=== PATIENT | male | born 1945 | race Caucasian/White ===

== ENCOUNTER → 2016-03-11 | Outpatient (CLI) | payer BC ==
[~2016-03-11] MED LIST: ALBUAER2 INH; ALFU10TA30 PO; AMIO200T4 PO; AMOX875T PO; ASPI81CH2 PO; ATRINS NEB; BENZ100C18 PO; BENZ100C84 PO; BUSP-8 PO; BUSP15TA70 PO; CIPR-255 PO; DOCU-94 PO; DXM/4 PO; DXY100 PO; FLUT0.0529 NAE; FLUT0.15 NAE; LEVA1.258 INH; LEVO-366 PO; LINA1CAP PO; LORA-741 PO; METR-163 PO; NTRGSL/4 UT; ONDA-63 PO; ONDA8TAB7 PO; OXYC-57 PO; OXYC-609 PO; OXYC80TA16 PO; PRD/25 PO; PRD20 PO; PRED-301 PO; PRED10TA PO; PRLSR20 PO; PROM25SU28 PR; SENN1TAB77 PO; SPRIN/30 INH; SULF-183 PO; SYMIN160 INH; VNTHFA/IN INH; ZOLP10TA PO
--- NOTE | 2016-03-17 13:25 | CODING QUERY MEDICAL NECESSITY ---
SUPPORTING DIAGNOSIS NEEDED Dr. Mc, A supporting diagnosis is required for the test/procedure performed on this patient in order for us to be reimbursed by the patient's insurance. Please provide a supporting diagnosis for the following test/procedure listed below next to the test name along with your signature. *If there is no additional diagnosis for this patient that would support the following test/procedure please document that below next to the test/procedure. Test(s)/Procedure(s) that require a supporting diagnosis: * [id number] PSA DIAGNOSIS: DATE OF SERVICE: 03/11/16 Provider Signature: Date: Thank you Eric Gil [facility] Information Management Once completed, please kindly fax back to [phone] For questions please call [phone]
== END | disposition home or self-care (01) ==
LOC: C.LABMFLN 08:43
PROVIDERS: ATTEND Urology
DX: R39.9 Unspecified symptoms and signs involving the genitourinary system (principal); N40.0 Benign prostatic hyperplasia without lower urinary tract symptoms

== ENCOUNTER 2016-04-11 11:47 | Emergency (ER) | payer BC ==
[~2016-04-11] VITALS: Ht 175.3 cm; Wt 66.8 kg
[~2016-04-11 11:47] MED LIST changes: -AMOX875T PO; -ATRINS NEB; -BENZ100C18 PO; -BENZ100C84 PO; -BUSP15TA70 PO; -CIPR-255 PO; -DOCU-94 PO; -DXM/4 PO; -DXY100 PO; -FLUT0.15 NAE; -LEVO-366 PO; -LORA-741 PO; -METR-163 PO; -ONDA-63 PO; -OXYC-57 PO; -OXYC-609 PO; -OXYC80TA16 PO; -PRD/25 PO; -PRD20 PO; -PRED10TA PO; -PROM25SU28 PR; -SENN1TAB77 PO; -SULF-183 PO; -VNTHFA/IN INH; -ZOLP10TA PO
[2016-04-11 11:49] VITALS: TEMP 37.8; Ht 175.3 cm; Wt 66.8 kg
[2016-04-11] MEDS ORDERED: ONDA-63 PO (12:11)
[2016-04-11] MEDS ORDERED: VNTHFA/IN INH (12:11)
[2016-04-11] MEDS ORDERED: FLUT0.15 NAE (12:11)
[2016-04-11 12:32] LABS: URINE APPEARANCE CLEAR (CLEAR); URINE BILIRUBIN NEG (NEG); URINE COLOR YELLOW; URINE NITRITE NEG (NEG); URINE SPECIFIC GRAVITY 1.011 (1.000-1.030); UROBILINOGEN NEG (NEG); ZZUR CULT IF INDIC CLEAN CATCH NO
[2016-04-11 12:37] LABS: BASO % 0.2 %; BASO ABS # 0.02 K/uL (0-0.2); COMPLETE YES; EOS % 1.1 %; HEMATOCRIT 34.1 % (42-52); IG% 0.2 %; LYMPH % 12.6 %; LYMPH ABS # 1.05 K/uL (1.2-3.4); MEAN CELL VOLUME 92.9 fL (80-100); MEAN CORPUSCULAR HEMOGLOBIN 28.9 pg (25-34); MEAN CORPUSCULAR HGB CONC 31.1 g/dl (32-36); MEAN PLATELET VOLUME 9.3 fL (7.4-10.4); MONO % 11.6 %; NEUT % 74.3 %; PLATELET COUNT 176 K/uL (130-400); RED BLOOD COUNT 3.67 M/uL (4.7-6.1); WHITE BLOOD COUNT 8.36 K/uL (4.8-10.8)
[2016-04-11 12:45] LABS: MANUAL MICROSCOPIC REQUIRED? NO; REVIEW REQ? NO
[2016-04-11 12:54] LABS: BUN/CREATININE RATIO 17.3 (10-20); CALCIUM 8.3 mg/dl (8.5-10.1); CREATININE 1.1 mg/dl (0.60-1.40); POTASSIUM 3.9 mmol/L (3.5-5.1)
[2016-04-11 12:57] LABS: ALB/GLOB RATIO 0.8 (0.9-2)
[2016-04-11] MEDS ORDERED: ONDANSETRON INJ 2 MG/ML 2 ML VIAL IV PRN (13:00)
[2016-04-11] MEDS ORDERED: SODIUM CHLORIDE 0.9% 1000ML 1,000 ML IV ONE (13:00)
--- NOTE | 2016-04-11 13:09 | EMERGENCY ROOM VISIT NOTE ---
History Report prepared by Iraida: Corky Molina Under the Supervision of: Dr. Bernardo Almonte M.D. First contact with patient: 12:49 Chief Complaint: ABDOMINAL PAIN Stated Complaint: SEVERE ABD. PAIN GOING INTO CHEST Nursing Triage Summary: pt has had left lower abd pain for greater than month, seen pcp, referred to Gastro to have colonoscopy. Recently pain goes across into right side and epigastric pt dx with fungal gastritis and started on an antifungal rinse yesterday pt has neptali cancer, and next month to start a new tx for spotts present in liver pt is nauseated told by pcp full of stool, causing pain, pt had large bm with no relief of pain History of Present Illness The patient is a 70 year old male with COPD who presents to the Emergency Room with complaints of constant left sided abdominal pain beginning one month prior to arrival. He currently rates his discomfort as a 9/10 in severity. The patient associates left sided abdominal pain that radiates to the right side of his abdomen and epigastrium, nausea, chills, and abdominal pain that radiates into his chest, which makes it difficult to swallow. He notes he has a history of lung cancer, in which, he had his upper left lung removed. The patient states he has spots to his liver and lymph nodes in his chest. He notes he is scheduled to receive a new treatment in nine days. The patient states he was recently at [facility], and a PET scan showed esophagitis and a spot on the left side of his liver. He notes his oncologist told him not to worry about the esophagitis at this time. The patient states he has had difficulty moving his bowel recently, and he is scheduled for a colonoscopy in four days. He notes he took a laxative two days ago, which helped relieve his constipation. The patient denies a fever. 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 Review of Systems All systems have been listed, reviewed, and are negative other than those previously mentioned. Please see Additional Medical History Sheet. Past Medical & Surgical Medical Problems: (1) Atrial fibrillation with RVR (2) Basal cell carcinoma of skin (3) COPD (chronic obstructive pulmonary disease) (4) Heart disease (5) Hyperlipidemia (6) Hypertension (7) Kidney stones (8) Lung cancer (9) Myocardial infarction (10) Primary cancer of left upper lobe of lung (11) Pulmonary embolism Surgical Problems: (1) H/O hernia repair (2) History of angioplasty (3) Hx of appendectomy (4) S/P lobectomy of lung Family History FH: CAD (coronary artery disease) FATHER (passed at age 59 from [place]) MOTHER Social History Smoking Status: Former Smoker Alcohol Use: other Drug Use: none Marital Status: Housing Status: lives with family Occupation Status: retired Current/Historical Medications Scheduled Alfuzosin Hcl (Uroxatral), 10 MG PO QPM Amiodarone Hcl (Cordarone), 200 MG PO QAM Amoxicillin & Pot Clavulanate (Augmentin 875-125 mg), 1 TAB PO BID Aspirin (Aspirin), 81 MG PO QAM Budesonide/Formoterol Fumarate (Symbicort 160/4.5 Inhaler), 2 PUFFS INH BID Buspirone Hcl (Buspirone Hcl), 10 MG PO QAM Docusate Sodium (Colace), 1 CAP PO BID Levalbuterol Hcl (Levalbuterol Hcl), 1 DOSE INH TID Nitroglycerin (Nitrostat), 0.4 MG UT PRN Omeprazole (Prilosec), 20 MG PO QAM Prednisone (Prednisone), 10 MG PO QAM Sennosides (Senokot), 8.6 MG PO HS Tiotropium [place] (Spiriva Handihaler), 1 PUFF INH QPM Scheduled PRN Albuterol Hfa (Ventolin Hfa), 2 PUFFS INH QID PRN for SOB/Wheezing Fluticasone Propionate (Nasal) (Flonase Allergy Relief), 2 SPRAYS ANGELA DAILY PRN for ALLERGIC REACTION Linaclotide (Linzess), 1 TAB PO Q2D PRN for ABDOMINAL PAIN Ondansetron (Ondansetron HCl), 8 MG PO Q8 PRN for Nausea or Vomiting Oxycodone/Acetaminophen 5MG/325MG (Percocet 5MG/325MG), 1-2 TAB PO Q4H PRN for Pain Allergies Coded Allergies: No Known Allergies (Unverified , 04/11/16) Physical Exam Vital Signs Date Time Temp Pulse Resp B/P Pulse Ox O2 Delivery O2 Flow Rate FiO2 04/11/16 17:59 74 18 165/86 95 04/11/16 15:47 70 20 141/85 100 Room Air 04/11/16 13:49 81 20 144/87 97 04/11/16 11:49 37.8 90 20 119/79 98 Room Air Physical Exam GENERAL: Patient awake, alert, oriented x 3. Patient follows commands. Patient does not appear toxic. Patient is adequately hydrated and well- nourished. SKIN: No erythema, pallor, cyanosis or rash HEENT: Normal head, pupils equal, reactive to light and accommodation. Oral cavity and posterior pharynx appear normal. Neck: Without adenopathy, no neck vein distention. LUNGS: Wheezes in all blount, left greater than right. HEART: No murmurs. No gallops. No rubs ABDOMEN: Patient has a right lower quadrant scar that is well healed. Tenderness along the entire left side of abdomen. No masses are palpated. EXTREMITIES: No signs of trauma. No pedal or pretibial edema. No calf or thigh tenderness. NEUROLOGIC: Cranial nerves II-XII within normal limits. No gross motor sensory function deficits. Medical Decision & Procedures Laboratory Results 04/11/16 12:30 Red Blood Count 3.67, Mean Corpuscular Volume 92.9, Mean Corpuscular Hemoglobin 28.9, Mean Corpuscular Hemoglobin Concent 31.1, Mean Platelet Volume 9.3, Neutrophils (%) (Auto) 74.3, Lymphocytes (%) (Auto) 12.6, Monocytes (%) (Auto) 11.6, Eosinophils (%) (Auto) 1.1, Basophils (%) (Auto) 0.2, Neutrophils # (Auto ) 6.21, Lymphocytes # (Auto) 1.05, Monocytes # (Auto) 0.97, Eosinophils # (Auto ) 0.09, Basophils # (Auto) 0.02 04/11/16 12:30 Test 04/11/16 12:10 04/11/16 12:30 Urine Color YELLOW Urine Appearance CLEAR (CLEAR) Urine pH 6.0 (4.5-7.5) Urine Specific [place] 1.011 (1.000-1.030) Urine Protein 1+ (NEG) Urine Glucose (UA) NEG (NEG) Urine Ketones 1+ (NEG) Urine Occult Blood NEG (NEG) Urine Nitrite NEG (NEG) Urine Bilirubin NEG (NEG) Urine Urobilinogen NEG (NEG) Urine Leukocyte Esterase NEG (NEG) Urine WBC (Auto) 1-5 /hpf (0-5) Urine RBC (Auto) 0-4 /hpf (0-4) Urine Hyaline Casts (Auto) 1-5 /lpf (0-5) Urine Epithelial Cells (Auto) 5-10 /lpf (0-5) Urine Bacteria (Auto) NEG (NEG) White Blood Count 8.36 K/uL (4.8-10.8) Red Blood Count 3.67 M/uL (4.7-6.1) Hemoglobin 10.6 g/dL (14.0-18.0) Hematocrit 34.1 % (42-52) Mean Corpuscular Volume 92.9 fL (80-100) Mean Corpuscular Hemoglobin 28.9 pg (25-34) Mean Corpuscular Hemoglobin Concent 31.1 g/dl (32-36) Platelet Count 176 K/uL (130-400) Mean Platelet Volume 9.3 fL (7.4-10.4) Neutrophils (%) (Auto) 74.3 % Lymphocytes (%) (Auto) 12.6 % Monocytes (%) (Auto) 11.6 % Eosinophils (%) (Auto) 1.1 % Basophils (%) (Auto) 0.2 % Neutrophils # (Auto) 6.21 K/uL (1.4-6.5) Lymphocytes # (Auto) 1.05 K/uL (1.2-3.4) Monocytes # (Auto) 0.97 K/uL (0.11-0.59) Eosinophils # (Auto) 0.09 K/uL (0-0.5) Basophils # (Auto) 0.02 K/uL (0-0.2) RDW Standard Deviation 62.4 fL (36.4-46.3) RDW Coefficient of Variation 18.3 % (11.5-14.5) Immature Granulocyte % (Auto) 0.2 % Immature Granulocyte # (Auto) 0.02 K/uL (0.00-0.02) Anion Gap 15.0 mmol/L (3-11) Est Creatinine Clear Calc Drug Dose 60.7 ml/min Estimated GFR () 79.5 Estimated GFR (Non- 68.6 BUN/Creatinine Ratio 17.3 (10-20) Calcium Level 8.3 mg/dl (8.5-10.1) Total Bilirubin 0.6 mg/dl (0.2-1) Aspartate Amino Transf (AST/SGOT) 22 U/L (15-37) Alanine Aminotransferase (ALT/SGPT) 37 U/L (12-78) Alkaline Phosphatase 211 U/L (45-117) Total Protein 6.2 gm/dl (6.4-8.2) Albumin 2.8 gm/dl (3.4-5.0) Globulin 3.4 gm/dl (2.5-4.0) Albumin/Globulin Ratio 0.8 (0.9-2) Lipase 215 U/L (73-393) Laboratory results as stated above per my review. Medications Administered Medications (Trade) Dose Ordered Sig/Isai Route Start Time Stop Time Status Last Admin Dose Admin Morphine Sulfate (MoRPHine SULFATE INJ) 6 mg Q1H PRN IV 04/11/16 13:00 04/11/16 18:26 DC 04/11/16 17:29 6 MG Ondansetron HCl 4 mg 4 mg PRN PRN IV 04/11/16 13:00 04/11/16 18:26 DC 04/11/16 13:48 4 MG Sodium Chloride (Nss 1000ml) 1,000 ml @ 1,000 mls/hr Q1H ONCE IV 04/11/16 13:00 04/11/16 13:59 DC 04/11/16 13:47 1,000 MLS/HR Ondansetron HCl (Zofran Inj) 4 mg NOW STAT IV 04/11/16 16:48 04/11/16 16:49 DC 04/11/16 17:07 4 MG Amoxicillin/ Clavulanate Potassium (Augmentin Tab) 875 mg ONE ONCE PO 04/11/16 17:15 04/11/16 17:16 DC 04/11/16 17:28 875 MG ECG Indication: abdominal pain Rate (beats per minute): 83 Rhythm: normal sinus Findings: no acute ischemic change, no ectopy ED Course 1247: Past medical records reviewed. The patient was evaluated in room C5. A complete history and physical examination was performed. It is noted the patient was allowed to use his own albuterol inhaler. 1300: Ordered Sodium Chloride 1,000 ml @ 1,000 mls/hr IV, Zofran Inj 4 mg IV, Morphine Sulfate 6 mg IV. 1615: The patient will be signed out to ANNAMARIA Mason (Emergency Medicine). Medical Decision Nurses notes reviewed. Medical history sheet reviewed. Differential diagnosis includes but is not limited to: metastatic lung cancer, colitis, bowel obstruction, diverticulitis. Multiple labs and imaging were obtained. Please see above. The patient was signed off to Dr. Joiner at change of shift awaiting results of the CT scan. Please see his note. Impression Primary Impression: Abdominal pain, periumbilic Scribe Attestation The scribe's documentation has been prepared under my direction and personally reviewed by me in its entirety. I confirm that the note above accurately reflects all work, treatment, procedures, and medical decision making performed by me. Departure Information Dispostion Still a Patient (ANNAMARIA Mason (Emergency Medicine)) Prescriptions Docusate Sodium (COLACE) 100 Mg Cap 1 CAP PO BID for 10 Days, #20 CAP Prov: Rufus Joiner MD 04/11/16 Sennosides (SENOKOT) 8.6 Mg Tab 8.6 MG PO HS, #10 TAB Prov: Rufus Joiner MD 04/11/16 Oxycodone/Acetaminophen 5MG/325MG (PERCOCET 5MG/325MG) Tab 1-2 TAB PO Q4H Y for Pain, #14 TAB Prov: Rufus Joiner MD 04/11/16 Amoxicillin & Pot Clavulanate (Augmentin 875-125 mg) 1 Tab Tab 1 TAB PO BID for 10 Days, #20 TAB Prov: Rufus Joiner MD 04/11/16 Referrals Violetta Kimbrough M.D. (PCP)
[2016-04-11] MEDS ORDERED: OPTIRAY 320 IV PRN (13:15)
[2016-04-11] MEDS: MoRPHine SULFATE 10 MG/ML CARP/VIAL IV PRN ×2 (13:48→17:29)
[2016-04-11] MEDS ORDERED: ONDANSETRON INJ 2 MG/ML 2 ML VIAL IV STA (16:48)
--- NOTE | 2016-04-11 16:55 | DIAGNOSTIC IMAGING REPORT ---
ABDOMEN AND PELVIS CT WITH IV AND ORAL CONTRAST CT DOSE: 301.69 mGy.cm HISTORY: Pain left sided abd pain lung CA TECHNIQUE: Multiaxial CT images of the abdomen and pelvis were performed following the use of intravenous and oral contrast. COMPARISON STUDY: 09/05/2014 FINDINGS: lung bases are clear. Interval development of acute sigmoid diverticulitis. Moderate wall thickening as well as pericolonic infiltrative change. No evidence for abscess or collection at the current time Fluid pocket left inguinal region is unchanged. No significant pelvic adenopathy. Mild wall thickening of the descending colon. A sending and transverse colonic regions are unremarkable. Left and to lesser extent right renal cystic changes stable. No evidence for hydronephrosis. Interval development of distention of the extra hepatic common bile duct to 8 mm. Progressive distention of the intrahepatic ducts in the left hepatic lobe/components of the medial right hepatic lobe possibly secondary to developing hepatic metastatic change. There appears to be a peripheral hypodensity left hepatic lobe measuring 1.8 cm. A developing periportal hypodensity measuring 1.7 cm is also possible. Pancreatic duct does not appear to be distended. There is atelectatic change and ectasia of the abdominal aorta as well as iliac vasculature. Survey evaluation of the osseous structures shows no well-defined lytic or blastic process. IMPRESSION: 1. Acute sigmoid diverticulitis with less prominent findings involving the descending colon. 2. Pericolonic infiltrative change, although there is no evidence for abscess or collection. 3. Interval dilatation of the extra hepatic common bile duct 8 mm with progressive distention of the left and to lesser extent medial right hepatic lobe ductal system. 4. This appears to be secondary to probable developing hepatic metastatic change . Primary biliary neoplastic change on a multifocal bases is less likely Electronically signed by: Nicolas Mora M.D. 04/11/2016 4:54 PM Dictated Date/Time: 04/11/2016 4:43 PM
[2016-04-11] MEDS ORDERED: AMOXICILLIN/CLAVULANATE TAB 875 MG TAB PO ONE (17:15)
[2016-04-11] MEDS ORDERED: MoRPHine SULFATE 10 MG/ML CARP/VIAL IV STA (17:17)
[2016-04-11] MEDS ORDERED: SENN1TAB77 PO (17:22)
[2016-04-11] MEDS ORDERED: AMOX875T PO (17:22)
[2016-04-11] MEDS ORDERED: DOCU-94 PO (17:22)
[2016-04-11] MEDS ORDERED: OXYC-57 PO (17:22)
--- NOTE | 2016-04-11 17:26 | EMERGENCY ROOM VISIT NOTE ---
ED Visit Note First contact with patient: 16:26 Received patient in signout from Dr. Moreno. History and physical verified by me. Patient is awaiting CAT scan results. He did request nausea medication while waiting. He was given nausea medication as well as morphine in the emergency department. Serial abdominal examinations were performed on the patient while the patient was under my care. His abdomen is soft and nondistended. There is no guarding. There is mild tenderness to the left lower quadrant. His CAT scan is concerning for diverticulitis. Based on the patient's past medical history as well as his chemotherapy regimen I recommended to the patient that he be admitted to the hospital however he is refusing and wishes to go home. I believe this is reasonable. The patient was given Augmentin in the emergency department as well as pain medication for home. I recommended that he follow-up with Dr. Proctor's office. The patient or he has a colonoscopy scheduled for . He was told to return if he does any fevers or severe abdominal pain. Patient was also written for stool softeners. Patient was in agreement with the treatment plan. Problem List Medical Problems: (1) Basal cell carcinoma of skin Status: Resolved (2) COPD (chronic obstructive pulmonary disease) Status: Chronic (3) Heart disease Status: Chronic (4) Hyperlipidemia Status: Chronic (5) Hypertension Status: Chronic (6) Kidney stones Permanent Comment: s/p lithotripsy Status: Resolved (7) Lung cancer Permanent Comment: Abnormal CT PET scan revealing left upper lobe lesion 06/01/2013 fine-needle aspiration showing squamous cell carcinoma 06/29/2013 status post left upper lobectomy [id number] Systemic chemotherapy with cisplatin and gemzar for 4 cycles 04/08/2004 abnormal PET/CT with new FDG avid lesion Combined radiation and chemotherapy recommended Status: Chronic (8) Myocardial infarction Permanent Comment: inferior wall Status: Resolved (9) Primary cancer of left upper lobe of lung Status: Chronic (10) Pulmonary embolism Status: Resolved Surgical Problems: (1) H/O hernia repair Status: Resolved (2) History of angioplasty Permanent Comment: with stenting in 2005 and 2006 Status: Resolved (3) Hx of appendectomy Status: Resolved (4) S/P lobectomy of lung Permanent Comment: 06/2013 Status: Resolved Current/Historical Medications Scheduled Alfuzosin Hcl (Uroxatral), 10 MG PO QPM Amiodarone Hcl (Cordarone), 200 MG PO QAM Amoxicillin & Pot Clavulanate (Augmentin 875-125 mg), 1 TAB PO BID Aspirin (Aspirin), 81 MG PO QAM Budesonide/Formoterol Fumarate (Symbicort 160/4.5 Inhaler), 2 PUFFS INH BID Buspirone Hcl (Buspirone Hcl), 10 MG PO QAM Docusate Sodium (Colace), 1 CAP PO BID Levalbuterol Hcl (Levalbuterol Hcl), 1 DOSE INH TID Nitroglycerin (Nitrostat), 0.4 MG UT PRN Omeprazole (Prilosec), 20 MG PO QAM Prednisone (Prednisone), 10 MG PO QAM Sennosides (Senokot), 8.6 MG PO HS Tiotropium [place] (Spiriva Handihaler), 1 PUFF INH QPM Scheduled PRN Albuterol Hfa (Ventolin Hfa), 2 PUFFS INH QID PRN for SOB/Wheezing Fluticasone Propionate (Nasal) (Flonase Allergy Relief), 2 SPRAYS ANGELA DAILY PRN for ALLERGIC REACTION Linaclotide (Linzess), 1 TAB PO Q2D PRN for ABDOMINAL PAIN Ondansetron (Ondansetron HCl), 8 MG PO Q8 PRN for Nausea or Vomiting Oxycodone/Acetaminophen 5MG/325MG (Percocet 5MG/325MG), 1-2 TAB PO Q4H PRN for Pain Allergies Coded Allergies: No Known Allergies (Unverified , 04/11/16) Vital Signs Date Time Temp Pulse Resp B/P Pulse Ox O2 Delivery O2 Flow Rate FiO2 04/11/16 15:47 70 20 141/85 100 Room Air 04/11/16 13:49 81 20 144/87 97 04/11/16 11:49 37.8 90 20 119/79 98 Room Air Laboratory Results 04/11/16 12:30 Red Blood Count 3.67, Mean Corpuscular Volume 92.9, Mean Corpuscular Hemoglobin 28.9, Mean Corpuscular Hemoglobin Concent 31.1, Mean Platelet Volume 9.3, Neutrophils (%) (Auto) 74.3, Lymphocytes (%) (Auto) 12.6, Monocytes (%) (Auto) 11.6, Eosinophils (%) (Auto) 1.1, Basophils (%) (Auto) 0.2, Neutrophils # (Auto ) 6.21, Lymphocytes # (Auto) 1.05, Monocytes # (Auto) 0.97, Eosinophils # (Auto ) 0.09, Basophils # (Auto) 0.02 04/11/16 12:30 Test 04/11/16 12:10 04/11/16 12:30 Urine Color YELLOW Urine Appearance CLEAR (CLEAR) Urine pH 6.0 (4.5-7.5) Urine Specific [place] 1.011 (1.000-1.030) Urine Protein 1+ (NEG) Urine Glucose (UA) NEG (NEG) Urine Ketones 1+ (NEG) Urine Occult Blood NEG (NEG) Urine Nitrite NEG (NEG) Urine Bilirubin NEG (NEG) Urine Urobilinogen NEG (NEG) Urine Leukocyte Esterase NEG (NEG) Urine WBC (Auto) 1-5 /hpf (0-5) Urine RBC (Auto) 0-4 /hpf (0-4) Urine Hyaline Casts (Auto) 1-5 /lpf (0-5) Urine Epithelial Cells (Auto) 5-10 /lpf (0-5) Urine Bacteria (Auto) NEG (NEG) White Blood Count 8.36 K/uL (4.8-10.8) Red Blood Count 3.67 M/uL (4.7-6.1) Hemoglobin 10.6 g/dL (14.0-18.0) Hematocrit 34.1 % (42-52) Mean Corpuscular Volume 92.9 fL (80-100) Mean Corpuscular Hemoglobin 28.9 pg (25-34) Mean Corpuscular Hemoglobin Concent 31.1 g/dl (32-36) Platelet Count 176 K/uL (130-400) Mean Platelet Volume 9.3 fL (7.4-10.4) Neutrophils (%) (Auto) 74.3 % Lymphocytes (%) (Auto) 12.6 % Monocytes (%) (Auto) 11.6 % Eosinophils (%) (Auto) 1.1 % Basophils (%) (Auto) 0.2 % Neutrophils # (Auto) 6.21 K/uL (1.4-6.5) Lymphocytes # (Auto) 1.05 K/uL (1.2-3.4) Monocytes # (Auto) 0.97 K/uL (0.11-0.59) Eosinophils # (Auto) 0.09 K/uL (0-0.5) Basophils # (Auto) 0.02 K/uL (0-0.2) RDW Standard Deviation 62.4 fL (36.4-46.3) RDW Coefficient of Variation 18.3 % (11.5-14.5) Immature Granulocyte % (Auto) 0.2 % Immature Granulocyte # (Auto) 0.02 K/uL (0.00-0.02) Anion Gap 15.0 mmol/L (3-11) Est Creatinine Clear Calc Drug Dose 60.7 ml/min Estimated GFR () 79.5 Estimated GFR (Non- 68.6 BUN/Creatinine Ratio 17.3 (10-20) Calcium Level 8.3 mg/dl (8.5-10.1) Total Bilirubin 0.6 mg/dl (0.2-1) Aspartate Amino Transf (AST/SGOT) 22 U/L (15-37) Alanine Aminotransferase (ALT/SGPT) 37 U/L (12-78) Alkaline Phosphatase 211 U/L (45-117) Total Protein 6.2 gm/dl (6.4-8.2) Albumin 2.8 gm/dl (3.4-5.0) Globulin 3.4 gm/dl (2.5-4.0) Albumin/Globulin Ratio 0.8 (0.9-2) Lipase 215 U/L (73-393) Medications Administered Medications (Trade) Dose Ordered Sig/Isai Route Start Time Stop Time Status Last Admin Dose Admin Morphine Sulfate (MoRPHine SULFATE INJ) 6 mg Q1H PRN IV 04/11/16 13:00 04/25/16 12:59 04/11/16 13:48 6 MG Ondansetron HCl 4 mg 4 mg PRN PRN IV 04/11/16 13:00 05/11/16 12:59 04/11/16 13:48 4 MG Sodium Chloride (Nss 1000ml) 1,000 ml @ 1,000 mls/hr Q1H ONCE IV 04/11/16 13:00 04/11/16 13:59 DC 04/11/16 13:47 1,000 MLS/HR Ondansetron HCl (Zofran Inj) 4 mg NOW STAT IV 04/11/16 16:48 04/11/16 16:49 DC 04/11/16 17:07 4 MG Departure Information Impression Primary Impression: Left lower quadrant pain Additional Impression: Diverticulitis Dispostion Home / Self-Care Condition GOOD Prescriptions Docusate Sodium (COLACE) 100 Mg Cap 1 CAP PO BID for 10 Days, #20 CAP Prov: Rufus Joiner MD 04/11/16 Sennosides (SENOKOT) 8.6 Mg Tab 8.6 MG PO HS, #10 TAB Prov: Rufus Joiner MD 04/11/16 Oxycodone/Acetaminophen 5MG/325MG (PERCOCET 5MG/325MG) Tab 1-2 TAB PO Q4H Y for Pain, #14 TAB Prov: Rufus Joiner MD 04/11/16 Amoxicillin & Pot Clavulanate (Augmentin 875-125 mg) 1 Tab Tab 1 TAB PO BID for 10 Days, #20 TAB Prov: Rufus Joiner MD 04/11/16 Referrals Violetta Kimbrough M.D. (PCP) Kaylee Proctor M.D. Forms HOME CARE DOCUMENTATION FORM, School Instructions, Work Instructions, IMPORTANT VISIT INFORMATION Patient Instructions Diverticulosis Diverticulitis, My [facility] Additional Instructions Follow up with Dr Proctor's office Return if severe abd pain or fevers are out of control Clear liquid diet next 48 hours; Take probiotics or probiotic yogurt while on augmentin You have been examined and treated today on an emergency basis only. This is not a substitute for, or an effort to provide, complete comprehensive medical care. It is impossible to recognize and treat all injuries or illnesses in a single emergency department visit. It is therefore important that you follow up closely with Dr Kimbrough. Call as soon as possible for an appointment. Thank you for your time and consideration. I look forward to speaking with you again soon. Please don't hesitate to call us if you have any questions. Problem Qualifiers
[2016-04-11] MEDS ORDERED: ONDANSETRON HOME PACK 4MG OD TAB PO ONE (17:30)
[2016-04-11] MEDS ORDERED: AMOXICIL/CLAVU 875MG HOME PACK PO ONE (17:30)
[2016-04-11] MEDS ORDERED: PERCOCET HOME PACK PO ONE (17:30)
[2016-04-11 17:59] VITALS: BP 165/86; PULSE 74; O2SAT 95
[2016-05-21] MEDS ORDERED: LORA-741 PO (10:40)
[2016-05-21] MEDS ORDERED: PROM25SU28 PR (10:40)
[2016-05-21] MEDS ORDERED: DXM/4 PO (10:40)
[2016-06-23] MEDS ORDERED: BUSP15TA70 PO (11:12)
[2016-06-23] MEDS ORDERED: LEVO-366 PO (14:39)
[2016-07-15] MEDS ORDERED: PRED10TA PO (21:36)
[2016-07-18] MEDS ORDERED: PRD20 PO ×2 (08:57→12:30)
[2016-10-13] MEDS ORDERED: OXYC80TA16 PO (13:39)
[2016-10-13] MEDS ORDERED: SULF-183 PO (13:39)
[2016-10-13] MEDS ORDERED: PRD/25 PO (13:39)
[2016-10-27] MEDS ORDERED: PRED10TA PO (15:59)
[2016-10-27] MEDS ORDERED: DXY100 PO (15:59)
== END 2016-04-11 18:01 | disposition home or self-care (01) ==
LOC: C.EDB 11:49 → C.EDC 18:01
DX: R10.33 Periumbilical pain (principal); I48.91 Unspecified atrial fibrillation; I10 Essential (primary) hypertension; E78.5 Hyperlipidemia, unspecified; J44.9 Chronic obstructive pulmonary disease, unspecified; I51.9 Heart disease, unspecified; I25.2 Old myocardial infarction; Z87.2 Personal history of diseases of the skin and subcutaneous tissue; Z85.118 Personal history of other malignant neoplasm of bronchus and lung; Z86.711 Personal history of pulmonary embolism; Z87.442 Personal history of urinary calculi; Z98.61 Coronary angioplasty status; Z90.2 Acquired absence of lung [part of]; Z79.82 Long term (current) use of aspirin; Z79.899 Other long term (current) drug therapy; Z87.891 Personal history of nicotine dependence; Z82.49 Family history of ischemic heart disease and other diseases of the circulatory system

== ENCOUNTER 2016-05-19 12:10 | Emergency (ER) | payer BC ==
[~2016-05-19] VITALS: Ht 175.3 cm; Wt 61.6 kg
[~2016-05-19 12:10] MED LIST changes: -ALBUAER2 INH; -FLUT0.0529 NAE; +FLUT0.15 NAE; +ONDA-63 PO; -ONDA8TAB7 PO; +OXYC-57 PO; +VNTHFA/IN INH
[2016-05-19 12:14] VITALS: TEMP 37; Ht 175.3 cm; Wt 61.6 kg
[2016-05-19] MEDS ORDERED: OXYC-609 PO (12:49)
[2016-05-19 13:14] LABS: COMPLETE YES; HEMATOCRIT 35.3 % (42-52); IG% 0.1 %; LYMPH % 5.7 %; MEAN CELL VOLUME 86.7 fL (80-100); MEAN CORPUSCULAR HGB CONC 31.2 g/dl (32-36); MEAN PLATELET VOLUME 9.4 fL (7.4-10.4); MONO % 10.3 %; NEUT % 83.9 %; PLATELET COUNT 175 K/uL (130-400); RED BLOOD COUNT 4.07 M/uL (4.7-6.1); WHITE BLOOD COUNT 7.06 K/uL (4.8-10.8)
[2016-05-19 13:23] LABS: ALT/SGPT 24 U/L (12-78); AST/SGOT 15 U/L (15-37); BLOOD UREA NITROGEN 22 mg/dl (7-18); BUN/CREATININE RATIO 18.4 (10-20); CALCIUM 8.8 mg/dl (8.5-10.1); CARBON DIOXIDE 24 mmol/L (21-32); CHLORIDE 108 mmol/L (98-107); GLUCOSE 122 mg/dl (70-99); POTASSIUM 3.2 mmol/L (3.5-5.1); SODIUM 142 mmol/L (136-145)
[2016-05-19 13:25] LABS: ALB/GLOB RATIO 1.1 (0.9-2); ALKALINE PHOSPHATASE 176 U/L (45-117)
[2016-05-19] MEDS ORDERED: SODIUM CHLORIDE 0.9% 1000ML 1,000 ML IV STA (13:28)
[2016-05-19] MEDS ORDERED: PROMETHAZINE HCL INJ 25 MG in SODIUM CHLORIDE 0.9% 50ML 50 ML IV STA (13:28)
[2016-05-19 14:12] LABS: MANUAL MICROSCOPIC REQUIRED? NO; REVIEW REQ? YES; URINE APPEARANCE CLEAR (CLEAR); URINE BILIRUBIN NEG (NEG); URINE COLOR YELLOW; URINE EPITHELIAL CELL AUTO >30 /lpf (0-5); URINE NITRITE NEG (NEG); URINE SPECIFIC GRAVITY 1.016 (1.000-1.030); UROBILINOGEN NEG (NEG); ZZUR CULT IF INDIC CLEAN CATCH NO
[2016-05-19] MEDS ORDERED: POTASSIUM CHLORIDE 10 MEQ TABCR PO STA (14:33)
--- NOTE | 2016-05-19 14:59 | DIAGNOSTIC IMAGING REPORT ---
ULTRASOUND RIGHT UPPER QUADRANT ABDOMEN CLINICAL HISTORY: Nausea and vomiting. COMPARISON STUDY: Abdominal CT dated 04/11/2016. TECHNIQUE: Real-time, grayscale, and color flow sonography of the right upper quadrant of the abdomen was performed. Images are reviewed in the transverse and longitudinal planes. FINDINGS: Liver: The liver is normal in size and heterogeneous and echotexture. Intrahepatic biliary ductal dilatation is again seen in the left lobe of the liver. The left lobe appears diminutive, and a central mass lesion is identified. This was better characterized on the 04/11/2016 CT scan. The main portal vein is patent. Gallbladder: There is minimal biliary sludge. No shadowing gallstones are identified. There is no gallbladder wall thickening or pericholecystic fluid. A sonographic Choudhary's sign is reportedly absent. The common bile duct measures up to 1.0 cm in diameter. Pancreas: Visualized portions of the pancreatic head and body are normal in appearance. The splenic vein is patent. Right kidney: Survey images of the right kidney demonstrate cortical atrophy. There is no hydronephrosis. Scattered subcentimeter cysts are noted. Ascites: None. IMPRESSION: 1. No acute sonographic abnormality is identified in the right upper quadrant. Minimal biliary sludge is noted. No shadowing gallstones are seen. 2. Heterogeneity/mass lesions are again noted in the left lobe of the liver with dilatation of the intrahepatic ducts of the left lobe. This is likely related to metastatic disease and was better characterized on the 04/11/2016 CT scan. Electronically signed by: Gonzalez Cooney M.D. 05/19/2016 2:58 PM Dictated Date/Time: 05/19/2016 2:55 PM
[2016-05-19] MEDS ORDERED: GADAVIST IV PRN (17:30)
--- NOTE | 2016-05-19 17:45 | DIAGNOSTIC IMAGING REPORT ---
MRI OF THE BRAIN WITHOUT AND WITH IV CONTRAST CLINICAL HISTORY: nausea/ vomiting in patient with lung CA with mets mental status change COMPARISON STUDY: 04/19/2014 TECHNIQUE: Utilizing a 1.5 Margarette magnet and dedicated coil, multiplanar, multiecho imaging of the brain was performed pre and postcontrast administration. IV administration of 8.5 mL of Gadavist contrast was uneventful. FINDINGS: Interval development of peripherally enhancing lesions of the right temporal parietal lobe region. This primarily are in the inferior right temporal lobe region with peripheral postcontrast enhancement. This measures approximate 18 x 16 mm. Mild localized vasogenic edema. A second 12 x 9 mm peripherally enhancing lesion is identified in the posterior right temporal lobe region. There is mild localized vasogenic edema. Findings of mild age-related atrophy and chronic small vessel change are stable compared to the prior study. IMPRESSION: Developing intracranial metastatic disease primarily within the right temporal lobe. No midline shift or significant mass effect at the current time. Electronically signed by: Nicolas Mora M.D. 05/19/2016 5:44 PM Dictated Date/Time: 05/19/2016 5:37 PM
[2016-05-19] MEDS ORDERED: DEXAMETHASONE SOD INJ 10 MG/ML VIAL IV ONE (18:30)
[2016-05-19] MEDS ORDERED: PHENERGAN 25MG HOMEPACK PO ONE (19:00)
--- NOTE | 2016-05-19 19:08 | EMERGENCY ROOM VISIT NOTE ---
History First contact with patient: 13:01 Chief Complaint: NAUSEA Stated Complaint: NAUSEA/VOMITING Nursing Triage Summary: HX LUNG CANCER. STARTED ON NEW CHEMO MEDICATION A MONTH AGO, RECEIVES INFUSIONS THROUGH LEFT SUBCLAVIAN A-PORT. APPROXIMATELY 3 WEEKS AGO PT DEVELOPED INTRACTABLE NAUSEA, WAS SEEN HERE, DIAGNOSED WITH DIVERTICULITIS, FINISHED COURSE OF ABX. WAS SEEN AT [facility] [place] AFTER THAT FOR PERSISTENT NAUSEA, WAS GIVEN REGLAN AND ZOFRAN WITHOUT RELIEF AND DC'D FROM THE ED. TODAY PT PRESENTS FOR CONCERNS OF DEHYDRATION DUE TO NAUSEA/VOMITING, AND HAS HAD WEIGHTLOSS A RESULT. PT VERBALIZES HE DID SPEAK TO ONCOLOGIST ABOUT THE POSSIBILITY OF THE NEW CHEMO MEDICATION CAUSING SYMPTOMS, BUT ONCOLOGIST VERBALIZED HE THOUGHT THE PERSISTENT NAUSEA WAS DUE TO RECENT DIAGNOSIS OF DIVERTICULITIS. PT DENIES ANY ABDOMINAL PAIN OR DIARRHEA. History of Present Illness The patient is a 70 year old male who presents to the Emergency Room with complaints of persistent nausea and vomiting for several weeks. The patient states that he started on Opdivo for his lung cancer approximately 5 weeks ago. He has had 2 rounds of treatment. He is due for his next treatment on Tuesday. The patient states that his nausea and vomiting started shortly after he started with this medication. Also in the interim the patient had been seen here at the emergency room and was diagnosed with diverticulitis. He was on antibiotics for the diverticulitis but he completed those a few weeks ago. He also states that he went to the emergency room at [place] on Tuesday for his current symptoms and was given Reglan and Zofran. The patient states that he cannot keep his medications down. He also had endoscopy performed in February which revealed esophagitis but no evidence of cancer within the upper GI tract. His Prilosec was increased to 40 mg a day. He also takes Zantac. The patient states that he discuss with his oncologist about the nausea and vomiting and they did not feel that it was due to the Opdivo. The patient currently is complaining of nausea and vomiting but denies any abdominal pain or diarrhea. The patient denies any urinary symptoms of frequency, urgency or dysuria. The patient denies any fever. The patient denies any chest pain. Patient denies any headache, dizziness or visual changes. The patient also admitted that he had a PET scan done at [facility] earlier this year where he went for a second opinion and was told that he now has 2 metastatic spot on his liver. The patient also states that he is status post left upper lung lobectomy 3 years ago. Review of Systems 10 system review was performed and was negative unless stated otherwise history of present illness. Past Medical/Surgical History Medical Problems: (1) Atrial fibrillation with RVR (2) Basal cell carcinoma of skin (3) COPD (chronic obstructive pulmonary disease) (4) Heart disease (5) Hyperlipidemia (6) Hypertension (7) Kidney stones (8) Lung cancer (9) Myocardial infarction (10) Primary cancer of left upper lobe of lung (11) Pulmonary embolism Surgical Problems: (1) H/O hernia repair (2) History of angioplasty (3) Hx of appendectomy (4) S/P lobectomy of lung Family History FH: CAD (coronary artery disease) FATHER (passed at age 59 from [place]) MOTHER Social History Smoking Status: Former Smoker Alcohol Use: other Drug Use: none Marital Status: Housing Status: lives with family Occupation Status: retired Current/Historical Medications Scheduled Alfuzosin Hcl (Uroxatral), 10 MG PO QPM Amiodarone Hcl (Cordarone), 200 MG PO QAM Aspirin (Aspirin), 81 MG PO QAM Budesonide/Formoterol Fumarate (Symbicort 160/4.5 Inhaler), 2 PUFFS INH BID Buspirone Hcl (Buspirone Hcl), 10 MG PO QAM Levalbuterol Hcl (Levalbuterol Hcl), 1 DOSE INH TID Nitroglycerin (Nitrostat), 0.4 MG UT PRN Omeprazole (Prilosec), 20 MG PO BID Oxycodone HCl (Oxycodone HCl), 5 MG PO UD Prednisone (Prednisone), 10 MG PO QAM Tiotropium [place] (Spiriva Handihaler), 1 PUFF INH QPM Scheduled PRN Albuterol Hfa (Ventolin Hfa), 2 PUFFS INH QID PRN for SOB/Wheezing Fluticasone Propionate (Nasal) (Flonase Allergy Relief), 2 SPRAYS ANGELA DAILY PRN for ALLERGIC REACTION Ondansetron (Ondansetron HCl), 8 MG PO Q8 PRN for Nausea or Vomiting Allergies Coded Allergies: No Known Allergies (Unverified , 05/19/16) Physical Exam Vital Signs Date Time Temp Pulse Resp B/P Pulse Ox O2 Delivery O2 Flow Rate FiO2 05/19/16 18:43 65 18 191/92 100 Room Air 05/19/16 16:43 63 18 138/80 96 Room Air 05/19/16 16:02 62 18 174/88 100 Room Air 05/19/16 14:00 95 17 153/88 97 Room Air 05/19/16 12:29 104 05/19/16 12:14 37.0 79 20 144/78 98 Room Air Physical Exam GENERAL: 70-year-old white male appears in no acute distress. MENTAL Status: Alert and oriented 3. EYES: No icterus noted MOUTH: Mucosa is slightly dry. NECK: Supple, no lymphadenopathy noted. No carotid bruits noted. LUNGS: Left upper breath sounds absent. Remainder of lung blount with diffuse rhonchi. No wheezing noted. CARDIAC: Regular rate and rhythm without murmur. Pulses is full and equal throughout. BACK: No CVA tenderness noted. ABDOMEN: Positive bowel sounds all 4 quadrants. Soft, mild tenderness to palpation in the left upper quadrant otherwise nontender to palpation without organomegaly or masses. EXTREMITIES: No cyanosis or edema noted. Medical Decision & Procedures ER Provider Diagnostic Interpretation: ULTRASOUND RIGHT UPPER QUADRANT ABDOMEN CLINICAL HISTORY: Nausea and vomiting. COMPARISON STUDY: Abdominal CT dated 04/11/2016. TECHNIQUE: Real-time, grayscale, and color flow sonography of the right upper quadrant of the abdomen was performed. Images are reviewed in the transverse and longitudinal planes. FINDINGS: Liver: The liver is normal in size and heterogeneous and echotexture. Intrahepatic biliary ductal dilatation is again seen in the left lobe of the liver. The left lobe appears diminutive, and a central mass lesion is identified. This was better characterized on the 04/11/2016 CT scan. The main portal vein is patent. Gallbladder: There is minimal biliary sludge. No shadowing gallstones are identified. There is no gallbladder wall thickening or pericholecystic fluid. A sonographic Choudhary's sign is reportedly absent. The common bile duct measures up to 1.0 cm in diameter. Pancreas: Visualized portions of the pancreatic head and body are normal in appearance. The splenic vein is patent. Right kidney: Survey images of the right kidney demonstrate cortical atrophy. There is no hydronephrosis. Scattered subcentimeter cysts are noted. Ascites: None. IMPRESSION: 1. No acute sonographic abnormality is identified in the right upper quadrant. Minimal biliary sludge is noted. No shadowing gallstones are seen. 2. Heterogeneity/mass lesions are again noted in the left lobe of the liver with dilatation of the intrahepatic ducts of the left lobe. This is likely related to metastatic disease and was better characterized on the 04/11/2016 CT scan. Electronically signed by: Gonzalez Cooney M.D. 05/19/2016 2:58 PM Dictated Date/Time: 05/19/2016 2:55 PM MRI OF THE BRAIN WITHOUT AND WITH IV CONTRAST CLINICAL HISTORY: nausea/ vomiting in patient with lung CA with mets mental status change COMPARISON STUDY: 04/19/2014 TECHNIQUE: Utilizing a 1.5 Margarette magnet and dedicated coil, multiplanar, multiecho imaging of the brain was performed pre and postcontrast administration. IV administration of 8.5 mL of Gadavist contrast was uneventful. FINDINGS: Interval development of peripherally enhancing lesions of the right temporal parietal lobe region. This primarily are in the inferior right temporal lobe region with peripheral postcontrast enhancement. This measures approximate 18 x 16 mm. Mild localized vasogenic edema. A second 12 x 9 mm peripherally enhancing lesion is identified in the posterior right temporal lobe region. There is mild localized vasogenic edema. Findings of mild age-related atrophy and chronic small vessel change are stable compared to the prior study. IMPRESSION: Developing intracranial metastatic disease primarily within the right temporal lobe. No midline shift or significant mass effect at the current time. Electronically signed by: Nicolas Mora M.D. 05/19/2016 5:44 PM Laboratory Results 05/19/16 12:40 Red Blood Count 4.07, Mean Corpuscular Volume 86.7, Mean Corpuscular Hemoglobin 27.0, Mean Corpuscular Hemoglobin Concent 31.2, Mean Platelet Volume 9.4, Neutrophils (%) (Auto) 83.9, Lymphocytes (%) (Auto) 5.7, Monocytes (%) (Auto) 10.3, Eosinophils (%) (Auto) 0.0, Basophils (%) (Auto) 0.0, Neutrophils # (Auto ) 5.92, Lymphocytes # (Auto) 0.40, Monocytes # (Auto) 0.73, Eosinophils # (Auto ) 0.00, Basophils # (Auto) 0.00 05/19/16 12:40 Test 05/19/16 12:40 05/19/16 14:00 White Blood Count 7.06 K/uL (4.8-10.8) Red Blood Count 4.07 M/uL (4.7-6.1) Hemoglobin 11.0 g/dL (14.0-18.0) Hematocrit 35.3 % (42-52) Mean Corpuscular Volume 86.7 fL (80-100) Mean Corpuscular Hemoglobin 27.0 pg (25-34) Mean Corpuscular Hemoglobin Concent 31.2 g/dl (32-36) Platelet Count 175 K/uL (130-400) Mean Platelet Volume 9.4 fL (7.4-10.4) Neutrophils (%) (Auto) 83.9 % Lymphocytes (%) (Auto) 5.7 % Monocytes (%) (Auto) 10.3 % Eosinophils (%) (Auto) 0.0 % Basophils (%) (Auto) 0.0 % Neutrophils # (Auto) 5.92 K/uL (1.4-6.5) Lymphocytes # (Auto) 0.40 K/uL (1.2-3.4) Monocytes # (Auto) 0.73 K/uL (0.11-0.59) Eosinophils # (Auto) 0.00 K/uL (0-0.5) Basophils # (Auto) 0.00 K/uL (0-0.2) RDW Standard Deviation 53.0 fL (36.4-46.3) RDW Coefficient of Variation 16.6 % (11.5-14.5) Immature Granulocyte % (Auto) 0.1 % Immature Granulocyte # (Auto) 0.01 K/uL (0.00-0.02) Anion Gap 10.0 mmol/L (3-11) Est Creatinine Clear Calc Drug Dose 51.3 ml/min Estimated GFR () 71.6 Estimated GFR (Non- 61.8 BUN/Creatinine Ratio 18.4 (10-20) Calcium Level 8.8 mg/dl (8.5-10.1) Total Bilirubin 0.4 mg/dl (0.2-1) Direct Bilirubin < 0.1 mg/dl (0-0.2) Aspartate Amino Transf (AST/SGOT) 15 U/L (15-37) Alanine Aminotransferase (ALT/SGPT) 24 U/L (12-78) Alkaline Phosphatase 176 U/L (45-117) Total Protein 6.6 gm/dl (6.4-8.2) Albumin 3.5 gm/dl (3.4-5.0) Globulin 3.1 gm/dl (2.5-4.0) Albumin/Globulin Ratio 1.1 (0.9-2) Lipase 164 U/L (73-393) Urine Color YELLOW Urine Appearance CLEAR (CLEAR) Urine pH 7.0 (4.5-7.5) Urine Specific [place] 1.016 (1.000-1.030) Urine Protein 2+ (NEG) Urine Glucose (UA) NEG (NEG) Urine Ketones NEG (NEG) Urine Occult Blood NEG (NEG) Urine Nitrite NEG (NEG) Urine Bilirubin NEG (NEG) Urine Urobilinogen NEG (NEG) Urine Leukocyte Esterase NEG (NEG) Urine WBC (Auto) 1-5 /hpf (0-5) Urine RBC (Auto) 0-4 /hpf (0-4) Urine Hyaline Casts (Auto) 1-5 /lpf (0-5) Urine Epithelial Cells (Auto) >30 /lpf (0-5) Urine Bacteria (Auto) NEG (NEG) Urine Renal Epithelial Cells /lpf (0-5) Medications Administered Medications (Trade) Dose Ordered Sig/Isai Route Start Time Stop Time Status Last Admin Dose Admin Sodium Chloride 1,000 ml @ 999 mls/hr Q1H1M STAT IV 05/19/16 13:28 05/19/16 14:28 DC 05/19/16 14:00 999 MLS/HR Promethazine HCl/ Sodium Chloride (Phenergan Inj/ Nss 50ml) 51 ml @ 204 mls/hr NOW STAT IV 05/19/16 13:28 05/19/16 13:42 DC 05/19/16 14:00 204 MLS/HR Potassium Chloride (Klor-Con M10) 10 meq NOW STAT PO 05/19/16 14:33 05/19/16 14:34 DC 05/19/16 15:04 10 MEQ Heparin Sodium (Porcine) (Heparin 100 Unit/ml 5ml Flush) 5 ml STK-MED ONCE .ROUTE 05/19/16 16:02 05/19/16 16:03 DC 05/19/16 15:58 5 ML Dexamethasone Sodium Phosphate (Decadron Inj) 10 mg NOW ONCE IV 05/19/16 18:30 05/19/16 18:31 DC 05/19/16 18:41 10 MG Heparin Sodium (Porcine) (Heparin 100 Unit/ml 5ml Flush) 5 ml STK-MED ONCE .ROUTE 05/19/16 18:46 05/19/16 18:47 DC 05/19/16 18:43 5 ML ED Course The patient was evaluated. The patient was given 1 L normal saline wide-open. The patient was given Phenergan 25 mg IV. CBC and differential, renal profile, LFTs and lipase levels were ordered. Urinalysis was ordered. Labs are reviewed. The patient's potassium was slightly low at 3.2 therefore he was givenK-Dur 10 mEq by mouth. Urinalysis revealed no evidence of infection. The patient was reevaluated was feeling better. I reviewed the patient's EMR. The patient had a CT of the abdomen and pelvis performed on April 11 which revealed his diverticulitis but it also revealed distended common bile duct at 8 mm, left hepatic lobe lesion 1.8 cm and a 1.7 cm peripheral ductal lesion. An ultrasound of the right upper quadrant was ordered and interpreted by the radiologist as above with the hepatic lesions once again visualized and also some minimal sludge within the bladder. There was no thickening of the gallbladder wall or evidence of acute cholecystitis. The patient was informed of the findings. I consulted Sumi Randall, oncology about the patient. She can stated she did not feel that the nausea and vomiting was coming from the Opdivo. She recommended obtaining an MRI of the brain to evaluate for a metastatic lesion which could be causing the nausea and vomiting. MRI of the brain with IV contrast was ordered. MRI was interpreted by the radiologist as above with 2 metastatic lesions in the right parietal lobe. The patient's case was discussed with Dr. Nieves who agrees with treatment plan. The patient was informed of the findings. I spoke with oncology who stated to give the patient Decadron 20 mg IV. They also stated that the patient could be discharged since he did not have any neurologic symptoms and his nausea was under control with the Phenergan. They also requested that I give the patient Decadron 4 mg tablets to take every 8 hours until evaluated by oncology. He is to call the office tomorrow to set up an appointment. The patient was informed of treatment plan and was in agreement. The patient stated that he is currently on prednisone. I told him to hold the prednisone and take the Decadron. He was reevaluated on several occasions while in the emergency room. He was also independently evaluated by Dr. Nieves who was in agreement with treatment plan. He was able to keep down a drink as well as crackers and a sandwich without any nausea or vomiting. The patient was discharged home in stable condition. Medical Decision Differential diagnosis include acute gastritis, side effect of Opdivo, metastatic lesion to the brain, acute cholecystitis Impression Primary Impression: Nausea and vomiting Additional Impression: Metastatic cancer to brain Departure Information Dispostion Home / Self-Care Condition GOOD Referrals Violetta Kimbrough M.D. (PCP) Forms HOME CARE DOCUMENTATION FORM, IMPORTANT VISIT INFORMATION Patient Instructions My [facility] Additional Instructions Discontinue your prednisone. Start taking the Decadron 4 mg tablets one tablet every 8 hours until further instructed by oncology. Take the Phenergan tablets as needed for nausea and vomiting. Call oncology first thing tomorrow morning for further instructions and appointment. If symptoms should worsen in the interim, return to ER. Problem Qualifiers
[2016-05-19] MEDS ORDERED: ZOLP10TA PO (19:13)
[2016-05-19] MEDS ORDERED: ZOLPIDEM TARTRATE 5 MG TAB PO PRN (19:15)
[2016-05-19] MEDS ORDERED: DEXAMETHASONE 4 MG TAB ONE (19:57)
[2016-05-19] MEDS ORDERED: EMPTY 8 DRAM VIAL ONE (19:57)
[2016-05-19 20:07] VITALS: BP 151/72; PULSE 60; O2SAT 98
[2016-05-19] MEDS ORDERED: DEXAMETHASONE 4 MG TAB PO SCH ×4 (22:00)
[2016-05-21] MEDS ORDERED: PROM25SU28 PR (10:40)
[2016-05-21] MEDS ORDERED: DXM/4 PO (10:40)
[2016-05-21] MEDS ORDERED: LORA-741 PO (10:40)
[2016-06-23] MEDS ORDERED: BUSP15TA70 PO (11:12)
[2016-06-23] MEDS ORDERED: LEVO-366 PO (14:39)
[2016-07-15] MEDS ORDERED: PRED10TA PO (21:36)
[2016-07-18] MEDS ORDERED: PRD20 PO ×2 (08:57→12:30)
[2016-10-13] MEDS ORDERED: PRD/25 PO (13:39)
[2016-10-13] MEDS ORDERED: OXYC80TA16 PO (13:39)
[2016-10-13] MEDS ORDERED: SULF-183 PO (13:39)
[2016-10-27] MEDS ORDERED: DXY100 PO (15:59)
[2016-10-27] MEDS ORDERED: PRED10TA PO (15:59)
== END 2016-05-19 20:10 | disposition home or self-care (01) ==
LOC: C.EDB 12:12 → C.EDA 20:10
DX: R11.2 Nausea with vomiting, unspecified (principal); C79.31 Secondary malignant neoplasm of brain; I48.91 Unspecified atrial fibrillation; I10 Essential (primary) hypertension; E78.5 Hyperlipidemia, unspecified; I25.2 Old myocardial infarction; J44.9 Chronic obstructive pulmonary disease, unspecified; I51.9 Heart disease, unspecified; Z85.118 Personal history of other malignant neoplasm of bronchus and lung; Z87.442 Personal history of urinary calculi; Z86.711 Personal history of pulmonary embolism; Z98.61 Coronary angioplasty status; Z98.890 Other specified postprocedural states; Z87.891 Personal history of nicotine dependence; Z79.82 Long term (current) use of aspirin; Z79.899 Other long term (current) drug therapy; Z82.49 Family history of ischemic heart disease and other diseases of the circulatory system

== ENCOUNTER → 2016-07-08 | Outpatient (CLI) | payer BC ==
[~2016-07-08] MED LIST changes: +ALFU10TA2 PO; -ALFU10TA30 PO; +ATRINS NEB; +BENZ100C84 PO; -BUSP-8 PO; +BUSP15TA70 PO; +CIPR-255 PO; +DXY100 PO; -LINA1CAP PO; +METR-163 PO; -OXYC-57 PO; +OXYC-609 PO; +OXYC80TA16 PO; +PRD/25 PO; +PRD20 PO; -PRED-301 PO; +PRED10TA PO; +PROM25SU28 PR; +SULF-183 PO
[2016-07-08 13:36] VITALS: BP 128/52; PULSE 88; TEMP 37; O2SAT 96
--- NOTE | 2016-07-08 14:21 | Radiation Oncology Follow-Up ---
Radiation Oncology Follow-Up Date of Visit July 08, 2016. Radiation Completion Date 06/07/16 SBRT for brain mets. Diagnosis (1) Lung cancer Status: Chronic Onset Date: 06/01/2013 Permanent Comment: Abnormal CT PET scan revealing left upper lobe lesion 06/01/2013 fine-needle aspiration showing squamous cell carcinoma 06/29/2013 status post left upper lobectomy [id number] Systemic chemotherapy with cisplatin and gemzar for 4 cycles 04/08/2014 abnormal PET/CT with new FDG avid lesion Combined radiation and chemotherapy recommended. Status post completion of radiation therapy 07/01/2014 received 7000 cGy Finding of progression of disease with liver metastasis 11/17/2015 Status post systemic chemotherapy with gemcitabine 11/28/2015 to 03/05/2016 Second opinion at [facility] Initiation of systemic immunotherapy with Opdivo 04/27/2016 Nausea, vomiting finding of brain metastasis 05/19/2016 Status post SBRT to the brain completed 06/07/2016 received 3000 cGy in 5 fractions Last Edited By: Milady Jackman on Jun 18, 2016 08:12 Interim History Mr. Hess is a 70-year-old gentleman with a history of metastatic lung cancer. The patient most recently presented with metastatic disease to the brain was treated with a course of SBRT which completed in May 2016. The patient has been receiving Opdivo underneath the supervision of Dr. Rik Ritter and Dr. Granger. The patient now presents for 1 month follow-up evaluation. Overall, the patient is doing relatively well. He denies any focal neurologic deficits or headaches. He does have some imbalance when standing open his eyes are closed. Otherwise he has no significant complaints. He did mention that he was recently seen in the emergency Department and they did perform a CT angiogram of the thorax to rule out pulmonary embolus (06/23/2016) and the study revealed "IMPRESSION: 1. No evidence of acute pulmonary embolism 2. Interval development of a left pleural effusion 3. Increasing bilateral lower lobe tree- in-bud opacities, likely inflammatory 4. Stable irregular masslike consolidation left hilum. The stability favors post treatment change." Allergies Coded Allergies: No Known Allergies (Unverified , 06/23/16) Home Medications Scheduled Alfuzosin Hcl (Uroxatral), 10 MG PO QPM Amiodarone Hcl (Cordarone), 200 MG PO QAM Aspirin (Aspirin), 81 MG PO QAM Budesonide/Formoterol Fumarate (Symbicort 160/4.5 Inhaler), 2 PUFFS INH BID Buspirone Hcl (Buspar), 15 MG PO BID Levalbuterol Hcl (Levalbuterol Hcl), 1 DOSE INH TID Nitroglycerin (Nitrostat), 0.4 MG UT PRN Omeprazole (Prilosec), 20 MG PO BID Tiotropium [place] (Spiriva Handihaler), 1 PUFF INH QPM Scheduled PRN Albuterol Hfa (Ventolin Hfa), 2 PUFFS INH QID PRN for SOB/Wheezing Fluticasone Propionate (Nasal) (Flonase Allergy Relief), 2 SPRAYS ANGELA DAILY PRN for ALLERGIC REACTION Ondansetron (Ondansetron HCl), 8 MG PO Q8 PRN for Nausea or Vomiting Oxycodone HCl (Oxycodone HCl), 5 MG PO Q6H PRN for Pain Promethazine Hcl (Phenergan Suppository), [address] Q4H PRN for Nausea Review of Systems Gastrointestinal: Symptoms: Constipation GI Comments: Constipation manageable at home; Oral: Symptoms: No Problems Respiratory: Symptoms: Dry Cough, Moist Cough, SOB With Exertion, Productive Cough Respiratory Comments: Recent regimine of antibiotics for "touch of pneumonia " Sputum Character: Yellowish brown sputum; Urinary: Symptoms: WNL Skin: Other Skin Symptoms: Skin thin/fragile and w/tears on arms;brownish discoloration of arms. Physical Exam Vital Signs Date Time Temp Pulse Resp B/P Pulse Ox O2 Delivery O2 Flow Rate FiO2 07/08/16 13:36 37.0 88 16 128/52 96 General Appearance: WD/WN, no apparent distress Eyes: normal inspection, PERRL, EOMI ENT: normal ENT inspection, hearing grossly normal Neck: supple, no adenopathy Respiratory/Chest: chest non-tender, lungs clear Cardiovascular: regular rate, rhythm, no edema, no gallop, no JVD Neurologic/Psychiatric: alert, oriented x 3, + pertinent finding (Positive romberg) Laboratory Studies Test 04/11/16 12:10 04/11/16 12:30 04/26/16 09:49 05/19/16 12:40 Urine Color YELLOW Urine Appearance CLEAR (CLEAR) Urine pH 6.0 (4.5-7.5) Urine Specific [place] 1.011 (1.000-1.030) Urine Protein 1+ (NEG) Urine Glucose (UA) NEG (NEG) Urine Ketones 1+ (NEG) Urine Occult Blood NEG (NEG) Urine Nitrite NEG (NEG) Urine Bilirubin NEG (NEG) Urine Urobilinogen NEG (NEG) Urine Leukocyte Esterase NEG (NEG) Urine WBC (Auto) 1-5 /hpf (0-5) Urine RBC (Auto) 0-4 /hpf (0-4) Urine Hyaline Casts (Auto) 1-5 /lpf (0-5) Urine Epithelial Cells (Auto) 5-10 /lpf (0-5) Urine Bacteria (Auto) NEG (NEG) Lipase 215 U/L (73-393) 164 U/L (73-393) Thyroid Stimulating Hormone (TSH) 1.450 uIu/ml (0.300-4.500) Direct Bilirubin < 0.1 mg/dl (0-0.2) Test 05/19/16 14:00 05/25/16 14:21 06/09/16 12:55 06/14/16 12:07 Urine Color YELLOW Urine Appearance CLEAR (CLEAR) Urine pH 7.0 (4.5-7.5) Urine Specific [place] 1.016 (1.000-1.030) Urine Protein 2+ (NEG) Urine Glucose (UA) NEG (NEG) Urine Ketones NEG (NEG) Urine Occult Blood NEG (NEG) Urine Nitrite NEG (NEG) Urine Bilirubin NEG (NEG) Urine Urobilinogen NEG (NEG) Urine Leukocyte Esterase NEG (NEG) Urine WBC (Auto) 1-5 /hpf (0-5) Urine RBC (Auto) 0-4 /hpf (0-4) Urine Hyaline Casts (Auto) 1-5 /lpf (0-5) Urine Epithelial Cells (Auto) >30 /lpf (0-5) Urine Bacteria (Auto) NEG (NEG) Urine Renal Epithelial Cells /lpf (0-5) Magnesium Level 2.2 mg/dl (1.8-2.4) 1.8 mg/dl (1.8-2.4) Platelet Estimate DECREASED Ovalocytes 1+ 1+ Test 06/22/16 11:00 06/29/16 11:39 White Blood Count 7.25 K/uL (4.8-10.8) 9.23 K/uL (4.8-10.8) Red Blood Count 3.29 M/uL (4.7-6.1) 3.35 M/uL (4.7-6.1) Hemoglobin 8.9 g/dL (14.0-18.0) 9.2 g/dL (14.0-18.0) Hematocrit 29.2 % (42-52) 29.6 % (42-52) Mean Corpuscular Volume 88.8 fL (80-100) 88.4 fL (80-100) Mean Corpuscular Hemoglobin 27.1 pg (25-34) 27.5 pg (25-34) Mean Corpuscular Hemoglobin Concent 30.5 g/dl (32-36) 31.1 g/dl (32-36) Platelet Count 88 K/uL (130-400) 155 K/uL (130-400) Mean Platelet Volume 9.7 fL (7.4-10.4) 8.9 fL (7.4-10.4) Neutrophils (%) (Auto) 82.1 % 81.1 % Lymphocytes (%) (Auto) 5.2 % 4.7 % Monocytes (%) (Auto) 11.7 % 12.7 % Eosinophils (%) (Auto) 0.3 % 0.0 % Basophils (%) (Auto) 0.0 % 0.1 % Neutrophils # (Auto) 5.95 K/uL (1.4-6.5) 7.49 K/uL (1.4-6.5) Lymphocytes # (Auto) 0.38 K/uL (1.2-3.4) 0.43 K/uL (1.2-3.4) Monocytes # (Auto) 0.85 K/uL (0.11-0.59) 1.17 K/uL (0.11-0.59) Eosinophils # (Auto) 0.02 K/uL (0-0.5) 0.00 K/uL (0-0.5) Basophils # (Auto) 0.00 K/uL (0-0.2) 0.01 K/uL (0-0.2) RDW Standard Deviation 63.6 fL (36.4-46.3) 65.1 fL (36.4-46.3) RDW Coefficient of Variation 19.8 % (11.5-14.5) 20.1 % (11.5-14.5) Immature Granulocyte % (Auto) 0.7 % 1.4 % Immature Granulocyte # (Auto) 0.05 K/uL (0.00-0.02) 0.13 K/uL (0.00-0.02) Poikilocytosis PRESENT PRESENT Sodium Level 144 mmol/L (136-145) 145 mmol/L (136-145) Potassium Level 3.8 mmol/L (3.5-5.1) 3.7 mmol/L (3.5-5.1) Chloride Level 111 mmol/L (98-107) 111 mmol/L (98-107) Carbon Dioxide Level 27 mmol/L (21-32) 25 mmol/L (21-32) Anion Gap 6.0 mmol/L (3-11) 9.0 mmol/L (3-11) Blood Urea Nitrogen 21 mg/dl (7-18) 20 mg/dl (7-18) Creatinine 1.00 mg/dl (0.60-1.40) 1.40 mg/dl (0.60-1.40) Est Creatinine Clear Calc Drug Dose 69.0 ml/min 49.3 ml/min Estimated GFR () 89.2 59.4 Estimated GFR (Non- 77.0 51.3 BUN/Creatinine Ratio 20.7 (10-20) 14.2 (10-20) Random Glucose 127 mg/dl (70-99) 88 mg/dl (70-99) Calcium Level 8.1 mg/dl (8.5-10.1) 8.0 mg/dl (8.5-10.1) Total Bilirubin 0.5 mg/dl (0.2-1) 0.3 mg/dl (0.2-1) Aspartate Amino Transferase (AST) 14 U/L (15-37) 18 U/L (15-37) Alanine Aminotransferase (ALT) 29 U/L (12-78) 25 U/L (12-78) Alkaline Phosphatase 106 U/L (45-117) 100 U/L (45-117) Lactate Dehydrogenase 248 U/L (87-241) 225 U/L (87-241) Total Protein 5.7 gm/dl (6.4-8.2) 5.8 gm/dl (6.4-8.2) Albumin 2.4 gm/dl (3.4-5.0) 2.6 gm/dl (3.4-5.0) Globulin 3.3 gm/dl (2.5-4.0) 3.2 gm/dl (2.5-4.0) Albumin/Globulin Ratio 0.7 (0.9-2) 0.8 (0.9-2) Anisocytosis PRESENT Spherocytes 1+ Assessment & Plan Mr. Hess is a 70-year-old gentleman with a history of metastatic lung cancer who is currently on Opdivo underneath the supervision of Dr. Rik Ritter/Dr. Granger. The patient previously presented with metastatic disease to the brain and was treated with SBRT which completed in May 2016. The patient now presents for 1 month follow-up evaluation. We are happy with the patient's progress overall. We will order an MRI of the brain to be completed in 3 months for a follow-up study. The patient was encouraged call sooner if he has any new neurologic complaints are deficits. The patient will continue to closely follow with Dr. Rik Ritter. The patient was encouraged call us with any further questions or concerns. Total Time In Follow-Up I spent 20 minutes examining and counseling the patient. I spent 15 minutes completing this note. Copy To Violetta Kimbrough M.D.; Justin Granger D.O.; Rik Ritter MD
== END | disposition home or self-care (01) ==
LOC: C.ONC 13:30
PROVIDERS: ATTEND Physician Assistant Medical
DX: Z08 Encounter for follow-up examination after completed treatment for malignant neoplasm (principal); Z92.3 Personal history of irradiation; Z85.118 Personal history of other malignant neoplasm of bronchus and lung

== ENCOUNTER → 2016-07-14 | Outpatient (CLI) | payer BC ==
--- NOTE | 2016-07-14 12:36 | DIAGNOSTIC IMAGING REPORT ---
CHEST 2 VIEWS ROUTINE CLINICAL HISTORY: SQUAMOUS CELL LUNG CA COMPARISON STUDY: 02/03/2016 FINDINGS: Unchanged exam. Stable left suprahilar density with postoperative findings of left hemithorax. No new or interval finding. Lungs otherwise appear clear. Chronic scarring left lung base. Central catheter remains in superior vena cava. IMPRESSION: Chronic and postoperative change. No acute or interval finding. Electronically signed by: Nicolas Mora M.D. 07/14/2016 12:34 PM Dictated Date/Time: 07/14/2016 12:33 PM
== END | disposition home or self-care (01) ==
LOC: C.RAD 11:41
PROVIDERS: ATTEND Internal Medicine Hematology & Oncology
DX: C34.12 Malignant neoplasm of upper lobe, left bronchus or lung (principal)

== ENCOUNTER 2016-07-15 19:59 | Inpatient (IN) | payer BC, OTHER ==
[~2016-07-15] VITALS: Ht 177.8 cm; Wt 63.0 kg
[~2016-07-15 19:59] MED LIST changes: -ATRINS NEB; -BENZ100C84 PO; -CIPR-255 PO; -DXY100 PO; -METR-163 PO; -OPTIRAY 320 IV PRN; -OXYC80TA16 PO; -PRD/25 PO; -PRD20 PO; -PRED10TA PO; -SULF-183 PO
[2016-07-15] MEDS ORDERED: LEVALBUTEROL 1.25MG/0.5ML NEB INH STA (20:20)
[2016-07-15] MEDS ORDERED: PIPERACILLIN/TAZOBACTAM 4.5 GM/100ML D5W IV STA (20:20)
[2016-07-15] MEDS ORDERED: SODIUM CHLORIDE 0.9% 1000ML 1,000 ML IV ONE (20:20)
[2016-07-15] MEDS ORDERED: IBUPROFEN 600 MG TAB PO STA (20:20)
[2016-07-15] MEDS ORDERED: IPRATROPIUM BROMIDE NEB SOLN 0.02% 2.5 ML VIAL INH STA (20:20)
[2016-07-15] MEDS ORDERED: VANCOMYCIN 1GM/270ML NSS IV STA (20:20)
--- NOTE | 2016-07-15 20:44 | DIAGNOSTIC IMAGING REPORT ---
CHEST ONE VIEW PORTABLE CLINICAL HISTORY: Sepsis dyspnea COMPARISON STUDY: 07/14/2016 FINDINGS: Stable emphysematous change. Postoperative changes to the left hilum are similar. Central catheter ends. Cava. Apical fibrotic changes stable. IMPRESSION: Chronic and postoperative change considered stable. No new interval or acute process. Electronically signed by: Nicolas Mora M.D. 07/15/2016 8:43 PM Dictated Date/Time: 07/15/2016 8:42 PM
[2016-07-15 21:02] LABS: BASO % 0.1 %; BASO ABS # 0.01 K/uL (0-0.2); EOS % 0.1 %; HEMATOCRIT 28.4 % (42-52); IG% 0.3 %; LYMPH % 3.7 %; LYMPH ABS # 0.49 K/uL (1.2-3.4); MEAN CELL VOLUME 86.6 fL (80-100); MEAN CORPUSCULAR HEMOGLOBIN 25.9 pg (25-34); MEAN CORPUSCULAR HGB CONC 29.9 g/dl (32-36); MONO % 5.3 %; NEUT % 90.5 %; PLATELET COUNT 206 K/uL (130-400); RED BLOOD COUNT 3.28 M/uL (4.7-6.1); WHITE BLOOD COUNT 13.14 K/uL (4.8-10.8)
[2016-07-15 21:15] LABS: URINE APPEARANCE CLEAR (CLEAR); URINE BILIRUBIN NEG (NEG); URINE COLOR YELLOW; URINE EPITHELIAL CELL AUTO 0-5 /lpf (0-5); URINE NITRITE NEG (NEG); URINE SPECIFIC GRAVITY 1.019 (1.000-1.030); UROBILINOGEN NEG (NEG); ZZUR CULT IF INDIC CLEAN CATCH NO
[2016-07-15 21:16] LABS: PARTIAL THROMBOPLASTIN RATIO 0.9; PROTHROMBIN TIME (PATIENT) 10.9 SECONDS (9.0-12.0)
[2016-07-15 21:17] LABS: CREATININE 1.1 mg/dl (0.60-1.40); MAGNESIUM 1.5 mg/dl (1.8-2.4); POTASSIUM 3.8 mmol/L (3.5-5.1)
[2016-07-15 21:20] LABS: ALB/GLOB RATIO 0.7 (0.9-2)
[2016-07-15 21:22] LABS: MANUAL MICROSCOPIC REQUIRED? NO; REVIEW REQ? NO
[2016-07-15 21:24] LABS: ANISOCYTOSIS PRESENT; COMPLETE YES; POIKILOCYTOSIS PRESENT
[2016-07-15] MEDS ORDERED: PRED10TA PO ×2 (21:36)
[2016-07-15] MEDS ORDERED: MAGNESIUM SULFATE 1GM / D5W 1 GM BAG IV STA (21:38)
[2016-07-15 21:55] LABS: CALCIUM 8.2 mg/dl (8.5-10.1)
[2016-07-15] MEDS ORDERED: ACETAMINOPHEN 325 MG TAB PO PRN (22:30)
[2016-07-15] MEDS ORDERED: ALUMINUM/MAGNESIUM/SIMETH (MAALOX MAX) 30 ML UDC PO PRN (22:30)
[2016-07-15] MEDS ORDERED: FLUTICASONE PROPIONATE NA SPR 16 GM BTL NAE PRN (22:30)
[2016-07-15] MEDS ORDERED: OXYCODONE/ACETAMINOPHEN 7.5-325 TAB PO PRN (22:30)
[2016-07-15] MEDS ORDERED: LEVALBUTEROL 1.25MG/3ML NEB INH PRN (22:30)
[2016-07-15] MEDS ORDERED: ONDANSETRON INJ 2 MG/ML 2 ML VIAL IV PRN (22:30)
[2016-07-15] MEDS ORDERED: POLYETHYLENE (MIRALAX) 17 GM PACK PO PRN (22:30)
[2016-07-15] MEDS ORDERED: ZOLPIDEM TARTRATE 5 MG TAB PO PRN (22:30)
[2016-07-15] MEDS ORDERED: NITROGLYCERIN 0.4 MG SL PER TAB CHARGE UT SCH (22:30)
[2016-07-15] MEDS ORDERED: ONDANSETRON 8 MG TAB PO PRN (22:30)
[2016-07-15] MEDS ORDERED: MAGNESIUM HYDROXIDE SUSP 30 ML UDC PO PRN (22:30)
--- NOTE | 2016-07-15 22:34 | EMERGENCY ROOM VISIT NOTE ---
History Report prepared by Iraida: Gianluca Dickey Under the Supervision of: Dr. Gonzalez Pena M.D. First contact with patient: 20:16 Chief Complaint: FEVER Stated Complaint: FEVER CANCER PT History of Present Illness The patient is a 70 year old male who presents to the Emergency Room with complaints of a persistent fever beginning a week ago. He has a history of lung cancer. His most recent chemotherapy treatment was two weeks and a day ago. He was supposed to receive chemotherapy yesterday, but had it canceled due to his fever. The patient notes that he has had a partial left lung resection. He notes that he had a chest x-ray yesterday which was unremarkable. He also had a chest CT done today which showed a right upper lobe pneumonia. The patient states that he has had episodes of rigors, and episodes of feeling hot or cold. He also complains of a headache. He denies any urinary symptoms. The patient took Tylenol for his fever today, but has seen minimal relief. He has a nebulizer at home, which he used today. He is not on any supplemental oxygen at home. Source of History: patient Onset: A week ago Quality: other (fever) Timing: other (persistent) Associated Symptoms: + cough, No urinary symptoms Note: The patient also complains of rigors and episodes of feeling hot or cold. Review of Systems See HPI for pertinent positives & negatives. A total of 10 systems reviewed and were otherwise negative. Past Medical & Surgical Medical Problems: (1) Atrial fibrillation with RVR (2) Basal cell carcinoma of skin (3) COPD (chronic obstructive pulmonary disease) (4) Heart disease (5) Hyperlipidemia (6) Hypertension (7) Kidney stones (8) Lung cancer (9) Myocardial infarction (10) Pneumonia (11) Primary cancer of left upper lobe of lung (12) Pulmonary embolism (13) Sepsis Surgical Problems: (1) H/O hernia repair (2) History of angioplasty (3) Hx of appendectomy (4) S/P lobectomy of lung Family History FH: CAD (coronary artery disease) FATHER (passed at age 59 from [place]) MOTHER Social History Smoking Status: Never Smoker Alcohol Use: other Drug Use: none Marital Status: Housing Status: lives with family Occupation Status: retired Current/Historical Medications Scheduled Alfuzosin Hcl (Uroxatral), 10 MG PO QPM Amiodarone Hcl (Cordarone), 200 MG PO QAM Aspirin (Aspirin), 81 MG PO QAM Budesonide/Formoterol Fumarate (Symbicort 160/4.5 Inhaler), 2 PUFFS INH HS Buspirone Hcl (Buspar), 15 MG PO BID Levalbuterol Hcl (Levalbuterol Hcl), 1 DOSE INH TID Nitroglycerin (Nitrostat), 0.4 MG UT PRN Omeprazole (Prilosec), 20 MG PO DAILY Prednisone (Prednisone), 10 MG PO DAILY Tiotropium [place] (Spiriva Handihaler), 1 PUFF INH QPM Scheduled PRN Albuterol Hfa (Ventolin Hfa), 2 PUFFS INH QID PRN for SOB/Wheezing Fluticasone Propionate (Nasal) (Flonase Allergy Relief), 2 SPRAYS [place] DAILY PRN for ALLERGIC REACTION Ondansetron (Ondansetron HCl), 8 MG PO Q8 PRN for Nausea or Vomiting Oxycodone HCl (Oxycodone HCl), 5 MG PO Q6H PRN for Pain Allergies Coded Allergies: No Known Allergies (Unverified , 07/15/16) Physical Exam Vital Signs Date Time Temp Pulse Resp B/P Pulse Ox O2 Delivery O2 Flow Rate FiO2 07/15/16 22:00 37.6 78 119/76 95 Room Air 07/15/16 20:37 Room Air 07/15/16 20:01 37.7 109 28 156/77 94 Room Air Physical Exam GENERAL: Patient is in no acute distress. HEENT: No acute trauma, normocephalic atraumatic, mucous membranes moist, no nasal congestion, no scleral icterus. NECK: No stridor, no adenopathy, no meningismus, trachea is midline. LUNGS: Scattered wheezing and rhonchi bilaterally. Breath sounds equal. Increased respiratory rate. No respiratory distress. HEART: Tachycardic with a regular rhythm. No murmurs. ABDOMEN: Soft, nontender, bowel sounds positive, no hernias, no peritonitis. EXTREMITIES: No cyanosis or edema, full range of motion of all the joints without pain or difficulty, no signs for acute trauma. NEUROLOGIC: Oriented x 3, no acute motor or sensory deficits, no focal weakness. SKIN: No rash, no jaundice, no diaphoresis. Medical Decision & Procedures ER Provider Diagnostic Interpretation: X-ray results as stated below per interpretation by me and the radiologist: CHEST ONE VIEW PORTABLE FINDINGS: Stable emphysematous change. Postoperative changes to the left hilum are similar. Central catheter ends. Cava. Apical fibrotic changes stable. IMPRESSION: Chronic and postoperative change considered stable. No new interval or acute process. Electronically signed by: Nicolas Mora M.D. Laboratory Results 07/15/16 20:40 Red Blood Count 3.28, Mean Corpuscular Volume 86.6, Mean Corpuscular Hemoglobin 25.9, Mean Corpuscular Hemoglobin Concent 29.9, Mean Platelet Volume 9.0, Neutrophils (%) (Auto) 90.5, Lymphocytes (%) (Auto) 3.7, Monocytes (%) (Auto) 5.3, Eosinophils (%) (Auto) 0.1, Basophils (%) (Auto) 0.1, Neutrophils # (Auto) 11.89, Lymphocytes # (Auto) 0.49, Monocytes # (Auto) 0.70, Eosinophils # (Auto) 0.01, Basophils # (Auto) 0.01 07/15/16 20:40 Test 07/15/16 20:40 07/15/16 20:58 07/15/16 21:00 White Blood Count 13.14 K/uL (4.8-10.8) Red Blood Count 3.28 M/uL (4.7-6.1) Hemoglobin 8.5 g/dL (14.0-18.0) Hematocrit 28.4 % (42-52) Mean Corpuscular Volume 86.6 fL (80-100) Mean Corpuscular Hemoglobin 25.9 pg (25-34) Mean Corpuscular Hemoglobin Concent 29.9 g/dl (32-36) Platelet Count 206 K/uL (130-400) Mean Platelet Volume 9.0 fL (7.4-10.4) Neutrophils (%) (Auto) 90.5 % Lymphocytes (%) (Auto) 3.7 % Monocytes (%) (Auto) 5.3 % Eosinophils (%) (Auto) 0.1 % Basophils (%) (Auto) 0.1 % Neutrophils # (Auto) 11.89 K/uL (1.4-6.5) Lymphocytes # (Auto) 0.49 K/uL (1.2-3.4) Monocytes # (Auto) 0.70 K/uL (0.11-0.59) Eosinophils # (Auto) 0.01 K/uL (0-0.5) Basophils # (Auto) 0.01 K/uL (0-0.2) RDW Standard Deviation 64.3 fL (36.4-46.3) RDW Coefficient of Variation 20.0 % (11.5-14.5) Immature Granulocyte % (Auto) 0.3 % Immature Granulocyte # (Auto) 0.04 K/uL (0.00-0.02) Poikilocytosis PRESENT Anisocytosis PRESENT Prothrombin Time 10.9 SECONDS (9.0-12.0) Prothromb Time International Ratio 1.0 (0.9-1.1) Activated Partial Thromboplast Time 24.0 SECONDS (21.0-31.0) Partial Thromboplastin Ratio 0.9 Anion Gap 10.0 mmol/L (3-11) Est Creatinine Clear Calc Drug Dose 57.6 ml/min Estimated GFR () 79.5 Estimated GFR (Non- 68.6 BUN/Creatinine Ratio 19.0 (10-20) Calcium Level 8.2 mg/dl (8.5-10.1) Magnesium Level 1.5 mg/dl (1.8-2.4) Total Bilirubin 0.3 mg/dl (0.2-1) Aspartate Amino Transf (AST/SGOT) 13 U/L (15-37) Alanine Aminotransferase (ALT/SGPT) 20 U/L (12-78) Alkaline Phosphatase 96 U/L (45-117) Total Protein 6.2 gm/dl (6.4-8.2) Albumin 2.5 gm/dl (3.4-5.0) Globulin 3.7 gm/dl (2.5-4.0) Albumin/Globulin Ratio 0.7 (0.9-2) Bedside Lactic Acid Venous 2.16 mmol/L (0.90-1.70) Urine Color YELLOW Urine Appearance CLEAR (CLEAR) Urine pH 7.0 (4.5-7.5) Urine Specific [place] 1.019 (1.000-1.030) Urine Protein 1+ (NEG) Urine Glucose (UA) NEG (NEG) Urine Ketones NEG (NEG) Urine Occult Blood NEG (NEG) Urine Nitrite NEG (NEG) Urine Bilirubin NEG (NEG) Urine Urobilinogen NEG (NEG) Urine Leukocyte Esterase NEG (NEG) Urine WBC (Auto) 0 /hpf (0-5) Urine RBC (Auto) 0-4 /hpf (0-4) Urine Hyaline Casts (Auto) 0 /lpf (0-5) Urine Epithelial Cells (Auto) 0-5 /lpf (0-5) Urine Bacteria (Auto) NEG (NEG) Laboratory results reviewed by me. Medications Administered Medications (Trade) Dose Ordered Sig/Isai Route Start Time Stop Time Status Last Admin Dose Admin Sodium Chloride (Nss 1000ml) 1,000 ml @ 999 mls/hr Q1H1M ONCE IV 07/15/16 20:20 07/15/16 21:20 DC 07/15/16 20:42 999 MLS/HR Piperacillin Sod/ Tazobactam Sod (Zosyn Iv) 4.5 gm ONE STAT IV 07/15/16 20:20 07/15/16 20:24 DC 07/15/16 20:42 4.5 GM Vancomycin HCl (Vancomycin 1gm/ 270ml Nss) 1 gm ONE STAT IV 07/15/16 20:20 07/15/16 20:24 DC 07/15/16 20:42 1 GM Ibuprofen (Motrin Tab) 600 mg NOW STAT PO 07/15/16 20:20 07/15/16 20:24 DC 07/15/16 20:43 600 MG Levalbuterol (Xopenex 1.25MG/ 0.5ML Neb) 1.25 mg NOW STAT INH 07/15/16 20:20 07/15/16 20:24 DC 07/15/16 20:42 1.25 MG Ipratropium [place] (Atrovent 0.02% 0.5MG/2.5ML Neb) 0.5 mg NOW STAT INH 07/15/16 20:20 07/15/16 20:24 DC 07/15/16 20:42 0.5 MG Magnesium Sulfate (Magnesium Sulfate) 2 gm NOW STAT IV 07/15/16 21:38 07/15/16 21:39 DC 07/15/16 21:56 2 GM ECG Indication: other (fever) Rate (beats per minute): 96 Rhythm: normal sinus Findings: no acute ischemic change, no ectopy, other (Old septal infarct) ED Course 2018: The patient was evaluated in room A12B. A complete history and physical exam was performed. 2019: Ordered Atrovent 0.02% 0.5 mg/2.5 mL Neb 0.5 mg INH, Xoponex 1.25 mg/0.5 mL Neb 1.25 mg IM, Motrin Tab 600 mg PO, Vancomycin HCl 1 gm IV, Zosyn 4.5 gm IV , Sodium Chloride 1000 ml @ 999 mls/hr IV. 2137: Ordered Magnesium Sulfate 2 gm IV. 2153: Upon reexamination the patient is resting comfortably. I discussed results and treatment plan with the patient. He verbalizes agreement and understanding. The patient will be evaluated for further management. Medical Decision The patient is a 70 year old male who presents to the ED with complaints of fevers. Differential diagnoses considered include sepsis, pneumonia, dehydration, exacerbation of COPD, electrolyte imbalance, bacteremia, UTI, and cellulitis. There is a mild leukocytosis, this is consistent with infection. The patient is anemic but this is baseline for him as of late. Magnesium level was low 1.5 , no kidney failure. There was no coagulopathy. Urinalysis does not show infection. Blood cultures are pending. Chest film shows no obvious pneumonia, chronic findings were seen. A chest CT from earlier today was reviewed and there is a right upper lung pneumonia present. Lactic acid level was slightly elevated, consistent with infection/dehydration. The patient was given a Xopenex Atrovent neb, oral Motrin, IV saline. He received IV Zosyn and IV vancomycin as antibiotic coverage. He was ordered for IV magnesium. The patient is septic from pneumonia, he is on chemotherapy. He has lung cancer. Admission/observation is warranted. I spoke to the patient and to case management. The on-call hospitalist was consulted. Medication Reconciliation: I attest that I have personally reviewed the patient' s current medication list. Blood Pressure Screening: Patient was found to have normal blood pressure on screening and does not require follow-up. Consults Time Called: 2139 Consulting Physician: Dr. Lisandra COTO Returned Call: [phone] Discussed the patient's case. The patient will be evaluated for further management. Impression Primary Impression: Sepsis Additional Impressions: Pneumonia Lung cancer Hypomagnesemia Scribe Attestation The scribe's documentation has been prepared under my direction and personally reviewed by me in its entirety. I confirm that the note above accurately reflects all work, treatment, procedures, and medical decision making performed by me. Departure Information Dispostion Being Evaluated By Hospitalist Referrals Violetta Kimbrough M.D. (PCP) Patient Instructions My [facility] Problem Qualifiers
--- NOTE | 2016-07-15 22:53 | History and Physical ---
History & Physical Date & Time of Service: July 15, 2016 at 22:33 Chief Complaint: Fever Cancer Pt Primary Care Physician: Violetta Kimbrough M.D. History of Present Illness Source: patient 70 y/o M Hx CAD, PAF, chronic anemia, lung adeno CA, partial L lung resection 2014 - currently being treated with Nivolumab. The pt has had a chronic cough and SOB which he associates with his ongoing treatment. He developed fevers, chills and sweats 2 days prior. He was due for his chemo today however his oncologist decided to delay treatment due to his fevers and instead sent him for a CT chest. Results are consistent with a RUL pneumonia. He was sent to the hospital as a result. He has a mild lactic acidosis and a fever was confirmed and therefore meets sepsis criteria. He denies CP, N/V/D or dysuria. He was treated one month prior for PNM in the outpt setting. It appears that this was a RLL pneumonia which is resolving on his recent CT. Past Medical/Surgical History Medical Problems: (1) Basal cell carcinoma of skin Status: Resolved (2) COPD (chronic obstructive pulmonary disease) Status: Chronic (3) Heart disease Status: Chronic (4) Hyperlipidemia Status: Chronic (5) Hypertension Status: Chronic (6) Kidney stones Permanent Comment: s/p lithotripsy Status: Resolved (7) Lung cancer Permanent Comment: Abnormal CT PET scan revealing left upper lobe lesion 06/01/2013 fine-needle aspiration showing squamous cell carcinoma 06/29/2013 status post left upper lobectomy [id number] Systemic chemotherapy with cisplatin and gemzar for 4 cycles 04/08/2014 abnormal PET/CT with new FDG avid lesion Combined radiation and chemotherapy recommended. Status post completion of radiation therapy 07/01/2014 received 7000 cGy Finding of progression of disease with liver metastasis 11/17/2015 Status post systemic chemotherapy with gemcitabine 11/28/2015 to 03/05/2016 [facility] Initiation of systemic immunotherapy with Opdivo 04/27/2016 Nausea, vomiting finding of brain metastasis 05/19/2016 Status post SBRT to the brain completed 06/07/2016 received 3000 cGy in 5 fractions Status: Chronic (8) Myocardial infarction Permanent Comment: inferior wall Status: Resolved (9) Primary cancer of left upper lobe of lung Status: Chronic (10) Pulmonary embolism Status: Resolved Surgical Problems: (1) H/O hernia repair Status: Resolved (2) History of angioplasty Permanent Comment: with stenting in 2005 and 2006 Status: Resolved (3) Hx of appendectomy Status: Resolved (4) S/P lobectomy of lung Permanent Comment: 06/2013 Status: Resolved Family History FH: CAD (coronary artery disease) FATHER (passed at age 59 from [place]) MOTHER Mother due to CHF Social History Quit smoking 10 years prior Smoking Status: Former Smoker Alcohol Use: socially Drug Use: none Marital Status: Housing status: lives with family Occupational Status: retired Immunizations History of Influenza Vaccine: No History of Tetanus Vaccine?: UTD History of Pneumococcal: No History of Hepatitis B Vaccine: No Allergies Coded Allergies: No Known Allergies (Unverified , 07/15/16) Home Medications Scheduled Alfuzosin Hcl (Uroxatral), 10 MG PO QPM Amiodarone Hcl (Cordarone), 200 MG PO QAM Aspirin (Aspirin), 81 MG PO QAM Budesonide/Formoterol Fumarate (Symbicort 160/4.5 Inhaler), 2 PUFFS INH HS Buspirone Hcl (Buspar), 15 MG PO BID Levalbuterol Hcl (Levalbuterol Hcl), 1 DOSE INH TID Nitroglycerin (Nitrostat), 0.4 MG UT PRN Omeprazole (Prilosec), 20 MG PO DAILY Prednisone (Prednisone), 10 MG PO DAILY Tiotropium [place] (Spiriva Handihaler), 1 PUFF INH QPM Scheduled PRN Albuterol Hfa (Ventolin Hfa), 2 PUFFS INH QID PRN for SOB/Wheezing Fluticasone Propionate (Nasal) (Flonase Allergy Relief), 2 SPRAYS ANGELA DAILY PRN for ALLERGIC REACTION Ondansetron (Ondansetron HCl), 8 MG PO Q8 PRN for Nausea or Vomiting Oxycodone HCl (Oxycodone HCl), 5 MG PO Q6H PRN for Pain Review of Systems Constitutional: + chills, + fatigue, + fever, + sweats, + weakness Eyes: No eye pain, No worsening of vision ENT: No hearing loss, No nasal symptoms, No unusual epistaxis Respiratory: + cough, + dyspnea at rest, + dyspnea on exertion, + shortness of breath, + sputum, No wheezing Cardiovascular: No PND, No chest pain, No orthopnea Abdomen: No nausea, No pain, No vomiting Musculoskeletal: No joint pain, No muscle pain Genitourinary - Male: No dysuria, No hematuria, No urinary frequency Neurologic: + weakness, No memory loss, No paralysis Psychiatric: No depression symptoms Endocrine: + fatigue Hematologic / Lymphatic: + abnormal bleeding/bruising Integumentary: No rash Physical Exam Vital Signs Date Time Temp Pulse Resp B/P Pulse Ox O2 Delivery O2 Flow Rate FiO2 07/15/16 22:00 37.6 78 119/76 95 Room Air 07/15/16 20:37 Room Air 07/15/16 20:01 37.7 109 28 156/77 94 Room Air General Appearance: WD/WN, no apparent distress Head: normocephalic, atraumatic Eyes: normal inspection, EOMI ENT: normal ENT inspection, pharynx normal Neck: supple, no JVD Respiratory/Chest: chest non-tender, no respiratory distress, + decreased breath sounds, + crackles Cardiovascular: regular rate, rhythm, no edema, no gallop, + systolic murmur Abdomen/GI: normal bowel sounds, non tender, soft Back: normal inspection, no CVA tenderness, normal range of motion Extremities/Musculoskelatal: normal inspection, no calf tenderness, normal capillary refill Neurologic/Psych: range aid II-XII nml as tested, no motor/sensory deficits, alert, normal mood/affect, normal reflexes, oriented x 3 Skin: normal color, + pertinent finding (Bruising/discoloration of upper extremities) Diagnostics Laboratory Results Results Past 24 Hours Test 07/15/16 20:40 07/15/16 20:58 07/15/16 21:00 Range/Units White Blood Count 13.14 4.8-10.8 K/uL Red Blood Count 3.28 4.7-6.1 M/uL Hemoglobin 8.5 14.0-18.0 g/dL Hematocrit 28.4 42-52 % Mean Corpuscular Volume 86.6 80-100 fL Mean Corpuscular Hemoglobin 25.9 25-34 pg Mean Corpuscular Hemoglobin Concent 29.9 32-36 g/dl Platelet Count 206 130-400 K/uL Mean Platelet Volume 9.0 7.4-10.4 fL Neutrophils (%) (Auto) 90.5 % Lymphocytes (%) (Auto) 3.7 % Monocytes (%) (Auto) 5.3 % Eosinophils (%) (Auto) 0.1 % Basophils (%) (Auto) 0.1 % Neutrophils # (Auto) 11.89 1.4-6.5 K/uL Lymphocytes # (Auto) 0.49 1.2-3.4 K/uL Monocytes # (Auto) 0.70 0.11-0.59 K/uL Eosinophils # (Auto) 0.01 0-0.5 K/uL Basophils # (Auto) 0.01 0-0.2 K/uL RDW Standard Deviation 64.3 36.4-46.3 fL RDW Coefficient of Variation 20.0 11.5-14.5 % Immature Granulocyte % (Auto) 0.3 % Immature Granulocyte # (Auto) 0.04 0.00-0.02 K/uL Poikilocytosis PRESENT Anisocytosis PRESENT Prothrombin Time 10.9 9.0-12.0 SECONDS Prothromb Time International Ratio 1.0 0.9-1.1 Activated Partial Thromboplast Time 24.0 21.0-31.0 SECONDS Partial Thromboplastin Ratio 0.9 Sodium Level 142 136-145 mmol/L Potassium Level 3.8 3.5-5.1 mmol/L Chloride Level 108 98-107 mmol/L Carbon Dioxide Level 24 21-32 mmol/L Anion Gap 10.0 3-11 mmol/L Blood Urea Nitrogen 21 7-18 mg/dl Creatinine 1.10 0.60-1.40 mg/dl Est Creatinine Clear Calc Drug Dose 57.6 ml/min Estimated GFR () 79.5 Estimated GFR (Non- 68.6 BUN/Creatinine Ratio 19.0 10-20 Random Glucose 101 70-99 mg/dl Calcium Level 8.2 8.5-10.1 mg/dl Magnesium Level 1.5 1.8-2.4 mg/dl Total Bilirubin 0.3 0.2-1 mg/dl Aspartate Amino Transf (AST/SGOT) 13 15-37 U/L Alanine Aminotransferase (ALT/SGPT) 20 12-78 U/L Alkaline Phosphatase 96 45-117 U/L Total Protein 6.2 6.4-8.2 gm/dl Albumin 2.5 3.4-5.0 gm/dl Globulin 3.7 2.5-4.0 gm/dl Albumin/Globulin Ratio 0.7 0.9-2 Bedside Lactic Acid Venous 2.16 0.90-1.70 mmol/L Urine Color YELLOW Urine Appearance CLEAR CLEAR Urine pH 7.0 4.5-7.5 Urine Specific [place] 1.019 1.000-1.030 Urine Protein 1+ NEG Urine Glucose (UA) NEG NEG Urine Ketones NEG NEG Urine Occult Blood NEG NEG Urine Nitrite NEG NEG Urine Bilirubin NEG NEG Urine Urobilinogen NEG NEG Urine Leukocyte Esterase NEG NEG Urine WBC (Auto) 0 0-5 /hpf Urine RBC (Auto) 0-4 0-4 /hpf Urine Hyaline Casts (Auto) 0 0-5 /lpf Urine Epithelial Cells (Auto) 0-5 0-5 /lpf Urine Bacteria (Auto) NEG NEG Microbiology Results 07/15/16 Blood Culture, Received Pending 07/15/16 Blood Culture, Received Pending Diagnostic Radiology CT chest 1. Cardiomegaly and emphysema with evidence of pulmonary artery hypertension. 2. Postoperative changes from left-sided pulmonary resection with leftward shift of the mediastinum are again seen. 3. There are foci of tree-in-bud nodularity in the right upper lobe with mild associated ground glass change. This is new from 06/23/2016 and likely represents an infectious/inflammatory pneumonitis. 4. Similar-appearing tree-in-bud changes in the lower lobes seen on 06/23/2016 have almost completely resolved. 5. There has been no significant change in the irregular masslike consolidation in the left perihilar region as compared to several prior examinations. This likely represents posttreatment change. Recurrent/residual tumor would be impossible to exclude. 6. Presumed metastatic change in the left lobe of liver is again noted. 7. No new pulmonary lesions are identified. Pleural-based nodules in the right lung are similar in appearance to prior studies. 8. Small left pleural effusion. 9. Left sided nephrolithiasis. 10. Additional findings as above. EKG Sinus - evidence of previous anterior AK - no acute ischemic changes Impression Assessment and Plan 70 y/o M Hx CAD, PAF, lung adeno CA, partial L lung resection 2014 - currently being treated with Nivolumab. The pt has had a chronic cough and SOB which he associates with his ongoing treatment. He developed fevers, chills and sweats 2 days prior. He was due for his chemo today however his oncologist decided to delay treatment due to his fevers and instead sent him for a CT chest. Results are consistent with a RUL pneumonia. He was sent to the hospital as a result. He has a mild lactic acidosis and a fever was confirmed and therefore meets sepsis criteria. He denies CP, N/V/D or dysuria. He was treated one month prior for PNM in the outpt setting. It appears that this was a RLL pneumonia which is resolving on his recent CT. 1) Acute PNM - sepsis - pt will be placed on Cefepime and Zithro pending culture results. He received a dose of Vancomycin in the ER prior to admission. We will provide Duonebs, PRN Xopenex and an 02 protocol. IVF will be provided overnight and a repeat lactic is pending. 2) COPD - no current wheezing - he does take daily prednisone however and we will increase his dose in the setting of an acute illness. 3) AF - currently sinus - not on chronic anticoagulation - cont Amiodarone, ASA 4) CAD - no evidence of ACS - monitor on telemetry - cont ASA - presumably he is Statin intolerant as this does not figure into his med list 5) CA - receiving Opdivo treatment - interrupted due to PNM - f/u with onc in outpt setting 6) Anemia - Hb is slightly below baseline and it seems is trending down - will trend and can transfuse PRN - no evidence of active bleeding Full code - Heparin prophylaxis Total time for this admit including review of labs, meds, EKG - discussion with pt and ER attending - 39 min Level of Care Telemetry Resuscitation Status FULL RESUSCITATION VTE Prophylaxis VTE Risk Assessment Done? Y/N: Yes Risk Level: High Given or contraindicated: Unfractionated heparin SQ
[2016-07-15 23:50] VITALS: BP 122/74; PULSE 83; TEMP 37; O2SAT 96; Ht 177.8 cm; Wt 63.0 kg
[2016-07-16] VITALS (17 sets, daily range): BP systolic 155–182; BP diastolic 76–85; PULSE 62–84; TEMP 36.9–39.1; O2SAT 95–99
[2016-07-16] MEDS: AZITHROMYCIN IV 500 MG in DEXTROSE 5% 250ML 250 ML IV SCH (01:23)
[2016-07-16] MEDS: NSS + 20MEQ KCL 1000ML 1,000 ML IV SCH ×2 (01:23→07:34)
[2016-07-16] MEDS: ALBUT/IPRATROP 3MG/0.5MG NEB 3 ML VIAL INH SCH ×4 (02:18→19:38)
[2016-07-16] MEDS: CEFEPIME IV 1,000 MG in DEXTROSE 5% 100ML 100 ML IV SCH ×3 (03:30→18:12)
[2016-07-16] MEDS: HEPARIN SOD 5000 UNIT/0.5 ML CARP SQ SCH ×3 (05:47→21:25)
[2016-07-16 06:30] LABS: BASO % 0.2 %; BASO ABS # 0.02 K/uL (0-0.2); EOS % 1.2 %; HEMATOCRIT 27.5 % (42-52); IG% 0.5 %; LYMPH % 5.9 %; LYMPH ABS # 0.59 K/uL (1.2-3.4); MEAN CELL VOLUME 84.9 fL (80-100); MEAN CORPUSCULAR HEMOGLOBIN 25.6 pg (25-34); MEAN CORPUSCULAR HGB CONC 30.2 g/dl (32-36); MONO % 5.9 %; NEUT % 86.3 %; PLATELET COUNT 166 K/uL (130-400); RED BLOOD COUNT 3.24 M/uL (4.7-6.1); WHITE BLOOD COUNT 9.99 K/uL (4.8-10.8)
[2016-07-16 06:56] LABS: ANISOCYTOSIS PRESENT; COMPLETE YES; POIKILOCYTOSIS PRESENT
[2016-07-16 07:14] LABS: BUN/CREATININE RATIO 18.4 (10-20); CALCIUM 7.5 mg/dl (8.5-10.1); MAGNESIUM 2.3 mg/dl (1.8-2.4); POTASSIUM 3.9 mmol/L (3.5-5.1)
[2016-07-16] MEDS: PANTOprazole SOD 40 MG TAB PO SCH (07:36)
[2016-07-16] MEDS: ASPIRIN 81 MG ECTAB PO SCH (07:36)
[2016-07-16] MEDS: AMIODARONE 200 MG TAB PO SCH (07:36)
[2016-07-16] MEDS: BusPIRone 15 MG TAB PO SCH ×2 (07:36→21:26)
[2016-07-16] MEDS: SODIUM CHLOR 0.45% + 20MEQ KCL 1,000 ML IV SCH ×2 (09:23→19:19)
--- NOTE | 2016-07-16 13:51 | Oncology Consultation ---
Oncology/Heme Consultation Date of Consultation: July 16, 2016. Attending Physician: Ashwin Arteaga MD, PhD Reason for Consultation: History of lung carcinoma Shortness of breath History of Present Illness Mr. Hess is a 70-year-old gentleman with a history of non-small cell lung carcinoma. He was initially diagnosed in April 2013. In June 2013 he had a left upper lobectomy and lymph node sampling done at [facility]. The final stage then was T3 N1 and he received 4 cycles of adjuvant cis-[place]/ gemcitabine. By March 2014 and enlarging soft tissue mass was noted in the right hilum and he received concurrent chemoradiation with weekly carboplatinum/ Taxol that was completed May 2014 followed by 2 more cycles of carboplatinum/ Taxol. By October 2014 a slowly enlarging soft tissue mass in the left hilar area was seen. He was started on Tarceva. Scans remain stable until October 2015. He received single agent gemcitabine with little response with now hepatic metastatic disease. In April 2016 and MRI of his brain revealed 2 enhancing lesions in the right parietal lobe consistent with metastasis. He received radiation therapy. He has been receiving now more recently Opdivo with his last treatment being approximately 2 weeks ago. He presents with shortness of breath and fever. CT scan of the chest reflects changes particularly in the right lung consistent with an underlying pneumonitis. He really has had very little cough and certainly if any cough it is nonproductive. He is markedly short of breath. He has fairly severe underlying chronic obstructive lung disease. This is been ongoing for about a week. Past Medical/Surgical History Medical Problems: (1) Anemia Status: Acute (2) Bronchitis Status: Acute (3) Cough Status: Acute (4) Fever Status: Acute (5) Hypomagnesemia Status: Acute (6) Hypotension Status: Acute (7) Leg edema, right Status: Acute (8) Lung cancer Permanent Comment: Abnormal CT PET scan revealing left upper lobe lesion 06/01/2013 fine-needle aspiration showing squamous cell carcinoma 06/29/2013 status post left upper lobectomy [id number] Systemic chemotherapy with cisplatin and gemzar for 4 cycles 04/08/2014 abnormal PET/CT with new FDG avid lesion Combined radiation and chemotherapy recommended. Status post completion of radiation therapy 07/01/2014 received 7000 cGy Finding of progression of disease with liver metastasis 11/17/2015 Status post systemic chemotherapy with gemcitabine 11/28/2015 to 03/05/2016 Second opinion at [facility] Initiation of systemic immunotherapy with Opdivo 04/27/2016 Nausea, vomiting finding of brain metastasis 05/19/2016 Status post SBRT to the brain completed 06/07/2016 received 3000 cGy in 5 fractions Status: Chronic (9) Metastatic cancer to brain Status: Acute (10) Nausea and vomiting Status: Acute (11) Near syncope Status: Acute (12) Pneumonitis Status: Acute Family History FH: CAD (coronary artery disease) FATHER (passed at age 59 from [place]) MOTHER Social History Smoking Status: Unknown if Ever Smoked Alcohol Use: socially Drug Use: none Marital Status: Housing Status: lives with family Occupation Status: retired Allergies Coded Allergies: No Known Allergies (Unverified , 07/15/16) Home Medications Scheduled Alfuzosin Hcl (Uroxatral), 10 MG PO QPM Amiodarone Hcl (Cordarone), 200 MG PO QAM Aspirin (Aspirin), 81 MG PO QAM Budesonide/Formoterol Fumarate (Symbicort 160/4.5 Inhaler), 2 PUFFS INH HS Buspirone Hcl (Buspar), 15 MG PO BID Levalbuterol Hcl (Levalbuterol Hcl), 1 DOSE INH TID Nitroglycerin (Nitrostat), 0.4 MG UT PRN Omeprazole (Prilosec), 20 MG PO DAILY Prednisone (Prednisone), 10 MG PO DAILY Tiotropium [place] (Spiriva Handihaler), 1 PUFF INH QPM Scheduled PRN Albuterol Hfa (Ventolin Hfa), 2 PUFFS INH QID PRN for SOB/Wheezing Fluticasone Propionate (Nasal) (Flonase Allergy Relief), 2 SPRAYS ANGELA DAILY PRN for ALLERGIC REACTION Ondansetron (Ondansetron HCl), 8 MG PO Q8 PRN for Nausea or Vomiting Oxycodone HCl (Oxycodone HCl), 5 MG PO Q6H PRN for Pain Current Inpatient Medications Current Inpatient Medications Medications (Trade) Dose Ordered Sig/Isai Route Start Time Stop Time Status Last Admin Dose Admin Alfuzosin HCl (Uroxatral Tab) 10 mg QPM PO 07/16/16 21:00 08/15/16 20:59 Amiodarone HCl (Cordarone Tab) 200 mg QAM PO 07/16/16 09:00 08/15/16 08:59 07/16/16 07:36 200 MG Aspirin (Ecotrin Tab) 81 mg QAM PO 07/16/16 09:00 08/15/16 08:59 07/16/16 07:36 81 MG Budesonide/ Formoterol Fumarate (Symbicort 160/ 4.5 Inh) 2 puffs HS INH 07/16/16 21:00 08/15/16 20:59 Buspirone HCl (BusPAR TAB) 15 mg BID PO 07/16/16 09:00 08/15/16 08:59 07/16/16 07:36 15 MG Fluticasone Propionate (Flonase Nasal [place]) 2 sprays DAILY PRN ANGELA 07/15/16 22:30 08/14/16 22:29 Nitroglycerin (Nitrostat Tab) 0.4 mg PRN UT 07/15/16 22:30 08/14/16 22:29 Ondansetron HCl (Zofran Tab) 8 mg Q8 PRN PO 07/15/16 22:30 08/14/16 22:29 Pantoprazole Sodium (Protonix Tab) 40 mg DAILY PO 07/16/16 09:00 08/15/16 08:59 07/16/16 07:36 40 MG Oxycodone/ Acetaminophen (Percocet 7.5-325MG Tab) 1 tab Q4H PRN PO 07/15/16 22:30 07/29/16 22:29 07/16/16 13:23 1 TAB Albuterol/ Ipratropium (Duoneb) 3 ml Q6R INH 07/16/16 03:00 08/15/16 02:59 07/16/16 10:51 3 ML Levalbuterol 1.25 mg 1.25 mg Q4H PRN INH 07/15/16 22:30 08/14/16 22:29 07/16/16 05:38 1.25 MG Cefepime HCl 1000 mg/Dextrose 111.3 ml @ 200 mls/hr Q8H IV 07/16/16 02:00 07/23/16 01:59 07/16/16 09:23 200 MLS/HR Azithromycin/ Dextrose (Zithromax IV/D5 250ml) 255 ml @ 125 mls/hr Q24H IV 07/16/16 02:00 07/23/16 01:59 07/16/16 01:23 125 MLS/HR Heparin Sodium (Porcine) (Heparin Sq 5000 Unit/0.5ml) 5,000 unit Q8H SQ 07/16/16 06:00 08/15/16 05:59 07/16/16 13:24 5,000 UNIT Acetaminophen (Tylenol Tab) 650 mg Q4H PRN PO 07/15/16 22:30 08/14/16 22:29 Al Hydrox/Mg Hydrox/Simethicone (Maalox Max Susp) 15 ml Q4H PRN PO 07/15/16 22:30 08/14/16 22:29 Magnesium Hydroxide (Milk Of Magnesia Susp) 30 ml Q12H PRN PO 07/15/16 22:30 08/14/16 22:29 Zolpidem Tartrate (Ambien Tab) 5 mg HSZ PRN PO 07/15/16 22:30 08/14/16 22:29 Ondansetron HCl (Zofran Inj) 4 mg Q6H PRN IV 07/15/16 22:30 08/14/16 22:29 Polyethylene 17 gm 17 gm DAILY PRN PO 07/15/16 22:30 08/14/16 22:29 Potassium Chloride/Sodium Chloride 1,000 ml @ 100 mls/hr Q10H IV 07/16/16 09:00 08/15/16 08:59 07/16/16 09:23 100 MLS/HR Methylprednisolone Sodium Succinate/ Syringe (Solu-Medrol IV/ Syringe) 0.32 ml @ 1.5 mls/min Q6@0200,0800,1400,2000 IV 07/16/16 14:00 08/15/16 13:59 Review of Systems Constitutional: Negative for weight loss, he has again been short of breath and with a fever - he denies shaking chills. Eyes: Negative for event change of vision ENT: Negative for epistaxis, nasal discharge, sore throat, or deafness Cardiovascular: Negative for chest pain, palpitations, dizziness, diaphoresis Respiratory: Positive for worsening shortness of breath Gastrointestinal: Negative for diarrhea, hematemesis, melena, nausea, vomiting , or dyspepsia Integumentary (skin): Negative for rash or jaundice discoloration Genitourinary: Negative for urinary frequency, hematuria, or dysuria Neurological: Negative for weakness, seizure activity, headache, or dizziness Lymphatic/Hematologic: Negative for petechiae, bleeding or new adenopathy Musculoskeletal: Negative for new joint or back pain Allergic/Immunologic: Negative for unusual rash or pruritis. Physical Exam Date Time Temp Pulse Resp B/P Pulse Ox O2 Delivery O2 Flow Rate FiO2 07/16/16 12:00 Room Air 07/16/16 11:53 156/85 07/16/16 11:18 37.5 82 18 182/79 97 Room Air 07/16/16 10:51 82 20 99 Room Air 07/16/16 08:00 Room Air 07/16/16 07:32 76 20 98 Room Air 07/16/16 07:28 37.1 65 18 156/80 95 Room Air 07/16/16 05:38 76 20 98 Room Air 07/16/16 04:48 36.9 65 18 155/76 97 Room Air 07/16/16 04:00 96 Room Air 07/16/16 02:18 84 16 96 Room Air 07/16/16 00:00 130/70 97 07/15/16 23:50 37.0 83 22 122/74 96 Room Air 07/15/16 22:00 37.6 78 119/76 95 Room Air 07/15/16 20:37 Room Air 07/15/16 20:01 37.7 109 28 156/77 94 Room Air Constitutional: vitals are stable. He is tachypneic Eyes: Eyes are SHADE EOMI without conjuctival erythema or icterus. ENT: External examination was negative for masses. Neck: Negative for masses or palpable thyromegaly Respiratory: Lung sounds were generally clear but with decreased sounds bilaterally Cardiovascular: Heart was RRR without significant murmur, gallops aoe rubs Gastrointestinal: No palpable hepatic or splenomegaly. The abdomen was soft with normal bowel sounds. Lymphatic system: there was no palpable peripheral lymphadenopathy Musculoskeletal System: The musculoskeletal system seemed concordant with age. Skin: The skin was negative for jaundice. Neurologic exam: The exam was negative for any focal findings. Deep tendon reflexes were equal and symmetrical. Psychiatric exam: Was essentially negative with normal mood and effect. Extremities: Negative for edema or erythema Laboratory Results Last 24 Hours Test 07/15/16 20:40 07/15/16 20:58 07/15/16 21:00 07/16/16 06:18 White Blood Count 13.14 K/uL 9.99 K/uL Red Blood Count 3.28 M/uL 3.24 M/uL Hemoglobin 8.5 g/dL 8.3 g/dL Hematocrit 28.4 % 27.5 % Mean Corpuscular Volume 86.6 fL 84.9 fL Mean Corpuscular Hemoglobin 25.9 pg 25.6 pg Mean Corpuscular Hemoglobin Concent 29.9 g/dl 30.2 g/dl Platelet Count 206 K/uL 166 K/uL Mean Platelet Volume 9.0 fL 8.0 fL Neutrophils (%) (Auto) 90.5 % 86.3 % Lymphocytes (%) (Auto) 3.7 % 5.9 % Monocytes (%) (Auto) 5.3 % 5.9 % Eosinophils (%) (Auto) 0.1 % 1.2 % Basophils (%) (Auto) 0.1 % 0.2 % Neutrophils # (Auto) 11.89 K/uL 8.62 K/uL Lymphocytes # (Auto) 0.49 K/uL 0.59 K/uL Monocytes # (Auto) 0.70 K/uL 0.59 K/uL Eosinophils # (Auto) 0.01 K/uL 0.12 K/uL Basophils # (Auto) 0.01 K/uL 0.02 K/uL RDW Standard Deviation 64.3 fL 62.6 fL RDW Coefficient of Variation 20.0 % 20.0 % Immature Granulocyte % (Auto) 0.3 % 0.5 % Immature Granulocyte # (Auto) 0.04 K/uL 0.05 K/uL Poikilocytosis PRESENT PRESENT Anisocytosis PRESENT PRESENT Prothrombin Time 10.9 SECONDS Prothromb Time International Ratio 1.0 Activated Partial Thromboplast Time 24.0 SECONDS Partial Thromboplastin Ratio 0.9 Sodium Level 142 mmol/L 146 mmol/L Potassium Level 3.8 mmol/L 3.9 mmol/L Chloride Level 108 mmol/L 115 mmol/L Carbon Dioxide Level 24 mmol/L 23 mmol/L Anion Gap 10.0 mmol/L 8.0 mmol/L Blood Urea Nitrogen 21 mg/dl 18 mg/dl Creatinine 1.10 mg/dl 1.00 mg/dl Est Creatinine Clear Calc Drug Dose 57.6 ml/min 64.6 ml/min Estimated GFR () 79.5 89.2 Estimated GFR (Non- 68.6 77.0 BUN/Creatinine Ratio 19.0 18.4 Random Glucose 101 mg/dl 91 mg/dl Calcium Level 8.2 mg/dl 7.5 mg/dl Magnesium Level 1.5 mg/dl 2.3 mg/dl Total Bilirubin 0.3 mg/dl Aspartate Amino Transf (AST/SGOT) 13 U/L Alanine Aminotransferase (ALT/SGPT) 20 U/L Alkaline Phosphatase 96 U/L Total Protein 6.2 gm/dl Albumin 2.5 gm/dl Globulin 3.7 gm/dl Albumin/Globulin Ratio 0.7 Bedside Lactic Acid Venous 2.16 mmol/L Urine Color YELLOW Urine Appearance CLEAR Urine pH 7.0 Urine Specific Campus 1.019 Urine Protein 1+ Urine Glucose (UA) NEG Urine Ketones NEG Urine Occult Blood NEG Urine Nitrite NEG Urine Bilirubin NEG Urine Urobilinogen NEG Urine Leukocyte Esterase NEG Urine WBC (Auto) 0 /hpf Urine RBC (Auto) 0-4 /hpf Urine Hyaline Casts (Auto) 0 /lpf Urine Epithelial Cells (Auto) 0-5 /lpf Urine Bacteria (Auto) NEG Lactic Acid Level 0.9 mmol/L Assessment & Plan Mr. Hess is a 70-year-old gentleman with a history of progressive non-small cell lung carcinoma. He is now admitted with fever and shortness of breath. CT scan of the chest done on July 15 yesterday reflects changes in the right lung that would be more consistent with a pneumonitis. This could be infectious but on the outside chance that the PD1 inhibitor is playing a role in his shortness of breath I would ask that steroids be started at 1-2 mg/kg. I would ask that they be given parenterally for now. He is on an antibiotic. We will follow along with you.
[2016-07-16] MEDS: METHYLPREDNISOLONE IV 20 MG in SYRINGE 0 ML IV SCH ×2 (14:03→20:47)
[2016-07-16] MEDS: BUDESONIDE/FORMOTEROL FUMARATE 160/4.5 60 PUFFS/INHALER INH SCH (21:23)
[2016-07-16] MEDS: ALFUZosin TAB 10 MG TAB PO SCH (21:26)
[2016-07-17] VITALS (16 sets, daily range): BP systolic 140–177; BP diastolic 70–84; PULSE 62–78; TEMP 36.7–37; O2SAT 94–99
[2016-07-17] MEDS: ALBUT/IPRATROP 3MG/0.5MG NEB 3 ML VIAL INH SCH ×4 (01:39→18:58)
[2016-07-17] MEDS: METHYLPREDNISOLONE IV 20 MG in SYRINGE 0 ML IV SCH ×2 (01:47→08:14)
[2016-07-17] MEDS: AZITHROMYCIN IV 500 MG in DEXTROSE 5% 250ML 250 ML IV SCH (01:48)
[2016-07-17] MEDS: CEFEPIME IV 1,000 MG in DEXTROSE 5% 100ML 100 ML IV SCH ×3 (01:48→17:36)
[2016-07-17] MEDS: SODIUM CHLOR 0.45% + 20MEQ KCL 1,000 ML IV SCH (05:23)
[2016-07-17] MEDS: HEPARIN SOD 5000 UNIT/0.5 ML CARP SQ SCH ×3 (05:25→21:10)
[2016-07-17] MEDS: PANTOprazole SOD 40 MG TAB PO SCH (08:14)
[2016-07-17] MEDS: ASPIRIN 81 MG ECTAB PO SCH (08:14)
[2016-07-17] MEDS: AMIODARONE 200 MG TAB PO SCH (08:14)
[2016-07-17] MEDS: BusPIRone 15 MG TAB PO SCH ×2 (08:14→21:08)
--- NOTE | 2016-07-17 11:10 | Hematology/Oncology Prog Note ---
Hematology/Onc Progress Note Date of Service July 17, 2016. Diagnoses History of non-small cell lung carcinoma Probable pneumonitis Medications Medications Administered Medications (Trade) Dose Ordered Sig/Isai Route Start Time Stop Time Status Last Admin Dose Admin Sodium Chloride (Nss 1000ml) 1,000 ml @ 999 mls/hr Q1H1M ONCE IV 07/15/16 20:20 07/15/16 21:20 DC 07/15/16 20:42 999 MLS/HR Piperacillin Sod/ Tazobactam Sod (Zosyn Iv) 4.5 gm ONE STAT IV 07/15/16 20:20 07/15/16 20:24 DC 07/15/16 20:42 4.5 GM Vancomycin HCl (Vancomycin 1gm/ 270ml Nss) 1 gm ONE STAT IV 07/15/16 20:20 07/15/16 20:24 DC 07/15/16 20:42 1 GM Ibuprofen (Motrin Tab) 600 mg NOW STAT PO 07/15/16 20:20 07/15/16 20:24 DC 07/15/16 20:43 600 MG Levalbuterol (Xopenex 1.25MG/ 0.5ML Neb) 1.25 mg NOW STAT INH 07/15/16 20:20 07/15/16 20:24 DC 07/15/16 20:42 1.25 MG Ipratropium [place] (Atrovent 0.02% 0.5MG/2.5ML Neb) 0.5 mg NOW STAT INH 07/15/16 20:20 07/15/16 20:24 DC 07/15/16 20:42 0.5 MG Magnesium Sulfate (Magnesium Sulfate) 2 gm NOW STAT IV 07/15/16 21:38 07/15/16 21:39 DC 07/15/16 21:56 2 GM Alfuzosin HCl (Uroxatral Tab) 10 mg QPM PO 07/16/16 21:00 08/15/16 20:59 07/16/16 21:26 10 MG Amiodarone HCl (Cordarone Tab) 200 mg QAM PO 07/16/16 09:00 08/15/16 08:59 07/17/16 08:14 200 MG Aspirin (Ecotrin Tab) 81 mg QAM PO 07/16/16 09:00 08/15/16 08:59 07/17/16 08:14 81 MG Budesonide/ Formoterol Fumarate (Symbicort 160/ 4.5 Inh) 2 puffs HS INH 07/16/16 21:00 08/15/16 20:59 07/16/16 21:23 2 PUFFS Buspirone HCl (BusPAR TAB) 15 mg BID PO 07/16/16 09:00 08/15/16 08:59 07/17/16 08:14 15 MG Pantoprazole Sodium (Protonix Tab) 40 mg DAILY PO 07/16/16 09:00 08/15/16 08:59 07/17/16 08:14 40 MG Oxycodone/ Acetaminophen (Percocet 7.5-325MG Tab) 1 tab Q4H PRN PO 07/15/16 22:30 07/29/16 22:29 07/16/16 13:23 1 TAB Albuterol/ Ipratropium (Duoneb) 3 ml Q6R INH 07/16/16 03:00 08/15/16 02:59 07/17/16 07:14 3 ML Levalbuterol 1.25 mg 1.25 mg Q4H PRN INH 07/15/16 22:30 08/14/16 22:29 07/16/16 05:38 1.25 MG Cefepime HCl 1000 mg/Dextrose 111.3 ml @ 200 mls/hr Q8H IV 07/16/16 02:00 07/23/16 01:59 07/17/16 11:04 200 MLS/HR Azithromycin/ Dextrose (Zithromax IV/D5 250ml) 255 ml @ 125 mls/hr Q24H IV 07/16/16 02:00 07/23/16 01:59 07/17/16 01:48 125 MLS/HR Heparin Sodium (Porcine) 5000 unit 5,000 unit Q8H SQ 07/16/16 06:00 08/15/16 05:59 07/17/16 05:25 5,000 UNIT Potassium Chloride/Sodium Chloride 1,000 ml @ 150 mls/hr Q6H40M IV 07/16/16 01:00 07/16/16 08:19 DC 07/16/16 07:34 150 MLS/HR Potassium Chloride/Sodium Chloride (1/2 Nss + 20meq KCl 1000ml) 1,000 ml @ 100 mls/hr Q10H IV 07/16/16 09:00 08/15/16 08:59 07/17/16 05:23 100 MLS/HR Prednisone 60 mg 60 mg TODAY@1130 PO 07/16/16 11:30 07/16/16 11:32 DC 07/16/16 11:52 60 MG Methylprednisolone Sodium Succinate/ Syringe (Solu-Medrol IV/ Syringe) 0.32 ml @ 1.5 mls/min Q6@0200,0800,1400,2000 IV 07/16/16 14:00 08/15/16 13:59 07/17/16 08:14 1.5 MLS/MIN Subjective He feels generally well today. His breathing is a lot more comfortable. Review of Systems: Constitutional: Negative for night sweats, or fever Eyes: Negative for event change of vision ENT: Negative for epistaxis, nasal discharge, sore throat, or deafness Cardiovascular: Negative for chest pain, palpitations, dizziness, diaphoresis Respiratory: Negative for new shortness of breath,hemoptysis, or purulent cough Gastrointestinal: Negative for diarrhea, hematemesis, melena, nausea, vomiting , or dyspepsia Integumentary (skin): Negative for rash or jaundice discoloration Genitourinary: Negative for urinary frequency, hematuria, or dysuria Neurological: Negative for weakness, seizure activity, headache, or dizziness Lymphatic/Hematologic: Negative for petechiae, bleeding or new adenopathy Musculoskeletal: Negative for new joint or back pain Allergic/Immunologic: Negative for unusual rash or pruritis. Vital Signs Vital Signs Past 12 Hours Date Time Temp Pulse Resp B/P Pulse Ox O2 Delivery O2 Flow Rate FiO2 07/17/16 08:00 95 Room Air 07/17/16 07:23 37.0 63 18 167/78 95 Room Air 07/17/16 07:14 78 16 98 Room Air 07/17/16 05:02 36.7 66 16 158/80 98 Room Air 07/17/16 04:00 95 Room Air 07/17/16 01:40 62 16 96 Room Air 07/17/16 00:33 36.8 65 18 177/84 95 Room Air 165/70 07/17/16 00:00 95 Room Air Physical Exam Constitutional: vitals are stable. Eyes: Eyes are SHADE EOMI without conjuctival erythema or icterus. ENT: External examination was negative for masses. Neck: Negative for masses or palpable thyromegaly Respiratory: Lung sounds were generally clear bilaterally Cardiovascular: Heart was RRR without significant murmur, gallops aoe rubs Gastrointestinal: No palpable hepatic or splenomegaly. The abdomen was soft with normal bowel sounds. Lymphatic system: there was no palpable peripheral lymphadenopathy Musculoskeletal System: The musculoskeletal system seemed concordant with age. Skin: The skin was negative for jaundice. Neurologic exam: The exam was negative for any focal findings. Deep tendon reflexes were equal and symmetrical. Psychiatric exam: Was essentially negative with normal mood and effect. Extremities: Negative for edema or erythema Assessment & Plan His looks more comfortable today. 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 Could convert the IV steroids now to prednisone 60-80 mg a day in divided doses. I will arrange for a follow-up in our clinic to taper off the prednisone over the next several weeks. He understands that there will need to be a delay in further nivolumab until we can wean down the prednisone to a more acceptable level (less than 20 mg a day).
--- NOTE | 2016-07-17 14:38 | Progress Note ---
Subjective Date of Service: July 16, 2016. Subjective Pt evaluation today including: conversation w/ patient, physical exam, chart review, lab review, review of studies, conversation w/ road consultant, review of inpatient medication list MAXIMUM TEMPERATURE was 39.1 this afternoon Generally feeling good Has some sputum Was having frequent urination and has dyspnea on exertion going up to the restroom, Kwan catheter placed Problem List Medical Problems: (1) Anemia Status: Acute (2) Bronchitis Status: Acute (3) Cough Status: Acute (4) Fever Status: Acute (5) Hypomagnesemia Status: Acute (6) Hypotension Status: Acute (7) Leg edema, right Status: Acute (8) Lung cancer Permanent Comment: Abnormal CT PET scan revealing left upper lobe lesion 06/01/2013 fine-needle aspiration showing squamous cell carcinoma 06/29/2013 status post left upper lobectomy [id number] Systemic chemotherapy with cisplatin and gemzar for 4 cycles 04/08/2014 abnormal PET/CT with new FDG avid lesion Combined radiation and chemotherapy recommended. Status post completion of radiation therapy 07/01/2014 received 7000 cGy Finding of progression of disease with liver metastasis 11/17/2015 Status post systemic chemotherapy with gemcitabine 11/28/2015 to 03/05/2016 Second opinion at [facility] Initiation of systemic immunotherapy with Opdivo 04/27/2016 Nausea, vomiting finding of brain metastasis 05/19/2016 Status post SBRT to the brain completed 06/07/2016 received 3000 cGy in 5 fractions Status: Chronic (9) Metastatic cancer to brain Status: Acute (10) Nausea and vomiting Status: Acute (11) Near syncope Status: Acute (12) Pneumonitis Status: Acute Review of Systems Constitutional: No chills, No fatigue, No fever, No problem reported, No sweats , No weakness, No weight loss Eyes: No diplopia, No discharge, No eye pain, No redness, No worsening of vision ENT: No dental problems, No hearing loss, No nasal symptoms, No sore throat, No tinnitus, No trouble swallowing, No unusual epistaxis Respiratory: No cough, No dyspnea at rest, No dyspnea on exertion, No hemoptysis, No shortness of breath, No sputum, No wheezing Cardiac: No PND, No chest pain, No claudication, No edema, No orthopnea, No palpitations Abdomen: No constipation, No diarrhea, No nausea, No pain, No vomiting Musculoskeletal: No calf pain, No joint pain, No muscle pain, No swelling Male : No dysuria, No hematuria, No incontinence, No nocturia more than once/ night, No slowing stream, No urinary frequency Neurologic: No balance problems, No memory loss, No numbness/tingling, No paralysis, No vertigo, No weakness Psychiatric: No anhedonism, No anxiety, No depression symptoms, No insomnia, No substance abuse Heme: No abnormal bleeding/bruising, No clotting problems, No night sweats, No swollen lymph nodes Endo: No excessive thirst, No excessive urination, No fatigue Skin: No bleeding, No color change, No itch, No new/changing skin lesions, No rash Objective Vital Signs Date Time Temp Pulse Resp B/P Pulse Ox O2 Delivery O2 Flow Rate FiO2 07/17/16 14:10 64 16 97 Room Air 07/17/16 12:00 97 Room Air 07/17/16 11:30 37.0 68 20 151/79 97 Room Air 07/17/16 08:00 95 Room Air 07/17/16 07:23 37.0 63 18 167/78 95 Room Air 07/17/16 07:14 78 16 98 Room Air 07/17/16 05:02 36.7 66 16 158/80 98 Room Air 07/17/16 04:00 95 Room Air 07/17/16 01:40 62 16 96 Room Air 07/17/16 00:33 36.8 65 18 177/84 95 Room Air 165/70 07/17/16 00:00 95 Room Air 07/16/16 20:00 96 Room Air 07/16/16 19:38 65 16 96 Room Air 07/16/16 19:15 37.2 62 18 157/83 96 Room Air 07/16/16 18:17 37.1 07/16/16 16:00 99 Room Air 07/16/16 15:50 37.8 07/16/16 15:10 39.1 82 20 165/81 99 Room Air 07/16/16 14:42 82 20 99 Room Air Physical Exam General Appearance: WD/WN, no apparent distress Eyes: normal inspection, PERRL, EOMI, sclerae normal ENT: normal ENT inspection, hearing grossly normal, pharynx normal Neck: supple, no adenopathy, thyroid normal, no JVD, no carotid bruits, trachea midline Respiratory/Chest: chest non-tender, normal breath sounds, no respiratory distress, no accessory muscle use, + decreased breath sounds Cardiovascular: regular rate, rhythm, no edema, no gallop, no JVD, no murmur Abdomen: normal bowel sounds, non tender, soft, no organomegaly, no pulsatile mass Extremities: normal range of motion, non-tender, normal inspection, no pedal edema, no calf tenderness, normal capillary refill, pelvis stable 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 admitted because of fever developed fevers, chills and sweats 2 days prior. On the day of admission, he was due for chemotherapy s, however his oncologist decided to delay treatment due to his fevers and instead sent him for a CT chest. Results are consistent with a RUL pneumonia. He was sent to the hospital as a result. 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 con Duonebs, PRN Xopenex and an 02 protocol. Senna sputum culture COPD stable History of proximal A. fib, stable CAD Lung cancer CA; cardiology follow-up Anemia continue follow-up GI and DVT prophylaxis is covered Continued [facility] stay due to: multiple IV medications needed Discharge planning: home
--- NOTE | 2016-07-17 14:42 | Progress Note ---
Subjective Date of Service: July 17, 2016. Subjective Pt evaluation today including: conversation w/ patient, physical exam, chart review, lab review, review of studies, conversation w/ gift consultant, review of inpatient medication list Feeling good, no more fever, still on Kwan catheter, eating drinking., No complaining Problem List Medical Problems: (1) Anemia Status: Acute (2) Bronchitis Status: Acute (3) Cough Status: Acute (4) Fever Status: Acute (5) Hypomagnesemia Status: Acute (6) Hypotension Status: Acute (7) Leg edema, right Status: Acute (8) Lung cancer Permanent Comment: Abnormal CT PET scan revealing left upper lobe lesion 06/01/2013 fine-needle aspiration showing squamous cell carcinoma 06/29/2013 status post left upper lobectomy [id number] Systemic chemotherapy with cisplatin and gemzar for 4 cycles 04/08/2014 abnormal PET/CT with new FDG avid lesion Combined radiation and chemotherapy recommended. Status post completion of radiation therapy 07/01/2014 received 7000 cGy Finding of progression of disease with liver metastasis 11/17/2015 Status post systemic chemotherapy with gemcitabine 11/28/2015 to 03/05/2016 Second opinion at [facility] Initiation of systemic immunotherapy with Opdivo 04/27/2016 Nausea, vomiting finding of brain metastasis 05/19/2016 Status post SBRT to the brain completed 06/07/2016 received 3000 cGy in 5 fractions Status: Chronic (9) Metastatic cancer to brain Status: Acute (10) Nausea and vomiting Status: Acute (11) Near syncope Status: Acute (12) Pneumonitis Status: Acute Review of Systems Constitutional: No chills, No fatigue, No fever, No problem reported, No sweats , No weakness, No weight loss Eyes: No diplopia, No discharge, No eye pain, No redness, No worsening of vision ENT: No dental problems, No hearing loss, No nasal symptoms, No sore throat, No tinnitus, No trouble swallowing, No unusual epistaxis Respiratory: + cough, + sputum, No dyspnea at rest, No dyspnea on exertion, No hemoptysis, No shortness of breath, No wheezing Cardiac: No PND, No chest pain, No claudication, No edema, No orthopnea, No palpitations Abdomen: No constipation, No diarrhea, No nausea, No pain, No vomiting Musculoskeletal: No calf pain, No joint pain, No muscle pain, No swelling Male : No dysuria, No hematuria, No incontinence, No nocturia more than once/ night, No slowing stream, No urinary frequency Neurologic: No balance problems, No memory loss, No numbness/tingling, No paralysis, No vertigo, No weakness Psychiatric: No anhedonism, No anxiety, No depression symptoms, No insomnia, No substance abuse Heme: No abnormal bleeding/bruising, No clotting problems, No night sweats, No swollen lymph nodes Endo: No excessive thirst, No excessive urination, No fatigue Skin: No bleeding, No color change, No itch, No new/changing skin lesions, No rash Objective Vital Signs Date Time Temp Pulse Resp B/P Pulse Ox O2 Delivery O2 Flow Rate FiO2 07/17/16 14:10 64 16 97 Room Air 07/17/16 12:00 97 Room Air 07/17/16 11:30 37.0 68 20 151/79 97 Room Air 07/17/16 08:00 95 Room Air 07/17/16 07:23 37.0 63 18 167/78 95 Room Air 07/17/16 07:14 78 16 98 Room Air 07/17/16 05:02 36.7 66 16 158/80 98 Room Air 07/17/16 04:00 95 Room Air 07/17/16 01:40 62 16 96 Room Air 07/17/16 00:33 36.8 65 18 177/84 95 Room Air 165/70 07/17/16 00:00 95 Room Air 07/16/16 20:00 96 Room Air 07/16/16 19:38 65 16 96 Room Air 07/16/16 19:15 37.2 62 18 157/83 96 Room Air 07/16/16 18:17 37.1 07/16/16 16:00 99 Room Air 07/16/16 15:50 37.8 07/16/16 15:10 39.1 82 20 165/81 99 Room Air 07/16/16 14:42 82 20 99 Room Air Physical Exam General Appearance: WD/WN, no apparent distress Eyes: normal inspection, PERRL, EOMI, sclerae normal ENT: normal ENT inspection, hearing grossly normal, pharynx normal Neck: supple, no adenopathy, thyroid normal, no JVD, no carotid bruits, trachea midline Respiratory/Chest: chest non-tender, normal breath sounds, no respiratory distress, no accessory muscle use, + decreased breath sounds, + rales, + wheezing Cardiovascular: regular rate, rhythm, no edema, no gallop, no JVD, no murmur Abdomen: normal bowel sounds, non tender, soft, no organomegaly, no pulsatile mass, + pertinent finding (Kwan in place) Extremities: normal range of motion, non-tender, normal inspection, no pedal edema, no calf tenderness, normal capillary refill, pelvis stable Neurologic/Psychiatric: 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 admitted on Jul 15 2016 because of fever developed fevers, chills and sweats 2 days prior. On the day of admission, he was due for chemotherapy s, however his oncologist decided to delay treatment due to his fevers and instead sent him for a CT chest. Results are consistent with a RUL pneumonia. He was sent to the hospital as a result. 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 Senna sputum culture COPD stable History of proximal A. fib, stable CAD Lung cancer CA; cardiology follow-up Anemia continue follow-up GI and DVT prophylaxis is covered Possible discharge tomorrow if 24-hour no spiking fever, or if blood culture and sputum culture negative Continued [facility] stay due to: multiple IV medications needed Discharge planning: home
[2016-07-17] MEDS: BUDESONIDE/FORMOTEROL FUMARATE 160/4.5 60 PUFFS/INHALER INH SCH (21:08)
[2016-07-17] MEDS: ALFUZosin TAB 10 MG TAB PO SCH (21:08)
[2016-07-18] VITALS (9 sets, daily range): BP systolic 140–156; BP diastolic 72–84; PULSE 60–73; TEMP 36.4–37.1; O2SAT 96–98
[2016-07-18] MEDS: ALBUT/IPRATROP 3MG/0.5MG NEB 3 ML VIAL INH SCH ×2 (01:34→07:26)
[2016-07-18] MEDS: CEFEPIME IV 1,000 MG in DEXTROSE 5% 100ML 100 ML IV SCH ×2 (02:26→10:00)
[2016-07-18] MEDS: AZITHROMYCIN IV 500 MG in DEXTROSE 5% 250ML 250 ML IV SCH (03:57)
[2016-07-18] MEDS: HEPARIN SOD 5000 UNIT/0.5 ML CARP SQ SCH (06:36)
[2016-07-18] MEDS: BusPIRone 15 MG TAB PO SCH (08:30)
[2016-07-18] MEDS: ASPIRIN 81 MG ECTAB PO SCH (08:30)
[2016-07-18] MEDS: PANTOprazole SOD 40 MG TAB PO SCH (08:30)
[2016-07-18] MEDS: AMIODARONE 200 MG TAB PO SCH (08:31)
[2016-07-18 08:39] LABS: EOS % 0.1 %; HEMATOCRIT 27.8 % (42-52); IG% 0.3 %; LYMPH ABS # 0.54 K/uL (1.2-3.4); MEAN CELL VOLUME 85.3 fL (80-100); MEAN CORPUSCULAR HEMOGLOBIN 26.7 pg (25-34); MEAN CORPUSCULAR HGB CONC 31.3 g/dl (32-36); MEAN PLATELET VOLUME 8.6 fL (7.4-10.4); MONO % 2.3 %; NEUT % 91.3 %; PLATELET COUNT 196 K/uL (130-400); RED BLOOD COUNT 3.26 M/uL (4.7-6.1); WHITE BLOOD COUNT 9.05 K/uL (4.8-10.8)
[2016-07-18 08:57] LABS: BUN/CREATININE RATIO 28.4 (10-20); CALCIUM 8.1 mg/dl (8.5-10.1); MAGNESIUM 1.9 mg/dl (1.8-2.4); POTASSIUM 3.7 mmol/L (3.5-5.1)
[2016-07-18] MEDS ORDERED: PRD20 PO ×4 (08:57→12:30)
--- NOTE | 2016-07-18 08:57 | Discharge Instructions ---
Discharge Instructions Date of Service July 18, 2016. 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 - call your primary care physician OR go to local emergency room if has any fever/chill, chest pain, shortness of breathing, nausea/vomiting/abdominal pain , facial droop/slurry speech/local weakness, or if has any questions. - fall precaution - diet as instructed - you need to follow up with your subspecialist - you should understand that it is important to follow up the above instruction , and "not following the above instruction" may cause delayed or missed care of your medical conditions which may cause permanent organ damage and even . Current Hospital Diet Patient's current hospital diet: AHA Diet (Heart Healthy) Discharge Diet Recommended Diet: AHA Diet (Heart Healthy) Procedures Procedures Performed: no Pending Studies Studies pending at discharge: no Medical Emergencies . Who to Call and When: Medical Emergencies: If at any time you feel your situation is an emergency, please call 911 immediately. . Non-Emergent Contact Non-Emergency issues call your: Primary Care Provider, Specialist (oncologist) Call Non-Emergent contact if: you have a fever . . "Provider Documentation" section prepared by Ashwin Arteaga. . VTE Core Measure Inpt VTE Proph given/why not?: Unfractionated heparin SQ
[2016-07-18 09:14] LABS: ANISOCYTOSIS PRESENT; COMPLETE YES; OVALOCYTES 1+
[2016-07-18] MEDS ORDERED: NURSING VERBAL MED ORDER ONE (10:00)
--- NOTE | 2016-07-18 10:26 | Hematology/Oncology Prog Note ---
Hematology/Onc Progress Note Date of Service July 18, 2016. Diagnoses History of non-small cell lung carcinoma Probable pneumonitis Medications Medications Administered Medications (Trade) Dose Ordered Sig/Isai Route Start Time Stop Time Status Last Admin Dose Admin Sodium Chloride (Nss 1000ml) 1,000 ml @ 999 mls/hr Q1H1M ONCE IV 07/15/16 20:20 07/15/16 21:20 DC 07/15/16 20:42 999 MLS/HR Piperacillin Sod/ Tazobactam Sod (Zosyn Iv) 4.5 gm ONE STAT IV 07/15/16 20:20 07/15/16 20:24 DC 07/15/16 20:42 4.5 GM Vancomycin HCl (Vancomycin 1gm/ 270ml Nss) 1 gm ONE STAT IV 07/15/16 20:20 07/15/16 20:24 DC 07/15/16 20:42 1 GM Ibuprofen (Motrin Tab) 600 mg NOW STAT PO 07/15/16 20:20 07/15/16 20:24 DC 07/15/16 20:43 600 MG Levalbuterol (Xopenex 1.25MG/ 0.5ML Neb) 1.25 mg NOW STAT INH 07/15/16 20:20 07/15/16 20:24 DC 07/15/16 20:42 1.25 MG Ipratropium [place] (Atrovent 0.02% 0.5MG/2.5ML Neb) 0.5 mg NOW STAT INH 07/15/16 20:20 07/15/16 20:24 DC 07/15/16 20:42 0.5 MG Magnesium Sulfate (Magnesium Sulfate) 2 gm NOW STAT IV 07/15/16 21:38 07/15/16 21:39 DC 07/15/16 21:56 2 GM Alfuzosin HCl (Uroxatral Tab) 10 mg QPM PO 07/16/16 21:00 08/15/16 20:59 07/17/16 21:08 10 MG Amiodarone HCl (Cordarone Tab) 200 mg QAM PO 07/16/16 09:00 08/15/16 08:59 07/18/16 08:31 200 MG Aspirin (Ecotrin Tab) 81 mg QAM PO 07/16/16 09:00 08/15/16 08:59 07/18/16 08:30 81 MG Budesonide/ Formoterol Fumarate (Symbicort 160/ 4.5 Inh) 2 puffs HS INH 07/16/16 21:00 08/15/16 20:59 07/17/16 21:08 2 PUFFS Buspirone HCl (BusPAR TAB) 15 mg BID PO 07/16/16 09:00 08/15/16 08:59 07/18/16 08:30 15 MG Pantoprazole Sodium (Protonix Tab) 40 mg DAILY PO 07/16/16 09:00 08/15/16 08:59 07/18/16 08:30 40 MG Oxycodone/ Acetaminophen (Percocet 7.5-325MG Tab) 1 tab Q4H PRN PO 07/15/16 22:30 07/29/16 22:29 07/16/16 13:23 1 TAB Albuterol/ Ipratropium (Duoneb) 3 ml Q6R INH 07/16/16 03:00 08/15/16 02:59 07/18/16 07:26 3 ML Levalbuterol 1.25 mg 1.25 mg Q4H PRN INH 07/15/16 22:30 08/14/16 22:29 07/16/16 05:38 1.25 MG Cefepime HCl 1000 mg/Dextrose 111.3 ml @ 200 mls/hr Q8H IV 07/16/16 02:00 07/23/16 01:59 07/18/16 02:26 200 MLS/HR Azithromycin/ Dextrose (Zithromax IV/D5 250ml) 255 ml @ 125 mls/hr Q24H IV 07/16/16 02:00 07/23/16 01:59 07/18/16 03:57 125 MLS/HR Heparin Sodium (Porcine) 5000 unit 5,000 unit Q8H SQ 07/16/16 06:00 08/15/16 05:59 07/18/16 06:36 5,000 UNIT Potassium Chloride/Sodium Chloride 1,000 ml @ 150 mls/hr Q6H40M IV 07/16/16 01:00 07/16/16 08:19 DC 07/16/16 07:34 150 MLS/HR Potassium Chloride/Sodium Chloride (1/2 Nss + 20meq KCl 1000ml) 1,000 ml @ 100 mls/hr Q10H IV 07/16/16 09:00 07/17/16 11:37 DC 07/17/16 05:23 100 MLS/HR Prednisone 60 mg 60 mg TODAY@1130 PO 07/16/16 11:30 07/16/16 11:32 DC 07/16/16 11:52 60 MG Methylprednisolone Sodium Succinate/ Syringe (Solu-Medrol IV/ Syringe) 0.32 ml @ 1.5 mls/min Q6@0200,0800,1400,2000 IV 07/16/16 14:00 07/17/16 11:37 DC 07/17/16 08:14 1.5 MLS/MIN Prednisone (PredniSONE TAB) 60 mg DAILY PO 07/18/16 09:00 08/17/16 08:59 07/18/16 08:31 60 MG Subjective Feels really comfortable. His respirations are much more relaxed. He is anxious for discharge. Review of Systems: Constitutional: Negative for night sweats, or fever Eyes: Negative for event change of vision ENT: Negative for epistaxis, nasal discharge, sore throat, or deafness Cardiovascular: Negative for chest pain, palpitations, dizziness, diaphoresis Respiratory: Negative for new shortness of breath,hemoptysis, or purulent cough Gastrointestinal: Negative for diarrhea, hematemesis, melena, nausea, vomiting , or dyspepsia Integumentary (skin): Negative for rash or jaundice discoloration Genitourinary: Negative for urinary frequency, hematuria, or dysuria Neurological: Negative for weakness, seizure activity, headache, or dizziness Lymphatic/Hematologic: Negative for petechiae, bleeding or new adenopathy Musculoskeletal: Negative for new joint or back pain Allergic/Immunologic: Negative for unusual rash or pruritis. Vital Signs Vital Signs Past 12 Hours Date Time Temp Pulse Resp B/P Pulse Ox O2 Delivery O2 Flow Rate FiO2 07/18/16 07:26 60 16 98 Room Air 07/18/16 07:08 37.0 62 20 156/84 98 Room Air 07/18/16 04:46 36.4 73 20 155/72 96 Room Air 07/18/16 04:00 Room Air 07/18/16 01:35 70 16 96 Room Air 07/18/16 00:14 37.1 61 18 140/80 96 Room Air 07/18/16 00:00 Room Air Physical Exam Constitutional: vitals are stable. Eyes: Eyes are SHADE EOMI without conjuctival erythema or icterus. ENT: External examination was negative for masses. Neck: Negative for masses or palpable thyromegaly Respiratory: Lung sounds were generally clear bilaterally Cardiovascular: Heart was RRR without significant murmur, gallops aoe rubs Gastrointestinal: No palpable hepatic or splenomegaly. The abdomen was soft with normal bowel sounds. Lymphatic system: there was no palpable peripheral lymphadenopathy Musculoskeletal System: The musculoskeletal system seemed concordant with age. Skin: The skin was negative for jaundice. Skin however has multiple ecchymotic areas over the arms for chronic steroid use. Neurologic exam: The exam was negative for any focal findings. Deep tendon reflexes were equal and symmetrical. Psychiatric exam: Was essentially negative with normal mood and effect. Extremities: Negative for edema erythema Laboratory Last 24 Hours Test 07/18/16 08:27 White Blood Count 9.05 K/uL Red Blood Count 3.26 M/uL Hemoglobin 8.7 g/dL Hematocrit 27.8 % Mean Corpuscular Volume 85.3 fL Mean Corpuscular Hemoglobin 26.7 pg Mean Corpuscular Hemoglobin Concent 31.3 g/dl Platelet Count 196 K/uL Mean Platelet Volume 8.6 fL Neutrophils (%) (Auto) 91.3 % Lymphocytes (%) (Auto) 6.0 % Monocytes (%) (Auto) 2.3 % Eosinophils (%) (Auto) 0.1 % Basophils (%) (Auto) 0.0 % Neutrophils # (Auto) 8.26 K/uL Lymphocytes # (Auto) 0.54 K/uL Monocytes # (Auto) 0.21 K/uL Eosinophils # (Auto) 0.01 K/uL Basophils # (Auto) 0.00 K/uL RDW Standard Deviation 62.1 fL RDW Coefficient of Variation 19.8 % Immature Granulocyte % (Auto) 0.3 % Immature Granulocyte # (Auto) 0.03 K/uL Nucleated RBC Absolute Count (auto) 0.02 K/uL Nucleated Red Blood Cells % 0.2 % Anisocytosis PRESENT Ovalocytes 1+ Sodium Level 147 mmol/L Potassium Level 3.7 mmol/L Chloride Level 114 mmol/L Carbon Dioxide Level 22 mmol/L Anion Gap 11.0 mmol/L Blood Urea Nitrogen 28 mg/dl Creatinine 1.00 mg/dl Est Creatinine Clear Calc Drug Dose 63.0 ml/min Estimated GFR () 89.2 Estimated GFR (Non- 77.0 BUN/Creatinine Ratio 28.4 Random Glucose 142 mg/dl Calcium Level 8.1 mg/dl Magnesium Level 1.9 mg/dl Assessment & Plan Continues to look quite stable. With discharge with prednisone 80 mg a day ( divided doses). We will arrange for follow-up in our clinic. For now we will sign off I suspect discharge is rather imminent. Blood cultures are negative.
--- NOTE | 2016-07-18 12:31 | Discharge Summary ---
Discharge Summary Date of Service July 18, 2016. Discharge Summary Admission Date: July 15, 2016 at 22:27 Discharge Date: July 18, 2016 Principal Diagnosis: immunotherapy related pneumonitis, Problems/Secondary Diagnoses: (1) Lung cancer Status: Chronic Immunizations: Have You Had Influenza Vaccine: No History of Tetanus Vaccine?: UTD History of Pneumococcal: No History of Hepatitis B Vaccine: No Procedures: no Consultations: onco Medication Reconciliation New Medications: Prednisone (Prednisone) 20 Mg Tab 40 MG PO BID for 14 Days, #56 TAB Continued Medications: Albuterol Hfa (Ventolin Hfa) 200 Puffs/55954 Mcg Aers 2 PUFFS INH QID PRN for SOB/Wheezing, #1 INHALER Alfuzosin Hcl (Uroxatral) 10 Mg Tab 10 MG PO QPM Amiodarone Hcl (Cordarone) 200 Mg Tab 200 MG PO QAM Aspirin (Aspirin) 81 Mg Chw 81 MG PO QAM Budesonide/Formoterol Fumarate (Symbicort 160/4.5 Inhaler) 120 Puffs/ Aero 2 PUFFS INH HS, INHALER Buspirone Hcl (Buspar) 15 Mg Tab 15 MG PO BID, TAB Fluticasone Propionate (Nasal) (Flonase Allergy Relief) 50 Mcg/Act Spr 2 SPRAYS ANGELA DAILY PRN for ALLERGIC REACTION Levalbuterol Hcl (Levalbuterol Hcl) 1.25 Mg/3 Ml Neb 1 DOSE INH TID Nitroglycerin (Nitrostat) 0.4 Mg Tab 0.4 MG UT PRN, BTL Omeprazole (Prilosec) 20 Mg Capcr 20 MG PO DAILY Ondansetron (Ondansetron HCl) 8 Mg Tab 8 MG PO Q8 PRN for Nausea or Vomiting Oxycodone HCl (Oxycodone HCl) 5 Mg Tab 5 MG PO Q6H PRN for Pain, #90 Tiotropium [place] (Spiriva Handihaler) 30 Puff/540 Mcg Aerp 1 PUFF INH QPM Discontinued Medications: Prednisone (Prednisone) 10 Mg Tab 10 MG PO DAILY, TAB Discharge Exam doing ok, no f/c Review of Systems: Constitutional: No chills, No fatigue, No fever, No problem reported, No sweats, No weakness, No weight loss Eyes: No diplopia, No discharge, No eye pain, No problem reported, No redness, No worsening of vision ENT: No dental problems, No hearing loss, No nasal symptoms, No problem reported, No sore throat, No tinnitus, No trouble swallowing, No unusual epistaxis Respiratory: No cough, No dyspnea at rest, No dyspnea on exertion, No hemoptysis, No problem reported, No shortness of breath, No sputum, No wheezing Cardiovascular: No PND, No chest pain, No claudication, No edema, No orthopnea, No palpitations, No problem reported Abdomen: No GI bleeding, No constipation, No diarrhea, No nausea, No pain, No problem reported, No vomiting Musculoskeletal: No calf pain, No joint pain, No muscle pain, No problem reported, No swelling Genitourinary - Male: No dysuria, No hematuria, No impotence, No lesions, No penile discharge, No problem reported, No urinary frequency, No urinary hesitancy, No urinary incontinence, No urinary retention, No urinary urgency Neurologic: No balance problems, No memory loss, No numbness/tingling, No paralysis, No problem reported, No vertigo, No weakness Psychiatric: No anhedonism, No anxiety, No depression symptoms, No insomnia , No problem reported, No substance abuse Endocrine: No excessive thirst, No excessive urination, No fatigue, No problem reported Hematologic / Lymphatic: No abnormal bleeding/bruising, No clotting problems , No night sweats, No problem reported, No swollen lymph nodes Integumentary: No bleeding, No color change, No itch, No new/changing skin lesions, No problem reported, No rash Physical Exam: General Appearance: WD/WN, no apparent distress Eyes: normal inspection, PERRL, EOMI ENT: normal ENT inspection, hearing grossly normal, TMs normal Neck: supple, no adenopathy, thyroid normal Respiratory/Chest: chest non-tender, normal breath sounds, no respiratory distress, + decreased breath sounds, + rales Cardiovascular: regular rate, rhythm, no edema, no gallop, no JVD Abdomen / GI: normal bowel sounds, non tender, soft, no organomegaly Extremities: normal inspection, no calf tenderness, normal capillary refill , no pedal edema, normal range of motion Neurologic/Psychiatric: 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 admitted on Jul 15 2016 because of fever developed fevers, chills and sweats 2 days prior. On the day of admission, he was due for chemotherapy s, however his oncologist decided to delay treatment due to his fevers and instead sent him for a CT chest. Results are consistent with a RUL pneumonia. He was sent to the hospital as a result. 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, started oral prednisone, then on-call oncologist recommend to change to Solu- Medrol IV, Was change to oral prednisone per recommendation yesterday And planning to discharge home with 40 mg by mouth twice a day, I ordered a 14 days dose, oncology will continue to decide how to adjust the dose Because tomorrow is the holiday, I gave patient two dose of 40 mg of prednisone to home because of pharmacy is closed Possible sepsis and infection such as pneumonia upon admission, has been on Cefepime and Zithro So far blood culture -48 hours Sputum culture negative Discussed with oncologist, okay for patient to go home con Danny, PRN Xopenex and an 02 protocol. Has instructed patient to call to oncology or PCP if has fever and chill, or if have any questions COPD stable History of proximal A. 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 - call your primary care physician OR go to local emergency room if has any fever/chill, chest pain, shortness of breathing, nausea/vomiting/abdominal pain , facial droop/slurry speech/local weakness, or if has any questions. - fall precaution - diet as instructed - you need to follow up with your subspecialist - you should understand that it is important to follow up the above instruction , and "not following the above instruction" may cause delayed or missed care of your medical conditions which may cause permanent organ damage and even . Total Time Spent: Greater than 30 minutes This includes examination of the patient, discharge planning, medication reconciliation, and communication with other providers. Discharge Instructions Please refer to the electronic Patient Visit Report (Discharge Instructions) for additional information. Additional Copies To Michele Paulino D.O.; Violetta Kimbrough M.D.
[2016-10-13] MEDS ORDERED: SULF-183 PO (13:39)
[2016-10-13] MEDS ORDERED: PRD/25 PO (13:39)
[2016-10-13] MEDS ORDERED: OXYC80TA16 PO (13:39)
[2016-10-27] MEDS ORDERED: PRED10TA PO (15:59)
[2016-10-27] MEDS ORDERED: DXY100 PO (15:59)
== END 2016-07-18 14:34 | disposition home or self-care (01) | DRG 871 ==
LOC: ENRESERVTM → ENRESERVDT → C.EDB 20:00 → C.MED 22:27
PROVIDERS: ADMIT Internal Medicine; ATTEND Hospitalist
DX: A41.9 Sepsis, unspecified organism (principal); J18.9 Pneumonia, unspecified organism; J44.0 Chronic obstructive pulmonary disease with (acute) lower respiratory infection; C34.12 Malignant neoplasm of upper lobe, left bronchus or lung; C34.02 Malignant neoplasm of left main bronchus; C34.01 Malignant neoplasm of right main bronchus; C78.7 Secondary malignant neoplasm of liver and intrahepatic bile duct; C79.31 Secondary malignant neoplasm of brain; T45.1X5A Adverse effect of antineoplastic and immunosuppressive drugs, initial encounter; I25.10 Atherosclerotic heart disease of native coronary artery without angina pectoris; I48.0 Paroxysmal atrial fibrillation; D64.9 Anemia, unspecified; I25.2 Old myocardial infarction; Z86.711 Personal history of pulmonary embolism; Z87.891 Personal history of nicotine dependence; Z95.5 Presence of coronary angioplasty implant and graft; Z90.2 Acquired absence of lung [part of]; Z79.82 Long term (current) use of aspirin; Z79.51 Long term (current) use of inhaled steroids; Z79.52 Long term (current) use of systemic steroids; Z79.891 Long term (current) use of opiate analgesic; Z79.899 Other long term (current) drug therapy; I51.7 Cardiomegaly; J43.9 Emphysema, unspecified; I27.2 Other secondary pulmonary hypertension; R91.8 Other nonspecific abnormal finding of lung field; N20.0 Calculus of kidney

== ENCOUNTER → 2016-07-15 | Outpatient (CLI) | payer BC ==
[~2016-07-15] MED LIST changes: +OPTIRAY 320 IV PRN
--- NOTE | 2016-07-15 13:11 | DIAGNOSTIC IMAGING REPORT ---
CT SCAN OF THE CHEST WITH IV CONTRAST CLINICAL HISTORY: Lung cancer. Fever and dyspnea. COMPARISON STUDY: Chest CT dated 06/23/2016, 03/04/2015, and 09/05/2014. Abdominal CT dated 04/11/2016. TECHNIQUE: Following the IV administration of 91 cc of Optiray 320, CT scan of the thorax was performed from the thoracic inlet to the upper abdomen. Images are reviewed in the axial, sagittal, and coronal planes. IV contrast was administered without complication. CT DOSE: 238.13 mGy.cm FINDINGS: Thyroid: Imaged portions of the thyroid gland are normal in size and attenuation. Low-attenuation thyroid nodules are again noted. The largest is seen in the right lobe and measures up to 1.6 cm Thoracic aorta: There is atherosclerotic plaque seen involving the thoracic aorta, which is normal in caliber and demonstrates standard 3-vessel arch anatomy. No dissection is seen. Pulmonary vasculature: The pulmonary trunk and right main pulmonary artery are markedly dilated suggesting pulmonary artery hypertension. There are no central filling defects identified to suggest pulmonary embolus. Note that this examination was not protocoled to assess the pulmonary arteries. Heart: The heart is enlarged and there is trace pericardial effusion. The coronary arteries are densely calcified. A left subclavian central venous infusion port is in place. Lungs and pleural spaces: There are advanced emphysematous changes. There is volume loss in the left lung consistent with previous lobar resection. There has been no significant change in irregular masslike left perihilar consolidation. This measures approximately 4 x 4.5 x 3 cm as seen on axial image #115. A 6 mm pleural-based nodule in the right upper lobe seen on image #99 is similar to previous. A calcification containing nodule in the right upper lobe adjacent to the minor fissure on image #170 is also unchanged. No new pulmonary lesions are identified. Fibrotic changes are again seen in the paramediastinal right upper lobe. Pleural fluid is again noted the left lung base. There are small foci of tree-in-bud nodularity with groundglass changes seen in the anterior/inferior aspect of the right upper lobe best seen on axial images #154 and #161. This is new from 06/23/2016. Bilateral lower lobe tree-in-bud opacities have almost completely resolved from 06/23/2016. Fluid/secretions are present within the left lower lobe airways. The trachea is clear. Mediastinum: There is mild leftward shift of the mediastinum. No mediastinal lymphadenopathy is seen. Ill-defined soft tissue in the left periaortic/AP window region is similar to previous and likely represents treatment related change. Monae: There are calcified right hilar lymph nodes. Postoperative changes are seen in the left hilum. Axillae: There is no axillary lymphadenopathy. Upper abdomen: Nonobstructing left renal calculi are identified. A 1.7 cm cyst is identified in the upper pole the left kidney. Additional subcentimeter cortical hypodensities in both kidneys may also reflect cysts but are too small for definitive characterization. A calcified granuloma is noted in the spleen. Low-attenuation lesions are again suggested in the left hepatic lobe. Bile duct dilatation the left hepatic lobe is unchanged to modestly improved from the 04/11/[address] The main portal vein is patent. Skeletal structures: The skeletal structures are osteopenic. No lytic or blastic bony lesions are seen. There are healed left-sided rib fractures. Mild degenerative changes are present throughout the thoracic spine. IMPRESSION: 1. Cardiomegaly and emphysema with evidence of pulmonary artery hypertension. 2. Postoperative changes from left-sided pulmonary resection with leftward shift of the mediastinum are again seen. 3. There are foci of tree-in-bud nodularity in the right upper lobe with mild associated groundglass change. This is new from 06/23/2016 and likely represents an infectious/inflammatory pneumonitis. 4. Similar-appearing tree-in-bud changes in the lower lobes seen on 06/23/2016 have almost completely resolved. 5. There has been no significant change in the irregular masslike consolidation in the left perihilar region as compared to several prior examinations. This likely represents posttreatment change. Recurrent/residual tumor would be impossible to exclude. 6. Presumed metastatic change in the left lobe of liver is again noted. 7. No new pulmonary lesions are identified. Pleural-based nodules in the right lung are similar in appearance to prior studies. 8. Small left pleural effusion. 9. Left sided nephrolithiasis. 10. Additional findings as above. Electronically signed by: Gonzalez Cooney M.D. 07/15/2016 1:09 PM Dictated Date/Time: 07/15/2016 12:50 PM
== END | disposition home or self-care (01) ==
LOC: C.CTS 12:14
PROVIDERS: ATTEND Internal Medicine Hematology & Oncology
DX: C34.12 Malignant neoplasm of upper lobe, left bronchus or lung (principal); I51.7 Cardiomegaly; J43.9 Emphysema, unspecified; I27.2 Other secondary pulmonary hypertension; R91.8 Other nonspecific abnormal finding of lung field; J90 Pleural effusion, not elsewhere classified; N20.0 Calculus of kidney

== ENCOUNTER → 2016-08-26 | Outpatient (CLI) | payer BC, OTHER ==
[~2016-08-26] MED LIST changes: -ALFU10TA2 PO; +ALFU10TA30 PO; +ATRINS NEB; +BENZ100C84 PO; +CIPR-255 PO; +DXY100 PO; +METR-163 PO; +OXYC80TA16 PO; +PRD/25 PO; +PRD20 PO; +PRED10TA PO; -PROM25SU28 PR; +SULF-183 PO
[2016-08-26 14:22] LABS: THYROID STIMULATING HORMONE 1.18 uIu/ml (0.300-4.500)
== END | disposition home or self-care (01) ==
LOC: C.LABSPEC 17:02
PROVIDERS: ATTEND Internal Medicine Cardiovascular Disease
DX: I25.10 Atherosclerotic heart disease of native coronary artery without angina pectoris (principal); I48.0 Paroxysmal atrial fibrillation; J44.1 Chronic obstructive pulmonary disease with (acute) exacerbation; C34.12 Malignant neoplasm of upper lobe, left bronchus or lung

== ENCOUNTER → 2016-08-26 | Outpatient (CLI) | payer BC ==
--- NOTE | 2016-08-26 14:00 | DIAGNOSTIC IMAGING REPORT ---
CHEST 2 VIEWS ROUTINE CLINICAL HISTORY: J44.9 Chronic obstructive pulmonary [id number] COPD exacerbating COMPARISON STUDY: 07/15/2016 FINDINGS: Unchanging left hilar postoperative change and associated scarring.. Central catheter in superior vena cava. Lungs otherwise are considered clear. Chronic left hemidiaphragmatic diaphragmatic scarring. No acute infiltrate. IMPRESSION: Chronic and postoperative change. No acute process. Electronically signed by: Nicolas Mora M.D. 08/26/2016 1:59 PM Dictated Date/Time: 08/26/2016 1:58 PM
== END | disposition home or self-care (01) ==
LOC: C.RAD 13:36
PROVIDERS: ATTEND Physician Assistant
DX: J44.1 Chronic obstructive pulmonary disease with (acute) exacerbation (principal)

== ENCOUNTER → 2016-09-21 | Outpatient (CLI) | payer BC ==
[~2016-09-21] MED LIST changes: +OPTIRAY 320 IV PRN
--- NOTE | 2016-09-21 12:37 | DIAGNOSTIC IMAGING REPORT ---
ADDENDUM Trace right hip effusion which has developed in the interval. There is also slight increased sclerosis and minimal collapse of the superior right femoral head. This is concerning for avascular necrosis. Electronically signed by: Eduardo Pardo M.D. 09/22/2016 10:16 AM Dictated Date/Time: 09/22/2016 10:15 AM ORIGINAL REPORT ABDOMEN AND PELVIS CT WITH IV AND ORAL CONTRAST CT DOSE: 846.55 mGycm HISTORY: RESTAGING FOR METASTATIC NSCLC TECHNIQUE: Multiaxial CT images of the abdomen and pelvis were performed following the use of intravenous and oral contrast. A dose lowering technique was utilized adhering to the principles of ALARA. COMPARISON STUDY: Abdomen and pelvis CT 04/11/2016. FINDINGS: Trace left pleural effusion, unchanged. There are few punctate calcified granulomas within the spleen. The gallbladder, pancreas, and a general glands are unremarkable. Bilateral nephrolithiasis. No hydronephrosis. Multiple bilateral renal hypodense lesions are not significantly changed. The bladder remains mildly distended. Large amount well-formed stool seen within the colon. No bowel wall thickening or obstruction. Multiple colonic diverticula. 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 No pneumoperitoneum. No pneumatosis. The main portal vein is patent. Left intrahepatic bile duct dilatation has slightly improved. The 2 hypodense lesions within the left hepatic lobe have decreased in size. The dominant lesion measures 1.5 cm. This previous measured approximately 2 cm. The peripheral lesion within the left hepatic lobe measures 1.2 cm, previous measuring 1.8 cm. There are 2 adjacent small soft tissue nodules anterior to the spleen best seen on images 32 and 38. The largest nodule measures 8 mm. This is also decreased in size in the interval. No suspicious lytic or blastic osseous lesions. Small hypodense focus adjacent to the left inguinal canal remains unchanged. This may related to prior postoperative change. IMPRESSION: 1. Decrease in size in the left hepatic lobe hypodense lesions. This likely represents improvement in the metastatic disease. There is also slight improvement in the left intrahepatic bile duct dilatation. 2. Decrease in size in the small soft tissue nodules anterior to the spleen. This could represent resolving postoperative change or additional metastatic disease. This bears watching on future examinations. 3. Bilateral nephrolithiasis. 4. Colonic diverticulosis. The diverticulitis has essentially resolved. 5. A small colocolonic fistula at the distal sigmoid colon. Electronically signed by: Eduardo Pardo M.D. 09/21/2016 12:35 PM Dictated Date/Time: 09/21/2016 12:22 PM
== END | disposition home or self-care (01) ==
LOC: C.CTS 11:41
PROVIDERS: ATTEND Internal Medicine Hematology & Oncology
DX: C34.12 Malignant neoplasm of upper lobe, left bronchus or lung (principal)

== ENCOUNTER → 2016-09-29 | Outpatient (CLI) | payer BC ==
[~2016-09-29] MED LIST changes: -OPTIRAY 320 IV PRN
--- NOTE | 2016-09-29 15:19 | DIAGNOSTIC IMAGING REPORT ---
RIGHT FEMUR 2 VIEWS CLINICAL HISTORY: RIGHT FEMUR PAIN Right pain COMPARISON: None. DISCUSSION: Considerable degenerative change right hip joint. Flattening of the superior aspect of the femoral head articulating surface. Degenerative change of the acetabulum. No evidence for acetabular protrusion. Moderate degenerative change all major joint compartments of the right knee. No specific abnormality of the femur. There is no evidence for soft tissue swelling. IMPRESSION: Considerable degenerative change of the right hip as well as knee. No acute process of the femur. The above report was generated using voice recognition software. It may contain grammatical, syntax or spelling errors. Electronically signed by: Nicolas Mora M.D. 09/29/2016 3:18 PM Dictated Date/Time: 09/29/2016 3:17 PM
--- NOTE | 2016-09-29 15:26 | DIAGNOSTIC IMAGING REPORT ---
RIGHT PELVIS 1 OR 2 VIEWS CLINICAL HISTORY: RIGHT FEMUR PAIN Right pain COMPARISON: None. DISCUSSION: Considerable degenerative change right hip joint. Irregularity on a degenerative basis appear margin right femoral head. Deterioration of the acetabular margin. No evidence for acetabular protrusion. Left hip shows mild degenerative narrowing. Mild degenerative change sacroiliac joints. Sacral foramina are symmetric. There is no evidence for soft tissue swelling. IMPRESSION: Moderate to rather significant degenerative change right hip. Mild/moderate degenerative change left hip. The above report was generated using voice recognition software. It may contain grammatical, syntax or spelling errors. Electronically signed by: Nicolas Mora M.D. 09/29/2016 3:25 PM Dictated Date/Time: 09/29/2016 3:24 PM
== END | disposition home or self-care (01) ==
LOC: C.RDSM 14:50
PROVIDERS: ATTEND Physician Assistant
DX: M25.551 Pain in right hip (principal); M79.604 Pain in right leg

== ENCOUNTER → 2016-10-06 | Outpatient (CLI) | payer BC ==
[~2016-10-06] MED LIST changes: +GADAVIST IV PRN
--- NOTE | 2016-10-06 12:54 | DIAGNOSTIC IMAGING REPORT ---
MRI OF THE BRAIN COMBO CLINICAL HISTORY: Lung cancer with intracranial metastatic disease. Status post radiation treatment. COMPARISON STUDY: MRI of the brain dated 05/19/2016. TECHNIQUE: MRI of the brain was performed utilizing various T1 and T2-weighted sequences in the axial, sagittal, and coronal planes. Contrast-enhanced sequences were acquired following the administration of 6 cc of Gadavist. FINDINGS: Brain parenchyma: There are age-related involutional changes noting mild to moderate patchy subcortical and periventricular microangiopathic disease. There is no hemorrhage or mass effect. There is no restricted diffusion typical for acute ischemia. Ortiz-white matter differentiation is preserved. No extra-axial fluid collection is seen. The cerebellar tonsils are normal in configuration. A peripherally enhancing lesion in the right temporal lobe seen on axial image #8 has decreased in size from 05/19/2016, measuring 2.0 x 1.1 cm (previously measuring 3.0 x 2.0 cm). A more posteriorly located right temporal lobe lesion seen on image #10 has also decreased in size measuring 0.7 cm (previously measuring 1.5 cm). Edema surrounding these lesions has significantly improved. A lesion in the right posterior cerebellum seen on image #5 has mildly increased in size and conspicuity, measuring up to 1.1 cm (previously measuring up to 0.8 cm). Ventricles, sulci, and cisterns: Prominent secondary to involutional change. Pituitary and sella: Unremarkable. Intracranial vasculature: Normal flow voids are maintained at the skull base. Orbits: The bony orbits are grossly intact. Orbital contents are normal in appearance. Sinuses and mastoids: There is trace mucosal thickening within the left maxillary antrum and the ethmoid sinuses. The remaining paranasal sinuses are clear. There are trace mastoid effusions. Calvarium: Fatty marrow changes noted throughout the visualized bony structures. No clear destructive bony lesion is seen. Cervical cord: Partially visualized cervical spinal cord is normal in morphology and signal intensity. IMPRESSION: 1. There has been a significant decrease in size of the 2 right temporal lobe lesions when compared to the 05/19/2016 examination. The surrounding edema has almost completely resolved. 2. There has been a modest increase in size and conspicuity of a right posterior cerebellar lesion from previous. 3. No additional lesions are clearly identified. 4. There is no hemorrhage, mass effect, or evidence of acute ischemia. Electronically signed by: Gonzalez Cooney M.D. 10/06/2016 12:53 PM Dictated Date/Time: 10/06/2016 12:41 PM
== END | disposition home or self-care (01) ==
LOC: C.MRI 11:26
PROVIDERS: ATTEND Radiology Radiation Oncology
DX: C79.31 Secondary malignant neoplasm of brain (principal)

== ENCOUNTER 2016-10-18 22:13 | Inpatient (IN) | payer BC, OTHER ==
[~2016-10-18] VITALS: Ht 177.8 cm; Wt 61.1 kg
[~2016-10-18 22:13] MED LIST changes: -ATRINS NEB; -BENZ100C84 PO; -CIPR-255 PO; -DXY100 PO; -GADAVIST IV PRN; -METR-163 PO; -PRD20 PO; -PRED10TA PO
[2016-10-18] MEDS ORDERED: SODIUM CHLORIDE 0.9% 1000ML 1,000 ML IV STA (23:07)
[2016-10-18] MEDS ORDERED: SODIUM CHLORIDE 0.9% 500ML 500 ML IV STA (23:07)
[2016-10-18] MEDS ORDERED: ACETAMINOPHEN 325 MG TAB PO STA (23:07)
[2016-10-18] MEDS ORDERED: PIPERACILLIN/TAZOBACTAM 4.5 GM/100ML D5W IV STA (23:14)
[2016-10-18 23:28] LABS: BASO % 0.1 %; BASO ABS # 0.01 K/uL (0-0.2); COMPLETE YES; EOS % 0.1 %; HEMATOCRIT 30.2 % (42-52); IG% 0.3 %; LYMPH % 2.5 %; LYMPH ABS # 0.18 K/uL (1.2-3.4); MEAN CELL VOLUME 86.3 fL (80-100); MEAN CORPUSCULAR HEMOGLOBIN 26.6 pg (25-34); MEAN CORPUSCULAR HGB CONC 30.8 g/dl (32-36); MEAN PLATELET VOLUME 9.7 fL (7.4-10.4); MONO % 0.3 %; NEUT % 96.7 %; PLATELET COUNT 148 K/uL (130-400)
[2016-10-18 23:47] LABS: URINE APPEARANCE CLEAR (CLEAR); URINE BILIRUBIN NEG (NEG); URINE COLOR DK YELLOW; URINE EPITHELIAL CELL AUTO 0-5 /lpf (0-5); URINE NITRITE NEG (NEG); URINE PH 5.5 (4.5-7.5); URINE SPECIFIC GRAVITY 1.018 (1.000-1.030); UROBILINOGEN NEG (NEG); ZZUR CULT IF INDIC CLEAN CATCH NO
[2016-10-18 23:50] LABS: MANUAL MICROSCOPIC REQUIRED? NO; REVIEW REQ? NO
[2016-10-18 23:53] LABS: BUN/CREATININE RATIO 23.2 (10-20); CALCIUM 7.7 mg/dl (8.5-10.1); CREATININE 1.1 mg/dl (0.60-1.40); MAGNESIUM 1.8 mg/dl (1.8-2.4); POTASSIUM 4.3 mmol/L (3.5-5.1)
[2016-10-19] VITALS (11 sets, daily range): BP systolic 114–153; BP diastolic 56–79; PULSE 66–82; TEMP 36.4–37.2; O2SAT 95–98; Ht 177.8 cm; Wt 61.1 kg
[2016-10-19] MEDS ORDERED: OPTIRAY 320 IV PRN (00:45)
[2016-10-19] MEDS ORDERED: FENTANYL CITRATE INJ 50 MCG/1 ML 2 ML VIAL IV STA (01:18)
[2016-10-19] MEDS ORDERED: ATRINS NEB (02:06)
[2016-10-19] MEDS ORDERED: METRONIDAZOLE 250 MG TAB PO STA (02:31)
[2016-10-19] MEDS ORDERED: METR-163 PO (02:31)
[2016-10-19] MEDS ORDERED: CIPR-255 PO (02:31)
[2016-10-19] MEDS ORDERED: CIPROFLOXACIN 500MG HOME PACK PO ONE (02:45)
[2016-10-19] MEDS ORDERED: METRONIDAZOLE 500MG / 100ML NSS IV STA (02:46)
--- NOTE | 2016-10-19 03:04 | EMERGENCY ROOM VISIT NOTE ---
History Report prepared by Iraida: Gianluca Dickey Under the Supervision of: Dr. aMgi Munoz M.D. First contact with patient: 23:03 Chief Complaint: FEVER Stated Complaint: SOB/DIARRHEA History of Present Illness The patient is a 71 year old male who presents to the Emergency Room with complaints of a persistent generalized illness beginning today. The patient's symptoms include fatigue, chills, abdominal pain, vomiting, and mild disorientation. He was found to have a fever of 103 degrees upon arrival to the ED, but states that he did not feel feverish previously. He denies any bloody stools, or cough. The patient is currently receiving treatment for lung cancer with metastases to the liver. He has a history of MS, COPD and a-fib. His most recent chemotherapy treatment was three days ago. Source of History: patient Onset: Today Position: other (generalized) Quality: other (illness) Timing: other (persistent) Associated Symptoms: + fevers (103 degrees upon arrival), + chills, + vomiting, + abdominal pain, + fatigue, No cough, No hematochezia Note: Additional symptoms: mild disorientation. Review of Systems See HPI for pertinent positives & negatives. A total of 10 systems reviewed and were otherwise negative. Past Medical & Surgical Medical Problems: (1) Atrial fibrillation with RVR (2) Basal cell carcinoma of skin (3) COPD (chronic obstructive pulmonary disease) (4) Heart disease (5) Hyperlipidemia (6) Hypertension (7) Kidney stones (8) Lung cancer (9) Myocardial infarction (10) Pneumonia (11) Primary cancer of left upper lobe of lung (12) Pulmonary embolism (13) Sepsis Surgical Problems: (1) H/O hernia repair (2) History of angioplasty (3) Hx of appendectomy (4) S/P lobectomy of lung Family History FH: CAD (coronary artery disease) FATHER (passed at age 59 from MS) MOTHER Social History Smoking Status: Former Smoker Alcohol Use: other Drug Use: none Marital Status: Housing Status: lives with family Occupation Status: retired Current/Historical Medications Scheduled Alfuzosin Hcl (Uroxatral), 10 MG PO QPM Amiodarone Hcl (Cordarone), 200 MG PO QAM Aspirin (Aspirin), 81 MG PO QAM Budesonide/Formoterol Fumarate (Symbicort 160/4.5 Inhaler), 2 PUFFS INH HS Buspirone Hcl (Buspar), 15 MG PO BID Ciprofloxacin Hcl (Cipro), 500 MG PO BID Ipratropium Jupiter (Ipratropium Jupiter), 1 VIAL NEB TID Levalbuterol Hcl (Levalbuterol Hcl), 1 DOSE INH TID Metronidazole (Flagyl), 500 MG PO TID Omeprazole (Prilosec), 20 MG PO DAILY Oxycodone Hcl (Oxycontin (Ext Rel)), 10 MG PO Q12 Prednisone (Prednisone), 2.5 MG PO DAILY Sulfamethoxazole-Trimethoprim (Smz-Tmp Ds), 1 TAB PO 3XWK Tiotropium Jupiter (Spiriva Handihaler), 1 PUFF INH QPM Scheduled PRN Albuterol Hfa (Ventolin Hfa), 2 PUFFS INH QID PRN for SOB/Wheezing Fluticasone Propionate (Nasal) (Flonase Allergy Relief), 2 SPRAYS ANGELA DAILY PRN for ALLERGIC REACTION Nitroglycerin (Nitrostat), 0.4 MG UT UD PRN for Chest Pain Ondansetron (Ondansetron HCl), 8 MG PO Q8 PRN for Nausea or Vomiting Oxycodone HCl (Oxycodone HCl), 10 MG PO Q6H PRN for Pain Allergies Coded Allergies: No Known Allergies (Unverified , 10/19/16) Physical Exam Vital Signs Date Time Temp Pulse Resp B/P (MAP) Pulse Ox O2 Delivery O2 Flow Rate FiO2 10/19/16 02:47 37.2 77 18 92/44 96 Room Air 10/19/16 01:26 85 16 101/53 96 Room Air 10/19/16 00:37 37.1 89 16 109/71 94 Room Air 10/19/16 00:08 89 16 100/58 94 Room Air 10/18/16 22:46 105 10/18/16 22:30 39.5 103 20 123/69 95 Room Air Physical Exam Vital signs reviewed. General: Chronically ill-appearing male, in no significant distress. HEENT: No scleral icterus, PERRLA, neck supple. Dry mucous membranes. Atraumatic. Cardiovascular: Regular rate and rhythm, no extra sounds. Pulmonary: Clear to auscultation bilaterally, normal work of breathing. Abdomen: Soft, mild tenderness to palpation of the LLQ, nondistended, positive bowel sounds. Musculoskeletal: Atraumatic, no peripheral edema. Neurologic: Patient awake alert and oriented x 3, full strength in all 4 extremities. Cranial nerves 2 through 12 grossly intact. Skin: Dry, no rash. Warm to touch. Wounds at various stages of healing to the lower shins. Medical Decision & Procedures ER Provider Diagnostic Interpretation: CT results per statrad and my review. CT ABDOMEN & PELVIS: Comparison with 09/21/16 CT New colitis suspected involving the distal transverse colon, splenic flexure, and descending colon. No abscess or bowel obstruction. No free air or free fluid. No appendicitis. No obstructive uropathy, although there are multiple small and punctate renal calyceal calculi bilaterally as well as bilateral renal cysts. Biliary dilatation, similar to before. No obvious obstructing lesion distally but would correlate with LFTs. Distended gallbladder with no gallstones or wall thickening or surrounding inflammation. No other acute or inflammatory disease. Thickening of the anterior bladder wall without surrounding inflammation. Two View Chest X-ray interpreted by me: emphysematous changes. Focal consolidation of the left upper lobe which appears to be chronic. No failure. No new infiltrate. Laboratory Results Test 10/18/16 22:30 10/18/16 22:38 10/18/16 22:47 Urine Color DK YELLOW Urine Appearance CLEAR (CLEAR) Urine pH 5.5 (4.5-7.5) Urine Specific Pierce 1.018 (1.000-1.030) Urine Protein 1+ (NEG) Urine Glucose (UA) NEG (NEG) Urine Ketones TRACE (NEG) Urine Occult Blood TRACE (NEG) Urine Nitrite NEG (NEG) Urine Bilirubin NEG (NEG) Urine Urobilinogen NEG (NEG) Urine Leukocyte Esterase TRACE (NEG) Urine WBC (Auto) 1-5 /hpf (0-5) Urine RBC (Auto) 10-30 /hpf (0-4) Urine Hyaline Casts (Auto) 1-5 /lpf (0-5) Urine Epithelial Cells (Auto) 0-5 /lpf (0-5) Urine Bacteria (Auto) NEG (NEG) Immature Granulocyte % (Auto) 0.3 % White Blood Count 7.20 K/uL (4.8-10.8) Red Blood Count 3.50 M/uL (4.7-6.1) Hemoglobin 9.3 g/dL (14.0-18.0) Hematocrit 30.2 % (42-52) Mean Corpuscular Volume 86.3 fL (80-100) Mean Corpuscular Hemoglobin 26.6 pg (25-34) Mean Corpuscular Hemoglobin Concent 30.8 g/dl (32-36) Platelet Count 148 K/uL (130-400) Mean Platelet Volume 9.7 fL (7.4-10.4) Neutrophils (%) (Auto) 96.7 % Lymphocytes (%) (Auto) 2.5 % Monocytes (%) (Auto) 0.3 % Eosinophils (%) (Auto) 0.1 % Basophils (%) (Auto) 0.1 % Neutrophils # (Auto) 6.96 K/uL (1.4-6.5) Lymphocytes # (Auto) 0.18 K/uL (1.2-3.4) Monocytes # (Auto) 0.02 K/uL (0.11-0.59) Eosinophils # (Auto) 0.01 K/uL (0-0.5) Basophils # (Auto) 0.01 K/uL (0-0.2) Immature Granulocyte # (Auto) 0.02 K/uL (0.00-0.02) Magnesium Level 1.8 mg/dl (1.8-2.4) Total Bilirubin 0.6 mg/dl (0.2-1) Direct Bilirubin 0.1 mg/dl (0-0.2) Aspartate Amino Transf (AST/SGOT) 13 U/L (15-37) Alanine Aminotransferase (ALT/SGPT) 17 U/L (12-78) Alkaline Phosphatase 119 U/L (45-117) Total Protein 5.1 gm/dl (6.4-8.2) Albumin 2.6 gm/dl (3.4-5.0) Bedside Lactic Acid Venous 0.96 mmol/L (0.90-1.70) Laboratory results per my review. Medications Administered Medications (Trade) Dose Ordered Sig/Isai Route Start Time Stop Time Status Last Admin Dose Admin Sodium Chloride 500 ml @ 999 mls/hr Q31M STAT IV 10/18/16 23:07 10/18/16 23:37 DC 10/18/16 23:21 999 MLS/HR Sodium Chloride 1,000 ml @ 150 mls/hr Q6H40M STAT IV 10/18/16 23:07 8/29/17 05:32 DC 10/19/16 00:05 150 MLS/HR Acetaminophen (Tylenol Tab) 650 mg NOW STAT PO 10/18/16 23:07 10/18/16 23:11 DC 10/18/16 23:21 650 MG Piperacillin Sod/ Tazobactam Sod (Zosyn Iv) 4.5 gm NOW STAT IV 10/18/16 23:14 10/18/16 23:15 DC 10/18/16 23:21 4.5 GM Fentanyl Citrate (Fentanyl Inj) 50 mcg NOW STAT IV 10/19/16 01:18 10/19/16 01:20 DC 10/19/16 01:27 50 MCG Metronidazole (Flagyl / Nss) 500 mg NOW STAT IV 10/19/16 02:46 10/19/16 02:48 DC 10/19/16 02:46 500 MG ECG Indication: abdominal pain Rate (beats per minute): 90 Rhythm: normal sinus Findings: no acute ischemic change, no ectopy, other (Previous septal infarct. ) ED Course 2312: Past medical records reviewed. The patient was evaluated in room C4. A complete history and physical examination was performed. 2307: Ordered Tylenol Tab 650 mg PO, Sodium Chloride 1000 ml @ 150 mls/hr IV, Sodium Chloride 500 ml @ 999 mls/hr IV. 2314: Ordered Zosyn 4.5 gm IV. 0118: Ordered Fentanyl Inj 50 mcg IV. 0231: Ordered Flagyl Tab 500 mg PO. 0240: I reassessed the patient. He would not like to stay in the hospital. 0245: Ordered Flagyl / NSS 500 mg IV, Cipro 500 mg home pack PO. 0300: Upon reevaluation, the patient is resting comfortably. I discussed laboratory and radiographic results with him. He verbalized agreement of the treatment plan, and agreed to stay in the hospital. I spoke with Dr. Fry of the [facility] Hospitalist Service. The patient will be evaluated for further management and care. Medical Decision Differential diagnosis: Otitis media, pneumonia, urinary tract infection, meningitis, bronchitis, sinusitis, influenza, other viral illness This patient was evaluated and appeared to be in no significant distress. IV access was obtained and laboratory work was drawn. The patient is chronically ill with metastatic lung cancer. CT scan abdomen and pelvis was performed and reveals colitis. He was not able to provide a stool specimen in the emergency department. Laboratory work reveals a normal white blood cell count and lactate however he is hypotensive and was febrile to 39.5 on arrival. He is receiving IV hydration and was given IV Zosyn. With the above findings IV Flagyl was added for the possibility of C. difficile. The case was discussed with the patient who initially wanted to be discharged. I advised against this due to his hypertension, fever, multiple medical issues and now colitis. After discussion with his family, patient is willing to stay. Dr. Lisandra mars of the hospitalist service will evaluate the patient for further management. Medication Reconcilliation Current Medication List: was personally reviewed by me Blood Pressure Screening Patient's blood pressure: Normal blood pressure Blood pressure disposition: Did not require urgent referral Consults Time Called: [phone] Consulting Physician: Dr. Fry -[facility] Returned Call: [phone] I reviewed the patient's case with Dr. Fry. [facility] will evaluate the patient for further management. Impression Primary Impression: Colitis Additional Impressions: Fever Metastatic lung cancer (metastasis from lung to other site) Immunocompromised Scribe Attestation The scribe's documentation has been prepared under my direction and personally reviewed by me in its entirety. I confirm that the note above accurately reflects all work, treatment, procedures, and medical decision making performed by me. Departure Information Dispostion Being Evaluated By Hospitalist Prescriptions Metronidazole (Flagyl) 500 Mg Tab 500 MG PO TID for 7 Days, #21 TAB Prov: Magi Munoz M.D. 10/19/16 Ciprofloxacin Hcl (CIPRO) 500 Mg Tab 500 MG PO BID, #14 TAB Prov: Magi Munoz M.D. 10/19/16 Referrals Violetta Kimbrough M.D. (PCP) Patient Instructions My [facility] Problem Qualifiers Additional Impressions: Fever Fever type: unspecified Qualified Codes: R50.9 - Fever, unspecified Metastatic lung cancer (metastasis from lung to other site) Laterality: unspecified laterality Qualified Codes: C34.90 - Malignant neoplasm of unspecified part of unspecified bronchus or lung
--- NOTE | 2016-10-19 03:55 | History and Physical ---
History & Physical Date & Time of Service: Oct 19, 2016 at 03:51 Chief Complaint: Sob/Diarrhea Primary Care Physician: Violetta Kimbrough M.D. History of Present Illness Source: patient 71-year-old male with a past medical history of lung cancer with liver metastases, atrial fibrillation, COPD, hypertension, hyperlipidemia, [place], pulmonary embolism present ER with complaints of watery diarrhea that started this morning. The patient complained of fatigue, fevers and chills and mid abdominal pain. He had about 2 episodes of vomiting and 5 to 6 episodes of watery diarrhea. Denied any blood in his stools. Denies any sick contacts, any recent traveling or exposure to any animals. Denies any recent antibiotic use and his last chemotherapy session was about 3 days ago. Denies any chest pain, shortness of breath, coughing, urinary complaints. Past Medical/Surgical History Medical Problems: (1) Basal cell carcinoma of skin Status: Resolved (2) COPD (chronic obstructive pulmonary disease) Status: Chronic (3) Heart disease Status: Chronic (4) Hyperlipidemia Status: Chronic (5) Hypertension Status: Chronic (6) Kidney stones Permanent Comment: s/p lithotripsy Status: Resolved (7) Lung cancer Permanent Comment: Abnormal CT PET scan revealing left upper lobe lesion 06/01/2013 fine-needle aspiration showing squamous cell carcinoma 06/29/2013 status post left upper lobectomy [id number] Systemic chemotherapy with cisplatin and gemzar for 4 cycles 04/08/2014 abnormal PET/CT with new FDG avid lesion Combined radiation and chemotherapy recommended. Status post completion of radiation therapy 07/01/2014 received 7000 cGy Finding of progression of disease with liver metastasis 11/17/2015 Status post systemic chemotherapy with gemcitabine 11/28/2015 to 03/05/2016 Second opinion at [facility] Initiation of systemic immunotherapy with Opdivo 04/27/2016 Nausea, vomiting finding of brain metastasis 05/19/2016 Status post SBRT to the brain completed 06/07/2016 received 3000 cGy in 5 fractions Opdivo discontinued due to pulmonary side effect Initiation chemotherapy with docetaxel 09/03/2016 Enlarging right posterior cerebellar lesion 10/06/2016 Status: Chronic (8) Myocardial infarction Permanent Comment: inferior wall Status: Resolved (9) Primary cancer of left upper lobe of lung Status: Chronic (10) Pulmonary embolism Status: Resolved Surgical Problems: (1) H/O hernia repair Status: Resolved (2) History of angioplasty Permanent Comment: with stenting in 2005 and 2006 Status: Resolved (3) Hx of appendectomy Status: Resolved (4) S/P lobectomy of lung Permanent Comment: 06/2013 Status: Resolved Family History FH: CAD (coronary artery disease) FATHER (passed at age 59 from [place]) MOTHER Social History Smoking Status: Former Smoker Drug Use: none Marital Status: Housing status: lives with family Occupational Status: retired Immunizations History of Influenza Vaccine: No History of Tetanus Vaccine?: UTD History of Pneumococcal: No History of Hepatitis B Vaccine: No Allergies Coded Allergies: No Known Allergies (Unverified , 10/19/16) Home Medications Scheduled Alfuzosin Hcl (Uroxatral), 10 MG PO QPM Amiodarone Hcl (Cordarone), 200 MG PO QAM Aspirin (Aspirin), 81 MG PO QAM Budesonide/Formoterol Fumarate (Symbicort 160/4.5 Inhaler), 2 PUFFS INH HS Buspirone Hcl (Buspar), 15 MG PO BID Ciprofloxacin Hcl (Cipro), 500 MG PO BID Ipratropium [place] (Ipratropium [place]), 1 VIAL NEB TID Levalbuterol Hcl (Levalbuterol Hcl), 1 DOSE INH TID Metronidazole (Flagyl), 500 MG PO TID Omeprazole (Prilosec), 20 MG PO DAILY Oxycodone Hcl (Oxycontin (Ext Rel)), 10 MG PO Q12 Prednisone (Prednisone), 2.5 MG PO DAILY Sulfamethoxazole-Trimethoprim (Smz-Tmp Ds), 1 TAB PO 3XWK Tiotropium [place] (Spiriva [place]er), 1 PUFF INH QPM Scheduled PRN Albuterol Hfa (Ventolin Hfa), 2 PUFFS INH QID PRN for SOB/Wheezing Fluticasone Propionate (Nasal) (Flonase Allergy Relief), 2 SPRAYS ANGELA DAILY PRN for ALLERGIC REACTION Nitroglycerin (Nitrostat), 0.4 MG UT UD PRN for Chest Pain Ondansetron (Ondansetron HCl), 8 MG PO Q8 PRN for Nausea or Vomiting Oxycodone HCl (Oxycodone HCl), 10 MG PO Q6H PRN for Pain Review of Systems Constitutional: + fever, + chills, + sweats Eyes: No worsening of vision ENT: No hearing loss Respiratory: No cough, No sputum, No wheezing, No shortness of breath Cardiovascular: No chest pain Abdomen: + pain, + nausea, + vomiting, + diarrhea Musculoskeletal: No joint pain Genitourinary - Male: No hematuria, No dysuria, No urinary frequency Neurologic: No memory loss Psychiatric: No depression symptoms Endocrine: No fatigue Hematologic / Lymphatic: No abnormal bleeding/bruising Integumentary: No rash Physical Exam Vital Signs Date Time Temp Pulse Resp B/P (MAP) Pulse Ox O2 Delivery O2 Flow Rate FiO2 10/19/16 02:47 37.2 77 18 92/44 96 Room Air 10/19/16 01:26 85 16 101/53 96 Room Air 10/19/16 00:37 37.1 89 16 109/71 94 Room Air 10/19/16 00:08 89 16 100/58 94 Room Air 10/18/16 22:46 105 10/18/16 22:30 39.5 103 20 123/69 95 Room Air General Appearance: WD/WN, no apparent distress Head: normocephalic Eyes: normal inspection ENT: hearing grossly normal Neck: supple Respiratory/Chest: chest non-tender, lungs clear, normal breath sounds, + wheezing (scattered) Cardiovascular: + irregularly irregular Abdomen/GI: soft, + tenderness (mid abdominal area) Extremities/Musculoskelatal: + pertinent finding (healed scabs on right leg) Neurologic/Psych: alert, normal mood/affect, oriented x 3 Skin: normal color Diagnostics Laboratory Results Results Past 24 Hours Test 10/18/16 22:30 10/18/16 22:38 10/18/16 22:47 Range/Units Urine Color DK YELLOW Urine Appearance CLEAR CLEAR Urine pH 5.5 4.5-7.5 Urine Specific [place] 1.018 1.000-1.030 Urine Protein 1+ NEG Urine Glucose (UA) NEG NEG Urine Ketones TRACE NEG Urine Occult Blood TRACE NEG Urine Nitrite NEG NEG Urine Bilirubin NEG NEG Urine Urobilinogen NEG NEG Urine Leukocyte Esterase TRACE NEG Urine WBC (Auto) 1-5 0-5 /hpf Urine RBC (Auto) 10-30 0-4 /hpf Urine Hyaline Casts (Auto) 1-5 0-5 /lpf Urine Epithelial Cells (Auto) 0-5 0-5 /lpf Urine Bacteria (Auto) NEG NEG White Blood Count 7.20 4.8-10.8 K/uL Red Blood Count 3.50 4.7-6.1 M/uL Hemoglobin 9.3 14.0-18.0 g/dL Hematocrit 30.2 42-52 % Mean Corpuscular Volume 86.3 80-100 fL Mean Corpuscular Hemoglobin 26.6 25-34 pg Mean Corpuscular Hemoglobin Concent 30.8 32-36 g/dl Platelet Count 148 130-400 K/uL Mean Platelet Volume 9.7 7.4-10.4 fL Neutrophils (%) (Auto) 96.7 % Lymphocytes (%) (Auto) 2.5 % Monocytes (%) (Auto) 0.3 % Eosinophils (%) (Auto) 0.1 % Basophils (%) (Auto) 0.1 % Neutrophils # (Auto) 6.96 1.4-6.5 K/uL Lymphocytes # (Auto) 0.18 1.2-3.4 K/uL Monocytes # (Auto) 0.02 0.11-0.59 K/uL Eosinophils # (Auto) 0.01 0-0.5 K/uL Basophils # (Auto) 0.01 0-0.2 K/uL RDW Standard Deviation 59.6 36.4-46.3 fL RDW Coefficient of Variation 18.7 11.5-14.5 % Immature Granulocyte % (Auto) 0.3 % Immature Granulocyte # (Auto) 0.02 0.00-0.02 K/uL Sodium Level 140 136-145 mmol/L Potassium Level 4.3 3.5-5.1 mmol/L Chloride Level 108 98-107 mmol/L Carbon Dioxide Level 22 21-32 mmol/L Anion Gap 10.0 3-11 mmol/L Blood Urea Nitrogen 26 7-18 mg/dl Creatinine 1.10 0.60-1.40 mg/dl Est Creatinine Clear Calc Drug Dose 58.1 ml/min Estimated GFR () 79.0 Estimated GFR (Non- 68.1 BUN/Creatinine Ratio 23.2 10-20 Random Glucose 80 70-99 mg/dl Calcium Level 7.7 8.5-10.1 mg/dl Magnesium Level 1.8 1.8-2.4 mg/dl Total Bilirubin 0.6 0.2-1 mg/dl Direct Bilirubin 0.1 0-0.2 mg/dl Aspartate Amino Transf (AST/SGOT) 13 15-37 U/L Alanine Aminotransferase (ALT/SGPT) 17 12-78 U/L Alkaline Phosphatase 119 45-117 U/L Total Protein 5.1 6.4-8.2 gm/dl Albumin 2.6 3.4-5.0 gm/dl Bedside Lactic Acid Venous 0.96 0.90-1.70 mmol/L Microbiology Results 10/18/16 Blood Culture, Received Pending 10/18/16 Blood Culture, Received Pending Diagnostic Radiology CT ABDOMEN & PELVIS: Comparison with 09/21/16 CT New colitis suspected involving the distal transverse colon, splenic flexure, and descending colon. No abscess or bowel obstruction. No free air or free fluid. No appendicitis. No obstructive uropathy, although there are multiple small and punctate renal calyceal calculi bilaterally as well as bilateral renal cysts. Biliary dilatation, similar to before. No obvious obstructing lesion distally but would correlate with LFTs. Distended gallbladder with no gallstones or wall thickening or surrounding inflammation. No other acute or inflammatory disease. Thickening of the anterior bladder wall without surrounding inflammation. Impression Assessment and Plan 71-year-old male with a past medical history of lung cancer with liver metastases, atrial fibrillation, COPD, hypertension, hyperlipidemia, [place], pulmonary embolism present ER with complaints of watery diarrhea that started this morning. Vomiting and diarrhea with abdominal pain: - Likely secondary to colitis - Abdominal CT suggestive of colitis in the transverse colon, splenic flexure and descending colon - Check stool for C. difficile, stool culture and WBC - Continue IV fluids - Continue ciprofloxacin and Flagyl Lung cancer with liver metastases: - Stable Atrial fibrillation: - Continue amiodarone COPD: - Continue ipratropium, prednisone, Spiriva with albuterol as needed Chronic hip pain secondary to osteoarthritis - Continue home dose of OxyContin IR 10 mg twice a day DVT prophylaxis: SCDs Full code Disposition: admitted to telemetry Resident Physician Supervision Note: I was present with Dr. Arriaga during the history and exam. I discussed the case with the resident and agree with the findings and plan as documented in the note. Any exceptions or clarifications are listed here: 71 y/o M with AF, COPD, met colon CA presenting with abd pain, diarrhea and fever OE Cachectic elderly male AAO x 3 S1,2 R CTAB + mild diffuse tenderness and distention No focal deficits P: Placed on Cipro Flagyl initially and then provided with a dose of Zosyn by ER as he was intending to return home Pt then changed his mind - we are pending results of a C diff test to determine appropriate antibiotic Documented By: Maurilio Fry - Level of Care Telemetry Resuscitation Status FULL RESUSCITATION VTE Prophylaxis Given or contraindicated: SCD's Resident Tracking Resident Involvement: Resident Care Provided Care Provided: Adult Hospital Medicine
[2016-10-19] MEDS ORDERED: NITROGLYCERIN 0.4 MG SL PER TAB CHARGE UT PRN (04:00)
[2016-10-19] MEDS ORDERED: FLUTICASONE PROPIONATE NA SPR 16 GM BTL NAE PRN (04:00)
[2016-10-19] MEDS ORDERED: ALBUTEROL HFA 8 GM INHALER INH PRN (04:00)
[2016-10-19] MEDS ORDERED: ACETAMINOPHEN 325 MG TAB PO PRN (04:00)
[2016-10-19] MEDS ORDERED: NURSING VERBAL MED ORDER ONE (05:45)
[2016-10-19] MEDS: MoRPHine SULFATE 2 MG/ML CARP IV PRN ×3 (05:52→19:42)
[2016-10-19] MEDS: SODIUM CHLORIDE 0.9% 1000ML 1,000 ML IV SCH ×2 (05:54→15:30)
[2016-10-19] MEDS: CIPROFLOXACIN / D5W 400 MG in PREMIXED IN D5W 200 ML IV SCH ×2 (06:03→18:35)
--- NOTE | 2016-10-19 06:58 | DIAGNOSTIC IMAGING REPORT ---
CHEST 2 VIEWS ROUTINE CLINICAL HISTORY: 71 years-old Male presenting with fever, lung CA. TECHNIQUE: Portable upright AP view of the chest was obtained. COMPARISON: 08/26/2016. FINDINGS: Left subclavian Mediport terminates in the superior cavoatrial junction. Unchanged distortion of the left hilum with postsurgical scarring and cicatrizing atelectasis status post left upper lobe resection. Previously noted masslike consolidation in the left perihilar region persists. No large effusion or pneumothorax.. No new focal infiltrate. Osseous structures normal. Upper abdomen normal. IMPRESSION: 1. Stable postoperative changes of the left hemithorax with persistent left perihilar mass. No new focal infiltrate. No convincing evidence of acute cardiopulmonary disease. Electronically signed by: Yony Garcia M.D. 10/19/2016 6:57 AM Dictated Date/Time: 10/19/2016 6:53 AM
[2016-10-19 07:06] LABS: HEMATOCRIT 26.5 % (42-52); MEAN CORPUSCULAR HEMOGLOBIN 27.3 pg (25-34); MEAN CORPUSCULAR HGB CONC 31.7 g/dl (32-36); MEAN PLATELET VOLUME 9.5 fL (7.4-10.4); PLATELET COUNT 127 K/uL (130-400); RED BLOOD COUNT 3.08 M/uL (4.7-6.1); WHITE BLOOD COUNT 11.87 K/uL (4.8-10.8)
[2016-10-19] MEDS: IPRATROPIUM BROMIDE NEB SOLN 0.02% 2.5 ML VIAL INH SCH ×3 (07:10→19:56)
[2016-10-19] MEDS: LEVALBUTEROL 1.25MG/3ML NEB INH SCH ×3 (07:11→19:56)
--- NOTE | 2016-10-19 07:32 | DIAGNOSTIC IMAGING REPORT ---
ABD/PELVIS IV CONTRAST ONLY HISTORY: 71 years-old Male acute left lower quadrant abd pain, chemo for mets lung CA, fever COMPARISON: CT abdomen and pelvis 09/21/2016 TECHNIQUE: Multiple axial CT images of the abdomen and pelvis were obtained following the intravenous administration of 93 mL Optiray 320. No oral contrast was administered. A dose lowering technique was used consistent with the principals of CATHY. FINDINGS: Lung bases are generally clear. No pneumoperitoneum identified. Coronary arterial calcifications noted. There is a focal calcification of the left pericardium which is nonspecific. There is a trace pericardial effusion. Low attenuating lesions in the left hepatic lobe are again seen, largest of which measures 1.6 cm, unchanged from comparison. There is persistent left greater than right intrahepatic biliary ductal dilation which appears unchanged. Gallbladder and spleen are unremarkable. Small nodular densities anterior to the spleen again seen, none x 5 mm, unchanged from comparison. Adrenal glands are unremarkable. There is moderate pancreatic atrophy. There is stable dilation of the common bile duct, 1.0 cm. Multiple bilateral renal cysts and nonobstructing renal calculi are again seen. No ureteral calculi or hydronephrosis identified. Prostatomegaly is seen. There is wall thickening with adjacent inflammatory stranding involving the anterior bladder. There is moderate mixed plaquing of the abdominal aorta with mild fusiform infrarenal abdominal aortic aneurysm seen, 3.0 x 2.6 cm. There is no bowel obstruction. A single colocolonic fistula is seen within the mid sigmoid colon on image 322. This is unchanged. There is circumferential wall thickening with mucosal hyperemia surrounding inflammatory stranding involving the distal transverse colon, splenic flexure and descending colon suggesting acute colitis. There is unchanged low attenuating 2.9 x 1.6 cm collection near the superior left inguinal region which may be postsurgical and appears chronic. Colonic diverticulosis is noted. The soft tissues are unremarkable. No suspicious lytic or blastic bony lesions are identified. The bones are severely demineralized. A moderate right-sided joint effusion is again noted with partial collapse of the right femoral head. IMPRESSION: 1. Circumferential wall thickening with mucosal hyperemia and surrounding inflammatory stranding involves the transverse and descending colon suggesting acute colitis. No pneumatosis or pneumoperitoneum. No bowel obstruction. 2. Unchanged appearance of left hepatic lobe low attenuating lesions with intrahepatic biliary ductal dilation suggesting metastatic disease. 3. Stable appearance of the small soft tissue nodules anterior to the spleen. 4. Colonic diverticulosis. 5. Bilateral nephrolithiasis. The above report was generated using voice recognition software. It may contain grammatical, syntax or spelling errors. Electronically signed by: Malick Elizabeth M.D. 10/19/2016 7:31 AM Dictated Date/Time: 10/19/2016 7:19 AM
[2016-10-19 07:43] LABS: BUN/CREATININE RATIO 20.8 (10-20); CALCIUM 7.6 mg/dl (8.5-10.1); CREATININE 1.2 mg/dl (0.60-1.40); POTASSIUM 3.9 mmol/L (3.5-5.1)
[2016-10-19] MEDS: BusPIRone 15 MG TAB PO SCH ×2 (08:50→21:32)
[2016-10-19] MEDS: ASPIRIN 81 MG ECTAB PO SCH (08:50)
[2016-10-19] MEDS: AMIODARONE 200 MG TAB PO SCH (08:51)
[2016-10-19] MEDS: PANTOprazole SOD 40 MG TAB PO SCH (08:51)
[2016-10-19] MEDS: OXYCODONE HCL 10 MG TABCR (OXYCONTIN) PO SCH ×2 (08:55→21:31)
[2016-10-19] MEDS: METRONIDAZOLE / NSS 500 MG in PREMIXED NSS 100 ML IV SCH ×2 (08:56→18:35)
--- NOTE | 2016-10-19 18:31 | Progress Note ---
Subjective Date of Service: Oct 19, 2016. Subjective Patient states he feels tired from being up in the ER night. He feels that his abdomen is improved diarrhea has lessened overall just feels weak Problem List Medical Problems: (1) Anemia Status: Acute (2) Bronchitis Status: Acute (3) Colitis Status: Acute (4) Cough Status: Acute (5) Fever Status: Acute (6) Fever Status: Acute (7) Hypomagnesemia Status: Acute (8) Hypotension Status: Acute (9) Immunocompromised Status: Acute (10) Leg edema, right Status: Acute (11) Metastatic cancer to brain Status: Acute (12) Metastatic lung cancer (metastasis from lung to other site) Status: Acute (13) Nausea and vomiting Status: Acute (14) Near syncope Status: Acute (15) Pneumonitis Status: Acute Review of Systems Constitutional: No fever, No chills Respiratory: No cough, No shortness of breath, No dyspnea on exertion Cardiac: No chest pain, No orthopnea, No PND, No edema Abdomen: + pain, + diarrhea, No nausea, No vomiting, No constipation Musculoskeletal: No joint pain, No muscle pain Male : No dysuria, No urinary frequency Objective Vital Signs Date Time Temp Pulse Resp B/P (MAP) Pulse Ox O2 Delivery O2 Flow Rate FiO2 10/19/16 07:31 36.8 71 20 121/63 (82) 97 Room Air 10/19/16 07:14 68 16 98 Room Air 10/19/16 05:22 36.4 77 131/66 Room Air 10/19/16 04:46 74 16 126/68 97 10/19/16 04:00 72 18 115/65 96 Room Air 10/19/16 02:47 37.2 77 18 92/44 96 Room Air 10/19/16 01:26 85 16 101/53 96 Room Air 10/19/16 00:37 37.1 89 16 109/71 94 Room Air 10/19/16 00:08 89 16 100/58 94 Room Air 10/18/16 22:46 105 10/18/16 22:30 39.5 103 20 123/69 95 Room Air Physical Exam General Appearance: WD/WN, + mild distress Eyes: PERRL, EOMI Neck: supple, no JVD Respiratory/Chest: chest non-tender, lungs clear, normal breath sounds Cardiovascular: regular rate, rhythm, no murmur Abdomen: normal bowel sounds, soft, + tenderness Extremities: no pedal edema, no calf tenderness Laboratory Results Last 24 Hours Test 10/18/16 22:30 10/18/16 22:38 10/18/16 22:47 10/19/16 06:25 Urine Color DK YELLOW Urine Appearance CLEAR Urine pH 5.5 Urine Specific [place] 1.018 Urine Protein 1+ Urine Glucose (UA) NEG Urine Ketones TRACE Urine Occult Blood TRACE Urine Nitrite NEG Urine Bilirubin NEG Urine Urobilinogen NEG Urine Leukocyte Esterase TRACE Urine WBC (Auto) 1-5 /hpf Urine RBC (Auto) 10-30 /hpf Urine Hyaline Casts (Auto) 1-5 /lpf Urine Epithelial Cells (Auto) 0-5 /lpf Urine Bacteria (Auto) NEG White Blood Count 7.20 K/uL 11.87 K/uL Red Blood Count 3.50 M/uL 3.08 M/uL Hemoglobin 9.3 g/dL 8.4 g/dL Hematocrit 30.2 % 26.5 % Mean Corpuscular Volume 86.3 fL 86.0 fL Mean Corpuscular Hemoglobin 26.6 pg 27.3 pg Mean Corpuscular Hemoglobin Concent 30.8 g/dl 31.7 g/dl Platelet Count 148 K/uL 127 K/uL Mean Platelet Volume 9.7 fL 9.5 fL Neutrophils (%) (Auto) 96.7 % Lymphocytes (%) (Auto) 2.5 % Monocytes (%) (Auto) 0.3 % Eosinophils (%) (Auto) 0.1 % Basophils (%) (Auto) 0.1 % Neutrophils # (Auto) 6.96 K/uL Lymphocytes # (Auto) 0.18 K/uL Monocytes # (Auto) 0.02 K/uL Eosinophils # (Auto) 0.01 K/uL Basophils # (Auto) 0.01 K/uL RDW Standard Deviation 59.6 fL 59.6 fL RDW Coefficient of Variation 18.7 % 18.7 % Immature Granulocyte % (Auto) 0.3 % Immature Granulocyte # (Auto) 0.02 K/uL Sodium Level 140 mmol/L 139 mmol/L Potassium Level 4.3 mmol/L 3.9 mmol/L Chloride Level 108 mmol/L 108 mmol/L Carbon Dioxide Level 22 mmol/L 21 mmol/L Anion Gap 10.0 mmol/L 10.0 mmol/L Blood Urea Nitrogen 26 mg/dl 25 mg/dl Creatinine 1.10 mg/dl 1.20 mg/dl Est Creatinine Clear Calc Drug Dose 58.1 ml/min 53.3 ml/min Estimated GFR () 79.0 71.1 Estimated GFR (Non- 68.1 61.3 BUN/Creatinine Ratio 23.2 20.8 Random Glucose 80 mg/dl 88 mg/dl Calcium Level 7.7 mg/dl 7.6 mg/dl Magnesium Level 1.8 mg/dl Total Bilirubin 0.6 mg/dl Direct Bilirubin 0.1 mg/dl Aspartate Amino Transf (AST/SGOT) 13 U/L Alanine Aminotransferase (ALT/SGPT) 17 U/L Alkaline Phosphatase 119 U/L Total Protein 5.1 gm/dl Albumin 2.6 gm/dl Bedside Lactic Acid Venous 0.96 mmol/L Assessment and Plan 71-year-old male presents with abdominal pain and diarrhea 1 day, with a past medical history of lung cancer with liver metastases, atrial fibrillation, COPD , hypertension, hyperlipidemia, [place], pulmonary embolism Vomiting and diarrhea with abdominal pain: - Abdominal CT suggestive of colitis in the transverse colon, splenic flexure and descending colon We'll rule out infectious causes (C. difficile preliminarily negative) continue IV fluids Plus ciprofloxacin and Flagyl Given chronic adrenal suppression with steroids will use stress hydrocortisone for 24 hours Lung cancer with liver metastases: Patient is comfortable with no significant respiratory distress Atrial fibrillation: Rate controlled with amiodarone COPD: Not in Exacerbation- Continue ipratropium, prednisone, Spiriva with albuterol as needed Chronic hip pain secondary to osteoarthritis OxyContin IR 10 mg twice a day DVT prophylaxis Lovenox Full code
[2016-10-19] MEDS: ONDANSETRON INJ 2 MG/ML 2 ML VIAL IV PRN (20:18)
[2016-10-19] MEDS: ENOXAPARIN 40 MG/0.4 ML SYR SQ SCH (20:19)
[2016-10-19] MEDS: BUDESONIDE/FORMOTEROL FUMARATE 160/4.5 60 PUFFS/INHALER INH SCH (21:29)
[2016-10-19] MEDS: TIOTROPIUM BROMIDE 5 PUFF/90 MCG INH INH SCH (21:30)
[2016-10-19] MEDS: HYDROCORTISONE IV 50 MG in SYRINGE 0 ML IV SCH (21:32)
[2016-10-19] MEDS: ALFUZosin TAB 10 MG TAB PO SCH (21:32)
[2016-10-20] VITALS (16 sets, daily range): BP systolic 102–190; BP diastolic 72–92; PULSE 58–79; TEMP 36.5–36.9; O2SAT 95–100
[2016-10-20] MEDS: MoRPHine SULFATE 2 MG/ML CARP IV PRN ×2 (00:52→05:19)
[2016-10-20] MEDS: METRONIDAZOLE / NSS 500 MG in PREMIXED NSS 100 ML IV SCH ×3 (02:22→17:56)
[2016-10-20] MEDS: SODIUM CHLORIDE 0.9% 1000ML 1,000 ML IV SCH ×3 (02:23→17:05)
[2016-10-20] MEDS: CIPROFLOXACIN / D5W 400 MG in PREMIXED IN D5W 200 ML IV SCH ×2 (05:23→17:56)
[2016-10-20] MEDS: HYDROCORTISONE IV 50 MG in SYRINGE 0 ML IV SCH ×2 (05:25→17:04)
[2016-10-20 06:34] LABS: HEMATOCRIT 22.6 % (42-52); MEAN CELL VOLUME 86.6 fL (80-100); MEAN CORPUSCULAR HGB CONC 32.3 g/dl (32-36); MEAN PLATELET VOLUME 9.1 fL (7.4-10.4); PLATELET COUNT 106 K/uL (130-400); RED BLOOD COUNT 2.61 M/uL (4.7-6.1); WHITE BLOOD COUNT 3.13 K/uL (4.8-10.8)
[2016-10-20 07:03] LABS: BUN/CREATININE RATIO 21.1 (10-20); CALCIUM 7.5 mg/dl (8.5-10.1); CREATININE 0.79 mg/dl (0.60-1.40)
[2016-10-20] MEDS: IPRATROPIUM BROMIDE NEB SOLN 0.02% 2.5 ML VIAL INH SCH ×3 (07:11→19:58)
[2016-10-20] MEDS: LEVALBUTEROL 1.25MG/3ML NEB INH SCH ×3 (07:12→19:58)
[2016-10-20] MEDS: PANTOprazole SOD 40 MG TAB PO SCH (08:06)
[2016-10-20] MEDS: ASPIRIN 81 MG ECTAB PO SCH (08:06)
[2016-10-20] MEDS: AMIODARONE 200 MG TAB PO SCH (08:06)
[2016-10-20] MEDS: BusPIRone 15 MG TAB PO SCH ×2 (08:06→21:07)
[2016-10-20] MEDS: OXYCODONE HCL 10 MG TABCR (OXYCONTIN) PO SCH ×2 (08:07→21:05)
[2016-10-20] MEDS: ENOXAPARIN 40 MG/0.4 ML SYR SQ SCH (10:13)
[2016-10-20 11:16] LABS: BASO ABS # 0.03 K/uL (0-0.2); HEMATOCRIT 23.9 % (42-52); IG% 2.2 %; LYMPH % 3.2 %; MEAN CELL VOLUME 87.2 fL (80-100); MEAN CORPUSCULAR HEMOGLOBIN 28.1 pg (25-34); MEAN CORPUSCULAR HGB CONC 32.2 g/dl (32-36); MONO % 1.6 %; PLATELET COUNT 107 K/uL (130-400); RED BLOOD COUNT 2.74 M/uL (4.7-6.1); WHITE BLOOD COUNT 3.15 K/uL (4.8-10.8)
[2016-10-20 11:46] LABS: COMPLETE YES; ECHINOCYTES 1+; OVALOCYTES 1+
--- NOTE | 2016-10-20 12:39 | Clinical Documentation Query ---
CLINICAL DOCUMENTATION QUERY 71 year old male who is currently undergoing systemic chemotherapy 2/2 to metastatic lung cancer who presents with colitis. In your clinical opinion is this patient being managed for: ( ) "Chemotherapy related toxic colitis" treated with IVF's and IV antibiotics. ( ) Not Agree ( ) Other explanation of clinical findings (Please Explain) ( ) Unable to determine (Please Define) ( ) Need to Discuss The medical record reflects the following clinical findings, treatment, and risk factors. Clinical Indicators: Colitis Treatment: IVF's, IV Flagyl, Risk Factors: Chemotherapy Please clarify and document your clinical opinion in the progress notes and discharge summary. Terms such as "probable", "suspected", "likely", "questionable", "possible", or "still to be ruled out" are acceptable. IF IN AGREEMENT, YOU MUST DOCUMENT ABOVE DIAGNOSTIC STATEMENT IN DAILY PROGRESS NOTES AND DISCHARGE SUMMARY. This document is not part of the patient's record. Thank You, Oren Gill, MARVIN [phone]
--- NOTE | 2016-10-20 15:59 | Discharge Instructions ---
Discharge Instructions Date of Service Oct 20, 2016. Admission Reason for Admission: Colitis Discharge Discharge Diagnosis / Problem: colitis Discharge Goals Goal(s): Diagnostic testing, Therapeutic intervention Activity Recommendations Activity Limitations: resume your previous activity . Current Hospital Diet Patient's current hospital diet: Regular Diet Discharge Diet Recommended Diet: Regular Diet Pending Studies Studies pending at discharge: no Medical Emergencies . Who to Call and When: Medical Emergencies: If at any time you feel your situation is an emergency, please call 911 immediately. . Non-Emergent Contact Non-Emergency issues call your: Oncologist Call Non-Emergent contact if: temperature is above 101, your pain is unusual for you . . "Provider Documentation" section prepared by Tom Locke. . VTE Core Measure Inpt VTE Proph given/why not?: SCD's
--- NOTE | 2016-10-20 18:03 | Discharge Summary ---
Discharge Summary Date of Service Oct 20, 2016. Discharge Summary Admission Date: Oct 19, 2016 at 03:59 Discharge Date: Oct 20, 2016 Discharge Disposition: Home Principal Diagnosis: colitis, symptomatic anemia Immunizations: Have You Had Influenza Vaccine: No History of Tetanus Vaccine?: UTD History of Pneumococcal: No History of Hepatitis B Vaccine: No Medication Reconciliation Continued Medications: Albuterol Hfa (Ventolin Hfa) 200 Puffs/90306 Mcg Aers 2 PUFFS INH QID PRN for SOB/Wheezing Alfuzosin Hcl (Uroxatral) 10 Mg Tab 10 MG PO QPM Amiodarone Hcl (Cordarone) 200 Mg Tab 200 MG PO QAM Aspirin (Aspirin) 81 Mg Chw 81 MG PO QAM Budesonide/Formoterol Fumarate (Symbicort 160/4.5 Inhaler) 120 Puffs/ Aero 2 PUFFS INH HS, INHALER Buspirone Hcl (Buspar) 15 Mg Tab 15 MG PO BID, TAB Ciprofloxacin Hcl (Cipro) 500 Mg Tab 500 MG PO BID, #14 TAB Fluticasone Propionate (Nasal) (Flonase Allergy Relief) 50 Mcg/Act Spr 2 SPRAYS ANGELA DAILY PRN for ALLERGIC REACTION Ipratropium [place] (Ipratropium [place]) 0.5 Mg/2.5 Ml Nebu 1 VIAL NEB TID, 3 Refills Levalbuterol Hcl (Levalbuterol Hcl) 1.25 Mg/3 Ml Neb 1 DOSE INH TID Metronidazole (Flagyl) 500 Mg Tab 500 MG PO TID for 7 Days, #21 TAB Nitroglycerin (Nitrostat) 0.4 Mg Tab 0.4 MG UT UD PRN for Chest Pain Omeprazole (Prilosec) 20 Mg Capcr 20 MG PO DAILY Ondansetron (Ondansetron HCl) 8 Mg Tab 8 MG PO Q8 PRN for Nausea or Vomiting Oxycodone HCl (Oxycodone HCl) 5 Mg Tab 10 MG PO Q6H PRN for Pain Oxycodone Hcl (Oxycontin (Ext Rel)) 80 Mg Tabcr 10 MG PO Q12, TAB Prednisone (Prednisone) 2.5 Mg Tab 2.5 MG PO DAILY, 3 Refills Sulfamethoxazole-Trimethoprim (Smz-Tmp Ds) 1 Tab Tab 1 TAB PO 3XWK TAKE 1 TABLET DAILY ON MON/TUE/FRI WHILE ON CHEMO Tiotropium [place] (Spiriva Hand[place]haler) 30 Puff/540 Mcg Aerp 1 PUFF INH QPM Discharge Exam Review of Systems: Constitutional: No fever, No chills, No sweats Respiratory: No cough, No sputum, No wheezing, No shortness of breath Cardiovascular: No chest pain, No orthopnea, No edema Abdomen: No pain, No nausea, No vomiting Physical Exam: General Appearance: WD/WN, no apparent distress Eyes: PERRL, EOMI Neck: supple, no JVD Respiratory/Chest: chest non-tender, lungs clear, normal breath sounds Cardiovascular: regular rate, rhythm, no murmur Hospital Course 71-year-old male presents with abdominal pain and diarrhea 1 day, with a past medical history of lung cancer with liver metastases, atrial fibrillation, COPD , hypertension, hyperlipidemia, AR, pulmonary embolism Vomiting and diarrhea with abdominal pain: - Abdominal CT suggestive of colitis in the transverse colon, splenic flexure and descending colon No infectious causes seen with negative C. difficile some Shigella and Shiga toxin Has improved on ciprofloxacin and Flagyl and will continue these Acute on chronic anemia, anemia of chronic disease, will be transfused 1 unit of packed red blood cells after speaking with Dr. Ritter Given chronic adrenal suppression with steroids did use stress hydrocortisone for 24 hours Lung cancer with liver metastases: Remains comfortable with no significant respiratory distress Atrial fibrillation: Continues to be Rate controlled with amiodarone COPD: Not in Exacerbation- Continue ipratropium, low-dose prednisone, Spiriva with albuterol as needed Chronic hip pain secondary to osteoarthritis OxyContin IR 10 mg twice a day next We'll have follow-up with Dr. Ritter Total Time Spent: Greater than 30 minutes This includes examination of the patient, discharge planning, medication reconciliation, and communication with other providers. Discharge Instructions Please refer to the electronic Patient Visit Report (Discharge Instructions) for additional information.
[2016-10-20] MEDS: TIOTROPIUM BROMIDE 5 PUFF/90 MCG INH INH SCH (21:06)
[2016-10-20] MEDS: BUDESONIDE/FORMOTEROL FUMARATE 160/4.5 60 PUFFS/INHALER INH SCH (21:06)
[2016-10-20] MEDS: ALFUZosin TAB 10 MG TAB PO SCH (21:07)
[2016-10-20] MEDS: ONDANSETRON INJ 2 MG/ML 2 ML VIAL IV PRN (21:20)
[2016-10-27] MEDS ORDERED: PRED10TA PO (15:59)
[2016-10-27] MEDS ORDERED: DXY100 PO (15:59)
== END 2016-10-20 23:47 | disposition home or self-care (01) | DRG 392 ==
LOC: EDBD 22:13 → C.EDC 22:14 → C.2E 10-19 03:59 → ENRESERV 10-19 04:17 → C.MED 10-19 17:39 → C.4E 10-20 22:24
PROVIDERS: ADMIT Family Medicine; ATTEND Internal Medicine
DX: K52.9 Noninfective gastroenteritis and colitis, unspecified (principal); C79.31 Secondary malignant neoplasm of brain; C78.7 Secondary malignant neoplasm of liver and intrahepatic bile duct; C34.90 Malignant neoplasm of unspecified part of unspecified bronchus or lung; D62 Acute posthemorrhagic anemia; E27.40 Unspecified adrenocortical insufficiency; I48.91 Unspecified atrial fibrillation; J44.9 Chronic obstructive pulmonary disease, unspecified; I11.0 Hypertensive heart disease with heart failure; E78.5 Hyperlipidemia, unspecified; G89.29 Other chronic pain; I25.10 Atherosclerotic heart disease of native coronary artery without angina pectoris; M25.559 Pain in unspecified hip; T45.1X5A Adverse effect of antineoplastic and immunosuppressive drugs, initial encounter; Z92.3 Personal history of irradiation; Z92.21 Personal history of antineoplastic chemotherapy; Z95.5 Presence of coronary angioplasty implant and graft; Z87.891 Personal history of nicotine dependence; Z86.711 Personal history of pulmonary embolism; I25.2 Old myocardial infarction; Z82.49 Family history of ischemic heart disease and other diseases of the circulatory system; Z79.82 Long term (current) use of aspirin; Z79.52 Long term (current) use of systemic steroids; Z79.2 Long term (current) use of antibiotics; Z79.891 Long term (current) use of opiate analgesic

== ENCOUNTER 2016-10-26 07:07 | Inpatient (IN) | payer BC, OTHER ==
[2016-10-26] VITALS (7 sets, daily range): BP systolic 140–155; BP diastolic 77–83; PULSE 71–79; TEMP 36.7–37; O2SAT 94–97; Ht 177.8 cm; Wt 63.7 kg
[~2016-10-26] VITALS: Ht 177.8 cm; Wt 63.7 kg
[~2016-10-26 07:07] MED LIST changes: +ATRINS NEB; +CIPR-255 PO; +METR-163 PO
[2016-10-26] MEDS ORDERED: SODIUM CHLORIDE 0.9% 1000ML 1,000 ML IV STA (07:21)
[2016-10-26] MEDS ORDERED: ONDANSETRON INJ 2 MG/ML 2 ML VIAL ONE (07:24)
--- NOTE | 2016-10-26 07:30 | EMERGENCY ROOM VISIT NOTE ---
History Report prepared by Iraida: Nica Hernandez Under the Supervision of: Dr. Rufus Restrepo D.O. First contact with patient: 07:15 Chief Complaint: FEVER Stated Complaint: FEVER/CHILLS History of Present Illness The patient is a 71 year old male who presents to the Emergency Room with complaints of persistent vomiting that began today prior to arrival. He currently rates his discomfort as a 5/10 in severity. The patient reports that he is currently on chemotherapy. He states that he was recently evaluated in the hospital for similar symptoms, noting that he was diagnosed with colitis. The patient states that he is currently on Cipro and Flagyl. He states that he vomited four times prior to arrival. The patient additionally notes nausea. He denies any fever. The patient states that he developed a cough from being in the hospital. Source of History: patient Onset: prior to arrival Position: other (global) Symptom Intensity: 5/10 Quality: other (vomiting) Timing: other (persistent) Associated Symptoms: + cough, + nausea, No fevers Review of Systems See HPI for pertinent positives & negatives. A total of 10 systems reviewed and were otherwise negative. Past Medical & Surgical Medical Problems: (1) Atrial fibrillation with RVR (2) Basal cell carcinoma of skin (3) COPD (chronic obstructive pulmonary disease) (4) Heart disease (5) Hyperlipidemia (6) Hypertension (7) Kidney stones (8) Lung cancer (9) Myocardial infarction (10) Pneumonia (11) Primary cancer of left upper lobe of lung (12) Pulmonary embolism (13) Sepsis Surgical Problems: (1) H/O hernia repair (2) History of angioplasty (3) Hx of appendectomy (4) S/P lobectomy of lung Family History FH: CAD (coronary artery disease) FATHER (passed at age 59 from [place]) MOTHER Social History Smoking Status: Former Smoker Alcohol Use: other Drug Use: none Marital Status: Housing Status: lives with family Occupation Status: retired Current/Historical Medications Scheduled Alfuzosin Hcl (Uroxatral), 10 MG PO QPM Amiodarone Hcl (Cordarone), 200 MG PO QAM Aspirin (Aspirin), 81 MG PO QAM Budesonide/Formoterol Fumarate (Symbicort 160/4.5 Inhaler), 2 PUFFS INH HS Buspirone Hcl (Buspar), 15 MG PO BID Ciprofloxacin Hcl (Cipro), 500 MG PO BID Ipratropium [place] (Ipratropium [place]), 1 VIAL NEB TID Levalbuterol Hcl (Levalbuterol Hcl), 1 DOSE INH TID Metronidazole (Flagyl), 500 MG PO TID Omeprazole (Prilosec), 20 MG PO BID Oxycodone Hcl (Oxycontin (Ext Rel)), 10 MG PO Q12 Prednisone (Prednisone), 2.5 MG PO DAILY Sulfamethoxazole-Trimethoprim (Smz-Tmp Ds), 1 TAB PO 3XWK Tiotropium [place] (Spiriva Handihaler), 1 PUFF INH QPM Scheduled PRN Albuterol Hfa (Ventolin Hfa), 2 PUFFS INH QID PRN for SOB/Wheezing Benzonatate (Tessalon Perles), 100 MG PO Q8 PRN for Cough Fluticasone Propionate (Nasal) (Flonase Allergy Relief), 2 SPRAYS ANGELA DAILY PRN for ALLERGIC REACTION Nitroglycerin (Nitrostat), 0.4 MG UT UD PRN for Chest Pain Ondansetron (Ondansetron HCl), 8 MG PO Q6H PRN for Nausea or Vomiting Oxycodone HCl (Oxycodone HCl), 10 MG PO Q4H PRN for Pain Allergies Coded Allergies: No Known Allergies (Unverified , 10/19/16) Physical Exam Vital Signs Date Time Temp Pulse Resp B/P (MAP) Pulse Ox O2 Delivery O2 Flow Rate FiO2 10/26/16 08:50 38.4 10/26/16 08:09 78 19 139/84 94 Room Air 10/26/16 07:47 83 20 154/98 94 Room Air 10/26/16 07:26 95 Room Air 10/26/16 07:14 37.5 88 18 149/82 94 Room Air 10/26/16 07:14 91 Physical Exam CONSTITUTIONAL/VITAL SIGNS: Reviewed / noted above. GENERAL: Non-toxic in appearance. INTEGUMENTARY: Warm, dry, and [place]. HEAD: Normocephalic. EYES: without scleral icterus or trauma. ENT/OROPHARYNX: clear and moist. LYMPHADENOPATHY/NECK: Is supple without lymphadenopathy or meningismus. RESPIRATORY: Rhonchi in left lung compared to right CARDIOVASCULAR: Regular rate and rhythm. GI/ABDOMEN: Soft and nontender. No organomegaly or pulsatile mass. No rebound or guarding. Normal bowel sounds. EXTREMITIES: Warm and well perfused. BACK: No CVA tenderness. NEUROLOGICAL: Intact without focal deficits. PSYCHIATRIC: normal affect. MUSCULOSKELETAL: Normally developed with good muscle tone. Medical Decision & Procedures ER Provider Diagnostic Interpretation: X ray results and stated below per my interpretation and radiology interpretation. CHEST ONE VIEW PORTABLE HISTORY: EVALUATE ALTERED MENTAL STATUS/WEAKNESS COMPARISON: Chest 10/18/2016. FINDINGS: Left subclavian Port-A-Cath terminates in the SVC. Persistent left mediastinal shift with volume loss in the left hemithorax. Left apical densities and blunting of the left lateral costophrenic sulcus remain unchanged. No new focal lung consolidations. No evidence for pulmonary edema. The heart is stable in size. IMPRESSION: No significant change compared to the prior study. No acute process. Stable postoperative changes within the left hemithorax. Electronically signed by: Eduardo Pardo M.D. 10/26/2016 8:23 AM Dictated Date/Time: 10/26/2016 8:21 AM Laboratory Results 10/26/16 07:30 Red Blood Count 3.68, Mean Corpuscular Volume 85.9, Mean Corpuscular Hemoglobin 27.2, Mean Corpuscular Hemoglobin Concent 31.6, Mean Platelet Volume 9.8 10/26/16 07:30 Test 10/26/16 07:30 White Blood Count 1.99 K/uL (4.8-10.8) Red Blood Count 3.68 M/uL (4.7-6.1) Hemoglobin 10.0 g/dL (14.0-18.0) Hematocrit 31.6 % (42-52) Mean Corpuscular Volume 85.9 fL (80-100) Mean Corpuscular Hemoglobin 27.2 pg (25-34) Mean Corpuscular Hemoglobin Concent 31.6 g/dl (32-36) Platelet Count 123 K/uL (130-400) Mean Platelet Volume 9.8 fL (7.4-10.4) RDW Standard Deviation 56.9 fL (36.4-46.3) RDW Coefficient of Variation 17.9 % (11.5-14.5) Nucleated RBC Absolute Count (auto) 0.03 K/uL (0-0) Neutrophils % (Manual) 43.8 % Lymphocytes % (Manual) 28.1 % Monocytes % (Manual) 21.1 % Eosinophils % (Manual) 3.5 % Basophils % (Manual) 2.6 % (0-2) Myelocytes % 0.9 % Nucleated Red Blood Cells % 1.3 % Neutrophils # (Manual) 0.87 K/uL (1.4-6.5) Total Absolute Neutrophils 0.87 K/uL (1.4-6.5) Lymphocytes # (Manual) 0.56 K/uL (1.2-3.4) Total Absolute Lymphocytes 0.56 K/uL (1.2-3.4) Monocytes # (Manual) 0.42 K/uL (0.11-0.59) Eosinophils # (Manual) 0.07 K/uL (0-0.5) Basophils # (Manual) 0.05 K/uL (0-0.2) Myelocytes # 0.02 K/uL (0-0) Prothrombin Time 13.2 SECONDS (9.0-12.0) Prothromb Time International Ratio 1.2 (0.9-1.1) Activated Partial Thromboplast Time 28.3 SECONDS (21.0-31.0) Partial Thromboplastin Ratio 1.1 Anion Gap 9.0 mmol/L (3-11) Est Creatinine Clear Calc Drug Dose 68.8 ml/min Estimated GFR () 93.1 Estimated GFR (Non- 80.3 BUN/Creatinine Ratio 6.7 (10-20) Calcium Level 7.5 mg/dl (8.5-10.1) Magnesium Level 1.3 mg/dl (1.8-2.4) Total Bilirubin 0.4 mg/dl (0.2-1) Direct Bilirubin 0.1 mg/dl (0-0.2) Aspartate Amino Transf (AST/SGOT) 23 U/L (15-37) Alanine Aminotransferase (ALT/SGPT) 19 U/L (12-78) Alkaline Phosphatase 95 U/L (45-117) Total Creatine Kinase 36 U/L (39-308) Creatine Kinase MB 0.6 ng/ml (0.5-3.6) Creatine Kinase MB Ratio 1.7 (0-3.0) Troponin I 0.021 ng/ml (0-0.045) Total Protein 4.9 gm/dl (6.4-8.2) Albumin 2.4 gm/dl (3.4-5.0) Lipase 92 U/L (73-393) Thyroid Stimulating Hormone (TSH) 1.900 uIu/ml (0.300-4.500) Laboratory results as stated above per my review. Medications Administered Medications (Trade) Dose Ordered Sig/Isai Route Start Time Stop Time Status Last Admin Dose Admin Ondansetron HCl (Zofran Inj) 4 mg STK-MED ONCE .ROUTE 10/26/16 07:24 10/26/16 07:25 DC 10/26/16 07:26 4 MG Sodium Chloride 1,000 ml @ 999 mls/hr Q1H1M STAT IV 10/26/16 07:21 10/26/16 08:21 DC 10/26/16 07:33 999 MLS/HR Morphine Sulfate (MoRPHine SULFATE INJ) 4 mg Q1H PRN IV 10/26/16 07:30 11/09/16 07:29 10/26/16 08:48 4 MG Acetaminophen (Tylenol Tab) 1,000 mg NOW STAT PO 10/26/16 08:51 10/26/16 08:52 DC 10/26/16 08:55 1,000 MG ECG Indication: vomiting Rate (beats per minute): 83 Rhythm: sinus rhythm Findings: PVC, no acute ischemic change, no ectopy ED Course 0719: Previous medical records were reviewed. The patient was evaluated in room B10. A complete history and physical examination was performed. 0721: Ordered Sodium Chloride 1000 ml @ 999 mls/hr IV. 0724: Ordered Zofran Inj 4 mg .route. 0730: Ordered Morphine Sulfate 4 mg IV. 0851: Ordered Tylenol Tab 1000 mg PO. 0922: Ordered Cefepime HCl 2000 mg/Dextrose 122.6 ml @ 200 mls/hr IV. 0925: I discussed the patients case with ANNAMARIA Fontenot. He is going to evaluate the patient for further treatment. Medical Decision Differentials considered include acute myocardial infarction, acute coronary syndrome, myocarditis, pericarditis, pericardial effusions /tamponade, esophageal perforation, pulmonary embolism, pneumonia, pneumothorax, cardiomyopathy, congestive heart, anemia, and COPD/asthma exacerbation. This is a 71-year-old male who presents to the ED with a chief complaint of nausea and vomiting. The patient also has a new cough. The patient has had the symptoms essentially this morning. He reports similar symptoms in the past. The patient has taken some Zofran and was given IV Zofran by EMS. The patient has no other specific complaints. Denies any particular fevers and does not feel he had a fever. He is undergoing chemotherapy for lung cancer. The patient is currently on Cipro and Flagyl for a colitis. During the exam, the patient had a cough in which he coughed up some sputum. It was whitish in color. The patient also had some retching after the coughing and brought up a small amount of mucus. When I asked him if he feels that he has to cough up something or vomit up something, he could not tell me which he feels he needs to do. The patient's exam reveals a male in no acute distress. He does have the occasional cough and mild retching associated with a cough. His lungs reveal rhonchi on the left compared to the right. Abdomen soft and nontender. The initial temperature did not reveal a fever but the second one did. He was 38.4. The patient's white blood cell count today is 1.99. Absolute neutrophil count was low at 0.87. Hemoglobin is 10. Potassium is 3, calcium is 7.5. Metabolic panel was otherwise unremarkable. Chest x-ray did not show acute disease. EKG shows a sinus rhythm. The patient was started on cefepime 2 g IV. Because of his vomiting, fever and low ANC, the patient will be seen by the hospitalist for further inpatient evaluation and care. He was also treated with IV fluids, IV Zofran and IV morphine. Medication Reconcilliation Current Medication List: was personally reviewed by me Blood Pressure Screening Patient's blood pressure: Elevated blood pressure Blood pressure disposition: Elevated BP felt to be situational, Did not require urgent referral Consults Time Called: [phone] Consulting Physician: ANNAMARIA Fontenot Returned Call: [phone] I discussed the patients case with ANNAMARIA Fontenot. He is going to evaluate the patient for further treatment. Impression Primary Impression: Fever Additional Impressions: Neutropenia Vomiting Colitis Scribe Attestation The scribe's documentation has been prepared under my direction and personally reviewed by me in its entirety. I confirm that the note above accurately reflects all work, treatment, procedures, and medical decision making performed by me. Departure Information Dispostion Being Evaluated By Hospitalist Referrals Violetta Kimbrough M.D. (PCP) Problem Qualifiers
[2016-10-26] MEDS: MoRPHine SULFATE 4 MG/ML 1 ML CARP\\VIAL IV PRN ×2 (07:31→08:48)
[2016-10-26] MEDS ORDERED: CIPR-255 PO (07:35)
[2016-10-26] MEDS ORDERED: BENZ100C84 PO (07:35)
[2016-10-26] MEDS ORDERED: METR-163 PO (07:35)
[2016-10-26 08:02] LABS: INR 1.2 (0.9-1.1); PARTIAL THROMBOPLASTIN RATIO 1.1; PROTHROMBIN TIME (PATIENT) 13.2 SECONDS (9.0-12.0)
[2016-10-26 08:12] LABS: BUN/CREATININE RATIO 6.7 (10-20); CALCIUM 7.5 mg/dl (8.5-10.1); CREATININE 0.96 mg/dl (0.60-1.40); MAGNESIUM 1.3 mg/dl (1.8-2.4)
[2016-10-26 08:21] LABS: CKMB/CK RATIO 1.7 (0-3.0); THYROID STIMULATING HORMONE 1.9 uIu/ml (0.300-4.500)
--- NOTE | 2016-10-26 08:25 | DIAGNOSTIC IMAGING REPORT ---
CHEST ONE VIEW PORTABLE HISTORY: EVALUATE ALTERED MENTAL STATUS/WEAKNESS COMPARISON: Chest 10/18/2016. FINDINGS: Left subclavian Port-A-Cath terminates in the SVC. Persistent left mediastinal shift with volume loss in the left hemithorax. Left apical densities and blunting of the left lateral costophrenic sulcus remain unchanged. No new focal lung consolidations. No evidence for pulmonary edema. The heart is stable in size. IMPRESSION: No significant change compared to the prior study. No acute process. Stable postoperative changes within the left hemithorax. Electronically signed by: Eduardo Pardo M.D. 10/26/2016 8:23 AM Dictated Date/Time: 10/26/2016 8:21 AM
[2016-10-26 08:45] LABS: HEMATOCRIT 31.6 % (42-52); MEAN CELL VOLUME 85.9 fL (80-100); MEAN CORPUSCULAR HEMOGLOBIN 27.2 pg (25-34); MEAN CORPUSCULAR HGB CONC 31.6 g/dl (32-36); MEAN PLATELET VOLUME 9.8 fL (7.4-10.4); PLATELET COUNT 123 K/uL (130-400); RED BLOOD COUNT 3.68 M/uL (4.7-6.1); WHITE BLOOD COUNT 1.99 K/uL (4.8-10.8)
[2016-10-26 08:48] LABS: BASO ABS # 0.05 K/uL (0-0.2); BASOPHIL % 2.6 % (0-2); COMPLETE YES; EOSINOPHIL % 3.5 %; LYMPH ABS # 0.56 K/uL (1.2-3.4); LYMPHOCYTE % 28.1 %; MYELOCYTE % 0.9 %; NEUTROPHILS % 43.8 %
[2016-10-26] MEDS ORDERED: ACETAMINOPHEN 500 MG TAB PO STA (08:51)
[2016-10-26] MEDS ORDERED: CEFEPIME IV 2,000 MG in DEXTROSE 5% 100ML 100 ML IV STA (09:22)
[2016-10-26] MEDS ORDERED: MAGNESIUM SULFATE 1GM / D5W 1 GM BAG IV STA (09:50)
[2016-10-26] MEDS ORDERED: MAGNESIUM SULFATE 1GM / D5W 1 GM BAG ONE (10:13)
--- NOTE | 2016-10-26 11:01 | History and Physical ---
History & Physical Date & Time of Service: Oct 26, 2016 at 10:50 Chief Complaint: Fever/Chills Primary Care Physician: Violetta Kimbrough M.D. History of Present Illness Source: patient 71yo male with h/o stage 4 lung cancer who presents with fever starting overnight with maximum temp of 101. He also had chills. He was recently admitted to [facility] for colitis - treated with cipro/flagyl. He has had intermittent loose stools since that time - about 1x/day but overall doing much better. No blood per rectum. He has had associated nausea, dyspepsia, and mild stomach pain. There was some vomiting. In the ER while awaiting admission he had left arm pain. The pain in the arm was worse with movement. He also reports dysphagia but this is chronic. He is s/p radiation for lung cancer. In addition to the above he feels that he "caught a cold" while hospitalized for his colitis. He has been coughing, wheezing, and also has had some hoarse voice. He feels more short of breath than his baseline; walking 10 feet gets him out of breath. Past Medical/Surgical History PMH: 1. COPD 2. HTN 3. Hyperlipidemia 4. CAD s/p MA 5. h/o kidney stones 6. h/o PE 7. rheumatoid arthritis 8. stage 4 lung cancer - PET scan revealing left upper lobe lesion 06/01/2013 fine-needle aspiration showing squamous cell carcinoma 06/29/2013 status post left upper lobectomy [id number] Systemic chemotherapy with cisplatin and gemzar for 4 cycles 04/08/2014 abnormal PET/CT with new FDG avid lesion Combined radiation and chemotherapy recommended. Status post completion of radiation therapy 07/01/2014 received 7000 cGy Finding of progression of disease with liver metastasis 11/17/2015 Status post systemic chemotherapy with gemcitabine 11/28/2015 to 03/05/2016 Second opinion at [facility] Initiation of systemic immunotherapy with Opdivo 04/27/2016 Nausea, vomiting finding of brain metastasis 05/19/2016 Status post SBRT to the brain completed 06/07/2016 received 3000 cGy in 5 fractions Opdivo discontinued due to pulmonary side effect Initiation chemotherapy with docetaxel 09/03/2016 Enlarging right posterior cerebellar lesion 10/06/2016 PSH: 1. h/o hernia repair 2. cardiac cath with stent placement - 2005 and 2006 3. left-sided lung lobectomy - 06/2013 4. lithotripsy 5. port placement 6. s/p appendectomy Family History FH: CAD (coronary artery disease) FATHER (passed at age 59 from [place]) MOTHER Social History Smoking Status: Former Smoker (smoked 1ppd for nearly 40 years; quit 10 years ago ) Alcohol Use: none Drug Use: none Marital Status: Housing status: lives with family (, daughter, and 3 grandchildren) Occupational Status: retired Immunizations History of Influenza Vaccine: No History of Tetanus Vaccine?: UTD History of Pneumococcal: No History of Hepatitis B Vaccine: No Allergies Coded Allergies: No Known Allergies (Unverified , 10/19/16) Home Medications Scheduled Alfuzosin Hcl (Uroxatral), 10 MG PO QPM Amiodarone Hcl (Cordarone), 200 MG PO QAM Aspirin (Aspirin), 81 MG PO QAM Budesonide/Formoterol Fumarate (Symbicort 160/4.5 Inhaler), 2 PUFFS INH HS Buspirone Hcl (Buspar), 15 MG PO BID Ciprofloxacin Hcl (Cipro), 500 MG PO BID Ipratropium Adams (Ipratropium Adams), 1 VIAL NEB TID Levalbuterol Hcl (Levalbuterol Hcl), 1 DOSE INH TID Metronidazole (Flagyl), 500 MG PO TID Omeprazole (Prilosec), 20 MG PO BID Oxycodone Hcl (Oxycontin (Ext Rel)), 10 MG PO Q12 Prednisone (Prednisone), 2.5 MG PO DAILY Sulfamethoxazole-Trimethoprim (Smz-Tmp Ds), 1 TAB PO 3XWK Tiotropium Adams (Spiriva Handihaler), 1 PUFF INH QPM Scheduled PRN Albuterol Hfa (Ventolin Hfa), 2 PUFFS INH QID PRN for SOB/Wheezing Benzonatate (Tessalon Perles), 100 MG PO Q8 PRN for Cough Fluticasone Propionate (Nasal) (Flonase Allergy Relief), 2 SPRAYS ANGELA DAILY PRN for ALLERGIC REACTION Nitroglycerin (Nitrostat), 0.4 MG UT UD PRN for Chest Pain Ondansetron (Ondansetron HCl), 8 MG PO Q6H PRN for Nausea or Vomiting Oxycodone HCl (Oxycodone HCl), 10 MG PO Q4H PRN for Pain Review of Systems Constitutional: + fever, + chills, + fatigue Eyes: No worsening of vision ENT: + hearing loss Respiratory: + cough, + shortness of breath, + dyspnea on exertion Cardiovascular: No chest pain Abdomen: + pain, + nausea, + vomiting, + diarrhea, No GI bleeding Musculoskeletal: + problem reported (left arm pain) Genitourinary - Male: No dysuria Neurologic: + weakness, + problem reported (no headache) Psychiatric: + depression symptoms, + insomnia Endocrine: + fatigue Hematologic / Lymphatic: No abnormal bleeding/bruising Integumentary: + new/changing skin lesions (right leg - skin lesions/ulcers ), No rash Physical Exam Vital Signs Date Time Temp Pulse Resp B/P (MAP) Pulse Ox O2 Delivery O2 Flow Rate FiO2 10/26/16 10:33 76 10/26/16 10:01 Room Air 10/26/16 09:53 37.4 78 18 131/74 94 Room Air 10/26/16 08:50 38.4 10/26/16 08:09 78 19 139/84 94 Room Air 10/26/16 07:47 83 20 154/98 94 Room Air 10/26/16 07:26 95 Room Air 10/26/16 07:14 37.5 88 18 149/82 94 Room Air 10/26/16 07:14 91 General Appearance: no apparent distress Head: normocephalic, atraumatic Eyes: PERRL, sclerae normal ENT: TMs normal, pharynx normal Neck: supple, no adenopathy, thyroid normal, no JVD, no carotid bruits, trachea midline Respiratory/Chest: no respiratory distress, no accessory muscle use, + wheezing (extensive b/l ), + pertinent finding (port, upper chest - clean, nontender) Cardiovascular: regular rate, rhythm, no gallop, no murmur, normal peripheral pulses Abdomen/GI: normal bowel sounds, non tender, soft, no organomegaly Back: normal inspection Extremities/Musculoskelatal: no pedal edema Neurologic/Psych: no motor/sensory deficits, alert, normal reflexes, oriented x 3 Skin: + pertinent finding (multiple abrasions/ulcers on right leg (guillory); largest ulcer is about 3cm vertically; there is black eschar at the periphery of this ulcer) Lymphatic: no adenopathy (cervical ) Diagnostics Laboratory Results Results Past 24 Hours Test 10/26/16 07:30 Range/Units White Blood Count 1.99 4.8-10.8 K/uL Red Blood Count 3.68 4.7-6.1 M/uL Hemoglobin 10.0 14.0-18.0 g/dL Hematocrit 31.6 42-52 % Mean Corpuscular Volume 85.9 80-100 fL Mean Corpuscular Hemoglobin 27.2 25-34 pg Mean Corpuscular Hemoglobin Concent 31.6 32-36 g/dl Platelet Count 123 130-400 K/uL Mean Platelet Volume 9.8 7.4-10.4 fL RDW Standard Deviation 56.9 36.4-46.3 fL RDW Coefficient of Variation 17.9 11.5-14.5 % Nucleated RBC Absolute Count (auto) 0.03 0-0 K/uL Neutrophils % (Manual) 43.8 % Lymphocytes % (Manual) 28.1 % Monocytes % (Manual) 21.1 % Eosinophils % (Manual) 3.5 % Basophils % (Manual) 2.6 0-2 % Myelocytes % 0.9 % Nucleated Red Blood Cells % 1.3 % Neutrophils # (Manual) 0.87 1.4-6.5 K/uL Total Absolute Neutrophils 0.87 1.4-6.5 K/uL Lymphocytes # (Manual) 0.56 1.2-3.4 K/uL Total Absolute Lymphocytes 0.56 1.2-3.4 K/uL Monocytes # (Manual) 0.42 0.11-0.59 K/uL Eosinophils # (Manual) 0.07 0-0.5 K/uL Basophils # (Manual) 0.05 0-0.2 K/uL Myelocytes # 0.02 0-0 K/uL Prothrombin Time 13.2 9.0-12.0 SECONDS Prothromb Time International Ratio 1.2 0.9-1.1 Activated Partial Thromboplast Time 28.3 21.0-31.0 SECONDS Partial Thromboplastin Ratio 1.1 Sodium Level 138 136-145 mmol/L Potassium Level 3.0 3.5-5.1 mmol/L Chloride Level 105 98-107 mmol/L Carbon Dioxide Level 24 21-32 mmol/L Anion Gap 9.0 3-11 mmol/L Blood Urea Nitrogen 6 7-18 mg/dl Creatinine 0.96 0.60-1.40 mg/dl Est Creatinine Clear Calc Drug Dose 68.8 ml/min Estimated GFR () 93.1 Estimated GFR (Non- 80.3 BUN/Creatinine Ratio 6.7 10-20 Random Glucose 82 70-99 mg/dl Calcium Level 7.5 8.5-10.1 mg/dl Magnesium Level 1.3 1.8-2.4 mg/dl Total Bilirubin 0.4 0.2-1 mg/dl Direct Bilirubin 0.1 0-0.2 mg/dl Aspartate Amino Transf (AST/SGOT) 23 15-37 U/L Alanine Aminotransferase (ALT/SGPT) 19 12-78 U/L Alkaline Phosphatase 95 45-117 U/L Total Creatine Kinase 36 39-308 U/L Creatine Kinase MB 0.6 0.5-3.6 ng/ml Creatine Kinase MB Ratio 1.7 0-3.0 Troponin I 0.021 0-0.045 ng/ml Total Protein 4.9 6.4-8.2 gm/dl Albumin 2.4 3.4-5.0 gm/dl Lipase 92 73-393 U/L Thyroid Stimulating Hormone (TSH) 1.900 0.300-4.500 uIu/ml Microbiology Results 10/26/16 Blood Culture, Received Pending 10/26/16 Blood Culture, Received Pending Diagnostic Radiology cxr - IMPRESSION: No significant change compared to the prior study. No acute process. Stable postoperative changes within the left hemithorax. EKG EKG - my reading - NSR left atrial enlargement PVC q waves anteroseptal leads slight ST depression V5/V6 and and inferior leads Impression Assessment and Plan 71yo male with stage 4 lung cancer currently undergoing chemotherapy, COPD, CAD , HTN, and recent hospitalization for colitis presenting with neutropenic fever and a respiratory illness. 1. neutropenic fever - suspect that the source is pulmonary in origin given his cough, worsening dyspnea, wheezing, etc. CXR, however, does not show discrete pneumonia. Will check rapid flu test. Send sputum culture. Place on cefepime and vanco. Flagyl orally will also be used due to recent colitis although the colitis appears nearly resolved clinically. Follow blood cx's. Send u/a and urine cx to be complete. Spoke with hematology/oncology - in light of fever and neutropenia will give neupogen x 1 today. 2. COPD with exacerbation - spoke with the patient's primary oncology, Dr. Ariadne Chicas. Although he is neutropenic ok to use systemic steroids in light of his severe wheezing. Cont nebs, mucinex, abx, incentive spirometry; NC O2, if needed. Repeat cxr in the future if fevers persist, etc. Cont home inhalers. 3. recent colitis - records reviewed - stool cx and c. diff were both negative. The colitis was a portion of the colon only (not pancolitis). Etiology ? Ischemic ? Either way clinically he is doing well. Flagyl by mouth; cefepime will cover gram negatives. 4. hypomagnesemia - due to poor oral intake & diarrhea. Replace with 3 grams of mag sulfate; repeat mag level AM. 5. hypokalemia - replace, repeat K in am. 6. stage 4 lung cancer - followed by Dr. Ritter & Dr. Salvador (rad onc). He expressed today during the encounter that he had been contemplating stopping future chemotherapy and other treatments. Last chemotherapy was about 10 days ago. 7. RLE wounds - add vit C & zinc. Wound care consultation requested. 8. pancytopenia - 2nd to chemotherapy - repeat CBC in am. 9. DVT proph - lovenox once daily. 10. CAD - no ischemic symptoms. Left arm pain was positional suggesting musculoskeletal etiology. 11. h/o a. fib - on amiodarone and is in normal sinus rhythm at this time. 12. depression - in light of insomnia, weight loss, etc - start remeron 15mg once daily at HS. 13. HTN - modestly uncontrolled. Follow for now. 14. chronic pain syndrome - continue home pain medication regimen. 15. protein calorie malnutrition, moderate-severe - MVI, boost BID w/ meals. code status - full, but he would NOT want prolonged mech ventilation, etc Advanced Directives Existing Living Will: Yes Existing Power of Alarm Investigator: No Resuscitation Status FULL RESUSCITATION VTE Prophylaxis VTE Risk Assessment Done? Y/N: Yes Risk Level: High Given or contraindicated: Enoxaparin (Lovenox)SQ Social Service Consult Cancer Patient Under [place] Note total time about 70 minutes Additional Copies To Violetta Kimbrough M.D.; Rik Ritter MD; Veeral. Salvador MD
[2016-10-26] MEDS ORDERED: VANCOMYCIN INJ 1,000 MG in SODIUM CHLORIDE 0.9% 250ML 250 ML IV SCH ×2 (11:45→14:00)
[2016-10-26] MEDS ORDERED: NITROGLYCERIN 0.4 MG SL PER TAB CHARGE UT PRN (11:45)
[2016-10-26] MEDS ORDERED: ACETAMINOPHEN 325 MG TAB PO PRN (11:45)
[2016-10-26] MEDS ORDERED: BENZONATATE 100MG CAP PO PRN (11:45)
[2016-10-26] MEDS ORDERED: LEVALBUTEROL/IPRATROPIUM NEB INH SCH (11:45)
[2016-10-26] MEDS ORDERED: ONDANSETRON INJ 2 MG/ML 2 ML VIAL IV PRN (11:45)
[2016-10-26] MEDS ORDERED: ALUMINUM/MAGNESIUM/SIMETH (MAALOX MAX) 30 ML UDC PO PRN (11:45)
[2016-10-26] MEDS ORDERED: OXYCODONE HCL IR 5 MG TAB (IMMEDIATE RELEASE) PO PRN (11:45)
[2016-10-26] MEDS ORDERED: MAGNESIUM HYDROXIDE SUSP 30 ML UDC PO PRN (11:45)
[2016-10-26] MEDS ORDERED: VANCOMYCIN CONSULT ACTIVE PRN (13:30)
--- NOTE | 2016-10-26 13:41 | Pharmacy Progress Note ---
Pharmacy Antibiotic Consult Date of Service: Oct 26, 2016. Pharmacy Dosing Scope Pharmacy is consulted to initiate vancomycin IV dosing therapy, order appropriate labs and adjust drug dose/frequency. Subjective The patient is a 71 year old male admitted on Oct 26, 2016 at 10:50. Objective Height (Feet): 5 Height (Inches): 10.00 Weight (Kilograms): 67.000 Lab Results (24hrs): Test 10/26/16 07:30 White Blood Count 1.99 K/uL (4.8-10.8) Red Blood Count 3.68 M/uL (4.7-6.1) Hemoglobin 10.0 g/dL (14.0-18.0) Hematocrit 31.6 % (42-52) Mean Corpuscular Volume 85.9 fL (80-100) Mean Corpuscular Hemoglobin 27.2 pg (25-34) Mean Corpuscular Hemoglobin Concent 31.6 g/dl (32-36) Platelet Count 123 K/uL (130-400) Mean Platelet Volume 9.8 fL (7.4-10.4) RDW Standard Deviation 56.9 fL (36.4-46.3) RDW Coefficient of Variation 17.9 % (11.5-14.5) Nucleated RBC Absolute Count (auto) 0.03 K/uL (0-0) Neutrophils % (Manual) 43.8 % Lymphocytes % (Manual) 28.1 % Monocytes % (Manual) 21.1 % Eosinophils % (Manual) 3.5 % Basophils % (Manual) 2.6 % (0-2) Myelocytes % 0.9 % Nucleated Red Blood Cells % 1.3 % Neutrophils # (Manual) 0.87 K/uL (1.4-6.5) Total Absolute Neutrophils 0.87 K/uL (1.4-6.5) Lymphocytes # (Manual) 0.56 K/uL (1.2-3.4) Total Absolute Lymphocytes 0.56 K/uL (1.2-3.4) Monocytes # (Manual) 0.42 K/uL (0.11-0.59) Eosinophils # (Manual) 0.07 K/uL (0-0.5) Basophils # (Manual) 0.05 K/uL (0-0.2) Myelocytes # 0.02 K/uL (0-0) Prothrombin Time 13.2 SECONDS (9.0-12.0) Prothromb Time International Ratio 1.2 (0.9-1.1) Activated Partial Thromboplast Time 28.3 SECONDS (21.0-31.0) Partial Thromboplastin Ratio 1.1 Sodium Level 138 mmol/L (136-145) Potassium Level 3.0 mmol/L (3.5-5.1) Chloride Level 105 mmol/L (98-107) Carbon Dioxide Level 24 mmol/L (21-32) Anion Gap 9.0 mmol/L (3-11) Blood Urea Nitrogen 6 mg/dl (7-18) Creatinine 0.96 mg/dl (0.60-1.40) Est Creatinine Clear Calc Drug Dose 68.8 ml/min Estimated GFR () 93.1 Estimated GFR (Non- 80.3 BUN/Creatinine Ratio 6.7 (10-20) Random Glucose 82 mg/dl (70-99) Calcium Level 7.5 mg/dl (8.5-10.1) Magnesium Level 1.3 mg/dl (1.8-2.4) Total Bilirubin 0.4 mg/dl (0.2-1) Direct Bilirubin 0.1 mg/dl (0-0.2) Aspartate Amino Transf (AST/SGOT) 23 U/L (15-37) Alanine Aminotransferase (ALT/SGPT) 19 U/L (12-78) Alkaline Phosphatase 95 U/L (45-117) Total Creatine Kinase 36 U/L (39-308) Creatine Kinase MB 0.6 ng/ml (0.5-3.6) Creatine Kinase MB Ratio 1.7 (0-3.0) Troponin I 0.021 ng/ml (0-0.045) Total Protein 4.9 gm/dl (6.4-8.2) Albumin 2.4 gm/dl (3.4-5.0) Lipase 92 U/L (73-393) Thyroid Stimulating Hormone (TSH) 1.900 uIu/ml (0.300-4.500) Micro Results: Date/Time Source Procedure Growth Status 10/26/16 07:35 Blood Blood Culture Pending Received 10/26/16 07:30 Blood Blood Culture Pending Received Recent Pertinent Medications Patient was on cipro/flagyl outpatient, bactrim DS 3x per week Assessment & Plan Assessment: * 71 yo male with history of stage 4 lung cancer on chemotherapy/radiation presenting with fever/chills * Recent admission for colitis- was on cipro/flagyl outpatient * Bactrim DS 3x/week outpatient * WBC 1.99/Neut 0.87, current Tmax 38.4 * Pharmacokinetics: SCr 0.96, CrCl 68.8, Ke ~ 0.062, T1/2 ~ 11 hours * Starting vancomycin/cefepime empirically Plan: * Loading dose 1500 mg x 1 (22 mg/kg) * Maintenance dose: 1000 mg q12H * Goal trough level estimate: 15-20 mcg/mL * Trough ordered for 10/28 @ 1330 Pharmacy will continue to follow and will adjust dose/frequency as necessary. Thank you
[2016-10-26] MEDS ORDERED: VANCOMYCIN INJ 1,500 MG in SODIUM CHLORIDE 0.9% 500ML 500 ML IV ONE (14:00)
[2016-10-26] MEDS ORDERED: NSS + 20MEQ KCL 1000ML 1,000 ML IV SCH (14:10)
[2016-10-26] MEDS: METHYLPREDNISOLONE IV 40 MG in SYRINGE 0 ML IV SCH (14:34)
--- NOTE | 2016-10-26 15:00 | Medical Student: [facility] ---
Med Student History & Physical Date & Time of Service: Oct 26, 2016 at 14:12 Chief Complaint: Colitis, Hypomagnesemia Primary Care Physician: Violetta Kimbrough M.D. History of Present Illness Source: patient, family, spouse, hospital records Mr. Hess is a 71 year-old male with history of non-small cell carcinoma of the lungs currently on chemotherapy, COPD, rheumatoid arthritis, MD s/p 3 stents, colitis, and GERD presented to the ED this morning with stomach sickness, coughing, N/V, fever (99-101), weakness, and not able to eat much. On Oct 19, he was admitted to the hospital with dehydration and was diagnosed with colitis and was treated with Cipro and Flagyl. Since, he has been feeling weak, but last night his symptoms got worse. He had one loose stool yesterday morning since discharge. He denies blood in stool. Cough has been getting worse with SOB. He also complains of pain on the left upper arm occurred when he came to the hospital. He also had chronic difficulty swallowing which he attributes to the radiation. He denies MCKNIGHT, chest pain but states that he had pain in chest wall and hip pain which he attributes to the Neublasta which he stopped taking. The lung cancer has metastasized to liver and recently to the brain. He has been received multiple regimens of chemotherapy and radiation for the past 3.5 years. His last chemo was 10 days ago. Past Medical/Surgical History PMH - Metastatic lung disease - COPD - Rheumatoid Arthritis - MD s/p 3 stents - Colitis - GERD Family History Father: heart disease Social History Smoking Status: Former Smoker Alcohol Use: none Drug Use: none Marital Status: Housing status: lives with family (, daughter, and 3 grandchildren) Occupational Status: retired Immunizations History of Influenza Vaccine: No History of Tetanus Vaccine?: UTD History of Pneumococcal: No History of Hepatitis B Vaccine: No Allergies Coded Allergies: No Known Allergies (Unverified , 10/19/16) Medications Albuterol Hfa (Ventolin Hfa), 2 PUFFS INH QID PRN for SOB/Wheezing Alfuzosin Hcl (Uroxatral), 10 MG PO QPM Amiodarone Hcl (Cordarone), 200 MG PO QAM Aspirin (Aspirin), 81 MG PO QAM Benzonatate (Tessalon Perles), 100 MG PO Q8 PRN for Cough Budesonide/Formoterol Fumarate (Symbicort 160/4.5 Inhaler), 2 PUFFS INH HS Buspirone Hcl (Buspar), 15 MG PO BID Ciprofloxacin Hcl (Cipro), 500 MG PO BID Fluticasone Propionate (Nasal) (Flonase Allergy Relief), 2 SPRAYS ANGELA DAILY PRN for ALLERGIC REACTION Ipratropium [place] (Ipratropium [place]), 1 VIAL NEB TID Levalbuterol Hcl (Levalbuterol Hcl), 1 DOSE INH TID Metronidazole (Flagyl), 500 MG PO TID Nitroglycerin (Nitrostat), 0.4 MG UT UD PRN for Chest Pain Omeprazole (Prilosec), 20 MG PO BID Ondansetron (Ondansetron HCl), 8 MG PO Q6H PRN for Nausea or Vomiting Oxycodone HCl (Oxycodone HCl), 10 MG PO Q4H PRN for Pain Oxycodone Hcl (Oxycontin (Ext Rel)), 10 MG PO Q12 Prednisone (Prednisone), 2.5 MG PO DAILY Sulfamethoxazole-Trimethoprim (Smz-Tmp Ds), 1 TAB PO 3XWK Tiotropium [place] (Spiriva Handihaler), 1 PUFF INH QPM Review of Systems Constitutional: + fever, + weakness, + fatigue Eyes: No worsening of vision ENT: + hearing loss (chronic) Respiratory: + cough, + shortness of breath, + dyspnea on exertion, No sputum Cardiovascular: No chest pain Abdomen: + pain, + nausea, + vomiting, + diarrhea Musculoskeletal: No joint pain Genitourinary - Male: No dysuria Neurologic: No memory loss, No numbness/tingling Integumentary: No rash Physical Exam Vital Signs (24 Hours) Date Time Temp Pulse Resp B/P (MAP) Pulse Ox O2 Delivery O2 Flow Rate FiO2 10/26/16 12:45 37.0 76 20 146/80 (102) 94 Room Air 10/26/16 12:01 121/76 10/26/16 12:00 94 Room Air 10/26/16 11:37 69 17 93 10/26/16 11:31 122/71 10/26/16 11:07 74 16 93 10/26/16 11:01 137/74 10/26/16 10:37 74 24 93 10/26/16 10:33 76 10/26/16 10:31 118/71 10/26/16 10:07 76 26 91 10/26/16 10:01 Room Air 10/26/16 10:01 139/81 10/26/16 09:53 37.4 78 18 131/74 94 Room Air 10/26/16 09:37 77 20 93 10/26/16 09:31 131/74 10/26/16 09:07 77 21 95 10/26/16 09:01 138/79 10/26/16 08:50 38.4 10/26/16 08:37 77 19 93 10/26/16 08:31 142/88 10/26/16 08:09 78 19 139/84 94 Room Air 10/26/16 08:07 78 19 10/26/16 08:01 139/84 10/26/16 07:47 83 20 154/98 94 Room Air 10/26/16 07:37 86 23 10/26/16 07:31 154/98 10/26/16 07:26 95 Room Air 10/26/16 07:14 37.5 88 18 149/82 94 Room Air 10/26/16 07:14 91 10/26/16 07:11 149/82 General Appearance: + mild distress Head: atraumatic Eyes: normal inspection, PERRL ENT: normal ENT inspection, hearing grossly normal (mild hearing difficulty) Neck: supple Respiratory/Chest: + decreased breath sounds, + crackles (coarse), + wheezing Cardiovascular: regular rate, rhythm Abdomen/GI: normal bowel sounds, non tender, soft Extremities/Musculoskelatal: normal inspection, no pedal edema Neurologic/Psych: alert, normal reflexes, oriented x 3 Diagnostics Laboratory Results Results Past 24 Hours Test 10/26/16 07:30 Range/Units White Blood Count 1.99 4.8-10.8 K/uL Red Blood Count 3.68 4.7-6.1 M/uL Hemoglobin 10.0 14.0-18.0 g/dL Hematocrit 31.6 42-52 % Mean Corpuscular Volume 85.9 80-100 fL Mean Corpuscular Hemoglobin 27.2 25-34 pg Mean Corpuscular Hemoglobin Concent 31.6 32-36 g/dl Platelet Count 123 130-400 K/uL Mean Platelet Volume 9.8 7.4-10.4 fL RDW Standard Deviation 56.9 36.4-46.3 fL RDW Coefficient of Variation 17.9 11.5-14.5 % Nucleated RBC Absolute Count (auto) 0.03 0-0 K/uL Neutrophils % (Manual) 43.8 % Lymphocytes % (Manual) 28.1 % Monocytes % (Manual) 21.1 % Eosinophils % (Manual) 3.5 % Basophils % (Manual) 2.6 0-2 % Myelocytes % 0.9 % Nucleated Red Blood Cells % 1.3 % Neutrophils # (Manual) 0.87 1.4-6.5 K/uL Total Absolute Neutrophils 0.87 1.4-6.5 K/uL Lymphocytes # (Manual) 0.56 1.2-3.4 K/uL Total Absolute Lymphocytes 0.56 1.2-3.4 K/uL Monocytes # (Manual) 0.42 0.11-0.59 K/uL Eosinophils # (Manual) 0.07 0-0.5 K/uL Basophils # (Manual) 0.05 0-0.2 K/uL Myelocytes # 0.02 0-0 K/uL Prothrombin Time 13.2 9.0-12.0 SECONDS Prothromb Time International Ratio 1.2 0.9-1.1 Activated Partial Thromboplast Time 28.3 21.0-31.0 SECONDS Partial Thromboplastin Ratio 1.1 Sodium Level 138 136-145 mmol/L Potassium Level 3.0 3.5-5.1 mmol/L Chloride Level 105 98-107 mmol/L Carbon Dioxide Level 24 21-32 mmol/L Anion Gap 9.0 3-11 mmol/L Blood Urea Nitrogen 6 7-18 mg/dl Creatinine 0.96 0.60-1.40 mg/dl Est Creatinine Clear Calc Drug Dose 68.8 ml/min Estimated GFR () 93.1 Estimated GFR (Non- 80.3 BUN/Creatinine Ratio 6.7 10-20 Random Glucose 82 70-99 mg/dl Calcium Level 7.5 8.5-10.1 mg/dl Magnesium Level 1.3 1.8-2.4 mg/dl Total Bilirubin 0.4 0.2-1 mg/dl Direct Bilirubin 0.1 0-0.2 mg/dl Aspartate Amino Transf (AST/SGOT) 23 15-37 U/L Alanine Aminotransferase (ALT/SGPT) 19 12-78 U/L Alkaline Phosphatase 95 45-117 U/L Total Creatine Kinase 36 39-308 U/L Creatine Kinase MB 0.6 0.5-3.6 ng/ml Creatine Kinase MB Ratio 1.7 0-3.0 Troponin I 0.021 0-0.045 ng/ml Total Protein 4.9 6.4-8.2 gm/dl Albumin 2.4 3.4-5.0 gm/dl Lipase 92 73-393 U/L Thyroid Stimulating Hormone (TSH) 1.900 0.300-4.500 uIu/ml Microbiology Results 10/26/16 Blood Culture, Received Pending 10/26/16 Blood Culture, Received Pending Diagnostic Radiology 10/26/16 07:30 Red Blood Count 3.68, Mean Corpuscular Volume 85.9, Mean Corpuscular Hemoglobin 27.2, Mean Corpuscular Hemoglobin Concent 31.6, Mean Platelet Volume 9.8 10/26/16 07:30 Test 10/26/16 07:30 10/26/16 14:29 White Blood Count 1.99 K/uL (4.8-10.8) Red Blood Count 3.68 M/uL (4.7-6.1) Hemoglobin 10.0 g/dL (14.0-18.0) Hematocrit 31.6 % (42-52) Mean Corpuscular Volume 85.9 fL (80-100) Mean Corpuscular Hemoglobin 27.2 pg (25-34) Mean Corpuscular Hemoglobin Concent 31.6 g/dl (32-36) Platelet Count 123 K/uL (130-400) Mean Platelet Volume 9.8 fL (7.4-10.4) RDW Standard Deviation 56.9 fL (36.4-46.3) RDW Coefficient of Variation 17.9 % (11.5-14.5) Nucleated RBC Absolute Count (auto) 0.03 K/uL (0-0) Neutrophils % (Manual) 43.8 % Lymphocytes % (Manual) 28.1 % Monocytes % (Manual) 21.1 % Eosinophils % (Manual) 3.5 % Basophils % (Manual) 2.6 % (0-2) Myelocytes % 0.9 % Nucleated Red Blood Cells % 1.3 % Neutrophils # (Manual) 0.87 K/uL (1.4-6.5) Total Absolute Neutrophils 0.87 K/uL (1.4-6.5) Lymphocytes # (Manual) 0.56 K/uL (1.2-3.4) Total Absolute Lymphocytes 0.56 K/uL (1.2-3.4) Monocytes # (Manual) 0.42 K/uL (0.11-0.59) Eosinophils # (Manual) 0.07 K/uL (0-0.5) Basophils # (Manual) 0.05 K/uL (0-0.2) Myelocytes # 0.02 K/uL (0-0) Prothrombin Time 13.2 SECONDS (9.0-12.0) Prothromb Time International Ratio 1.2 (0.9-1.1) Activated Partial Thromboplast Time 28.3 SECONDS (21.0-31.0) Partial Thromboplastin Ratio 1.1 Anion Gap 9.0 mmol/L (3-11) Est Creatinine Clear Calc Drug Dose 68.8 ml/min Estimated GFR () 93.1 Estimated GFR (Non- 80.3 BUN/Creatinine Ratio 6.7 (10-20) Calcium Level 7.5 mg/dl (8.5-10.1) Magnesium Level 1.3 mg/dl (1.8-2.4) Total Bilirubin 0.4 mg/dl (0.2-1) Direct Bilirubin 0.1 mg/dl (0-0.2) Aspartate Amino Transf (AST/SGOT) 23 U/L (15-37) Alanine Aminotransferase (ALT/SGPT) 19 U/L (12-78) Alkaline Phosphatase 95 U/L (45-117) Total Creatine Kinase 36 U/L (39-308) Creatine Kinase MB 0.6 ng/ml (0.5-3.6) Creatine Kinase MB Ratio 1.7 (0-3.0) Troponin I 0.021 ng/ml (0-0.045) Total Protein 4.9 gm/dl (6.4-8.2) Albumin 2.4 gm/dl (3.4-5.0) Lipase 92 U/L (73-393) Thyroid Stimulating Hormone (TSH) 1.900 uIu/ml (0.300-4.500) Impression Assessment and Plan This is 71 year-old male with history of lung cancer currently on chemotherapy, COPD, rheumatoid arthritis, MD, colitis, and GERD presented with worsening weakness, stomach discomfort, N/V/F and cough since yesterday. He is currently on Cipro and Flagyl for recent diagnosis of colitis. Fever/Neutropenia Patient is pancytopenic and neutropenic. DDx: viral/bacterial infection, neutropenia, malignancy, colitis. Pancytopenia is probably from the chemotherapy that patient was on. CXR 10/26 is negative for pneumonia - Blood culture is pending - Influenza test - Urine culture and urinalysis - Hold Cipro and Flagyl. Start Cefepime, Metronidazole and Vancomycin - Continue monitor CBC Hypomagnesemia/hypokalemia - IV Fluid - Supplements K, Mg, and albumin (diet). - Start Mirtazepine and Multivitamin and Zync. - Continue monitor CMP. Heart Disease/AFIB - Continue Amiodarone, aspirin Lung cancer/COPD - Continue ipratropium, levalbuterol, buspirone, and start methylprednisone. - Bactrum for prophylaxis - Contact Radiation Oncology to update patient condition. DVT prophylaxis - Lovenox 40mg injection Level of Care Telemetry Advanced Directives Existing Living Will: Yes Existing Power of Career Based Intervention Coordinator: No Resuscitation Status FULL RESUSCITATION DVT Prophylaxis enoxaparin (Lovenox) SQ
[2016-10-26] MEDS: MAGNESIUM SULFATE 1GM / D5W 1 GM in PREMIXED IN D5W 100 ML IV SCH ×2 (15:17→15:47)
[2016-10-26] MEDS: IPRATROPIUM BROMIDE NEB SOLN 0.02% 2.5 ML VIAL INH SCH ×2 (15:18→19:15)
[2016-10-26] MEDS: LEVALBUTEROL 1.25MG/0.5ML NEB INH SCH ×2 (15:18→19:15)
[2016-10-26] MEDS: POTASSIUM CHLORIDE 20 MEQ TABCR PO SCH ×2 (15:46→20:44)
[2016-10-26] MEDS: METRONIDAZOLE 500 MG TAB PO SCH ×2 (15:47→20:43)
[2016-10-26 16:18] LABS: INFLUENZA A PCR Neg for Influ A (NEG); INFLUENZA B PCR Neg for Influ B (NEG)
[2016-10-26] MEDS ORDERED: FILGRASTIM 480 MCG/1.6 ML VIAL SC ONE (16:30)
[2016-10-26] MEDS: BOOST VANILLA PO SCH ×2 (16:38)
[2016-10-26 17:45] LABS: URINE APPEARANCE CLEAR (CLEAR); URINE BILIRUBIN NEG (NEG); URINE COLOR YELLOW; URINE NITRITE NEG (NEG); URINE PH 6.5 (4.5-7.5); URINE SPECIFIC GRAVITY 1.013 (1.000-1.030); UROBILINOGEN NEG (NEG)
[2016-10-26 17:48] LABS: MANUAL MICROSCOPIC REQUIRED? NO; REVIEW REQ? NO
[2016-10-26] MEDS ORDERED: ENOXAPARIN 40 MG/0.4 ML SYR SC SCH (18:00)
[2016-10-26] MEDS: PANTOprazole SOD 40 MG TAB PO SCH (20:43)
[2016-10-26] MEDS: BusPIRone 15 MG TAB PO SCH (20:44)
[2016-10-26] MEDS: OXYCODONE HCL 10 MG TABCR (OXYCONTIN) PO SCH (20:44)
[2016-10-26] MEDS: GUAIFENESIN 600 MG TABCR PO SCH (20:44)
[2016-10-26] MEDS: CEFEPIME IV 2,000 MG in DEXTROSE 5% 100ML 100 ML IV SCH (20:45)
[2016-10-26] MEDS ORDERED: ALFUZosin TAB 10 MG TAB PO SCH (21:00)
[2016-10-26] MEDS ORDERED: MIRTAZAPINE TAB 15 MG TAB PO SCH (21:00)
[2016-10-26] MEDS ORDERED: BUDESONIDE/FORMOTEROL FUMARATE 160/4.5 60 PUFFS/INHALER INH SCH (21:00)
[2016-10-26] MEDS ORDERED: TIOTROPIUM BROMIDE 5 PUFF/90 MCG INH INH SCH (21:00)
[2016-10-27] VITALS (12 sets, daily range): BP systolic 122–173; BP diastolic 67–77; PULSE 56–74; TEMP 36.3–37; O2SAT 94–98
[2016-10-27] MEDS: METHYLPREDNISOLONE IV 40 MG in SYRINGE 0 ML IV SCH ×2 (01:36→13:49)
[2016-10-27] MEDS: VANCOMYCIN INJ 1,000 MG in SODIUM CHLORIDE 0.9% 250ML 250 ML IV SCH ×2 (01:36→13:51)
[2016-10-27] MEDS: LEVALBUTEROL 1.25MG/0.5ML NEB INH SCH ×3 (02:18→14:17)
[2016-10-27] MEDS: IPRATROPIUM BROMIDE NEB SOLN 0.02% 2.5 ML VIAL INH SCH ×3 (02:18→14:17)
[2016-10-27 04:56] LABS: HEMATOCRIT 29.7 % (42-52); MEAN CELL VOLUME 86.1 fL (80-100); MEAN CORPUSCULAR HGB CONC 31.3 g/dl (32-36); MEAN PLATELET VOLUME 9.7 fL (7.4-10.4); PLATELET COUNT 118 K/uL (130-400); RED BLOOD COUNT 3.45 M/uL (4.7-6.1); WHITE BLOOD COUNT 9.54 K/uL (4.8-10.8)
[2016-10-27 05:19] LABS: BUN/CREATININE RATIO 10.7 (10-20); CALCIUM 7.5 mg/dl (8.5-10.1); CREATININE 0.81 mg/dl (0.60-1.40); MAGNESIUM 1.9 mg/dl (1.8-2.4); POTASSIUM 4.2 mmol/L (3.5-5.1)
[2016-10-27 05:27] LABS: BASO % 0.1 %; BASO ABS # 0.01 K/uL (0-0.2); COMPLETE YES; ECHINOCYTES 1+; LYMPH % 1.9 %; LYMPH ABS # 0.18 K/uL (1.2-3.4); MONO % 6.3 %; NEUT % 88.7 %; OVALOCYTES 1+
[2016-10-27 05:28] LABS: DOHLE BODIES 1+
[2016-10-27] MEDS: PANTOprazole SOD 40 MG TAB PO SCH (08:08)
[2016-10-27] MEDS: BOOST VANILLA PO SCH ×4 (08:08→17:16)
[2016-10-27] MEDS: POTASSIUM CHLORIDE 20 MEQ TABCR PO SCH (08:10)
[2016-10-27] MEDS: BusPIRone 15 MG TAB PO SCH (08:11)
[2016-10-27] MEDS: METRONIDAZOLE 500 MG TAB PO SCH ×2 (08:11→13:50)
[2016-10-27] MEDS: GUAIFENESIN 600 MG TABCR PO SCH (08:11)
[2016-10-27] MEDS: OXYCODONE HCL 10 MG TABCR (OXYCONTIN) PO SCH (08:12)
--- NOTE | 2016-10-27 08:35 | Progress Note ---
Subjective Date of Service: Oct 27, 2016. Problem List Medical Problems: (1) Anemia Status: Acute (2) Bronchitis Status: Acute (3) Colitis Status: Acute (4) Colitis Status: Acute (5) Cough Status: Acute (6) Fever Status: Acute (7) Fever Status: Acute (8) Fever Status: Acute (9) Hypomagnesemia Status: Acute (10) Hypotension Status: Acute (11) Immunocompromised Status: Acute (12) Leg edema, right Status: Acute (13) Metastatic cancer to brain Status: Acute (14) Metastatic lung cancer (metastasis from lung to other site) Status: Acute (15) Nausea and vomiting Status: Acute (16) Near syncope Status: Acute (17) Neutropenia Status: Acute (18) Pneumonitis Status: Acute (19) Vomiting Status: Acute Objective Vital Signs Date Time Temp Pulse Resp B/P (MAP) Pulse Ox O2 Delivery O2 Flow Rate FiO2 10/27/16 07:27 36.6 56 20 173/68 (103) 97 10/27/16 07:23 64 14 96 Room Air 10/27/16 04:02 Room Air 10/27/16 04:00 36.4 68 18 128/74 (92) 96 Room Air 10/27/16 02:18 64 14 96 Room Air 10/27/16 00:01 Room Air 10/27/16 00:00 36.3 65 20 131/77 (95) 97 Room Air 10/26/16 20:00 Room Air 10/26/16 19:15 72 16 95 Room Air 10/26/16 18:58 36.8 78 18 155/83 (107) 97 Room Air 10/26/16 16:00 94 Room Air 10/26/16 15:29 36.7 71 18 140/77 (98) 96 Room Air 10/26/16 15:20 79 16 96 Room Air 10/26/16 12:45 37.0 76 20 146/80 (102) 94 Room Air 10/26/16 12:01 121/76 10/26/16 12:00 94 Room Air 10/26/16 11:37 69 17 93 10/26/16 11:31 122/71 10/26/16 11:07 74 16 93 10/26/16 11:01 137/74 10/26/16 10:37 74 24 93 10/26/16 10:33 76 10/26/16 10:31 118/71 10/26/16 10:07 76 26 91 10/26/16 10:01 Room Air 10/26/16 10:01 139/81 10/26/16 09:53 37.4 78 18 131/74 94 Room Air 10/26/16 09:37 77 20 93 10/26/16 09:31 131/74 10/26/16 09:07 77 21 95 10/26/16 09:01 138/79 10/26/16 08:50 38.4 10/26/16 08:37 77 19 93 10/26/16 08:31 142/88 Laboratory Results Last 24 Hours Test 10/26/16 14:29 10/27/16 04:39 Influenza Type A (RT-PCR) Neg for Influ A Influenza Type B (RT-PCR) Neg for Influ B White Blood Count 9.54 K/uL Red Blood Count 3.45 M/uL Hemoglobin 9.3 g/dL Hematocrit 29.7 % Mean Corpuscular Volume 86.1 fL Mean Corpuscular Hemoglobin 27.0 pg Mean Corpuscular Hemoglobin Concent 31.3 g/dl Platelet Count 118 K/uL Mean Platelet Volume 9.7 fL Neutrophils (%) (Auto) 88.7 % Lymphocytes (%) (Auto) 1.9 % Monocytes (%) (Auto) 6.3 % Eosinophils (%) (Auto) 0.0 % Basophils (%) (Auto) 0.1 % Neutrophils # (Auto) 8.46 K/uL Lymphocytes # (Auto) 0.18 K/uL Monocytes # (Auto) 0.60 K/uL Eosinophils # (Auto) 0.00 K/uL Basophils # (Auto) 0.01 K/uL RDW Standard Deviation 57.1 fL RDW Coefficient of Variation 18.2 % Immature Granulocyte % (Auto) 3.0 % Immature Granulocyte # (Auto) 0.29 K/uL Dohle Bodies 1+ Ovalocytes 1+ Echinocytes 1+ Sodium Level 144 mmol/L Potassium Level 4.2 mmol/L Chloride Level 116 mmol/L Carbon Dioxide Level 23 mmol/L Anion Gap 5.0 mmol/L Blood Urea Nitrogen 9 mg/dl Creatinine 0.81 mg/dl Est Creatinine Clear Calc Drug Dose 81.6 ml/min Estimated GFR () 105.1 Estimated GFR (Non- 90.7 BUN/Creatinine Ratio 10.7 Random Glucose 143 mg/dl Calcium Level 7.5 mg/dl Magnesium Level 1.9 mg/dl Assessment and Plan 71yo male with stage 4 lung cancer currently undergoing chemotherapy, COPD, CAD , HTN, and recent hospitalization for colitis presenting with neutropenic fever and a bronchitis neutropenic fever bronchitis. CXR, however, does not show discrete pneumonia, but may not due to low wbc. cefepime and vanco. given neutropenia will give neupogen x 1 today., pt was pancytopenia stage 4 lung cancer - followed by Dr. Ritter & Dr. Salvador (rad onc). he has been contemplating stopping future chemotherapy and other treatments. Last chemotherapy was about 10 days ago. COPD with exacerbation - iv steroids nebs, mucinex, abx, incentive spirometry; NC O2, hypomagnesemia - hypokalemia - replete. RLE wounds - Wound care consultation CAD - h/o a. fib - on amiodarone and is in normal sinus rhythm at this time. depression -remeron 15mg once daily at HS. DVT proph - lovenox once daily. code status - full, but he would NOT want prolonged mech ventilation, etc
[2016-10-27] MEDS ORDERED: SULFAMETHOXAZOLE/TRIMETHOPRIM DS 800/160MG TAB PO SCH (09:00)
[2016-10-27] MEDS ORDERED: ASCORBIC ACID 500 MG TAB PO SCH (09:00)
[2016-10-27] MEDS ORDERED: ZINC SULFATE 220 MG CAP PO SCH (09:00)
[2016-10-27] MEDS ORDERED: ASPIRIN 81 MG ECTAB PO SCH (09:00)
[2016-10-27] MEDS ORDERED: CEROVITE ADV FORMULA TAB PO SCH (09:00)
[2016-10-27] MEDS ORDERED: AMIODARONE 200 MG TAB PO SCH (09:00)
[2016-10-27] MEDS: CEFEPIME IV 2,000 MG in DEXTROSE 5% 100ML 100 ML IV SCH (10:13)
[2016-10-27] MEDS ORDERED: NURSING VERBAL MED ORDER ONE (13:15)
[2016-10-27] MEDS ORDERED: ALBUTEROL HFA INHALER 8.5 GM INH PRN (13:30)
[2016-10-27] MEDS ORDERED: ALBUTEROL HFA 8 GM INHALER INH PRN (14:00)
[2016-10-27] MEDS ORDERED: PRED10TA PO (15:59)
[2016-10-27] MEDS ORDERED: DXY100 PO (15:59)
--- NOTE | 2016-10-27 16:00 | Discharge Instructions ---
Discharge Instructions Date of Service Oct 27, 2016. Admission Reason for Admission: Colitis, Hypomagnesemia Discharge Discharge Diagnosis / Problem: neutropenic fever, bronchitis Discharge Goals Goal(s): Diagnostic testing, Therapeutic intervention Activity Recommendations Activity Limitations: as noted below Lifting Limitations: gradually increase as tolerated . Current Hospital Diet Patient's current hospital diet: Regular Diet Discharge Diet Recommended Diet: Regular Diet Pending Studies Studies pending at discharge: yes List of pending studies: blood cultures Medical Emergencies . Who to Call and When: Medical Emergencies: If at any time you feel your situation is an emergency, please call 911 immediately. . Non-Emergent Contact Non-Emergency issues call your: Primary Care Provider (10/28/16 at 1 pm) Call Non-Emergent contact if: temperature is above 101, your pain is unusual for you . . "Provider Documentation" section prepared by Tom Locke. . VTE Core Measure Inpt VTE Proph given/why not?: Enoxaparin (Lovenox)SQ
--- NOTE | 2016-10-27 16:20 | Medical Student: [facility] ---
Med Student Progress Note Date of Service Oct 27, 2016. Subjective Pt evaluation today including: conversation w/ patient, physical exam, chart review, lab review, review of studies, review of inpatient medication list Pain: none PO Intake: somewhat more Voiding: no voiding problems Mr. Hess is a 71 year-old male with history of non-small cell carcinoma of the lungs currently on chemotherapy, COPD, rheumatoid arthritis, [place] s/p 3 stents, colitis, and GERD presented to the ED this morning with stomach sickness, coughing, N/V, fever (99-101), weakness, and not able to eat much. Today, he states that he feels somewhat better. Still some episodes of nausea, but no vomitus. Eating is a little bit better. 1 loose stool this morning. Denies fever, chills, headache, SOB or chest pain. Review of Systems Constitutional: + weakness, + fatigue, No fever, No chills ENT: + hearing loss (chronic) Respiratory: No cough, No sputum, No shortness of breath Cardiac: No chest pain Abdomen: + nausea, + problem reported (loose stool), No vomiting Musculoskeletal: No joint pain Male : No dysuria Psychiatric: No depression symptoms Objective Vital Signs Date Time Temp Pulse Resp B/P (MAP) Pulse Ox O2 Delivery O2 Flow Rate FiO2 10/27/16 12:00 94 Room Air 10/27/16 11:16 36.6 67 18 150/73 (98) 98 10/27/16 10:49 Room Air 10/27/16 08:00 94 Room Air 10/27/16 07:27 36.6 56 20 173/68 (103) 97 10/27/16 07:23 64 14 96 Room Air 10/27/16 04:02 Room Air 10/27/16 04:00 36.4 68 18 128/74 (92) 96 Room Air 10/27/16 02:18 64 14 96 Room Air 10/27/16 00:01 Room Air 10/27/16 00:00 36.3 65 20 131/77 (95) 97 Room Air 10/26/16 20:00 Room Air 10/26/16 19:15 72 16 95 Room Air 10/26/16 18:58 36.8 78 18 155/83 (107) 97 Room Air 10/26/16 16:00 94 Room Air 10/26/16 15:29 36.7 71 18 140/77 (98) 96 Room Air 10/26/16 15:20 79 16 96 Room Air Physical Exam General Appearance: + mild distress, + thin Eyes: bilateral eyes normal inspection ENT: hearing grossly normal Neck: supple Respiratory/Chest: + decreased breath sounds, + crackles, + wheezing Cardiovascular: regular rate, rhythm, no murmur, + pertinent finding ( irregular occasionally) Abdomen: normal bowel sounds, non tender, soft Extremities: no pedal edema Neurologic/Psychiatric: alert, normal mood/affect, oriented x 3 Laboratory Results Last 24 Hours Test 10/26/16 14:29 10/27/16 04:39 Influenza Type A (RT-PCR) Neg for Influ A Influenza Type B (RT-PCR) Neg for Influ B White Blood Count 9.54 K/uL Red Blood Count 3.45 M/uL Hemoglobin 9.3 g/dL Hematocrit 29.7 % Mean Corpuscular Volume 86.1 fL Mean Corpuscular Hemoglobin 27.0 pg Mean Corpuscular Hemoglobin Concent 31.3 g/dl Platelet Count 118 K/uL Mean Platelet Volume 9.7 fL Neutrophils (%) (Auto) 88.7 % Lymphocytes (%) (Auto) 1.9 % Monocytes (%) (Auto) 6.3 % Eosinophils (%) (Auto) 0.0 % Basophils (%) (Auto) 0.1 % Neutrophils # (Auto) 8.46 K/uL Lymphocytes # (Auto) 0.18 K/uL Monocytes # (Auto) 0.60 K/uL Eosinophils # (Auto) 0.00 K/uL Basophils # (Auto) 0.01 K/uL RDW Standard Deviation 57.1 fL RDW Coefficient of Variation 18.2 % Immature Granulocyte % (Auto) 3.0 % Immature Granulocyte # (Auto) 0.29 K/uL Dohle Bodies 1+ Ovalocytes 1+ Echinocytes 1+ Sodium Level 144 mmol/L Potassium Level 4.2 mmol/L Chloride Level 116 mmol/L Carbon Dioxide Level 23 mmol/L Anion Gap 5.0 mmol/L Blood Urea Nitrogen 9 mg/dl Creatinine 0.81 mg/dl Est Creatinine Clear Calc Drug Dose 81.6 ml/min Estimated GFR () 105.1 Estimated GFR (Non- 90.7 BUN/Creatinine Ratio 10.7 Random Glucose 143 mg/dl Calcium Level 7.5 mg/dl Magnesium Level 1.9 mg/dl Medications Current Inpatient Medications Medications (Trade) Dose Ordered Sig/Isai Route Start Time Stop Time Status Last Admin Dose Admin Enoxaparin Sodium (Lovenox Inj) 40 mg Q24H SC 10/26/16 18:00 11/25/16 17:59 10/26/16 16:38 40 MG Acetaminophen (Tylenol Tab) 650 mg Q4H PRN PO 10/26/16 11:45 11/25/16 11:44 Al Hydrox/Mg Hydrox/Simethicone (Maalox Max Susp) 15 ml Q4H PRN PO 10/26/16 11:45 11/25/16 11:44 10/27/16 12:02 15 ML Magnesium Hydroxide (Milk Of Magnesia Susp) 30 ml Q12H PRN PO 10/26/16 11:45 11/25/16 11:44 Ondansetron HCl (Zofran Inj) 4 mg Q6H PRN IV 10/26/16 11:45 11/25/16 11:44 10/27/16 12:00 4 MG Alfuzosin HCl (Uroxatral Tab) 10 mg QPM PO 10/26/16 21:00 11/25/16 20:59 10/26/16 20:43 10 MG Amiodarone HCl (Cordarone Tab) 200 mg QAM PO 10/27/16 09:00 11/26/16 08:59 10/27/16 08:09 200 MG Aspirin (Ecotrin Tab) 81 mg QAM PO 10/27/16 09:00 11/26/16 08:59 10/27/16 08:09 81 MG Benzonatate (Tessalon Perles Cap) 100 mg Q8 PRN PO 10/26/16 11:45 11/25/16 11:44 10/27/16 08:10 100 MG Budesonide/ Formoterol Fumarate (Symbicort 160/ 4.5 Inh) 2 puffs HS INH 10/26/16 21:00 11/25/16 20:59 10/26/16 20:45 2 PUFFS Buspirone HCl (BusPAR TAB) 15 mg BID PO 10/26/16 21:00 11/25/16 20:59 10/27/16 08:11 15 MG Nitroglycerin (Nitrostat Tab) 0.4 mg UD PRN UT 10/26/16 11:45 11/25/16 11:44 Tiotropium [place] (Spiriva Handihaler Inhaler) 1 puff QPM INH 10/26/16 21:00 11/25/16 20:59 10/26/16 20:44 1 PUFF Pantoprazole Sodium (Protonix Tab) 40 mg BID PO 10/26/16 21:00 11/25/16 20:59 10/27/16 08:08 40 MG Oxycodone HCl (Oxycontin Tab) 10 mg Q12 PO 10/26/16 21:00 11/09/16 20:59 10/27/16 08:12 10 MG Oxycodone HCl (Roxicodone Immediate Rel Tab) 10 mg Q4H PRN PO 10/26/16 11:45 11/09/16 11:44 10/27/16 12:02 10 MG Trimethoprim/ Sulfamethoxazole (Septra Ds 800/ 160MG Tab) 1 tab MoWeFr@0900 PO 10/27/16 09:00 11/26/16 08:59 10/27/16 08:09 1 TAB Cefepime HCl 2000 mg/Dextrose 112.5 ml @ 200 mls/hr Q12H IV 10/26/16 22:00 10/28/16 21:59 10/27/16 10:13 200 MLS/HR Metronidazole (Flagyl Tab) 500 mg TID PO 10/26/16 14:00 11/05/16 13:59 10/27/16 08:11 500 MG Guaifenesin (Mucinex Contr Rel Tab) 1,200 mg Q12 PO 10/26/16 21:00 11/25/16 20:59 10/27/16 08:11 1,200 MG Enteral Nutritional Formula (Boost) 1 can BIDM PO 10/26/16 16:45 11/25/16 17:59 10/27/16 08:08 1 CAN Multivitamins/ Minerals (Multivitamin W/ Minerals Tab) 1 tab QAM PO 10/27/16 09:00 11/26/16 08:59 10/27/16 08:09 1 TAB Ascorbic Acid (Vitamin C Tab) 500 mg QAM PO 10/27/16 09:00 11/26/16 08:59 10/27/16 08:13 500 MG Zinc Sulfate (Zinc Sulfate Cap) 220 mg QAM PO 10/27/16 09:00 11/26/16 08:59 10/27/16 08:13 220 MG Mirtazapine (Remeron Tab) 15 mg HS PO 10/26/16 21:00 11/25/16 20:59 10/26/16 20:43 15 MG Vancomycin HCl (Consult) 1 ea UD PRN N/A 10/26/16 13:30 11/25/16 13:29 Vancomycin HCl 1000 mg/Sodium Chloride 270 ml @ 125 mls/hr Q12@0200,1400 IV 10/27/16 02:00 10/29/16 01:59 10/27/16 01:36 125 MLS/HR Methylprednisolone Sodium Succinate 40 mg/Syringe 0.64 ml @ 1.5 mls/min Q12H IV 10/26/16 14:30 11/25/16 14:29 10/27/16 01:36 1.5 MLS/MIN Ipratropium [place] (Atrovent 0.02% 0.5MG/2.5ML Neb) 0.5 mg Q6R INH 10/26/16 15:00 11/25/16 14:59 10/27/16 07:23 0.5 MG Levalbuterol (Xopenex 1.25MG/ 0.5ML Neb) 1.25 mg Q6R INH 10/26/16 15:00 11/25/16 14:59 10/27/16 07:23 1.25 MG Heparin Sodium (Porcine) (Heparin 100 Unit/ml 5ml Flush) 5 ml PRN PRN IV 10/27/16 00:30 11/26/16 00:29 Miscellaneous Information (Nursing Verbal Med Order) 1 ea ONE ONCE N/A 10/27/16 13:15 10/27/16 13:16 UNV Albuterol (Proair Hfa) 2 puffs Q4H PRN INH 10/27/16 13:30 11/26/16 13:29 Assessment and Plan Assessment and Plan: This is 71 year-old male with history of lung cancer currently on chemotherapy, COPD, rheumatoid arthritis, [place], colitis, and GERD presented yesterday with worsening weakness, stomach discomfort, N/V/F and cough. Fever/Neutropenia/Bronchitis WBC is up after 1x Neupogen. Neutropenia resolved. - Blood culture is negative up to this time. - Influenza test is negative - Urine culture and urinalysis is negative - Switch to doxycycline as outpatient. Hypomagnesemia/hypokalemia - Resolved Heart Disease/AFIB - Continue Amiodarone, aspirin Lung cancer/COPD - Continue ipratropium, levalbuterol, buspirone, and prednisone - Bactrum for prophylaxis Depression/Appetite issue - Continue mirtazapine. DVT prophylaxis - Lovenox 40mg injection In this afternoon, patient noticed a new rash on his right hip. He states that couple weeks ago he had a cortisone injection to the right hip for arthritis. Patient wants to go home and will have an appointment with his PCP tomorrow afternoon. Will call tomorrow to check on patient tomorrow morning before his appointment. Switched vancomycin to doxycycline. Patient will receive one dose of doxycycline before going home. Discharge planning: home
[2016-10-27] MEDS ORDERED: DOXYCYCLINE HYCLATE 100 MG CAP PO ONE (16:30)
--- NOTE | 2016-10-27 17:30 | Discharge Summary ---
Discharge Summary Date of Service Oct 27, 2016. Discharge Summary Admission Date: Oct 26, 2016 at 10:50 Discharge Date: Oct 27, 2016 Discharge Disposition: Home Principal Diagnosis: neutropenic fever with bronchitis, Neupogen rescue Immunizations: Have You Had Influenza Vaccine: No History of Tetanus Vaccine?: UTD History of Pneumococcal: No History of Hepatitis B Vaccine: No Medication Reconciliation New Medications: Doxycycline Hyclate (Doxycycline Hyclate) 100 Mg Cap 100 MG PO BID, #18 DOSE Prednisone Tab (Prednisone) 10 Mg Tab 10 MG PO UD, #42 TAB 4 pills a day for 4 days then 3 pills a day for 4 days then 2 pills a day for 4 days then 1 pill a day Continued Medications: Albuterol Hfa (Ventolin Hfa) 200 Puffs/53367 Mcg Aers 2 PUFFS INH QID PRN for SOB/Wheezing Alfuzosin Hcl (Uroxatral) 10 Mg Tab 10 MG PO QPM Amiodarone Hcl (Cordarone) 200 Mg Tab 200 MG PO QAM Aspirin (Aspirin) 81 Mg Chw 81 MG PO QAM Benzonatate (Tessalon Perles) 100 Mg Cap 100 MG PO Q8 PRN for Cough, CAP Budesonide/Formoterol Fumarate (Symbicort 160/4.5 Inhaler) 120 Puffs/ Aero 2 PUFFS INH HS, INHALER Buspirone Hcl (Buspar) 15 Mg Tab 15 MG PO BID, TAB Fluticasone Propionate (Nasal) (Flonase Allergy Relief) 50 Mcg/Act Spr 2 SPRAYS ANGELA DAILY PRN for ALLERGIC REACTION Ipratropium [place] (Ipratropium [place]) 0.5 Mg/2.5 Ml Nebu 1 VIAL NEB TID, 3 Refills Levalbuterol Hcl (Levalbuterol Hcl) 1.25 Mg/3 Ml Neb 1 DOSE INH TID Nitroglycerin (Nitrostat) 0.4 Mg Tab 0.4 MG UT UD PRN for Chest Pain Omeprazole (Prilosec) 20 Mg Capcr 20 MG PO BID Ondansetron (Ondansetron HCl) 8 Mg Tab 8 MG PO Q6H PRN for Nausea or Vomiting Oxycodone HCl (Oxycodone HCl) 5 Mg Tab 10 MG PO Q4H PRN for Pain Oxycodone Hcl (Oxycontin (Ext Rel)) 80 Mg Tabcr 10 MG PO Q12, TAB Tiotropium [place] (Spiriva Handihaler) 30 Puff/540 Mcg Aerp 1 PUFF INH QPM Discontinued Medications: Ciprofloxacin Hcl (Cipro) 500 Mg Tab 500 MG PO BID started 10/19 FOR 7 DAY THERAPY Metronidazole (Flagyl) 500 Mg Tab 500 MG PO TID STARTED 10/19 FOR 7 DAY THERAPY Prednisone (Prednisone) 2.5 Mg Tab 2.5 MG PO DAILY, 3 Refills Sulfamethoxazole-Trimethoprim (Smz-Tmp Ds) 1 Tab Tab 1 TAB PO 3XWK TAKE 1 TABLET DAILY ON MON/TUE/TUE WHILE ON CHEMO Discharge Exam Review of Systems: Respiratory: + problem reported (overall poor air movement less cough), No cough, No sputum, No wheezing Cardiovascular: No chest pain, No orthopnea Abdomen: + nausea (1 but of nausea but tolerated lunch), No pain, No vomiting Integumentary: + rash Physical Exam: General Appearance: WD/WN, no apparent distress Respiratory/Chest: chest non-tender, lungs clear (but poor air movement overall) Cardiovascular: regular rate, rhythm, + systolic murmur Abdomen / GI: normal bowel sounds, non tender, soft Skin: + pertinent finding (and outlined erythematous rash on his right hip no fluctuance or pain with internal or external rotation or ADduction) Hospital Course 71yo male with stage 4 lung cancer currently undergoing chemotherapy, COPD, CAD , HTN, and recent hospitalization for colitis presenting with neutropenic fever and a bronchitis neutropenic fever bronchitis. With Neupogen rescue he feels much better CXR, does not show discrete pneumonia, but may not due to low wbc. cefepime and vanco. We'll transition to oral doxycycline 1 dose given before he left given neutropenia will give neupogen x October 26, pt was pancytopenic Patient has a follow-up appointment October 28 at 1:00 with his family doctor Prior to leaving he developed a non-defined erythematous blanchable rash about his right hip there was no plaques papules or vesicles associate with it this was outlined for his family doctor to assess stage 4 lung cancer - followed by Dr. Ritter & Dr. Salvador (rad onc). he has been contemplating stopping future chemotherapy and other treatments given the fact he's been so sick after this most recent chemotherapy Last chemotherapy was about 10 days ago. COPD with exacerbation -tapering by mouth steroids nebs, continue home respiratory treatments hypomagnesemia - hypokalemia - replete. Likely contributed to his profound weakness RLE wounds - Wound care consultation CAD - h/o a. fib - on amiodarone and is in normal sinus rhythm at this time. depression -remeron 15mg once daily at HS. code status - full, but [facility], etc Total Time Spent: Greater than 30 minutes This includes examination of the patient, discharge planning, medication reconciliation, and communication with other providers. Discharge Instructions Please refer to the electronic Patient Visit Report (Discharge Instructions) for additional information.
[2016-10-28] MEDS ORDERED: VANCOMYCIN TROUGH ONE (13:30)
== END 2016-10-27 18:26 | disposition home health service (06) | DRG 190 ==
LOC: EDBD 07:07 → C.EDB 07:09 → C.2T 10:50 → ENRESERV 11:18
PROVIDERS: ADMIT Internal Medicine; ATTEND Internal Medicine
DX: J44.1 Chronic obstructive pulmonary disease with (acute) exacerbation (principal); E43 Unspecified severe protein-calorie malnutrition; C34.90 Malignant neoplasm of unspecified part of unspecified bronchus or lung; L97.819 Non-pressure chronic ulcer of other part of right lower leg with unspecified severity; J44.0 Chronic obstructive pulmonary disease with (acute) lower respiratory infection; J40 Bronchitis, not specified as acute or chronic; D70.1 Agranulocytosis secondary to cancer chemotherapy; D64.81 Anemia due to antineoplastic chemotherapy; D69.59 Other secondary thrombocytopenia; R50.81 Fever presenting with conditions classified elsewhere; E78.5 Hyperlipidemia, unspecified; I10 Essential (primary) hypertension; E83.42 Hypomagnesemia; E87.6 Hypokalemia; I25.10 Atherosclerotic heart disease of native coronary artery without angina pectoris; F32.9 Major depressive disorder, single episode, unspecified; G89.4 Chronic pain syndrome; R21 Rash and other nonspecific skin eruption; T45.1X5A Adverse effect of antineoplastic and immunosuppressive drugs, initial encounter; Z79.52 Long term (current) use of systemic steroids; Z79.82 Long term (current) use of aspirin; Z79.899 Other long term (current) drug therapy; Z87.891 Personal history of nicotine dependence

== ENCOUNTER 2016-10-28 13:46 | Inpatient (IN) | payer BC, OTHER ==
[~2016-10-28] VITALS: Ht 177.8 cm; Wt 58.7 kg
[~2016-10-28 13:46] MED LIST changes: +BENZ100C84 PO; -CIPR-255 PO; +DXY100 PO; -METR-163 PO; -PRD/25 PO; +PRED10TA PO; -SULF-183 PO
[2016-10-28] MEDS ORDERED: METHYLPREDNISOLONE 125 MG VIAL IV STA (14:06)
[2016-10-28] MEDS ORDERED: ALBUT/IPRATROP 3MG/0.5MG NEB 3 ML VIAL INH STA (14:06)
[2016-10-28] MEDS ORDERED: OPTIRAY 320 IV PRN (14:15)
[2016-10-28] MEDS ORDERED: ACETAMINOPHEN 325 MG TAB PO PRN (14:45)
[2016-10-28] MEDS ORDERED: ALUMINUM/MAGNESIUM/SIMETH (MAALOX MAX) 30 ML UDC PO PRN (14:45)
[2016-10-28] MEDS ORDERED: POLYETHYLENE (MIRALAX) 17 GM PACK PO PRN (14:45)
[2016-10-28] MEDS ORDERED: ONDANSETRON INJ 2 MG/ML 2 ML VIAL IV PRN (14:45)
--- NOTE | 2016-10-28 14:48 | DIAGNOSTIC IMAGING REPORT ---
CHEST ONE VIEW PORTABLE HISTORY: 71 years-old Male EVALUATE RESPIRATORY DISTRESS.DYSPNEA acute respiratory distress. COMPARISON: Chest radiograph 10/26/2016 and 10/18/2016 TECHNIQUE: Portable upright AP view of the chest FINDINGS: Cardiac silhouette is within normal limits. Left subclavian [id number] catheter is again seen with distal tip terminating in the right atrium. Persistent left-sided mediastinal shift is again seen with areas of pleural parenchymal scarring in seen within the left lung apex. Chronic blunting of left costophrenic angle is again seen suggesting small pleural effusion. Pulmonary vascular congestion is noted without focal lobar airspace consolidation or overt pulmonary edema. The bones are grossly intact. IMPRESSION: 1. Stable findings of the left upper lobe without acute cardiopulmonary process. 2. Chronic blunting of left costophrenic angle suggests small pleural effusion. The above report was generated using voice recognition software. It may contain grammatical, syntax or spelling errors. Electronically signed by: Malick Elizabeth M.D. 10/28/2016 2:47 PM Dictated Date/Time: 10/28/2016 2:44 PM
[2016-10-28 15:04] LABS: PARTIAL THROMBOPLASTIN RATIO 2.3
[2016-10-28 15:05] LABS: ALB/GLOB RATIO 0.9 (0.9-2); BUN/CREATININE RATIO 19.6 (10-20); CALCIUM 8.2 mg/dl (8.5-10.1); CKMB/CK RATIO 10.8 (0-3.0); CREATININE 0.92 mg/dl (0.60-1.40); POTASSIUM 4.6 mmol/L (3.5-5.1)
[2016-10-28] MEDS ORDERED: ASPIRIN 81 MG CHEW PO STA (15:19)
[2016-10-28] MEDS ORDERED: NITROGLYCERIN 0.4 MG SL PER TAB CHARGE SL PRN (16:30)
[2016-10-28 16:45] VITALS: O2SAT 99; Ht 177.8 cm; Wt 58.7 kg
[2016-10-28 16:51] LABS: DOHLE BODIES 1+; ECHINOCYTES 1+; HEMATOCRIT 30.8 % (42-52); MEAN CELL VOLUME 85.1 fL (80-100); MEAN CORPUSCULAR HEMOGLOBIN 27.1 pg (25-34); MEAN CORPUSCULAR HGB CONC 31.8 g/dl (32-36); MEAN PLATELET VOLUME 10.4 fL (7.4-10.4); PLATELET COUNT 147 K/uL (130-400); POLYCHROMASIA 1+; RED BLOOD COUNT 3.62 M/uL (4.7-6.1)
--- NOTE | 2016-10-28 16:57 | DIAGNOSTIC IMAGING REPORT ---
CT ANGIOGRAPHY OF THE CHEST, PULMONARY EMBOLUS PROTOCOL CLINICAL HISTORY: Shortness of breath. Lung cancer status post resection. COMPARISON STUDY: Chest CT May 15, 2016 and chest radiograph performed earlier today. TECHNIQUE: Following IV administration of 95 mL of Optiray-320, helical axial images of the chest were obtained utilizing the pulmonary embolus protocol. Maximal intensity projections and sagittal and coronal reformats were viewed on an independent 3D workstation. IV contrast was administered without complication. A dose lowering technique was utilized adhering to the principles of ALARA. CT DOSE: 403.98 mGycm FINDINGS: Postoperative findings from a partial left lung resection are noted. The postoperative appearance is unchanged exam of July 15, 2016. A 4.9 x 2.9 cm irregular left midlung opacity is unchanged. This likely reflects postoperative change. A small left pleural effusion has slightly increased in size since prior exam. There is a trace right pleural effusion. No pneumothorax is present. No enlarged axillary, mediastinal or hilar lymph nodes are present. Note is made of several small segmental pulmonary emboli within the right upper lobe. There is no central pulmonary embolus. Central pulmonary arteries are mildly dilated. This is unchanged. The size of the heart is normal. There is no pericardial effusion. There has been interval development of ill-defined nodular opacities throughout both lungs, many of which are in a tree-in-bud distribution. No suspicious osseous lesions are present. A left hepatic lobe biliary ductal dilatation shown on prior imaging studies is less pronounced on this exam. IMPRESSION: 1. Several small segmental pulmonary emboli within the right upper lobe. 2. Stable postoperative findings within the left hemithorax since prior exam of July 15, 2016. 3. Scattered irregular airspace opacities throughout both lungs which suggest an infectious process such as bronchiolitis or bronchopneumonia. 4. Small left and trace right pleural effusions. Electronically signed by: Mo Mojica M.D. 10/28/2016 4:56 PM Dictated Date/Time: 10/28/2016 4:40 PM
--- NOTE | 2016-10-28 17:22 | DIAGNOSTIC IMAGING REPORT ---
RIGHT HIP CT CT DOSE: 241.19 mGycm HISTORY: Right hip pain. look for intra articular infection Right TECHNIQUE: Multiaxial CT images of the right hip were performed and reformatted in the sagittal and coronal plane without the use of contrast. A dose lowering technique was utilized adhering to the principles of ALARA. COMPARISON: Abdomen and pelvis CT 10/19/2016. Pelvis 09/29/2016. FINDINGS: No acute fracture or dislocation within the right hip. The visualized pelvic bones are intact. Severe osteoarthritis within the right hip with [id number] articulation superiorly. There is also subchondral sclerosis and mild subchondral cystic change within the right hip due to the degenerative change. This is not significantly changed. No erosive changes identified within the right hip. There are marginal osteophytes within the right hip. Contrast within the bladder. No suspicious lytic or blastic osseous lesions. There may be a trace effusion within the right hip. Mild soft tissue thickening at the right hip remains unchanged. Subcutaneous edema within the right hip. IMPRESSION: 1. Severe osteoarthritis within the right hip, unchanged. 2. No fracture or dislocation within the right hip. 3. Trace hip effusion and mild soft tissue thickening at the right hip remains unchanged. No associated erosions to suggest an osteomyelitis/septic arthritis. This could be due to the long-standing degenerative change. Electronically signed by: Eduardo Pardo M.D. 10/28/2016 5:21 PM Dictated Date/Time: 10/28/2016 5:15 PM
[2016-10-28 17:34] LABS: URINE APPEARANCE CLEAR (CLEAR); URINE BILIRUBIN NEG (NEG); URINE COLOR YELLOW; URINE EPITHELIAL CELL AUTO 0-5 /lpf (0-5); URINE NITRITE NEG (NEG); URINE PH 5.5 (4.5-7.5); URINE SPECIFIC GRAVITY 1.023 (1.000-1.030); UROBILINOGEN NEG (NEG)
[2016-10-28 17:35] LABS: MANUAL MICROSCOPIC REQUIRED? NO; REVIEW REQ? NO
[2016-10-28] MEDS ORDERED: CEFEPIME IV 1,000 MG in DEXTROSE 5% 100ML 100 ML IV STA (17:37)
[2016-10-28 17:57] LABS: COMPLETE YES; LYMPH ABS # 0.61 K/uL (1.2-3.4); LYMPHOCYTE % 2.6 %; NEUTROPHILS % 93.1 %; TOXIC GRANULATION 1+
[2016-10-28] MEDS ORDERED: HEPARIN SOD 5000 UNIT/0.5 ML CARP SQ SCH (18:00)
[2016-10-28 18:15] VITALS: BP 155/86; PULSE 91; TEMP 37.3; O2SAT 98
[2016-10-28] MEDS ORDERED: NITROGLYCERIN 0.4 MG SL PER TAB CHARGE UT PRN (18:30)
[2016-10-28] MEDS ORDERED: FLUTICASONE PROPIONATE NA SPR 16 GM BTL NAE PRN (18:30)
[2016-10-28] MEDS ORDERED: OXYCODONE HCL IR 5 MG TAB (IMMEDIATE RELEASE) PO PRN (18:30)
[2016-10-28] MEDS ORDERED: ONDANSETRON 8 MG TAB PO PRN (18:30)
[2016-10-28] MEDS ORDERED: ALBUTEROL HFA 8 GM INHALER INH PRN (18:30)
--- NOTE | 2016-10-28 18:37 | History and Physical ---
History & Physical Date & Time of Service: Oct 28, 2016 at 18:30 Chief Complaint: Breathing Difficulty Primary Care Physician: Violetta Kimbrough M.D. History of Present Illness 71-year-old male recently admitted with right upper lobe subsegmental pulmonary embolism and acute respiratory distress on chronic respiratory failure. The patient has a history of both lung cancer and COPD. His most recently in our facility where he had bronchitis and a COPD exacerbation. He requested to be discharged home at the time he was stable with regard to his chronic respiratory failure being on tapering doses of steroids and doxycycline. He did well after returning home actually taking dose of prednisone and doxycycline from his pharmacy. The patient then went to bed and awoke upon going to the restroom he became more short of breath and remained that way throughout the night of this morning he felt too short of breath to see his primary care physician represented to the ER at that time his initial chest x- ray did not show any new infiltrates he had a right hip rash which was being followed in an outpatient which did not worsen, he was found to have a mildly elevated troponin and a CT scan of his chest showed a pulmonary embolisms as mentioned. His EKG did not show any acute coronary syndrome. admitted to telemetry for treatment of his PEs, elevated troponin is suspected to be from right heart strain due to his PEs however we will trend these enzymes and recheck an echocardiogram. He is instructed on heparin therapy for his PEs this will also cover his and STEMI that is what his troponin is from. His is at the bedside was updated Past Medical/Surgical History Medical Problems: (1) Basal cell carcinoma of skin Status: Resolved (2) COPD (chronic obstructive pulmonary disease) Status: Chronic (3) Heart disease Status: Chronic (4) Hyperlipidemia Status: Chronic (5) Hypertension Status: Chronic (6) Kidney stones Permanent Comment: s/p lithotripsy Status: Resolved (7) Lung cancer Permanent Comment: Abnormal CT PET scan revealing left upper lobe lesion 06/01/2013 fine-needle aspiration showing squamous cell carcinoma 06/29/2013 status post left upper lobectomy [id number] Systemic chemotherapy with cisplatin and gemzar for 4 cycles 04/08/2014 abnormal PET/CT with new FDG avid lesion Combined radiation and chemotherapy recommended. Status post completion of radiation therapy 07/01/2014 received 7000 cGy Finding of progression of disease with liver metastasis 11/17/2015 Status post systemic chemotherapy with gemcitabine 11/28/2015 to 03/05/2016 Second opinion at [facility] Initiation of systemic immunotherapy with Opdivo 04/27/2016 Nausea, vomiting finding of brain metastasis 05/19/2016 Status post SBRT to the brain completed 06/07/2016 received 3000 cGy in 5 fractions Opdivo discontinued due to pulmonary side effect Initiation chemotherapy with docetaxel 09/03/2016 Enlarging right posterior cerebellar lesion 10/06/2016 Status: Chronic (8) Myocardial infarction Permanent Comment: inferior wall Status: Resolved (9) Primary cancer of left upper lobe of lung Status: Chronic (10) Pulmonary embolism Status: Resolved Surgical Problems: (1) H/O hernia repair Status: Resolved (2) History of angioplasty Permanent Comment: with stenting in 2005 and 2006 Status: Resolved (3) Hx of appendectomy Status: Resolved (4) S/P lobectomy of lung Permanent Comment: 06/2013 Status: Resolved Family History FH: CAD (coronary artery disease) FATHER (passed at age 59 from [place]) MOTHER Social History Smoking Status: Former Smoker Drug Use: none Marital Status: Housing status: lives with family Occupational Status: retired Immunizations History of Influenza Vaccine: No History of Tetanus Vaccine?: UTD History of Pneumococcal: No History of Hepatitis B Vaccine: No Allergies Coded Allergies: No Known Allergies (Unverified , 10/19/16) Home Medications Scheduled Alfuzosin Hcl (Uroxatral), 10 MG PO QPM Amiodarone Hcl (Cordarone), 200 MG PO QAM Aspirin (Aspirin), 81 MG PO QAM Budesonide/Formoterol Fumarate (Symbicort 160/4.5 Inhaler), 2 PUFFS INH HS Buspirone Hcl (Buspar), 15 MG PO BID Doxycycline Hyclate (Doxycycline Hyclate), 100 MG PO BID Ipratropium [place] (Ipratropium [place]), 1 VIAL NEB TID Levalbuterol Hcl (Levalbuterol Hcl), 1 DOSE INH TID Omeprazole (Prilosec), 20 MG PO BID Oxycodone Hcl (Oxycontin (Ext Rel)), 10 MG PO Q12 Prednisone Tab (Prednisone), 10 MG PO UD Tiotropium [place] (Spiriva Handihaler), 1 PUFF INH QPM Scheduled PRN Albuterol Hfa (Ventolin Hfa), 2 PUFFS INH QID PRN for SOB/Wheezing Benzonatate (Tessalon Perles), 100 MG PO Q8 PRN for Cough Fluticasone Propionate (Nasal) (Flonase Allergy Relief), 2 SPRAYS [place] DAILY PRN for ALLERGIC REACTION Nitroglycerin (Nitrostat), 0.4 MG UT UD PRN for Chest Pain Ondansetron (Ondansetron HCl), 8 MG PO Q6H PRN for Nausea or Vomiting Oxycodone HCl (Oxycodone HCl), 10 MG PO Q4H PRN for Pain Review of Systems ROS: well nourished well developed, he however has bruising from his most recent hospital stay No double vision blurry vision No problems with speech or swallowing No palpitations, chest pain or pressure Persistent Wheezing and breathing issues, no coughing or mucus production No abdominal pain nausea vomiting diarrhea changes in appetite or weight No burning urine urine frequency or changes in color Persistent focal multiple small joint pain and some muscle pain Rash on right hip has improved there is some edema associated with it Persistent bruising but no bleeding No focused back pain or numbness or loss of strength No changes in memory or confusion Physical Exam Vital Signs Date Time Temp Pulse Resp B/P (MAP) Pulse Ox O2 Delivery O2 Flow Rate FiO2 10/28/16 17:56 80 22 128/76 99 Nasal Cannula 3.0 10/28/16 17:55 89 22 133/78 99 Nasal Cannula 3.0 10/28/16 16:45 99 Nasal Cannula 3.0 10/28/16 16:01 138/88 10/28/16 15:46 89 22 99 10/28/16 15:26 152/94 10/28/16 15:16 85 19 98 10/28/16 15:01 152/94 10/28/16 14:46 86 20 99 10/28/16 14:30 99 Nasal Cannula 3.0 10/28/16 14:25 164/105 10/28/16 14:16 83 99 10/28/16 13:54 99 Nasal Cannula 3.0 10/28/16 13:54 Nasal Cannula 3.0 10/28/16 13:51 90 10/28/16 13:49 37.7 89 20 149/99 99 Nasal Cannula 3.0 10/28/16 13:49 149/99 General Appearance: WD/WN, + mild distress Head: normocephalic, atraumatic Eyes: PERRL, EOMI ENT: hearing grossly normal, pharynx normal Respiratory/Chest: chest non-tender, + decreased breath sounds, + accessory muscle use, + rhonchi, + wheezing Cardiovascular: regular rate, rhythm, no murmur Abdomen/GI: non tender, soft Back: no muscle spasm, normal range of motion Extremities/Musculoskelatal: no calf tenderness, + pedal edema Neurologic/Psych: alert, oriented x 3 Skin: + pertinent finding (diffuse bruising from previous hospital stay likely from chemoprophylaxis for DVT and fragility of skin due to chemotherapy) Diagnostics Laboratory Results Results Past 24 Hours Test 10/28/16 14:24 10/28/16 14:25 10/28/16 17:00 10/28/16 18:12 Range/Units Bedside Lactic Acid Venous 0.90 0.90-1.70 mmol/L White Blood Count 23.50 4.8-10.8 K/uL Red Blood Count 3.62 4.7-6.1 M/uL Hemoglobin 9.8 14.0-18.0 g/dL Hematocrit 30.8 42-52 % Mean Corpuscular Volume 85.1 80-100 fL Mean Corpuscular Hemoglobin 27.1 25-34 pg Mean Corpuscular Hemoglobin Concent 31.8 32-36 g/dl Platelet Count 147 130-400 K/uL Mean Platelet Volume 10.4 7.4-10.4 fL RDW Standard Deviation 58.1 36.4-46.3 fL RDW Coefficient of Variation 18.5 11.5-14.5 % Neutrophils % (Manual) 93.1 % Lymphocytes % (Manual) 2.6 % Monocytes % (Manual) 4.3 % Neutrophils # (Manual) 21.88 1.4-6.5 K/uL Total Absolute Neutrophils 21.88 1.4-6.5 K/uL Lymphocytes # (Manual) 0.61 1.2-3.4 K/uL Total Absolute Lymphocytes 0.61 1.2-3.4 K/uL Monocytes # (Manual) 1.01 0.11-0.59 K/uL Toxic Granulation 1+ Dohle Bodies 1+ Polychromasia 1+ Echinocytes 1+ Prothrombin Time 11.0 9.0-12.0 SECONDS Prothromb Time International Ratio 1.0 0.9-1.1 Activated Partial Thromboplast Time 60.6 21.0-31.0 SECONDS Partial Thromboplastin Ratio 2.3 Sodium Level 140 136-145 mmol/L Potassium Level 4.6 3.5-5.1 mmol/L Chloride Level 110 98-107 mmol/L Carbon Dioxide Level 22 21-32 mmol/L Anion Gap 8.0 3-11 mmol/L Blood Urea Nitrogen 18 7-18 mg/dl Creatinine 0.92 0.60-1.40 mg/dl Est Creatinine Clear Calc Drug Dose 69.6 ml/min Estimated GFR () 98.0 Estimated GFR (Non- 84.6 BUN/Creatinine Ratio 19.6 10-20 Random Glucose 94 70-99 mg/dl Calcium Level 8.2 8.5-10.1 mg/dl Magnesium Level 1.7 1.8-2.4 mg/dl Total Bilirubin 0.4 0.2-1 mg/dl Aspartate Amino Transf (AST/SGOT) 21 15-37 U/L Alanine Aminotransferase (ALT/SGPT) 17 12-78 U/L Alkaline Phosphatase 104 45-117 U/L Total Creatine Kinase 61 39-308 U/L Creatine Kinase MB 6.6 0.5-3.6 ng/ml Creatine Kinase MB Ratio 10.8 0-3.0 Troponin I 1.950 0-0.045 ng/ml Pro-B-Type Natriuretic Peptide 2745 0-900 pg/ml Total Protein 5.0 6.4-8.2 gm/dl Albumin 2.4 3.4-5.0 gm/dl Globulin 2.6 2.5-4.0 gm/dl Albumin/Globulin Ratio 0.9 0.9-2 Urine Color YELLOW Urine Appearance CLEAR CLEAR Urine pH 5.5 4.5-7.5 Urine Specific [place] 1.023 1.000-1.030 Urine Protein 1+ NEG Urine Glucose (UA) NEG NEG Urine Ketones NEG NEG Urine Occult Blood NEG NEG Urine Nitrite NEG NEG Urine Bilirubin NEG NEG Urine Urobilinogen NEG NEG Urine Leukocyte Esterase NEG NEG Urine WBC (Auto) 0 0-5 /hpf Urine RBC (Auto) 0-4 0-4 /hpf Urine Hyaline Casts (Auto) 1-5 0-5 /lpf Urine Epithelial Cells (Auto) 0-5 0-5 /lpf Urine Bacteria (Auto) NEG NEG Microbiology Results 10/28/16 Blood Culture, Received Pending 10/28/16 Blood Culture, Received Pending Diagnostic Radiology CT scan of his chest shows right upper lobe segmental and sub-subsegmental pulmonary embolism CT scan of his hip does not show any intra-articular fluid. Some soft tissue fluid which could be consistent with inflammation there is no defined fluid collections that'll be drainable are considered. Abscess other (persistent changes in the left upper lobe are similar to previous) Normal EKG Impression Assessment and Plan 71-year-old male with acute on chronic respiratory failure likely exacerbated by acute pulmonary embolism and previous bronchitis Acute pulmonary embolism patient be started on heparin with no bolus given his brain metastasis long-term anticoagulation will be discussed with hematology oncology Acute on chronic respiratory failure, COPD, bronchitis, will continue steroids in the form of IV Solu-Medrol and nebulized albuterol and ipratropium and oral doxycycline is are no defined infiltrate seen on x-ray Chronic pain, arthritic, OxyContin every 12 with when necessary breakthrough oxycodone with morphine additional stage 4 lung cancer - followed by Dr. Ritter & Dr. Salvador (rad onc). hypomagnesemia - hypokalemia -additional magnesium was required we'll check recheck in the morning RLE wounds - Wound care consultation will be reengaged CAD - h/o a. fib - continues on amiodarone and remains in normal sinus rhythm at this time. depression -remeron 15mg once daily at HS. Advanced Directives Existing Living Will: Yes Existing Power of Aids Counselor: No VTE Prophylaxis VTE Risk Assessment Done? Y/N: Yes Risk Level: Moderate Given or contraindicated: Other Anticoagulation
[2016-10-28] MEDS: MoRPHine SULFATE 2 MG/ML CARP IV PRN ×2 (18:56→23:41)
[2016-10-28] MEDS ORDERED: MAGNESIUM SULFATE 1GM / D5W 1 GM in PREMIXED IN D5W 100 ML IV ONE (19:00)
[2016-10-28 19:23] LABS: PARTIAL THROMBOPLASTIN RATIO 0.9
[2016-10-28 20:00] VITALS: O2SAT 98
[2016-10-28] MEDS: HEPARIN 25,000 UNIT/500ML D5W 500 ML IV PRN (20:00)
[2016-10-28] MEDS ORDERED: ALBUT/IPRATROP 3MG/0.5MG NEB 3 ML VIAL INH SCH (20:00)
[2016-10-28] MEDS ORDERED: OXYCODONE HCL 10 MG TABCR (OXYCONTIN) PO SCH (21:00)
[2016-10-28] MEDS: PANTOprazole SOD 40 MG TAB PO SCH (21:06)
[2016-10-28] MEDS: ALFUZosin TAB 10 MG TAB PO SCH (21:06)
[2016-10-28] MEDS: BusPIRone 15 MG TAB PO SCH (21:06)
[2016-10-28] MEDS: DOXYCYCLINE HYCLATE 100 MG CAP PO SCH (21:07)
[2016-10-28] MEDS: OXYCODONE HCL 10 MG TABCR (OXYCONTIN) PO SCH (21:08)
[2016-10-28] MEDS: TIOTROPIUM BROMIDE 5 PUFF/90 MCG INH INH SCH (21:09)
[2016-10-28] MEDS: BUDESONIDE/FORMOTEROL FUMARATE 160/4.5 60 PUFFS/INHALER INH SCH (21:09)
[2016-10-28] MEDS: LEVALBUTEROL 1.25MG/0.5ML NEB INH SCH (21:15)
[2016-10-28] MEDS: IPRATROPIUM BROMIDE NEB SOLN 0.02% 2.5 ML VIAL INH SCH (21:15)
[2016-10-28 21:20] VITALS: PULSE 96; O2SAT 96
--- NOTE | 2016-10-28 21:32 | EMERGENCY ROOM VISIT NOTE ---
History Report prepared by [place]: [place] Under the Supervision of: Dr. Fitz Carter M.D. First contact with patient: 13:53 Chief Complaint: SHORTNESS OF BREATH Stated Complaint: BREATHING DIFFICULTY History of Present Illness The patient is a 71 year old male with a history of COPD who presents to the Emergency Room with complaints of worsening shortness of breath that started yesterday. He says that he just left the hospital less than 24 hours ago. The patient was sick and had a fever here. His blood counts were down, as he is currently receiving chemotherapy for lung cancer. The patient was discharged on Doxycycline. The patient notes that he was also here a week ago for colitis. He says that after being discharged, he started feeling sick again, with trouble getting a breath. The patient states that he gets short of breath on any exertion, and he tried to take inhalers with minimal relief. He adds that he has had intermittent fevers and cold chills, with generalized weakness. The patient says that he was supposed to see his primary care physician today, but was too sick, so he came here. He says that does not wear oxygen typically, but he is wearing it here. The patient says that he feels well on the oxygen, but still can't take a deep breath. He adds that he feels like he is wheezing. The patient has a history of a partial lung resection. He takes a baby aspirin daily , but no other blood thinners. Pt denies LOC, headache, diaphoresis, visual changes, neck pain, chest pain, nausea, vomiting, abdominal pain, back pain, melena, hematochezia, urinary symptoms, numbness, lymphadenopathy, rash, or other complaints. Source of History: patient Onset: Yesterday Position: other (global - shortness of breath) Symptom Intensity: can hardly get from the bed to the bathroom Timing: worsening Modifying Factors (Relieving): oxygen (a bit) Associated Symptoms: + fevers, + chills, + weakness Note: No other associated symptoms noted. Review of Systems See HPI for pertinent positives and negatives. A total of ten systems were reviewed and were otherwise negative. Past Medical & Surgical Medical Problems: (1) Atrial fibrillation with RVR (2) Basal cell carcinoma of skin (3) COPD (chronic obstructive pulmonary disease) (4) Heart disease (5) Hyperlipidemia (6) Hypertension (7) Hypomagnesemia (8) Kidney stones (9) Lung cancer (10) Myocardial infarction (11) Pneumonia (12) Primary cancer of left upper lobe of lung (13) Pulmonary embolism (14) Sepsis (15) Shortness of breath Surgical Problems: (1) H/O hernia repair (2) History of angioplasty (3) Hx of appendectomy (4) S/P lobectomy of lung Family History FH: CAD (coronary artery disease) FATHER (passed at age 59 from [place]) MOTHER Social History Smoking Status: Former Smoker Alcohol Use: other Drug Use: none Marital Status: Housing Status: lives with family Occupation Status: retired Current/Historical Medications Scheduled Alfuzosin Hcl (Uroxatral), 10 MG PO QPM Amiodarone Hcl (Cordarone), 200 MG PO QAM Aspirin (Aspirin), 81 MG PO QAM Budesonide/Formoterol Fumarate (Symbicort 160/4.5 Inhaler), 2 PUFFS INH HS Buspirone Hcl (Buspar), 15 MG PO BID Doxycycline Hyclate (Doxycycline Hyclate), 100 MG PO BID Ipratropium Ochelata (Ipratropium Ochelata), 1 VIAL NEB TID Levalbuterol Hcl (Levalbuterol Hcl), 1 DOSE INH TID Omeprazole (Prilosec), 20 MG PO BID Oxycodone Hcl (Oxycontin (Ext Rel)), 10 MG PO Q12 Prednisone Tab (Prednisone), 10 MG PO UD Tiotropium [place] (Spiriva Handihaler), 1 PUFF INH QPM Scheduled PRN Albuterol Hfa (Ventolin Hfa), 2 PUFFS INH QID PRN for SOB/Wheezing Benzonatate (Tessalon Perles), 100 MG PO Q8 PRN for Cough Fluticasone Propionate (Nasal) (Flonase Allergy Relief), 2 SPRAYS ANGELA DAILY PRN for ALLERGIC REACTION Nitroglycerin (Nitrostat), 0.4 MG UT UD PRN for Chest Pain Ondansetron (Ondansetron HCl), 8 MG PO Q6H PRN for Nausea or Vomiting Oxycodone HCl (Oxycodone HCl), 10 MG PO Q4H PRN for Pain Allergies Coded Allergies: No Known Allergies (Unverified , 10/19/16) Physical Exam Vital Signs Date Time Temp Pulse Resp B/P (MAP) Pulse Ox O2 Delivery O2 Flow Rate FiO2 10/28/16 16:01 138/88 10/28/16 15:46 89 22 99 10/28/16 15:26 152/94 10/28/16 15:16 85 19 98 10/28/16 15:01 152/94 10/28/16 14:46 86 20 99 10/28/16 14:30 99 Nasal Cannula 3.0 10/28/16 14:25 164/105 10/28/16 14:16 83 99 10/28/16 13:54 99 Nasal Cannula 3.0 10/28/16 13:54 Nasal Cannula 3.0 10/28/16 13:51 90 10/28/16 13:49 37.7 89 20 149/99 99 Nasal Cannula 3.0 10/28/16 13:49 149/99 Physical Exam GENERAL: Awake, alert, frail-appearing, in no distress HENT: Normocephalic, atraumatic. Oropharynx unremarkable. EYES: Normal conjunctiva. Sclera non-icteric. NECK: Supple. No nuchal rigidity. FROM. No JVD. RESPIRATORY: Rhonchi and wheezing bilaterally, worse on left side. Diminished at bases. CARDIAC: Regular rate, normal rhythm. Extremities warm and well perfused. Pulses equal. ABDOMEN: Soft, non-distended. No tenderness to palpation. No rebound or guarding. No masses. RECTAL: Deferred. MUSCULOSKELETAL: Chest examination reveals no tenderness. The back is symmetrical on inspection without obvious abnormality. There is no CVA tenderness to palpation. No joint edema. LOWER EXTREMITIES: Chronic venous discoloration with trace edema. NEURO: Normal sensorium. No sensory or motor deficits noted. SKIN: No rash or jaundice noted. Medical Decision & Procedures ER Provider Diagnostic Interpretation: Radiology results as stated below per my review and radiologist interpretation: CT ANGIOGRAPHY OF THE CHEST, PULMONARY EMBOLUS PROTOCOL CLINICAL HISTORY: Shortness of breath. Lung cancer status post resection. COMPARISON STUDY: Chest CT May 15, 2016 and chest radiograph performed earlier today. TECHNIQUE: Following IV administration of 95 mL of Optiray-320, helical axial images of the chest were obtained utilizing the pulmonary embolus protocol. Maximal intensity projections and sagittal and coronal reformats were viewed on an independent 3D workstation. IV contrast was administered without complication. A dose lowering technique was utilized adhering to the principles of ALARA. CT DOSE: 403.98 mGycm FINDINGS: Postoperative findings from a partial left lung resection are noted. The postoperative appearance is unchanged exam of July 15, 2016. A 4.9 x 2.9 cm irregular left midlung opacity is unchanged. This likely reflects postoperative change. A small left pleural effusion has slightly increased in size since prior exam. There is a trace right pleural effusion. No pneumothorax is present. No enlarged axillary, mediastinal or hilar lymph nodes are present. Note is made of several small segmental pulmonary emboli within the right upper lobe. There is no central pulmonary embolus. Central pulmonary arteries are mildly dilated. This is unchanged. The size of the heart is normal. There is no pericardial effusion. There has been interval development of ill-defined nodular opacities throughout both lungs, many of which are in a tree-in-bud distribution. No suspicious osseous lesions are present. A left hepatic lobe biliary ductal dilatation shown on prior imaging studies is less pronounced on this exam. IMPRESSION: 1. Several small segmental pulmonary emboli within the right upper lobe. 2. Stable postoperative findings within the left hemithorax since prior exam of July 15, 2016. 3. Scattered irregular airspace opacities throughout both lungs which suggest an infectious process such as bronchiolitis or bronchopneumonia. 4. Small left and trace right pleural effusions. Electronically signed by: Mo Mojica M.D. 10/28/2016 4:56 PM Dictated Date/Time: 10/28/2016 4:40 PM CHEST ONE VIEW PORTABLE HISTORY: 71 years-old Male EVALUATE RESPIRATORY DISTRESS.DYSPNEA acute respiratory distress. COMPARISON: Chest radiograph 10/26/2016 and 10/18/2016 TECHNIQUE: Portable upright AP view of the chest FINDINGS: Cardiac silhouette is within normal limits. Left subclavian Ortvzf-[id number]-[id number] catheter is again seen with distal tip terminating in the right atrium. Persistent left-sided mediastinal shift is again seen with areas of pleural parenchymal scarring in seen within the left lung apex. Chronic blunting of left costophrenic angle is again seen suggesting small pleural effusion. Pulmonary vascular congestion is noted without focal lobar airspace consolidation or overt pulmonary edema. The bones are grossly intact. IMPRESSION: 1. Stable findings of the left upper lobe without acute cardiopulmonary process. 2. Chronic blunting of left costophrenic angle suggests small pleural effusion. The above report was generated using voice recognition software. It may contain grammatical, syntax or spelling errors. Electronically signed by: Malick Elizabeth M.D. 10/28/2016 2:47 PM Dictated Date/Time: 10/28/2016 2:[address] DOSE: 241.19 mGycm HISTORY: Right hip pain. look for intra articular infection Right TECHNIQUE: Multiaxial CT images of the right hip were performed and reformatted in the sagittal and coronal plane without the use of contrast. A dose lowering technique was utilized adhering to the principles of ALARA. COMPARISON: Abdomen and pelvis CT 10/19/2016. Pelvis 09/29/2016. FINDINGS: No acute fracture or dislocation within the right hip. The visualized pelvic bones are intact. Severe osteoarthritis within the right hip with [id number] articulation superiorly. There is also subchondral sclerosis and mild subchondral cystic change within the right hip due to the degenerative change. This is not significantly changed. No erosive changes identified within the right hip. There are marginal osteophytes within the right hip. Contrast within the bladder. No suspicious lytic or blastic osseous lesions. There may be a trace effusion within the right hip. Mild soft tissue thickening at the right hip remains unchanged. Subcutaneous edema within the right hip. IMPRESSION: 1. Severe osteoarthritis within the right hip, unchanged. 2. No fracture or dislocation within the right hip. 3. Trace hip effusion and mild soft tissue thickening at the right hip remains unchanged. No associated erosions to suggest an osteomyelitis/septic arthritis. This could be due to the long-standing degenerative change. Electronically signed by: Eduardo Pardo M.D. 10/28/2016 5:21 PM Dictated Date/Time: 10/28/2016 5:15 PM Laboratory Results 10/28/16 14:25 Red Blood Count 3.62, Mean Corpuscular Volume 85.1, Mean Corpuscular Hemoglobin 27.1, Mean Corpuscular Hemoglobin Concent 31.8, Mean Platelet Volume 10.4 10/28/16 14:25 Test 10/28/16 14:24 10/28/16 14:25 Bedside Lactic Acid Venous 0.90 mmol/L (0.90-1.70) White Blood Count 23.50 K/uL (4.8-10.8) Red Blood Count 3.62 M/uL (4.7-6.1) Hemoglobin 9.8 g/dL (14.0-18.0) Hematocrit 30.8 % (42-52) Mean Corpuscular Volume 85.1 fL (80-100) Mean Corpuscular Hemoglobin 27.1 pg (25-34) Mean Corpuscular Hemoglobin Concent 31.8 g/dl (32-36) Platelet Count 147 K/uL (130-400) Mean Platelet Volume 10.4 fL (7.4-10.4) RDW Standard Deviation 58.1 fL (36.4-46.3) RDW Coefficient of Variation 18.5 % (11.5-14.5) Neutrophils % (Manual) 93.1 % Lymphocytes % (Manual) 2.6 % Monocytes % (Manual) 4.3 % Neutrophils # (Manual) 21.88 K/uL (1.4-6.5) Total Absolute Neutrophils 21.88 K/uL (1.4-6.5) Lymphocytes # (Manual) 0.61 K/uL (1.2-3.4) Total Absolute Lymphocytes 0.61 K/uL (1.2-3.4) Monocytes # (Manual) 1.01 K/uL (0.11-0.59) Toxic Granulation 1+ Dohle Bodies 1+ Polychromasia 1+ Echinocytes 1+ Prothrombin Time 11.0 SECONDS (9.0-12.0) Prothromb Time International Ratio 1.0 (0.9-1.1) Anion Gap 8.0 mmol/L (3-11) Est Creatinine Clear Calc Drug Dose 69.6 ml/min Estimated GFR () 98.0 Estimated GFR (Non- 84.6 BUN/Creatinine Ratio 19.6 (10-20) Calcium Level 8.2 mg/dl (8.5-10.1) Magnesium Level 1.7 mg/dl (1.8-2.4) Total Bilirubin 0.4 mg/dl (0.2-1) Aspartate Amino Transf (AST/SGOT) 21 U/L (15-37) Alanine Aminotransferase (ALT/SGPT) 17 U/L (12-78) Alkaline Phosphatase 104 U/L (45-117) Total Creatine Kinase 61 U/L (39-308) Creatine Kinase MB 6.6 ng/ml (0.5-3.6) Creatine Kinase MB Ratio 10.8 (0-3.0) Troponin I 1.950 ng/ml (0-0.045) Pro-B-Type Natriuretic Peptide 2745 pg/ml (0-900) Total Protein 5.0 gm/dl (6.4-8.2) Albumin 2.4 gm/dl (3.4-5.0) Globulin 2.6 gm/dl (2.5-4.0) Albumin/Globulin Ratio 0.9 (0.9-2) Laboratory results reviewed by me Medications Administered Medications (Trade) Dose Ordered Sig/Isai Route Start Time Stop Time Status Last Admin Dose Admin Albuterol/ Ipratropium (Duoneb) 3 ml NOW STAT INH 10/28/16 14:06 10/28/16 14:09 DC 10/28/16 14:43 3 ML Methylprednisolone Sodium Succinate (Solu-Medrol IV) 125 mg NOW STAT IV 10/28/16 14:06 10/28/16 14:09 DC 10/28/16 14:42 125 MG Aspirin (Aspirin Chew) 324 mg NOW STAT PO 10/28/16 15:19 10/28/16 15:20 DC 10/28/16 16:11 324 MG ECG Indication: SOB/dyspnea Rate (beats per minute): 89 Rhythm: normal sinus Findings: Q waves (anteroseptal), other ([address] elevation V2) Comparison ECG Date: V2 is minimally different compared to 10/26/16 ED Course 1355: Prior records reviewed: the patient was admitted on October 26 with neutropenic fever and bronchitis. He was discharged on Doxycycline and treated with Neupogen. He did receive Cefepime and Vancomycin. Prior to leaving, he did develop a rash on his right hip of unknown ideology. 1400: The patient was evaluated in room C10. A complete history and physical exam was performed. 1406: Ordered Solu-Medrol IV 125 mg IV, Duoneb 3 ml INH. 1519: Ordered Aspirin Chew 324 mg PO. 1520: I reevaluated and updated the patient. 1626: I discussed the patient with Dr. Locke - [facility] [place] - he will evaluate the patient for further treatment. 1645: Upon reexamination, the patient was resting comfortably. I discussed the test results and treatment plan with him. He expressed understanding and agreement with the treatment plan. The patient will be evaluated for further management. 1743: I reevaluated the patient and updated him on the CT results. Medical Decision Prior records/ancillary studies reviewed regarding recent admissions and treatment. Triage Nursing notes reviewed and agree them. Additional history obtained from the family. The patient's history was concerning for shortness of breath. Differential diagnosis: Etiologies such as pneumonia, COPD, reactive airway disease, CHF, cardiac ischemia, pulmonary embolism, pneumothorax, musculoskeletal, infections, gastrointestinal, as well as others were entertained. Physical examination: As above. ER treatment provided: DuoNeb Oral aspirin On reassessment the patient felt better. IV cefepime Diagnostic interpretation by me: ECG as above. The patient was not having any chest pain but did have slight ST elevation only in lead V2. The labs revealed unremarkable chemistry panel. The patient's cardiac markers were elevated concerning for ACS. CBC shows an elevated white blood cell count. The patient did recently receive Neupogen. Imaging studies: Chest x-ray and CT scan as above. The patient has elevated cardiac markers but no current chest pain. He had a CT scan performed and this revealed a bronchopneumonia as well as pulmonary emboli. Prior to the imaging and blood work results the patient was evaluated by internal medicine as he was just discharged last evening. After blood work was resulted I did consult with internal medicine. Consultation: A consultation was placed with the hospitalist, Dr. Locke. The case was discussed and diagnostics were reviewed. The patient was evaluated in the ER for further treatment. Anticoagulation to be managed by internal medicine. Medication Reconcilliation Current Medication List: was personally reviewed by me Blood Pressure Screening Patient's blood pressure: Elevated blood pressure Referred to hospitalist. Consults Time Called: 1620 Consulting Physician: Dr. Cornelia YIN hospitalist Returned Call: 1626 (in person) I discussed the patient with Dr. Cornelia YIN hospitalist - he will evaluate the patient for further treatment. Impression Primary Impression: Pulmonary embolism Additional Impressions: ACS (acute coronary syndrome) Pneumonia Critical Care I have personally spent greater than 30 minutes of critical care time in the direct management of this patient. This includes bedside care, interpretation of diagnostic studies, and testing, discussion with consultants, patient, and family members, and other required patient management activities. This 30 minutes is in excess of all separately billable procedures. Scribe Attestation The scribe's documentation has been prepared under my direction and personally reviewed by me in its entirety. I confirm that the note above accurately reflects all work, treatment, procedures, and medical decision making performed by me. Departure Information Dispostion Being Evaluated By Hospitalist Violetta Burger M.D. (PCP) Patient Instructions My [facility] Problem Qualifiers
[2016-10-28 23:11] LABS: CKMB/CK RATIO 11.5 (0-3.0)
[2016-10-28] MEDS ORDERED: NURSING VERBAL MED ORDER ONE (23:15)
[2016-10-28 23:20] VITALS: BP 147/97; PULSE 88; TEMP 36.9; O2SAT 98
[2016-10-28 23:56] VITALS: BP 118/71; PULSE 135; TEMP 36.4; O2SAT 93
[2016-10-29] VITALS (14 sets, daily range): BP systolic 98–166; BP diastolic 57–113; PULSE 63–133; TEMP 36.3–36.9; O2SAT 90–99
[2016-10-29] MEDS ORDERED: METOPROLOL TARTRATE 1 MG/ML VIAL IV STA ×2 (00:08→02:52)
[2016-10-29] MEDS: ZOLPIDEM TARTRATE 5 MG TAB PO PRN (00:35)
[2016-10-29] MEDS: METHYLPREDNISOLONE IV 40 MG in SYRINGE 0 ML IV SCH ×2 (02:02→13:29)
[2016-10-29 02:38] LABS: PARTIAL THROMBOPLASTIN RATIO 1.8
[2016-10-29] MEDS ORDERED: NURSING VERBAL MED ORDER ONE ×2 (02:45→23:45)
[2016-10-29] MEDS ORDERED: HEPARIN IV BOLUS 3,000 UNIT in SYRINGE 0 ML IV STA (03:01)
[2016-10-29] MEDS: HEPARIN 25,000 UNIT/500ML D5W 500 ML IV PRN ×4 (03:46→19:15)
[2016-10-29] MEDS: LEVALBUTEROL 1.25MG/0.5ML NEB INH SCH ×4 (07:10→23:11)
[2016-10-29] MEDS: IPRATROPIUM BROMIDE NEB SOLN 0.02% 2.5 ML VIAL INH SCH ×4 (07:10→23:11)
[2016-10-29] MEDS: OXYCODONE HCL 10 MG TABCR (OXYCONTIN) PO SCH ×2 (07:58→23:41)
[2016-10-29] MEDS: PANTOprazole SOD 40 MG TAB PO SCH ×2 (07:58→23:42)
[2016-10-29] MEDS: DOXYCYCLINE HYCLATE 100 MG CAP PO SCH (07:58)
[2016-10-29] MEDS: BusPIRone 15 MG TAB PO SCH ×2 (07:59→23:41)
[2016-10-29] MEDS: ASPIRIN 81 MG ECTAB PO SCH (07:59)
[2016-10-29] MEDS ORDERED: AMIODARONE 200 MG TAB PO SCH (09:00)
[2016-10-29] MEDS ORDERED: AMIODARONE 200 MG TAB PO ONE (10:28)
[2016-10-29] MEDS: METOPROLOL TARTRATE 1 MG/ML VIAL IV PRN (11:54)
[2016-10-29 13:49] LABS: HEMATOCRIT 29.9 % (42-52); MEAN CELL VOLUME 85.7 fL (80-100); MEAN CORPUSCULAR HEMOGLOBIN 26.4 pg (25-34); MEAN CORPUSCULAR HGB CONC 30.8 g/dl (32-36); MEAN PLATELET VOLUME 9.8 fL (7.4-10.4); PLATELET COUNT 137 K/uL (130-400); RED BLOOD COUNT 3.49 M/uL (4.7-6.1); WHITE BLOOD COUNT 14.01 K/uL (4.8-10.8)
[2016-10-29] MEDS ORDERED: LORAZEPAM 2 MG/ML 1 ML VIAL ONE (13:55)
[2016-10-29] MEDS ORDERED: AMIODARONE IV BOLUS / DRIP IV STA (14:13)
[2016-10-29] MEDS ORDERED: LORAZEPAM 0.5 MG TAB PO PRN (14:15)
[2016-10-29] MEDS ORDERED: LORAZEPAM 2 MG/ML 1 ML VIAL IV PRN (14:15)
[2016-10-29] MEDS ORDERED: LORAZEPAM INJ 1 MG in SYRINGE 0.5 ML IV PRN (14:15)
[2016-10-29] MEDS ORDERED: LORAZEPAM INJ 0.5 MG in SYRINGE 0.75 ML IV PRN (14:15)
[2016-10-29] MEDS: LORAZEPAM 2 MG/ML 1 ML VIAL IV PRN ×3 (14:17→23:30)
[2016-10-29 14:25] LABS: COMPLETE YES; DOHLE BODIES 1+; ECHINOCYTES 1+; NEUTROPHILS % 97.4 %
[2016-10-29] MEDS ORDERED: AMIODARONE / D5W 100 ML IV SCH (14:30)
[2016-10-29] MEDS ORDERED: AMIODARONE / D5W 200 ML IV SCH (14:40)
[2016-10-29] MEDS: ALBUT/IPRATROP 3MG/0.5MG NEB 3 ML VIAL INH PRN (16:39)
[2016-10-29 16:56] LABS: ARTERIAL BLD GAS O2 SATURATION 95.8 % (90-95); ARTERIAL BLOOD GAS BASE EXCESS -4.1 mEq/L (-9-1.8); ARTERIAL BLOOD GAS HCO3 20 mmol/L (19-24); ARTERIAL BLOOD GAS PO2 90 mm/Hg (80-95)
--- NOTE | 2016-10-29 17:05 | Cardiology Consultation ---
Cardiology Consultation Date of Consultation: Oct 29, 2016. Attending Physician: Dr. Riddle Pt evaluation today including: conversation w/ patient, conversation w/ family , physical exam, chart review, lab review, review of studies, conversation w/ hospice consultant, conversation w/ attending History of Present Illness This is a PGY1 resident cardiology consult note. Please see attending's separate consult for official details and recommendations. 71yo male presented to the ED yesterday (07Sep) with SOB overnight following his hospital d/c the prior day. He has multiple medical issues, including stage 4 lung cancer (ongoing chemotherapy) with metastatic disease to liver and brain, afib with RVR, COPD, acute on chronic respiratory failure, and prior PA with RCA stenting. Cardiology was consulted due to episodes of afib with RVR during this admission. At present, pt is acutely confused (see a/p for acute plan) but did briefly say that he didn't have any acute pain. Most of hx was from his medical records, though his (present in the room) provided clarifying details. She states his prior episodes of afib were only noticed due to sx of nausea. She doesn't think he's had afib for over a year and that she would check his heart rate with a home pulse-oximeter during nausea episodes , not noticing a rapid heart rate. No other acute information available. - Inpatient stay 05-06Sep for neutropenic fever with bronchitis, neupogen rescue. Discharged on doxycycline and tapering steroids. - Inpatient stay 29-30Aug for colitis (CT suggesting transverse colon, splenic flexure and descending colon) and symptomatic anemia. Past Medical/Surgical History PMH: - Colitis (Sep 2016 admit) - Stage 4 lung cancer, ongoing chemotherapy (last late Sep 2016) - Admit 05Sep for neutropenic fever and bronchitis - Anemia of chronic disease - Atrial fibrillation with RVR - Basal cell carcinoma of skin - COPD (chronic obstructive pulmonary disease) - Diverticulosis - Heart disease - Hyperlipidemia - Hypertension - Hypomagnesemia - Kidney stones - Myocardial infarction (inferior wall) - Nephrolithiasis - Pneumonia - Primary cancer of left upper lobe of lung (dx 2013) - Brain cancer (metastatasis) & enlarging right posterior cerebellar lesion - chemotherapy August 2016 - Liver metastases - Pulmonary embolism - Right upper lobe - Sepsis - Shortness of breath / chronic respiratory failure PSH: - Left upper lobectomy June 2013 - Hernia repair - Angioplasty (RCA stenting in 2005 & 2006) - Appendectomy - Lithotripsy Family History FH: CAD (coronary artery disease) FATHER (passed at age 59 from PA) MOTHER Social History Smoking Status: Former Smoker History of Alcohol Use: No Review of Systems Unable to obtain due to AMS. Allergies Coded Allergies: No Known Allergies (Unverified , 10/19/16) Medications Current Inpatient Medications Medications (Trade) Dose Ordered Sig/Isai Route Start Time Stop Time Status Last Admin Dose Admin Ioversol (Optiray 320) 111 ml UD PRN IV 10/28/16 14:15 11/01/16 14:14 Acetaminophen (Tylenol Tab) 650 mg Q4H PRN PO 10/28/16 14:45 11/27/16 14:44 10/29/16 00:35 650 MG Al Hydrox/Mg Hydrox/Simethicone (Maalox Max Susp) 15 ml Q4H PRN PO 10/28/16 14:45 11/27/16 14:44 10/28/16 23:39 15 ML Ondansetron HCl (Zofran Inj) 4 mg Q6H PRN IV 10/28/16 14:45 11/27/16 14:44 Polyethylene (Miralax Powder Packet) 17 gm DAILY PRN PO 10/28/16 14:45 11/27/16 14:44 Albuterol/ Ipratropium (Duoneb) 3 ml Q2R PRN INH 10/28/16 16:30 11/27/16 16:29 10/29/16 16:39 3 ML Methylprednisolone Sodium Succinate 40 mg/Syringe 0.64 ml @ 1.5 mls/min Q12H IV 10/29/16 02:00 11/28/16 01:59 10/29/16 13:29 1.5 MLS/MIN Doxycycline Hyclate (Vibramycin Cap) 100 mg BID PO 10/28/16 21:00 11/04/16 20:59 10/29/16 07:58 100 MG Albuterol (Ventolin Hfa Inhaler) 2 puffs QID PRN INH 10/28/16 18:30 11/27/16 18:29 Alfuzosin HCl (Uroxatral Tab) 10 mg QPM PO 10/28/16 21:00 11/27/16 20:59 10/28/16 21:06 10 MG Aspirin (Ecotrin Tab) 81 mg QAM PO 10/29/16 09:00 11/28/16 08:59 10/29/16 07:59 81 MG Budesonide/ Formoterol Fumarate (Symbicort 160/ 4.5 Inh) 2 puffs HS INH 10/28/16 21:00 11/27/16 20:59 10/28/16 21:09 2 PUFFS Buspirone HCl (BusPAR TAB) 15 mg BID PO 10/28/16 21:00 11/27/16 20:59 10/29/16 07:59 15 MG Fluticasone Propionate (Flonase Nasal [place]) 2 sprays DAILY PRN ANGELA 10/28/16 18:30 11/27/16 18:29 Ipratropium [place] (Atrovent 0.02% 0.5MG/2.5ML Neb) 0.5 mg TIDR INH 10/28/16 21:00 11/27/16 20:59 10/29/16 14:12 0.5 MG Levalbuterol (Xopenex 1.25MG/ 0.5ML Neb) 1.25 mg TIDR INH 10/28/16 21:00 11/27/16 20:59 10/29/16 14:12 1.25 MG Nitroglycerin (Nitrostat Tab) 0.4 mg UD PRN UT 10/28/16 18:30 11/27/16 18:29 Ondansetron HCl (Zofran Tab) 8 mg Q6H PRN PO 10/28/16 18:30 11/27/16 18:29 10/28/16 21:07 8 MG Tiotropium [place] (Spiriva Handihaler Inhaler) 1 puff QPM INH 10/28/16 21:00 11/27/16 20:59 10/28/16 21:09 1 PUFF Pantoprazole Sodium (Protonix Tab) 40 mg BID PO 10/28/16 21:00 11/27/16 20:59 10/29/16 07:58 40 MG Morphine Sulfate (MoRPHine SULFATE INJ) 2 mg Q4H PRN IV 10/28/16 18:30 11/11/16 18:29 10/28/16 23:41 2 MG Morphine Sulfate (MoRPHine SULFATE INJ) 4 mg Q4H PRN IV 10/28/16 18:30 11/11/16 18:29 Oxycodone HCl (Roxicodone Immediate Rel Tab) 10 mg Q6 PRN PO 10/28/16 18:30 11/11/16 18:29 Heparin Sodium/ Dextrose 500 ml @ 23 mls/hr [id number] PRN IV 10/28/16 18:45 11/27/16 18:44 10/29/16 16:52 23 MLS/HR Oxycodone HCl (Oxycontin Tab) 10 mg Q12 PO 10/28/16 21:00 11/11/16 20:59 10/29/16 07:58 10 MG Zolpidem Tartrate (Ambien Tab) 5 mg HSZ PRN PO 10/28/16 23:45 11/27/16 23:44 10/29/16 00:35 5 MG Heparin Sodium (Porcine) (Heparin 100 Unit/ml 5ml Flush) 5 ml PRN PRN IV 10/29/16 00:30 11/28/16 00:29 Metoprolol Tartrate (Lopressor Iv) 5 mg Q4H PRN IV 10/29/16 10:30 11/28/16 10:29 10/29/16 11:54 5 MG Lorazepam (Ativan Inj) 1 mg Q4H PRN IV 10/29/16 14:15 11/28/16 14:14 10/29/16 14:17 1 MG Lorazepam (Ativan Inj) 0.5 mg Q4H PRN IV 10/29/16 14:15 11/28/16 14:14 Lorazepam (Ativan Tab) 0.5 mg Q6 PRN PO 10/29/16 14:15 11/28/16 14:14 Lorazepam 0.5 mg/ Syringe 1 ml @ 1 mls/min Q4H PRN IV 10/29/16 14:15 11/28/16 14:14 Lorazepam 1 mg/ Syringe 1 ml @ 1 mls/min Q4H PRN IV 10/29/16 14:15 11/28/16 14:14 Amiodarone HCL/ Dextrose 200 ml @ 33.3 mls/hr Q6H1M IV 10/29/16 14:40 10/29/16 20:40 10/29/16 15:06 33.3 MLS/HR Amiodarone HCL/ Dextrose 200 ml @ 16.7 mls/hr [id number] IV 10/29/16 20:41 11/28/16 20:40 Furosemide 40 mg/ Syringe 4 ml @ 4 mls/min ONE STAT IV 10/29/16 16:22 10/29/16 16:23 UNV Physical Exam Vital Signs Past 12 Hours Date Time Temp Pulse Resp B/P (MAP) Pulse Ox O2 Delivery O2 Flow Rate FiO2 10/29/16 16:39 102 18 96 Nasal Cannula 4.0 10/29/16 15:22 36.3 109 20 112/67 (82) 90 Nasal Cannula 2.0 10/29/16 14:14 63 20 95 Nasal Cannula 4.0 10/29/16 12:00 Nasal Cannula 3.0 10/29/16 11:54 93 132/77 10/29/16 11:33 36.9 75 20 105/64 (78) 96 Nasal Cannula 3.0 10/29/16 08:00 Nasal Cannula 3.0 10/29/16 07:41 36.8 93 20 132/77 (95) 95 Nasal Cannula 3.0 10/29/16 07:10 74 20 98 Nasal Cannula 3.0 Lungs: Auscultation: deminished air movement, decreased breath sounds, expiratory wheezing, wet rales/crackles Cardiovascular: Heart Auscultation: tachycardia, irregular rate rhythm Peripheral Pulses: Carotid Pulse: normal on the left, normal on the right Radial Pulse: normal on the left, normal on the right Dorsalis Pedis Pulse: normal on the left, normal on the right Knows name and 's name, his age. Does not know his children's names, date, location, or why he's here. Moving about the bed, grabbing at real and imaginary objects, mildly agitated. Data Laboratory Results: Last 24 Hours Test 10/28/16 18:59 10/28/16 22:29 10/29/16 01:59 10/29/16 06:25 Activated Partial Thromboplast Time 23.6 SECONDS 46.1 SECONDS Partial Thromboplastin Ratio 0.9 1.8 Total Creatine Kinase 61 U/L 61 U/L Creatine Kinase MB 7.0 ng/ml 7.3 ng/ml Creatine Kinase MB Ratio 11.5 12.0 Troponin I 2.180 ng/ml 2.220 ng/ml Magnesium Level 2.0 mg/dl Test 10/29/16 09:36 10/29/16 10:53 10/29/16 13:25 10/29/16 16:36 Activated Partial Thromboplast Time 131.2 SECONDS 78.7 SECONDS Partial Thromboplastin Ratio 5.0 3.0 White Blood Count 14.01 K/uL Red Blood Count 3.49 M/uL Hemoglobin 9.2 g/dL Hematocrit 29.9 % Mean Corpuscular Volume 85.7 fL Mean Corpuscular Hemoglobin 26.4 pg Mean Corpuscular Hemoglobin Concent 30.8 g/dl Platelet Count 137 K/uL Mean Platelet Volume 9.8 fL RDW Standard Deviation 57.9 fL RDW Coefficient of Variation 18.6 % Neutrophils % (Manual) 97.4 % Lymphocytes % (Manual) 0.0 % Monocytes % (Manual) 2.6 % Neutrophils # (Manual) 13.65 K/uL Total Absolute Neutrophils 13.65 K/uL Total Absolute Lymphocytes 0.00 K/uL Monocytes # (Manual) 0.36 K/uL Dohle Bodies 1+ Echinocytes 1+ Troponin I 1.920 ng/ml EKSep at 1354: NSR rate 89, poor R wave progression 07Sep at 2357: Afib with RVR rate 146 08Sep at 0707: Sinus rate 86, prolonged QT 08Sep at 1001: Afib with RVR rate [address] ANGIOGRAPHY OF THE CHEST, PULMONARY EMBOLUS PROTOCOL 1. Several small segmental pulmonary emboli within the right upper lobe. 2. Stable postoperative findings within the left hemithorax since prior exam of July 15, 2016. 3. Scattered irregular airspace opacities throughout both lungs which suggest an infectious process such as bronchiolitis or bronchopneumonia. 4. Small left and trace right pleural effusions. 07Sep CHEST ONE VIEW PORTABLE 1. Stable findings of the left upper lobe without acute cardiopulmonary process. 2. Chronic blunting of left costophrenic angle suggests small pleural effusion. 07Sep RIGHT HIP CT 1. Severe osteoarthritis within the right hip, unchanged. 2. No fracture or dislocation within the right hip. 3. Trace hip effusion and mild soft tissue thickening at the right hip remains unchanged. No associated erosions to suggest an osteomyelitis/septic arthritis. This could be due to the long-standing degenerative change. [id number] TTE LV normal size. Moderate concentric left ventricular hypertrophy. Focal thickening of basal septum without evidence of LV outflow obstruction. EF 60-65 %. No pericardial effusion. Borderline left atrial enlargement. Right atrial size is normal. Assessment & Plan 71 yo male with multiple medical issues is noted to have periods of afib with RVR during this hospitalization. Pt has hx of same, previously controlled on amiodarone. Has received some single-doses of metoprolol here as well. There are multiple medical stressors at present, including ongoing metastatic cancer, respiratory failure, and new subsegmental PE's. - Discussed the above with cardiology attending at bedside. Initial thought is to continue amiodarone and address his other medical co-morbidities as stressors acutely. TnI elevation may be due to demand ischemia, PE, CVA, or NSTEMI. Echo results pending. - At time of consult, pt was noted to be acutely confused (unaware of date, location, or why he was here). Hospitalist was emergently contacted, at bedside a couple minutes later, and is presently addressing this acute AMS. Please see attending's official consult for further details and official recommendations. SUDARSHAN, PGY1 Family Medicine, Cardiology Service CARDIOLOGY ATTENDING ADDENDUM: SEE MY NOTE. Resident Tracking Resident Involvement: Resident Care Provided Care Provided: Adult Hospital Medicine (cardiology consult)
[2016-10-29 17:12] LABS: ALLEN TEST POS (POS); ARTERIAL BLOOD GAS pH 7.42 (7.35-7.45)
[2016-10-29 17:22] LABS: O2 ADMINISTRATION 4.5L
--- NOTE | 2016-10-29 17:23 | Progress Note ---
Subjective Date of Service: Oct 29, 2016. Subjective Patient had a nahun day today. He acute exacerbation of respiratory failure in the afternoon and evening were was associated with confusion this was followed by receiving IV Ativan for agitation. The patient did not recognize his family he was rhonchorous easily audible across the room. He was emergently given Lasix and albuterol nebulizer he had no focal neurological deficits and improved with persistent assurance that he was wearing his oxygen. Currently pending studies or an ABG chest x-ray and perhaps a head CT given his history of intracranial metastasis while being on anticoagulation next His family is at the bedside they're distraught but understanding the severity of the situation he remains a full code Problem List Medical Problems: (1) ACS (acute coronary syndrome) Status: Acute (2) Anemia Status: Acute (3) Bronchitis Status: Acute (4) Colitis Status: Acute (5) Colitis Status: Acute (6) Cough Status: Acute (7) Fever Status: Acute (8) Fever Status: Acute (9) Fever Status: Acute (10) Hypomagnesemia Status: Acute (11) Hypotension Status: Acute (12) Immunocompromised Status: Acute (13) Leg edema, right Status: Acute (14) Metastatic cancer to brain Status: Acute (15) Metastatic lung cancer (metastasis from lung to other site) Status: Acute (16) Nausea and vomiting Status: Acute (17) Near syncope Status: Acute (18) Neutropenia Status: Acute (19) Pneumonitis Status: Acute (20) Vomiting Status: Acute Review of Systems Constitutional: + weakness, + fatigue, No fever, No chills Respiratory: + cough, + wheezing, + shortness of breath, + dyspnea on exertion , + dyspnea at rest Cardiac: + orthopnea, No chest pain, No PND, No edema Abdomen: No pain, No nausea, No vomiting, No diarrhea Neurologic: + memory loss, + weakness Objective Vital Signs Date Time Temp Pulse Resp B/P (MAP) Pulse Ox O2 Delivery O2 Flow Rate FiO2 10/29/16 07:10 74 20 98 Nasal Cannula 3.0 10/29/16 04:00 96 Nasal Cannula 3.0 10/29/16 02:57 128 129/84 10/29/16 02:45 36.7 131 24 141/85 (103) 96 Nasal Cannula 3.0 10/29/16 01:54 116 22 112/82 (92) 97 Nasal Cannula 3.0 10/29/16 00:26 138 118/82 10/29/16 00:01 96 Nasal Cannula 3.0 10/28/16 23:56 36.4 135 28 118/71 (87) 93 Nasal Cannula 3.0 10/28/16 23:20 36.9 88 18 147/97 (114) 98 Nasal Cannula 3.0 10/28/16 21:20 96 24 96 Nasal Cannula 3.0 10/28/16 20:00 98 Nasal Cannula 3.0 10/28/16 18:15 37.3 91 24 155/86 (109) 98 Nasal Cannula 3.0 10/28/16 17:56 80 22 128/76 99 Nasal Cannula 3.0 10/28/16 17:55 89 22 133/78 99 Nasal Cannula 3.0 10/28/16 16:45 99 Nasal Cannula 3.0 10/28/16 16:01 138/88 10/28/16 15:46 89 22 99 10/28/16 15:26 152/94 10/28/16 15:16 85 19 98 10/28/16 15:01 152/94 10/28/16 14:46 86 20 99 10/28/16 14:30 99 Nasal Cannula 3.0 10/28/16 14:25 164/105 10/28/16 14:16 83 99 10/28/16 13:54 99 Nasal Cannula 3.0 10/28/16 13:54 Nasal Cannula 3.0 10/28/16 13:51 90 10/28/16 13:49 37.7 89 20 149/99 99 Nasal Cannula 3.0 10/28/16 13:49 149/99 Physical Exam General Appearance: + severe distress, + thin Eyes: PERRL, EOMI ENT: hearing grossly normal, pharynx normal Respiratory/Chest: + respiratory distress, + decreased breath sounds, + accessory muscle use, + rhonchi Cardiovascular: + tachycardia, + systolic murmur Abdomen: normal bowel sounds, non tender, soft Extremities: normal inspection, no calf tenderness Neurologic/Psychiatric: + depressed affect, + disoriented Laboratory Results Last 24 Hours Test 10/28/16 14:24 10/28/16 14:25 10/28/16 17:00 10/28/16 18:59 Bedside Lactic Acid Venous 0.90 mmol/L White Blood Count 23.50 K/uL Red Blood Count 3.62 M/uL Hemoglobin 9.8 g/dL Hematocrit 30.8 % Mean Corpuscular Volume 85.1 fL Mean Corpuscular Hemoglobin 27.1 pg Mean Corpuscular Hemoglobin Concent 31.8 g/dl Platelet Count 147 K/uL Mean Platelet Volume 10.4 fL RDW Standard Deviation 58.1 fL RDW Coefficient of Variation 18.5 % Neutrophils % (Manual) 93.1 % Lymphocytes % (Manual) 2.6 % Monocytes % (Manual) 4.3 % Neutrophils # (Manual) 21.88 K/uL Total Absolute Neutrophils 21.88 K/uL Lymphocytes # (Manual) 0.61 K/uL Total Absolute Lymphocytes 0.61 K/uL Monocytes # (Manual) 1.01 K/uL Toxic Granulation 1+ Dohle Bodies 1+ Polychromasia 1+ Echinocytes 1+ Prothrombin Time 11.0 SECONDS Prothromb Time International Ratio 1.0 Activated Partial Thromboplast Time 60.6 SECONDS 23.6 SECONDS Partial Thromboplastin Ratio 2.3 0.9 Sodium Level 140 mmol/L Potassium Level 4.6 mmol/L Chloride Level 110 mmol/L Carbon Dioxide Level 22 mmol/L Anion Gap 8.0 mmol/L Blood Urea Nitrogen 18 mg/dl Creatinine 0.92 mg/dl Est Creatinine Clear Calc Drug Dose 69.6 ml/min Estimated GFR () 98.0 Estimated GFR (Non- 84.6 BUN/Creatinine Ratio 19.6 Random Glucose 94 mg/dl Calcium Level 8.2 mg/dl Magnesium Level 1.7 mg/dl Total Bilirubin 0.4 mg/dl Aspartate Amino Transf (AST/SGOT) 21 U/L Alanine Aminotransferase (ALT/SGPT) 17 U/L Alkaline Phosphatase 104 U/L Total Creatine Kinase 61 U/L Creatine Kinase MB 6.6 ng/ml Creatine Kinase MB Ratio 10.8 Troponin I 1.950 ng/ml Pro-B-Type Natriuretic Peptide 2745 pg/ml Total Protein 5.0 gm/dl Albumin 2.4 gm/dl Globulin 2.6 gm/dl Albumin/Globulin Ratio 0.9 Urine Color YELLOW Urine Appearance CLEAR Urine pH 5.5 Urine Specific [place] 1.023 Urine Protein 1+ Urine Glucose (UA) NEG Urine Ketones NEG Urine Occult Blood NEG Urine Nitrite NEG Urine Bilirubin NEG Urine Urobilinogen NEG Urine Leukocyte Esterase NEG Urine WBC (Auto) 0 /hpf Urine RBC (Auto) 0-4 /hpf Urine Hyaline Casts (Auto) 1-5 /lpf Urine Epithelial Cells (Auto) 0-5 /lpf Urine Bacteria (Auto) NEG Test 10/28/16 22:29 10/29/16 01:59 10/29/16 06:25 Total Creatine Kinase 61 U/L 61 U/L Creatine Kinase MB 7.0 ng/ml 7.3 ng/ml Creatine Kinase MB Ratio 11.5 12.0 Troponin I 2.180 ng/ml 2.220 ng/ml Activated Partial Thromboplast Time 46.1 SECONDS Partial Thromboplastin Ratio 1.8 Magnesium Level 2.0 mg/dl Assessment and Plan 71-year-old male with acute on chronic respiratory failure likely exacerbated by acute pulmonary embolism and previous bronchitis Acute event of the afternoon of 10/29 is likely multifactorial, likely impacted by Ativan his baseline COPD possibly aspiration mucous plugging that, the fact that he improved with oxygen and nebulizer once with to this discussion rather than an alternative. His troponins are mildly elevated these seem to continue to be consistent with RV strain from his PE and echocardiogram is pending Atrial fib RVR attempts to give the patient additional dose of oral amiodarone and IV metoprolol had not been effective to reduce his heart rate subsequently his route jumper was contacted and an amiodarone drip was started Acute pulmonary embolism patient heparin drip cautiously given his brain metastasis long-term anticoagulation was discussed with hematology oncology and they're leaning towards Lovenox Acute on chronic respiratory failure, COPD, bronchitis, IV Solu-Medrol and nebulized albuterol and ipratropium and oral doxycycline is are no defined infiltrate seen on x-ray Chronic pain, arthritic, OxyContin every 12 with when necessary breakthrough oxycodone with morphine additional, concern for interaction of opiates with benzodiazepines stage 4 lung cancer - followed by Dr. Ritter & Dr. Salvador (rad onc). hypomagnesemia - hypokalemia -additional magnesium was required we'll check recheck in the morning RLE wounds - Wound care consultation will be reengaged depression -remeron 15mg once daily at HS.
--- NOTE | 2016-10-29 17:43 | DIAGNOSTIC IMAGING REPORT ---
CHEST ONE VIEW PORTABLE HISTORY: Short of breath. COMPARISON: Chest x-ray and chest CTA 10/28/2016. FINDINGS: Left suprahilar postoperative changes/scarring persists. Left subclavian Port-A-Cath terminates at the superior cavoatrial junction. This is also unchanged. No pneumothorax. Trace bilateral pleural effusions. The heart is stable in size. Predominant right-sided interstitial and vascular thickening which has slightly progressed. IMPRESSION: 1. Predominantly right-sided interstitial and vascular thickening. This favors asymmetric mild pulmonary edema. An atypical pneumonitis could also a similar appearance. 2. Trace bilateral pleural fusions persist. 3. No change in the left lung postoperative changes. Electronically signed by: Eduardo Pardo M.D. 10/29/2016 5:42 PM Dictated Date/Time: 10/29/2016 5:39 PM
[2016-10-29] MEDS ORDERED: FUROSEMIDE INJ 40 MG in SYRINGE 0 ML IV ONE (17:45)
[2016-10-29] MEDS ORDERED: HALOPERIDOL LACTATE 5 MG/ML 1 ML VIAL IV STA (18:24)
[2016-10-29] MEDS ORDERED: HALOPERIDOL LACTATE 5 MG/ML 1 ML VIAL ONE ×2 (18:25→23:05)
[2016-10-29 18:32] LABS: PARTIAL THROMBOPLASTIN RATIO 3.2
[2016-10-29] MEDS ORDERED: VANCOMYCIN CONSULT ACTIVE PRN (18:45)
--- NOTE | 2016-10-29 18:53 | DIAGNOSTIC IMAGING REPORT ---
HEAD WITHOUT CONTRAST (CT) CT DOSE: 1600.80 mGycm HISTORY: eval for hemorrhage TECHNIQUE: Multiaxial CT images of the head were performed without the use of intravenous contrast. A dose lowering technique was utilized adhering to the principles of ALARA. Comparison: None. Findings: The paranasal sinuses and mastoid air cells are clear. The calvarium and skull base are intact. The ventricles and sulci are within normal limits. There is no mass, hematoma, midline shift, or acute infarct. Impression: No acute intracranial abnormality. The above report was generated using voice recognition software. It may contain grammatical, syntax or spelling errors. Electronically signed by: Nicolas Mora M.D. 10/29/2016 6:52 PM Dictated Date/Time: 10/29/2016 6:51 PM
--- NOTE | 2016-10-29 18:59 | CARDIOLOGY CONSULTATION ---
DATE OF CONSULTATION: 10/29/2016 TIME: 17:44 p.m. PRIMARY LINE INSTALLER REPAIRER: Dr. Corrigan. CONSULTING PHYSICIAN: Dr. Locke. REASON FOR CONSULTATION: Atrial fibrillation with rapid ventricular response. HISTORY OF PRESENT ILLNESS: History is obtained by talking with the patient's family members at the bedside, more specifically his son, daughter, and . His provided most of the history. Other history was obtained by reviewing records as well as discussing with Dr. Locke. History was unobtainable from the patient himself as he is very confused currently. In regards to his cardiac history, he is followed with Dr. Corrigan. He had a myocardial infarction in 2005 with angioplasty and PCI of RCA in [place] and a repeat cardiac catheterization in 2006 with angioplasty and PCI of RCA at [facility] in [place]. He follows with Dr. Corrigan with recurrent paroxysmal atrial fibrillation and has been on antiarrhythmic therapy in the form of amiodarone. He apparently was on sotalol in the past as well. His other pertinent medical history is pulmonary embolism, COPD, and metastatic lung cancer including brain metastases. He was admitted in September with colitis and anemia and once again earlier this month of October with neutropenic fever and bronchitis. He went home on the 27 October and apparently became more short of breath overnight on the and continued to feel so throughout the next day. He had tried inhalers with no improvement and there was no reported fever. There is no reported chest pain or palpitations, but once again a true review of systems is not obtainable due to the patient's mental status. In the past, he apparently felt nausea with atrial fibrillation and it is not clear if he was experiencing any significant nausea, but once he presented to [facility], he was found to have paroxysmal atrial fibrillation with rapid ventricular response. His initial ECG demonstrated sinus rhythm on 10/28/2016 at 13:54. Repeat ECG overnight demonstrated atrial fibrillation with a repeat ECG this morning demonstrating sinus rhythm and then once again later this morning, atrial fibrillation at 143 beats per minute, performed at 10:01 a.m. Telemetry also demonstrated that he is currently in atrial fibrillation. He was started on amiodarone drip by the primary hospitalist service. While at the bedside, his had mentioned that his mental status was at baseline earlier today, reading a newspaper and having conversation. She states he is not typically confused, but over the past 1-2 hours, has become progressively confused. He did not participate in any meaningful conversation while in the room, but kept trying to get out of bed. REVIEW OF SYSTEMS: Unobtainable due to the patient's mental status. PAST MEDICAL HISTORY: 1. Paroxysmal atrial fibrillation, on antiarrhythmic therapy. 2. COPD. 3. Coronary artery disease, status post right coronary artery percutaneous coronary intervention in 2005 and 2006. 4. Dyslipidemia. 5. Hypertension. 6. Nephrolithiasis. 7. Metastatic lung cancer with brain metastases with chemotherapy, most recently in September of 2016. 8. Prior myocardial infarction. 9. Hernia repair. 10. Appendectomy. 11. Status post lobectomy in 2013. 12. Recent colitis. 13. Anemia. 14. Neutropenic fever. ALLERGIES: No known drug allergies. CURRENT MEDICATIONS: Include amiodarone drip, Ativan 1 mg IV given at 14:17 p.m., heparin drip per protocol, methylprednisolone 40 mg IV q. 12 hours, metoprolol tartrate 5 mg IV p.r.n. given at 11:54 a.m., oxycodone, Protonix 40 mg p.o. b.i.d., Spiriva 1 puff q.p.m. and BuSpar 15 mg p.o. b.i.d. HOME MEDICATIONS: Include amiodarone 200 mg daily, aspirin 81 mg daily, doxycycline 100 mg p.o. b.i.d., Prilosec 20 mg b.i.d., oxycodone 10 mg p.o. q. 12 hours, and prednisone 10 mg. SOCIAL HISTORY: Quit smoking in the past. He quit consuming alcohol in 2014 after approximately 2-4 beers per day for approximately 50 years. He lives at home with his . His and son, Sourav, daughter, Sabi, are all present at the bedside. FAMILY HISTORY: Father either from myocardial infarction versus AAA repair according to history. Mother at the age of 88 with sepsis. PHYSICAL EXAMINATION: VITAL SIGNS: Temperature 36.3 degrees, heart rate 102 beats per minute, respiratory rate 18, blood pressure 112/67 mmHg, and oxygen saturation 96% on 4 liters per nasal cannula. Weight 62.4 kg. GENERAL: He appears restless. He is alert and oriented to self only. He did not know the names of his children standing at the bedside. He did not know the place. HEENT: Anicteric sclerae. NECK: Difficult to assess JVD as he is not remaining still and also appears to be with labored breathing. CARDIAC EXAM: No ventricular heave. PMI is not palpable. Irregularly irregular. There were no audible murmurs, rubs or gallops. LUNGS: Coarse breath sounds bilaterally with some expiratory wheezing. ABDOMEN: Soft, nontender, and nondistended. No bruits noted. EXTREMITIES: Trace to 1+ bilateral lower extremity edema. No cyanosis. 1+ radial pulses bilaterally. 1+ dorsalis pedis pulse bilaterally. No palpable cords. PSYCHIATRIC: He was confused. LABORATORY DATA: WBC 14.01, hemoglobin 9.2, and platelets 137. Sodium 140, potassium 4.6, BUN 18, and creatinine 0.92. Initial troponin 1.95. ProBNP 2745. Albumin 2.4. AST 21 and ALT 17. Peak troponin 2.22 and since trending downward. Magnesium 1.7, repeated with a level of 2. PTT 78.7. CT scan on 10/28/2016: Several small segmental pulmonary emboli within the right upper lobe. Scattered irregular airspace opacities throughout both lungs, suggesting infectious process such as bronchiolitis or bronchopneumonia as per radiology. Small left and trace right pleural effusions. ASSESSMENT AND PLAN: 1. Atrial fibrillation with rapid ventricular response: He has a history of paroxysmal atrial fibrillation and is demonstrating such during this hospitalization. This is likely due to the fact that he has been having several other acute issues with acute respiratory issues currently and acute pulmonary emboli. He has been started on amiodarone drip, which can be continued for now. Hopefully his other acute issues improve and with this hopefully has less atrial fibrillation burden. He is currently on anticoagulation given his acute pulmonary emboli. 2. Respiratory distress: He appears to be in respiratory disress. Stat ABG ordered. Chest x-ray ordered. Dr. Locke notified of change in overall status and he presented to the bedside and will continue to monitor and treat. Lasix 40 mg IV recommended at this time. Monitor renal function with diuretics. It is difficult to know his overall volume status given the fact that he is not lying still very well, but does have some edema and has coarse breath sounds. If there is any subsequent hypotension or worsening renal function, then would consider administering IV fluids if he appears euvolemic following diuretics. 3. Confusion: This appears to be an acute issue since early being evaluated by Dr. Locke. He did receive some IV lorazepam. Etiology uncertain, but stat ABG was ordered. X-ray ordered. We also discussed stat head CT. Dr. Locke stated that he would follow up on ABG and order head CT following a review of other labs and chest x-ray. Dr. Locke was immediately notified of his change in mental status. There is also a concern for intracranial hemorrhage given the fact that he does have reported brain metastases and he is on anticoagulation therapy. Head CT scan pending as per Dr. Locke. 4. Elevated troponins: This could be secondary to pulmonary embolism. It could also be from demand ischemia given his intermittent atrial fibrillation with rapid ventricular response and other acute illnesses. Echocardiogram review is currently pending. He did not report any chest discomfort prior to presentation as per available history. He is currently on a heparin drip due to acute pulmonary embolism. 5. Coronary artery disease, status post percutaneous coronary intervention: Continue antiplatelet therapy if no intracranial hemorrhage or other bleeding. No reported angina prehospital or earlier today before his mental status changes. Echocardiogram pending. 6. Disposition: Mr. Hess was seen today at the request of Dr. Corrigan as he was not available for consultation. Dr. Bai will be covering for Dr. Corrigan over the next [address] Corrigan returns next week. Highly complex medical issues. The patient's care discussed in detail with Dr. Locke, the primary hospitalist service, who will continue to manage his confusion and respiratory issues. Thank for allowing me to participate in care of Mr. Hess. Sincerely, [facility] H[facility]PITALMaya
[2016-10-29] MEDS ORDERED: VANCOMYCIN INJ 1,500 MG in SODIUM CHLORIDE 0.9% 500ML 500 ML IV SCH (19:30)
[2016-10-29] MEDS: CEFEPIME IV 2,000 MG in DEXTROSE 5% 100ML 100 ML IV SCH (19:58)
[2016-10-29] MEDS: FORMOTEROL FUMA NEBULIZER SOLN 20 MCG/2 ML VIAL INH SCH (20:48)
[2016-10-29] MEDS: TIOTROPIUM BROMIDE 5 PUFF/90 MCG INH INH SCH (21:00)
[2016-10-29] MEDS: BUDESONIDE/FORMOTEROL FUMARATE 160/4.5 60 PUFFS/INHALER INH SCH (21:00)
--- NOTE | 2016-10-29 21:02 | ECHOCARDIOGRAM REPORT ---
*NOTICE TO RECEIVING [employer]Y This information is strictly Confidential and protected under [place] law. [place] law prohibits you from making any further disclosure of this information unless further disclosure is expressly permitted by the written consent of the person to whom it pertains or is authorized by law. A general authorization for the release of medical or other information is not sufficient for this purpose. Hospital accepts no responsibility if the information is made available to any other person, INCLUDING THE PATIENT. Interpretation Summary * Name: AMANDA TRIMBLE Study Date: 10/29/2016 08:26 AM BP: 132/77 mmHg * Patient Location: [facility] HR: 93 * : 1945 (M/d/yyyy) Gender: Male Height: 70 in * Age: 71 yrs Ethnicity: CA Weight: 143 lb * Ordering Physician: Tom Locke * Referring Physician: Self, Referred * Performed By: Nica Watters RDCS * * Reason For Study: CHEST PAIN * BSA: 1.8 m2 * -- Conclusions -- * 1. Normal left ventricular size with severely reduced systolic function. EF 20-25%. The basal segments of the inferior, inferolateral, and lateral wall appear hyperdynamic. Basal segments of the septum, anterior septum, and anterior wall appear hypokinetic. Other wall segments appear akinetic. Asymmetric severe hypertrophy of the basal septum and basal anterior septum. * 2. The right ventricular apex is not well visualized but in limited visualization, appears akinetic. * 3. Aortic valve sclerosis mild, without significant aortic valvular stenosis. * 4. There is mild mitral regurgitation. * 5. Trace to small pericardial effusion, without echocardiographic evidence of tamponade physiology. * 6. Technically difficult study, enhanced with IV Definity. * 7. Normal estimated right ventricular systolic pressure. * 8. Compared to prior study on 07/14/2013, LV systolic function is now severely reduced with wall motion abnormalities as described. Pericardial effusion is also new. Procedure Details * A complete two-dimensional transthoracic echocardiogram was performed (2D, M-mode, Doppler and color flow Doppler). * A contrast injection of Definity was performed to improve assessment of LV function. * Contrast was injected into an intravenous site in the central line. * One vial of Definity ultrasound contrast was diluted in normal saline to a total volume of 10 ml. A total of '2' ml of solution was administered during imaging. * Lot # [id number] of Definity utilized for procedure. * Expiration date DEC 08. * The attending nurse who injected the contrast agent was ERIK DORANTES RN. Left Ventricle * Normal left ventricular size with severely reduced systolic function. EF 20-25%. The basal segments of the inferior, inferolateral, and lateral wall appear hyperdynamic. Basal segments of the septum, anterior septum, and anterior wall appear hypokinetic. Other wall segments appear akinetic. Asymmetric severe hypertrophy of the basal septum and basal anterior septum. Right Ventricle * The right ventricle is normal in size and function. * The right ventricular apex is not well visualized but in limited visualization, appears akinetic. * The right ventricular systolic function is normal as assessed by tricuspid annular plane systolic excursion (TAPSE) (normal >1.5 cm). Atria * Borderline left atrial enlargement. * Right atrial size is normal. * There is no evidence of atrial septal defect, but resolution does not allow assessment for a patent foramen ovale. Mitral Valve * There is mild mitral annular calcification. * There is no mitral valve stenosis. * There is mild mitral regurgitation. Tricuspid Valve * The tricuspid valve is not well visualized, but is grossly normal. * There is no tricuspid stenosis. * There is trace tricuspid regurgitation. Aortic Valve * The aortic valve is trileaflet. * Aortic valve sclerosis mild, without significant aortic valvular stenosis. * There is no significant aortic regurgitation. Pulmonic Valve * The pulmonary valve is inadequately visualized, but the Doppler data is adequate for interpretation. * There is no pulmonic valvular stenosis. * Trace pulmonic valvular regurgitation. Great Vessels * The aortic root is normal size. Pericardium/Pleural * Trace to small pericardial effusion. Great Vessels * Normal inferior vena cava size and collapsability with sniff indicates a normal right atrial pressure of 3 mmHg MMode 2D Measurements and Calculations IVSd 1.7 cm LVIDd 4.0 cm LVPWd 1.3 cm IVS/LVPW 1.3 EDV(Teich) 71.8 ml EDV(cubed) 66.0 ml LV mass(C)d 237.0 grams LV mass(C)dI 131.0 grams/m\S\2 Ao root diam 3.1 cm Ao root area 7.3 cm\S\2 LA dimension 4.4 cm LA/Ao 1.5 LVAd ap4 28.2 cm\S\2 LVLd ap4 7.2 cm EDV(MOD-sp4) 88.3 ml EDV(sp4-el) 93.4 ml LVAs ap4 25.4 cm\S\2 LVLs ap4 7.3 cm ESV(MOD-sp4) 72.8 ml ESV(sp4-el) 75.6 ml EF(MOD-sp4) 17.6 % EF(sp4-el) 19.1 % LVAd ap2 32.4 cm\S\2 LVLd ap2 7.4 cm EDV(MOD-sp2) 114.3 ml EDV(sp2-el) 120.4 ml LVAs ap2 28.0 cm\S\2 LVLs ap2 7.2 cm ESV(MOD-sp2) 88.7 ml ESV(sp2-el) 92.7 ml EF(MOD-sp2) 22.3 % EF(sp2-el) 23.0 % LVLd %diff 2.1 % EDV(MOD-bp) 101.9 ml LVLs %diff 4.2 % ESV(MOD-bp) 73.2 ml EF(MOD-bp) 28.2 % SV(MOD-sp4) 15.5 ml SI(MOD-sp4) 8.6 ml/m\S\2 SV(MOD-sp2) 25.5 ml SI(MOD-sp2) 14.1 ml/m\S\2 SV(MOD-bp) 28.7 ml SI(MOD-bp) 15.9 ml/m\S\2 SV(sp4-el) 17.8 ml SI(sp4-el) 9.9 ml/m\S\2 SV(sp2-el) 27.6 ml SI(sp2-el) 15.3 ml/m\S\2 Doppler Measurements and Calculations MV E max alhaji 58.2 cm/sec Ao V2 max 124.1 cm/sec Ao max PG 6.2 mmHg Ao max PG (full) 1.3 mmHg LV V1 max PG 4.8 mmHg LV V1 max 109.8 cm/sec TR max alhaji 240.4 cm/sec RVSP(TR) 26.2 mmHg RAP systole 3.0 mmHg
[2016-10-29] MEDS: AMIODARONE / D5W 200 ML IV SCH (22:16)
[2016-10-29] MEDS: HALOPERIDOL LACTATE 5 MG/ML 1 ML VIAL IV SCH ×2 (22:30→23:00)
[2016-10-29] MEDS ORDERED: FUROSEMIDE 10 MG/ML 10 ML VIAL ONE (23:27)
[2016-10-29] MEDS: ALFUZosin TAB 10 MG TAB PO SCH (23:42)
[2016-10-30] VITALS (17 sets, daily range): BP systolic 95–147; BP diastolic 60–85; PULSE 71–118; TEMP 36.4–36.9; O2SAT 92–100
[2016-10-30 00:02] LABS: IPAP 10; ISTAT ALLEN TEST Pass; ISTAT ARTERIAL BLOOD GAS HCO3 20 meq/L (19-24); ISTAT ARTERIAL BLOOD GAS PCO2 38 mmHg (35-46); ISTAT ARTERIAL BLOOD GAS PO2 95 mmHg (80-95); ISTAT ARTERIAL BLOOD GAS pH 7.33 (7.35-7.45); ISTAT CARBON DIOXIDE 21 mEq/l (24-31); ISTAT DELIVERY SYSTEM BIPAP; ISTAT FIO2 0 %; ISTAT RATE 24; ISTAT SITE R Radial
[2016-10-30] MEDS ORDERED: FUROSEMIDE 40 MG/4 ML VIAL IV STA (00:15)
[2016-10-30] MEDS ORDERED: LORAZEPAM 2 MG/ML 1 ML VIAL IV STA (00:15)
[2016-10-30] MEDS: MoRPHine SULFATE 2 MG/ML CARP IV PRN ×3 (00:51→21:45)
[2016-10-30 01:23] LABS: PARTIAL THROMBOPLASTIN RATIO 1.7
[2016-10-30] MEDS ORDERED: HEPARIN IV BOLUS 3,000 UNIT in SYRINGE 0 ML IV STA (01:46)
[2016-10-30] MEDS: METHYLPREDNISOLONE IV 40 MG in SYRINGE 0 ML IV SCH ×2 (02:44→13:34)
[2016-10-30] MEDS: IPRATROPIUM BROMIDE NEB SOLN 0.02% 2.5 ML VIAL INH SCH ×7 (03:23→23:54)
[2016-10-30] MEDS: LEVALBUTEROL 1.25MG/0.5ML NEB INH SCH ×7 (03:23→23:54)
[2016-10-30] MEDS: LORAZEPAM 2 MG/ML 1 ML VIAL IV PRN (04:12)
[2016-10-30 04:23] LABS: HEMATOCRIT 28.3 % (42-52); MEAN CELL VOLUME 85.2 fL (80-100); MEAN CORPUSCULAR HEMOGLOBIN 26.8 pg (25-34); MEAN CORPUSCULAR HGB CONC 31.4 g/dl (32-36); MEAN PLATELET VOLUME 9.5 fL (7.4-10.4); PLATELET COUNT 125 K/uL (130-400); RED BLOOD COUNT 3.32 M/uL (4.7-6.1); WHITE BLOOD COUNT 14.94 K/uL (4.8-10.8)
[2016-10-30 04:49] LABS: BUN/CREATININE RATIO 24.5 (10-20); CALCIUM 7.5 mg/dl (8.5-10.1); CREATININE 1.2 mg/dl (0.60-1.40); POTASSIUM 3.7 mmol/L (3.5-5.1)
[2016-10-30] MEDS ORDERED: AMIODARONE HCL INJ 50 MG/ML 3 ML VIAL IV STA (05:18)
[2016-10-30] MEDS ORDERED: AMIODARONE / D5W 100 ML IV STA (05:21)
--- NOTE | 2016-10-30 05:49 | DIAGNOSTIC IMAGING REPORT ---
CHEST ONE VIEW PORTABLE CLINICAL HISTORY: crackles dyspnea COMPARISON STUDY: 10/29/2016 5:36 PM FINDINGS: Increased prominence of pulmonary vasculature. Unchanging fibrotic change left upper lung. Central catheter remains in superior vena cava. IMPRESSION: Progressive components of congestive failure The above report was generated using voice recognition software. It may contain grammatical, syntax or spelling errors. Electronically signed by: Nicolas Mora M.D. 10/30/2016 5:47 AM Dictated Date/Time: 10/30/2016 5:45 AM
[2016-10-30] MEDS: FORMOTEROL FUMA NEBULIZER SOLN 20 MCG/2 ML VIAL INH SCH ×2 (07:08→19:30)
--- NOTE | 2016-10-30 07:08 | Progress Note ---
Progress Note Date of Service Oct 30, 2016. Progress Note Overnight, patient became agitated, trying to remove bipap mask. Gave 2mg Ativan , 2.5 mg Haldol x2. Patient eventually calmed down. Around 4:40am, received page about vtach run of 20 secs. Gave 150mg bolus Amiodarone
[2016-10-30] MEDS: MoRPHine SULFATE 4 MG/ML 1 ML CARP\\VIAL IV PRN ×4 (07:21→20:09)
[2016-10-30] MEDS ORDERED: FUROSEMIDE INJ 80 MG in SYRINGE 0 ML IV STA (07:31)
[2016-10-30] MEDS ORDERED: DIGOXIN IV 250 MCG in SYRINGE 9 ML IV ONE (07:33)
[2016-10-30] MEDS: HALOPERIDOL LACTATE 5 MG/ML 1 ML VIAL IV PRN ×4 (07:35→20:09)
[2016-10-30] MEDS: CEFEPIME IV 2,000 MG in DEXTROSE 5% 100ML 100 ML IV SCH (07:41)
[2016-10-30] MEDS ORDERED: VANCOMYCIN INJ 1,000 MG in SODIUM CHLORIDE 0.9% 250ML 250 ML IV SCH (08:00)
[2016-10-30 08:36] LABS: PARTIAL THROMBOPLASTIN RATIO 3.6
[2016-10-30] MEDS: BusPIRone 15 MG TAB PO SCH ×2 (09:00→19:53)
[2016-10-30] MEDS: ASPIRIN 81 MG ECTAB PO SCH (09:00)
[2016-10-30] MEDS: OXYCODONE HCL 10 MG TABCR (OXYCONTIN) PO SCH ×2 (09:00→19:53)
[2016-10-30] MEDS: PANTOprazole SOD 40 MG TAB PO SCH ×2 (09:00→19:53)
--- NOTE | 2016-10-30 09:08 | DIAGNOSTIC IMAGING REPORT ---
CHEST ONE VIEW PORTABLE CLINICAL HISTORY: eval chf dyspnea COMPARISON STUDY: 10/29/2016 FINDINGS: Congestive failure stable radiographically from the prior study. Potential early parenchymal infiltrate right base. Central catheter in superior vena cava. Small left effusion unchanged. IMPRESSION: Congestive failure stable from the prior exam. Potential early superimposed infiltrative process right base. The above report was generated using voice recognition software. It may contain grammatical, syntax or spelling errors. Electronically signed by: Nicolas Mora M.D. 10/30/2016 9:07 AM Dictated Date/Time: 10/30/2016 9:04 AM
[2016-10-30 09:27] LABS: VEN BLOOD GAS BASE EXCESS -1.3 mEq/L; VENOUS BLOOD GAS PCO2 39 mmHg (38.0-50.0); VENOUS BLOOD GAS PO2 34 mmHg
[2016-10-30 09:29] LABS: VEN BLD GAS O2 SATURATION < 60.0 %
[2016-10-30] MEDS: HEPARIN 25,000 UNIT/500ML D5W 500 ML IV PRN ×2 (09:29→18:24)
[2016-10-30] MEDS: METOPROLOL TARTRATE 1 MG/ML VIAL IV PRN ×2 (10:06→17:03)
--- NOTE | 2016-10-30 10:15 | Pharmacy Progress Note ---
Pharmacy Antibiotic Consult Date of Service: Oct 30, 2016. Pharmacy Dosing Scope Pharmacy is consulted to initiate vancomycin IV dosing therapy, order appropriate labs and adjust drug dose/frequency. Subjective The patient is a 71 year old male admitted on Oct 28, 2016 at 16:29. Objective Height (Feet): 5 Height (Inches): 10.00 Weight (Kilograms): 61.100 Lab Results (24hrs): Test 10/29/16 13:25 10/29/16 16:36 10/29/16 23:48 10/30/16 00:53 White Blood Count 14.01 K/uL (4.8-10.8) Red Blood Count 3.49 M/uL (4.7-6.1) Hemoglobin 9.2 g/dL (14.0-18.0) Hematocrit 29.9 % (42-52) Mean Corpuscular Volume 85.7 fL (80-100) Mean Corpuscular Hemoglobin 26.4 pg (25-34) Mean Corpuscular Hemoglobin Concent 30.8 g/dl (32-36) Platelet Count 137 K/uL (130-400) Mean Platelet Volume 9.8 fL (7.4-10.4) RDW Standard Deviation 57.9 fL (36.4-46.3) RDW Coefficient of Variation 18.6 % (11.5-14.5) Neutrophils % (Manual) 97.4 % Lymphocytes % (Manual) 0.0 % Monocytes % (Manual) 2.6 % Neutrophils # (Manual) 13.65 K/uL (1.4-6.5) Total Absolute Neutrophils 13.65 K/uL (1.4-6.5) Total Absolute Lymphocytes 0.00 K/uL (1.2-3.4) Monocytes # (Manual) 0.36 K/uL (0.11-0.59) Dohle Bodies 1+ Echinocytes 1+ Troponin I 1.920 ng/ml (0-0.045) Arterial Blood pH 7.42 (7.35-7.45) Arterial Blood Partial Pressure CO2 32 mmHg (35-46) Arterial Blood Partial Pressure O2 90 mm/Hg (80-95) Arterial Blood HCO3 20 mmol/L (19-24) Arterial Blood Oxygen Saturation 95.8 % (90-95) Arterial Blood Base Excess -4.1 mEq/L (-9-1.8) Arterial Blood Gas Delivery 4.5L Fransico Test POS (POS) Pass Blood Gas Sample Site R Radial Bedside Blood Gas pH (LAB) 7.33 (7.35-7.45) Bedside Blood Gas pCO2 (LAB) 38 mmHg (35-46) Bedside Blood Gas pO2 (LAB) 95 mmHg (80-95) Bedside Blood Gas HCO3 (LAB) 20 meq/L (19-24) Bedside Blood Gas Total CO2 21 mEq/l (24-31) Bedside Blood Gas Base Excess (LAB) -6.0 meq/L (-9-1.8) Bedside Blood Gas O2 Saturation 97.0 % (90-95) Oxygen Delivery Device BIPAP Bedside Oxygen Rate (breaths/min) 24 Bedside FiO2 0 % Blood Gas IPAP 10 Activated Partial Thromboplast Time 44.7 SECONDS (21.0-31.0) Partial Thromboplastin Ratio 1.7 Test 10/30/16 04:03 10/30/16 07:50 10/30/16 08:57 10/30/16 09:03 White Blood Count 14.94 K/uL (4.8-10.8) Red Blood Count 3.32 M/uL (4.7-6.1) Hemoglobin 8.9 g/dL (14.0-18.0) Hematocrit 28.3 % (42-52) Mean Corpuscular Volume 85.2 fL (80-100) Mean Corpuscular Hemoglobin 26.8 pg (25-34) Mean Corpuscular Hemoglobin Concent 31.4 g/dl (32-36) RDW Standard Deviation 58.6 fL (36.4-46.3) RDW Coefficient of Variation 18.5 % (11.5-14.5) Platelet Count 125 K/uL (130-400) Mean Platelet Volume 9.5 fL (7.4-10.4) Sodium Level 142 mmol/L (136-145) Potassium Level 3.7 mmol/L (3.5-5.1) Chloride Level 109 mmol/L (98-107) Carbon Dioxide Level 25 mmol/L (21-32) Anion Gap 8.0 mmol/L (3-11) Blood Urea Nitrogen 29 mg/dl (7-18) Creatinine 1.20 mg/dl (0.60-1.40) Est Creatinine Clear Calc Drug Dose 51.3 ml/min Estimated GFR () 71.1 Estimated GFR (Non- 61.3 BUN/Creatinine Ratio 24.5 (10-20) Random Glucose 149 mg/dl (70-99) Calcium Level 7.5 mg/dl (8.5-10.1) Activated Partial Thromboplast Time 92.6 SECONDS (21.0-31.0) Partial Thromboplastin Ratio 3.6 Venous Blood pH 7.39 (7.36-7.41) Venous Blood Partial Pressure CO2 39 mmHg (38.0-50.0) Venous Blood Partial Pressure O2 34 mmHg Venous Blood HCO3 24 mmol/L Venous Blood Oxygen Saturation < 60.0 % Venous Blood Base Excess -1.3 mEq/L Micro Results: Date/Time Source Procedure Growth Status 10/28/16 14:50 Blood Blood Culture - Preliminary NO GROWTH TO DATE. Resulted 10/28/16 14:25 Blood Blood Culture - Preliminary NO GROWTH TO DATE. Resulted 10/29/16 19:20 Urine , Clean Catch Urine Culture Pending Received Recent Pertinent Medications Date/Time Source Procedure Growth Status 10/28/16 14:50 Blood Blood Culture - Preliminary NO GROWTH TO DATE. Resulted 10/28/16 14:25 Blood Blood Culture - Preliminary NO GROWTH TO DATE. Resulted 10/29/16 19:20 Urine , Clean Catch Urine Culture Pending Received Assessment & Plan Assessment: 71 yo male with recent admission for right upper lobe PE and acute respiratory distress. PMH: lung cancer with mets and COPD Plan: Loading dose: 1500 mg x 1 (25 mg/kg) Maintenance dose: 1000 mg q18H (16 mg/kg) PK: SCr 1.2, CrCl 51.3, Ke 0.047, T1/2 ~15 hours Goal trough level between 15-20 mcg/mL Trough level ordered for 11/01 @ 1073 Pharmacy will continue to follow and will adjust dose/frequency as necessary. Thank you
[2016-10-30] MEDS: AMIODARONE / D5W 200 ML IV SCH ×2 (10:43→20:39)
--- NOTE | 2016-10-30 10:48 | Cardiology Follow-Up ---
Subjective Date of Service: Oct 30, 2016. Pt evaluation today including: conversation w/ family, physical exam, chart review, lab review, review of studies, review of inpatient medication list, conversation w/ attending History of Present Illness This is a 71-year-old gentleman with multiple medical problems outlined in the initial consultation. He is followed by Dr. Lennon in as an outpatient. He has coronary artery disease, atrial fibrillation, pulmonary embolism, COPD, metastatic lung cancer including brain metastases. He was admitted with worsening shortness of breath, observed to have recurrent atrial fibrillation and is now on an amiodarone drip. His mental status is poor overall. During the recent days his heart rate has been fast, and he has been having difficulty with his respiratory status. An echocardiogram done yesterday showed an ejection fraction in the 20s. His chest x-ray has shown congestive heart failure and his blood pressure has been very labile with both low and high readings. At the time of evaluation today he is not responsive, he intermittently thrashes all extremities but has no meaningful response. Social History Smoking Status: Former Smoker History of Alcohol Use: No Review of Systems Cardiac: No edema Unable to obtain due to AMS. Objective Vital Signs Past 12 Hours Date Time Temp Pulse Resp B/P (MAP) Pulse Ox O2 Delivery O2 Flow Rate FiO2 10/30/16 10:06 144 152/89 10/30/16 08:40 122 10/30/16 08:00 BiPAP 6.0 10/30/16 07:09 113 22 100 BiPAP/CPAP 4.0 10/30/16 07:08 113 100 4.0 10/30/16 04:00 95 BiPAP 6.0 10/30/16 03:57 36.9 118 26 106/70 (82) 99 BiPAP 10/30/16 03:23 102 18 92 BiPAP/CPAP 5.0 10/30/16 01:15 95/60 (72) 10/29/16 23:59 95 BiPAP 6.0 10/29/16 23:20 166/113 (130) 10/29/16 23:12 133 96 6.0 10/29/16 23:12 133 18 92 Nasal Cannula 4.0 Last Recorded Weight-Kilograms: 61.100 Physical Exam Lungs: Auscultation: deminished air movement, decreased breath sounds, expiratory wheezing, wet rales/crackles Cardiovascular: Heart Auscultation: tachycardia, irregular rate rhythm He is intermittently extremely agitated and thrashing all extremities Data Laboratory Results: Last 24 Hours Test 10/29/16 10:53 10/29/16 13:25 10/29/16 16:36 10/29/16 17:59 Activated Partial Thromboplast Time 78.7 SECONDS 81.9 SECONDS Partial Thromboplastin Ratio 3.0 3.2 White Blood Count 14.01 K/uL Red Blood Count 3.49 M/uL Hemoglobin 9.2 g/dL Hematocrit 29.9 % Mean Corpuscular Volume 85.7 fL Mean Corpuscular Hemoglobin 26.4 pg Mean Corpuscular Hemoglobin Concent 30.8 g/dl Platelet Count 137 K/uL Mean Platelet Volume 9.8 fL RDW Standard Deviation 57.9 fL RDW Coefficient of Variation 18.6 % Neutrophils % (Manual) 97.4 % Lymphocytes % (Manual) 0.0 % Monocytes % (Manual) 2.6 % Neutrophils # (Manual) 13.65 K/uL Total Absolute Neutrophils 13.65 K/uL Total Absolute Lymphocytes 0.00 K/uL Monocytes # (Manual) 0.36 K/uL Dohle Bodies 1+ Echinocytes 1+ Troponin I 1.920 ng/ml Arterial Blood pH 7.42 Arterial Blood Partial Pressure CO2 32 mmHg Arterial Blood Partial Pressure O2 90 mm/Hg Arterial Blood HCO3 20 mmol/L Arterial Blood Oxygen Saturation 95.8 % Arterial Blood Base Excess -4.1 mEq/L Arterial Blood Gas Delivery 4.5L Fransico Test POS Test 10/29/16 23:48 10/30/16 00:53 10/30/16 04:03 10/30/16 07:50 Blood Gas Sample Site R Radial Bedside Blood Gas pH (LAB) 7.33 Bedside Blood Gas pCO2 (LAB) 38 mmHg Bedside Blood Gas pO2 (LAB) 95 mmHg Bedside Blood Gas HCO3 (LAB) 20 meq/L Bedside Blood Gas Total CO2 21 mEq/l Bedside Blood Gas Base Excess (LAB) -6.0 meq/L Bedside Blood Gas O2 Saturation 97.0 % Fransico Test Pass Oxygen Delivery Device BIPAP Bedside Oxygen Rate (breaths/min) 24 Bedside FiO2 0 % Blood Gas IPAP 10 Activated Partial Thromboplast Time 44.7 SECONDS 92.6 SECONDS Partial Thromboplastin Ratio 1.7 3.6 White Blood Count 14.94 K/uL Red Blood Count 3.32 M/uL Hemoglobin 8.9 g/dL Hematocrit 28.3 % Mean Corpuscular Volume 85.2 fL Mean Corpuscular Hemoglobin 26.8 pg Mean Corpuscular Hemoglobin Concent 31.4 g/dl RDW Standard Deviation 58.6 fL RDW Coefficient of Variation 18.5 % Platelet Count 125 K/uL Mean Platelet Volume 9.5 fL Sodium Level 142 mmol/L Potassium Level 3.7 mmol/L Chloride Level 109 mmol/L Carbon Dioxide Level 25 mmol/L Anion Gap 8.0 mmol/L Blood Urea Nitrogen 29 mg/dl Creatinine 1.20 mg/dl Est Creatinine Clear Calc Drug Dose 51.3 ml/min Estimated GFR () 71.1 Estimated GFR (Non- 61.3 BUN/Creatinine Ratio 24.5 Random Glucose 149 mg/dl Calcium Level 7.5 mg/dl Test 10/30/16 08:57 10/30/16 09:03 Venous Blood pH 7.39 Venous Blood Partial Pressure CO2 39 mmHg Venous Blood Partial Pressure O2 34 mmHg Venous Blood HCO3 24 mmol/L Venous Blood Oxygen Saturation < 60.0 % Venous Blood Base Excess -1.3 mEq/L Imaging: Echo shows severe left ventricular dysfunction with ejection fraction in the 20s. Telemetry reviewed: Paroxysmal Atrial fibrillation with a rapid ventricular response, at times quite fast and at other times sinus rhythm well controlled Assessment and Plan Patient has multiple medical problems including several cardiac problems: Paroxysmal atrial fibrillation: Often with rapid heart rates, I would continue intravenous amiodarone for now unless he is made a do not treat status, at which time I will discontinue it. For the moment he is in sinus rhythm. Severe left ventricular dysfunction: This is probably part of his overall declining health, I don't think it is due to an acute myocardial infarction this admission. I don't think there is any role for heroic measures in this regard. I did talk to the family about the futility of aggressive treatment, I believe they were beginning to understand that. There are too many things going on to allow meaningful treatment overall. Thank you for allowing me to participate in his care.
[2016-10-30] MEDS ORDERED: NURSING VERBAL MED ORDER ONE ×4 (11:00→23:00)
[2016-10-30] MEDS ORDERED: MoRPHine SULFATE 2 MG/ML CARP IV ONE (11:10)
[2016-10-30] MEDS ORDERED: HALOPERIDOL LACTATE 5 MG/ML 1 ML VIAL IV STA (11:18)
[2016-10-30] MEDS ORDERED: LEVOFLOXACIN / D5W 750 MG in PREMIXED IN D5W 150 ML IV SCH (12:00)
--- NOTE | 2016-10-30 13:55 | Progress Note ---
Subjective Date of Service: Oct 30, 2016. Subjective This patient had a tumultuous night with marked respiratory distress agitation delirium requiring BiPAP. The patient was found to have a markedly depressed ejection fraction likely suffering from acute systolic heart failure, acute on chronic respiratory failure, pulmonary embolism which is acute, and now right lower lobe pneumonia in addition to atrial fibrillation rapid ventricular response. Call the family and updated them on his great condition a rather the bedside and updated they're still interested in keeping him a full code despite his prehospital condition of metastatic lung cancer Problem List Medical Problems: (1) ACS (acute coronary syndrome) Status: Acute (2) Anemia Status: Acute (3) Bronchitis Status: Acute (4) Colitis Status: Acute (5) Colitis Status: Acute (6) Cough Status: Acute (7) Fever Status: Acute (8) Fever Status: Acute (9) Fever Status: Acute (10) Hypomagnesemia Status: Acute (11) Hypotension Status: Acute (12) Immunocompromised Status: Acute (13) Leg edema, right Status: Acute (14) Metastatic cancer to brain Status: Acute (15) Metastatic lung cancer (metastasis from lung to other site) Status: Acute (16) Nausea and vomiting Status: Acute (17) Near syncope Status: Acute (18) Neutropenia Status: Acute (19) Pneumonitis Status: Acute (20) Vomiting Status: Acute Review of Systems Constitutional: No fever, No chills Respiratory: + shortness of breath, + dyspnea on exertion, + dyspnea at rest Cardiac: + orthopnea, + PND, No chest pain Abdomen: No pain, No nausea, No vomiting, No diarrhea Neurologic: + memory loss, + weakness Psychiatric: + depression symptoms, + anhedonism, + anxiety Skin: + problem reported (skin tears and bruising) Objective Vital Signs Date Time Temp Pulse Resp B/P (MAP) Pulse Ox O2 Delivery O2 Flow Rate FiO2 10/30/16 07:09 113 22 100 BiPAP/CPAP 4.0 10/30/16 04:00 95 BiPAP 6.0 10/30/16 03:57 36.9 118 26 106/70 (82) 99 BiPAP 10/30/16 03:23 102 18 92 BiPAP/CPAP 5.0 10/30/16 01:15 95/60 (72) 10/29/16 23:59 95 BiPAP 6.0 10/29/16 23:20 166/113 (130) 10/29/16 23:12 133 96 6.0 10/29/16 23:12 133 18 92 Nasal Cannula 4.0 10/29/16 20:00 Nasal Cannula 4.0 10/29/16 18:59 36.4 102 22 98/57 (71) 99 Nasal Cannula 4.0 10/29/16 16:39 102 18 96 Nasal Cannula 4.0 10/29/16 16:00 Nasal Cannula 4.0 10/29/16 15:22 36.3 109 20 112/67 (82) 90 Nasal Cannula 2.0 10/29/16 14:14 63 20 95 Nasal Cannula 4.0 10/29/16 12:00 Nasal Cannula 3.0 10/29/16 11:54 93 132/77 10/29/16 11:33 36.9 75 20 105/64 (78) 96 Nasal Cannula 3.0 10/29/16 08:00 Nasal Cannula 3.0 10/29/16 07:41 36.8 93 20 132/77 (95) 95 Nasal Cannula 3.0 Physical Exam General Appearance: + severe distress, + thin Neck: supple, no JVD Respiratory/Chest: + decreased breath sounds, + accessory muscle use, + rhonchi Cardiovascular: + tachycardia, + irregularly irregular Abdomen: normal bowel sounds, soft Extremities: + pedal edema, + swelling, + pertinent finding Neurologic/Psychiatric: alert (skin tears), + disoriented (and agitation) Laboratory Results Last 24 Hours Test 10/29/16 09:36 10/29/16 10:53 10/29/16 13:25 10/29/16 16:36 Activated Partial Thromboplast Time 131.2 SECONDS 78.7 SECONDS Partial Thromboplastin Ratio 5.0 3.0 White Blood Count 14.01 K/uL Red Blood Count 3.49 M/uL Hemoglobin 9.2 g/dL Hematocrit 29.9 % Mean Corpuscular Volume 85.7 fL Mean Corpuscular Hemoglobin 26.4 pg Mean Corpuscular Hemoglobin Concent 30.8 g/dl Platelet Count 137 K/uL Mean Platelet Volume 9.8 fL RDW Standard Deviation 57.9 fL RDW Coefficient of Variation 18.6 % Neutrophils % (Manual) 97.4 % Lymphocytes % (Manual) 0.0 % Monocytes % (Manual) 2.6 % Neutrophils # (Manual) 13.65 K/uL Total Absolute Neutrophils 13.65 K/uL Total Absolute Lymphocytes 0.00 K/uL Monocytes # (Manual) 0.36 K/uL Dohle Bodies 1+ Echinocytes 1+ Troponin I 1.920 ng/ml Arterial Blood pH 7.42 Arterial Blood Partial Pressure CO2 32 mmHg Arterial Blood Partial Pressure O2 90 mm/Hg Arterial Blood HCO3 20 mmol/L Arterial Blood Oxygen Saturation 95.8 % Arterial Blood Base Excess -4.1 mEq/L Arterial Blood Gas Delivery 4.5L Fransico Test POS Test 10/29/16 17:59 10/29/16 23:48 10/30/16 00:53 10/30/16 04:03 Activated Partial Thromboplast Time 81.9 SECONDS 44.7 SECONDS Partial Thromboplastin Ratio 3.2 1.7 Blood Gas Sample Site R Radial Bedside Blood Gas pH (LAB) 7.33 Bedside Blood Gas pCO2 (LAB) 38 mmHg Bedside Blood Gas pO2 (LAB) 95 mmHg Bedside Blood Gas HCO3 (LAB) 20 meq/L Bedside Blood Gas Total CO2 21 mEq/l Bedside Blood Gas Base Excess (LAB) -6.0 meq/L Bedside Blood Gas O2 Saturation 97.0 % Fransico Test Pass Oxygen Delivery Device BIPAP Bedside Oxygen Rate (breaths/min) 24 Bedside FiO2 0 % Blood Gas IPAP 10 White Blood Count 14.94 K/uL Red Blood Count 3.32 M/uL Hemoglobin 8.9 g/dL Hematocrit 28.3 % Mean Corpuscular Volume 85.2 fL Mean Corpuscular Hemoglobin 26.8 pg Mean Corpuscular Hemoglobin Concent 31.4 g/dl RDW Standard Deviation 58.6 fL RDW Coefficient of Variation 18.5 % Platelet Count 125 K/uL Mean Platelet Volume 9.5 fL Sodium Level 142 mmol/L Potassium Level 3.7 mmol/L Chloride Level 109 mmol/L Carbon Dioxide Level 25 mmol/L Anion Gap 8.0 mmol/L Blood Urea Nitrogen 29 mg/dl Creatinine 1.20 mg/dl Est Creatinine Clear Calc Drug Dose 51.3 ml/min Estimated GFR () 71.1 Estimated GFR (Non- 61.3 BUN/Creatinine Ratio 24.5 Random Glucose 149 mg/dl Calcium Level 7.5 mg/dl Assessment and Plan 71-year-old male with acute on chronic respiratory failure acute systolic heart failure, aspiration pneumonia, acute pulmonary embolism atrial fibrillation rapid ventricular response acute systolic heart failure, Echo reveals significant reduced EF, pulmonary edema was noted on x-ray from 10/29 diuresis will continue, Atrial fib RVR amiodarone drip was started, patient finally broke within additional digoxin IV rate is no sinus and 80s Acute pulmonary embolism patient heparin drip cautiously given his brain metastasis long-term anticoagulation was discussed with hematology oncology patient has marked bruising and skin breakdown Acute on chronic respiratory failure, COPD, bronchitis, IV Solu-Medrol and nebulized albuterol and ipratropium Aspiration pneumonia patient is on Zosyn and vancomycin was added given recent hospital stay for concern of MRSA Hospital delirium patient is using intravenous Haldol in addition to morphine to control delirium Ativan causes an untoward effect Chronic pain, arthritic, cautiously use of morphine stage 4 lung cancer - followed by Dr. Ritter & Dr. Salvador (rad onc). Acute CT of the head did not show any hemorrhage into pre-existing metastatic lesions hypomagnesemia - hypokalemia -additional magnesium was required we'll check recheck in the morning RLE wounds - Wound care consultation will be reengaged depression -remeron 15mg once daily at HS. 60 minutes of critical care time was performed today as the bedside care due to marked respiratory distress
[2016-10-30] MEDS: LEVOFLOXACIN 750 MG TAB PO SCH (14:03)
[2016-10-30 15:48] LABS: PARTIAL THROMBOPLASTIN RATIO 1.9
[2016-10-30] MEDS ORDERED: FUROSEMIDE INJ 80 MG in SYRINGE 0 ML IV ONE (16:45)
[2016-10-30] MEDS: ALFUZosin TAB 10 MG TAB PO SCH (19:54)
[2016-10-30] MEDS: BUDESONIDE/FORMOTEROL FUMARATE 160/4.5 60 PUFFS/INHALER INH SCH (19:54)
[2016-10-30] MEDS: TIOTROPIUM BROMIDE 5 PUFF/90 MCG INH INH SCH (19:54)
[2016-10-31] VITALS (16 sets, daily range): BP systolic 128–184; BP diastolic 62–100; PULSE 78–101; TEMP 36.3–36.9; O2SAT 95–100
[2016-10-31] MEDS: HALOPERIDOL LACTATE 5 MG/ML 1 ML VIAL IV PRN ×3 (00:14→08:05)
[2016-10-31] MEDS: MoRPHine SULFATE 4 MG/ML 1 ML CARP\\VIAL IV PRN ×3 (00:14→09:05)
[2016-10-31] MEDS: METHYLPREDNISOLONE IV 40 MG in SYRINGE 0 ML IV SCH ×2 (01:31→14:22)
[2016-10-31] MEDS: VANCOMYCIN INJ 1,000 MG in SODIUM CHLORIDE 0.9% 250ML 250 ML IV SCH ×2 (01:47→20:36)
[2016-10-31] MEDS: IPRATROPIUM BROMIDE NEB SOLN 0.02% 2.5 ML VIAL INH SCH ×7 (03:34→22:49)
[2016-10-31] MEDS: LEVALBUTEROL 1.25MG/0.5ML NEB INH SCH ×7 (03:34→22:49)
[2016-10-31 05:03] LABS: PARTIAL THROMBOPLASTIN RATIO 1.9
[2016-10-31 05:06] LABS: BUN/CREATININE RATIO 23.2 (10-20); CALCIUM 7.4 mg/dl (8.5-10.1); CREATININE 1.4 mg/dl (0.60-1.40); MAGNESIUM 1.6 mg/dl (1.8-2.4); POTASSIUM 3.3 mmol/L (3.5-5.1)
[2016-10-31] MEDS: FORMOTEROL FUMA NEBULIZER SOLN 20 MCG/2 ML VIAL INH SCH ×2 (07:12→19:25)
[2016-10-31] MEDS ORDERED: VANCOMYCIN TROUGH SCH (07:30)
[2016-10-31] MEDS: ASPIRIN 81 MG ECTAB PO SCH (08:03)
[2016-10-31] MEDS: PANTOprazole SOD 40 MG TAB PO SCH ×2 (08:03→20:39)
[2016-10-31] MEDS: BusPIRone 15 MG TAB PO SCH ×2 (08:03→20:40)
[2016-10-31] MEDS: OXYCODONE HCL 10 MG TABCR (OXYCONTIN) PO SCH ×2 (08:03→20:39)
[2016-10-31] MEDS: FUROSEMIDE INJ 80 MG in SYRINGE 0 ML IV SCH (08:04)
[2016-10-31] MEDS: CEFEPIME IV 2,000 MG in DEXTROSE 5% 100ML 100 ML IV SCH (08:37)
[2016-10-31] MEDS: ALBUT/IPRATROP 3MG/0.5MG NEB 3 ML VIAL INH PRN (09:03)
[2016-10-31] MEDS ORDERED: MAGNESIUM SULFATE 1GM / D5W 1 GM in PREMIXED IN D5W 100 ML IV ONE (09:45)
[2016-10-31] MEDS: AMIODARONE / D5W 200 ML IV SCH ×2 (10:17→22:13)
[2016-10-31] MEDS: LEVOFLOXACIN 750 MG TAB PO SCH (11:41)
[2016-10-31] MEDS: POTASSIUM CHLORIDE 20 MEQ TABCR PO SCH ×2 (11:41→20:39)
--- NOTE | 2016-10-31 14:22 | Progress Note ---
Subjective Date of Service: Oct 31, 2016. Subjective pt is much better today, now routinely on NC and having better heart rate control, no mucus production and started on daily lasix dosing as recent change in echo to show depressed Systolic function Problem List Medical Problems: (1) ACS (acute coronary syndrome) Status: Acute (2) Anemia Status: Acute (3) Bronchitis Status: Acute (4) Colitis Status: Acute (5) Colitis Status: Acute (6) Cough Status: Acute (7) Fever Status: Acute (8) Fever Status: Acute (9) Fever Status: Acute (10) Hypomagnesemia Status: Acute (11) Hypotension Status: Acute (12) Immunocompromised Status: Acute (13) Leg edema, right Status: Acute (14) Metastatic cancer to brain Status: Acute (15) Metastatic lung cancer (metastasis from lung to other site) Status: Acute (16) Nausea and vomiting Status: Acute (17) Near syncope Status: Acute (18) Neutropenia Status: Acute (19) Pneumonitis Status: Acute (20) Vomiting Status: Acute Review of Systems Constitutional: No fever, No chills Respiratory: + shortness of breath, + dyspnea on exertion, + dyspnea at rest Cardiac: No chest pain, No edema Abdomen: No pain, No nausea Objective Vital Signs Date Time Temp Pulse Resp B/P (MAP) Pulse Ox O2 Delivery O2 Flow Rate FiO2 10/31/16 12:00 Nasal Cannula 4.0 10/31/16 11:32 36.4 78 20 145/79 (101) 99 4.0 10/31/16 11:11 93 20 98 Nasal Cannula 4.0 10/31/16 09:03 96 22 96 Nasal Cannula 4.0 10/31/16 08:00 Nasal Cannula 4.0 10/31/16 07:46 36.4 93 20 184/100 (128) 100 4.0 10/31/16 07:12 101 22 95 Nasal Cannula 4.0 10/31/16 04:16 84 20 98 Nasal Cannula 4.0 10/31/16 04:00 98 Nasal Cannula 4.0 10/31/16 03:37 36.3 82 22 171/73 (105) 100 Room Air 10/31/16 00:10 36.4 92 28 163/90 (114) 99 Nasal Cannula 4.0 10/30/16 23:59 99 Nasal Cannula 4.0 10/30/16 23:14 81 20 98 Nasal Cannula 4.0 10/30/16 20:25 97 22 100 Nasal Cannula 4.0 10/30/16 20:17 36.4 108 26 147/85 (105) 99 Nasal Cannula 4.0 10/30/16 20:00 99 Nasal Cannula 4.0 10/30/16 19:30 71 22 100 Nasal Cannula 4.0 10/30/16 17:03 122 109/77 10/30/16 16:18 36.8 83 24 109/77 (88) 100 Nasal Cannula 5.0 10/30/16 16:02 Nasal Cannula 4.0 10/30/16 15:10 101 22 98 Nasal Cannula 4.0 Physical Exam General Appearance: WD/WN, + moderate distress Eyes: PERRL, EOMI Respiratory/Chest: + decreased breath sounds, + accessory muscle use, + rhonchi Cardiovascular: + tachycardia, + irregularly irregular Abdomen: normal bowel sounds, non tender, soft Extremities: no pedal edema, + pertinent finding (marked skin tears of upper arms) Neurologic/Psychiatric: alert, oriented x 3 Laboratory Results Last 24 Hours Test 10/30/16 15:20 10/31/16 04:24 Activated Partial Thromboplast Time 50.2 SECONDS 48.6 SECONDS Partial Thromboplastin Ratio 1.9 1.9 Sodium Level 142 mmol/L Potassium Level 3.3 mmol/L Chloride Level 107 mmol/L Carbon Dioxide Level 28 mmol/L Anion Gap 7.0 mmol/L Blood Urea Nitrogen 32 mg/dl Creatinine 1.40 mg/dl Est Creatinine Clear Calc Drug Dose 43.0 ml/min Estimated GFR () 59.0 Estimated GFR (Non- 50.9 BUN/Creatinine Ratio 23.2 Random Glucose 126 mg/dl Calcium Level 7.4 mg/dl Magnesium Level 1.6 mg/dl Assessment and Plan 71-year-old male with acute on chronic respiratory failure acute systolic heart failure, aspiration pneumonia, acute pulmonary embolism atrial fibrillation at times with rapid ventricular response on amiodarone and heparin gtt acute systolic heart failure, Echo reveals significant reduced EF, pulmonary edema was noted on x-ray from 10/29 diuresis will continue, now with 80 mg lasix each am Atrial fib RVR amiodarone drip was started, patient finally broke within additional digoxin IV rate is 80 - 100 will look for cardiology input to either contine daily dig or return to po amiodarone, sees dr Corrigan Acute pulmonary embolism patient heparin drip cautiously given his brain metastasis long-term anticoagulation was discussed with hematology oncology, will eventually look toward lovenox, patient has marked bruising and skin breakdown Acute on chronic respiratory failure, COPD, bronchitis, IV Solu-Medrol and nebulized albuterol and ipratropium, has improved as pneumonia improves Aspiration pneumonia patient is on Zosyn and vancomycin was added given recent hospital stay for concern of MRSA, respiratory status improving Hospital delirium patient is using intravenous Haldol in addition to morphine to control delirium Ativan causes an untoward effect, much more calm and oriented 10/31 Chronic pain, arthritic, cautiously use of morphine stage 4 lung cancer - followed by Dr. Ritter & Dr. Salvador (rad onc). Acute CT of the head did not show any hemorrhage into pre-existing metastatic lesions hypomagnesemia - hypokalemia replete RLE wounds - Wound care consultation will be reengaged depression -remeron 15mg once daily at HS.
[2016-10-31] MEDS: MoRPHine SULFATE 2 MG/ML CARP IV PRN (18:24)
[2016-10-31] MEDS: TIOTROPIUM BROMIDE 5 PUFF/90 MCG INH INH SCH (20:36)
[2016-10-31] MEDS: BUDESONIDE/FORMOTEROL FUMARATE 160/4.5 60 PUFFS/INHALER INH SCH (20:38)
[2016-10-31] MEDS: ZOLPIDEM TARTRATE 5 MG TAB PO PRN (20:39)
[2016-10-31] MEDS: ALFUZosin TAB 10 MG TAB PO SCH (20:40)
[2016-11-01] VITALS (9 sets, daily range): BP systolic 147–177; BP diastolic 83–98; PULSE 81–102; TEMP 36.8–36.9; O2SAT 95–100
[2016-11-01] MEDS: MoRPHine SULFATE 4 MG/ML 1 ML CARP\\VIAL IV PRN ×3 (00:01→08:02)
[2016-11-01] MEDS: LORAZEPAM 2 MG/ML 1 ML VIAL IV PRN (01:56)
[2016-11-01] MEDS: METHYLPREDNISOLONE IV 40 MG in SYRINGE 0 ML IV SCH (03:07)
[2016-11-01] MEDS: LEVALBUTEROL 1.25MG/0.5ML NEB INH SCH ×4 (03:24→15:39)
[2016-11-01] MEDS: IPRATROPIUM BROMIDE NEB SOLN 0.02% 2.5 ML VIAL INH SCH ×4 (03:24→15:39)
[2016-11-01 05:21] LABS: HEMATOCRIT 24.8 % (42-52); MEAN CELL VOLUME 85.2 fL (80-100); MEAN CORPUSCULAR HEMOGLOBIN 27.5 pg (25-34); MEAN CORPUSCULAR HGB CONC 32.3 g/dl (32-36); MEAN PLATELET VOLUME 9.8 fL (7.4-10.4); PLATELET COUNT 122 K/uL (130-400); RED BLOOD COUNT 2.91 M/uL (4.7-6.1); WHITE BLOOD COUNT 6.59 K/uL (4.8-10.8)
[2016-11-01] MEDS: HALOPERIDOL LACTATE 5 MG/ML 1 ML VIAL IV PRN ×2 (05:42→10:37)
[2016-11-01 05:48] LABS: BUN/CREATININE RATIO 22.6 (10-20); CALCIUM 7.5 mg/dl (8.5-10.1); CREATININE 1.2 mg/dl (0.60-1.40); POTASSIUM 3.3 mmol/L (3.5-5.1)
[2016-11-01] MEDS: CEFEPIME IV 2,000 MG in DEXTROSE 5% 100ML 100 ML IV SCH (08:03)
[2016-11-01] MEDS: FUROSEMIDE INJ 80 MG in SYRINGE 0 ML IV SCH (08:04)
[2016-11-01] MEDS ORDERED: NURSING VERBAL MED ORDER ONE (08:30)
[2016-11-01] MEDS: AMIODARONE / D5W 200 ML IV SCH (08:36)
[2016-11-01] MEDS: HALOPERIDOL LACTATE 5 MG/ML 1 ML VIAL IV SCH ×2 (08:59→09:48)
[2016-11-01] MEDS: FORMOTEROL FUMA NEBULIZER SOLN 20 MCG/2 ML VIAL INH SCH (09:00)
[2016-11-01] MEDS: MoRPHine SULFATE 2 MG/ML CARP IV PRN (09:00)
[2016-11-01] MEDS: ASPIRIN 81 MG ECTAB PO SCH (09:00)
[2016-11-01] MEDS: POTASSIUM CHLORIDE 20 MEQ TABCR PO SCH (09:00)
[2016-11-01] MEDS: BusPIRone 15 MG TAB PO SCH ×2 (09:00→20:00)
[2016-11-01] MEDS: OXYCODONE HCL 10 MG TABCR (OXYCONTIN) PO SCH ×2 (09:00→20:11)
[2016-11-01] MEDS: PANTOprazole SOD 40 MG TAB PO SCH (09:00)
[2016-11-01] MEDS ORDERED: POTASSIUM CHLORIDE 20 MEQ TABCR PO ONE (09:00)
[2016-11-01] MEDS: ALBUT/IPRATROP 3MG/0.5MG NEB 3 ML VIAL INH PRN (09:05)
[2016-11-01] MEDS ORDERED: HYDROmorphone INJ 2 MG/ML SYR/VIAL ONE (09:25)
[2016-11-01] MEDS ORDERED: HALOPERIDOL LACTATE 5 MG/ML 1 ML VIAL IV STA (09:56)
[2016-11-01] MEDS: NITROGLYCERIN OINT 2% 1GM PACKET EXT SCH ×2 (10:00→16:48)
[2016-11-01] MEDS ORDERED: LORAZEPAM 2 MG/ML 1 ML VIAL IV PRN (10:00)
[2016-11-01] MEDS: MoRPHine SULF/NSS 250MG/250ML 250 ML IV PRN (10:11)
[2016-11-01] MEDS ORDERED: LORAZEPAM INJ 2 MG in SYRINGE 1 ML IV PRN (10:15)
[2016-11-01] MEDS ORDERED: SCOPOLAMINE 1.5 MG TDSY TD SCH (10:30)
[2016-11-01] MEDS: NITROGLYCERIN 0.2 MG/HR PATCH TD SCH (10:59)
--- NOTE | 2016-11-01 12:57 | Hospitalist Progress Note ---
Hospitalist Progress Note Date of Service Nov 01, 2016. (Kennedi Lundy ., PA-C) Subjective Pt evaluation today including: conversation w/ patient, conversation w/ family (, son, and daughter at bedside ), physical exam, chart review, lab review, review of studies, review of inpatient medication list Voiding: cheney catheter in place (draining clear/yellow urine ) Initial encounter with patient in the AM w/ Dr. Pollack Very restless, anxious, and SOB Pulling at [place] and repeatedly removes NC O2 Discussion w/ son- would like father to be comfortable, DNR Reports patient did have CPAP machine, but did NOT tolerate it well, and does not want it to be placed back on patient Medications d/c'd per sons wishes- IV Dilaudid 2 mg, Haldol 5 mg given with patient still restless, but appeared to be calming down PRN IV Dilaudid, Haldol, Ativan, and Morphine gtt, Nitro patch, and scopolamine patch started Revisited patient w/ Dr. Pollack- mother and daughter arrived All in agreement to keep patient comfortable, and wish for him "to go in his sleep." Checked in on patient in early afternoon Resting in bed comfortably, no signs of acute distress Family reports he is less restless, but continues to wake from time to time (Kennedi Lundy ., PA-C) Medications Current Inpatient Medications Medications (Trade) Dose Ordered Sig/Isai Route Start Time Stop Time Status Last Admin Dose Admin Ioversol (Optiray 320) 111 ml UD PRN IV 10/28/16 14:15 11/01/16 14:14 Acetaminophen (Tylenol Tab) 650 mg Q4H PRN PO 10/28/16 14:45 11/27/16 14:44 10/29/16 00:35 650 MG Al Hydrox/Mg Hydrox/Simethicone (Maalox Max Susp) 15 ml Q4H PRN PO 10/28/16 14:45 11/27/16 14:44 10/28/16 23:39 15 ML Ondansetron HCl (Zofran Inj) 4 mg Q6H PRN IV 10/28/16 14:45 11/27/16 14:44 10/30/16 17:04 4 MG Polyethylene (Miralax Powder Packet) 17 gm DAILY PRN PO 10/28/16 14:45 11/27/16 14:44 Albuterol/ Ipratropium (Duoneb) 3 ml Q2R PRN INH 10/28/16 16:30 11/27/16 16:29 11/01/16 09:05 3 ML Albuterol (Ventolin Hfa Inhaler) 2 puffs QID PRN INH 10/28/16 18:30 11/27/16 18:29 11/01/16 00:01 2 PUFFS Aspirin (Ecotrin Tab) 81 mg QAM PO 10/29/16 09:00 11/28/16 08:59 10/31/16 08:03 81 MG Budesonide/ Formoterol Fumarate (Symbicort 160/ 4.5 Inh) 2 puffs HS INH 10/28/16 21:00 11/27/16 20:59 10/31/16 20:38 2 PUFFS Buspirone HCl (BusPAR TAB) 15 mg BID PO 10/28/16 21:00 11/27/16 20:59 10/31/16 20:40 15 MG Fluticasone Propionate (Flonase Nasal [place]) 2 sprays DAILY PRN ANGELA 10/28/16 18:30 11/27/16 18:29 Nitroglycerin (Nitrostat Tab) 0.4 mg UD PRN UT 10/28/16 18:30 11/27/16 18:29 Ondansetron HCl (Zofran Tab) 8 mg Q6H PRN PO 10/28/16 18:30 11/27/16 18:29 10/28/16 21:07 8 MG Tiotropium [place] (Spiriva Handihaler Inhaler) 1 puff QPM INH 10/28/16 21:00 11/27/16 20:59 10/31/16 20:36 1 PUFF Pantoprazole Sodium (Protonix Tab) 40 mg BID PO 10/28/16 21:00 11/27/16 20:59 10/31/16 20:39 40 MG Oxycodone HCl (Roxicodone Immediate Rel Tab) 10 mg Q6 PRN PO 10/28/16 18:30 11/11/16 18:29 Oxycodone HCl (Oxycontin Tab) 10 mg Q12 PO 10/28/16 21:00 11/11/16 20:59 10/31/16 20:39 10 MG Zolpidem Tartrate (Ambien Tab) 5 mg HSZ PRN PO 10/28/16 23:45 11/27/16 23:44 10/31/16 20:39 5 MG Metoprolol Tartrate (Lopressor Iv) 5 mg Q4H PRN IV 10/29/16 10:30 11/28/16 10:29 10/30/16 17:03 5 MG Lorazepam (Ativan Inj) 1 mg Q4H PRN IV 10/29/16 14:15 11/28/16 14:14 11/01/16 01:56 1 MG Lorazepam (Ativan Inj) 0.5 mg Q4H PRN IV 10/29/16 14:15 11/28/16 14:14 10/30/16 00:48 0.5 MG Lorazepam (Ativan Tab) 0.5 mg Q6 PRN PO 10/29/16 14:15 11/28/16 14:14 10/31/16 16:56 0.5 MG Lorazepam 0.5 mg/ Syringe 1 ml @ 1 mls/min Q4H PRN IV 10/29/16 14:15 11/28/16 14:14 Lorazepam 1 mg/ Syringe 1 ml @ 1 mls/min Q4H PRN IV 10/29/16 14:15 11/28/16 14:14 Vancomycin HCl (Consult) 1 ea UD PRN N/A 10/29/16 18:45 11/28/16 18:44 Formoterol Fumarate (Perforomist 20MCG/2ML Neb Soln) 20 mcg BID INH 10/29/16 21:00 11/28/16 20:59 10/31/16 19:25 20 MCG Haloperidol Lactate (Haldol Inj) 2.5 mg Q4H PRN IV 10/30/16 07:30 11/29/16 07:29 11/01/16 10:37 2.5 MG Morphine Sulfate (MoRPHine SULFATE INJ) 2 mg Q2H PRN IV 10/30/16 12:30 11/11/16 18:29 11/01/16 09:00 2 MG Morphine Sulfate (MoRPHine SULFATE INJ) 4 mg Q2H PRN IV 10/30/16 12:30 11/11/16 18:29 11/01/16 08:02 4 MG Ipratropium [place] (Atrovent 0.02% 0.5MG/2.5ML Neb) 0.5 mg Q4R INH 10/31/16 00:00 11/28/16 20:59 11/01/16 07:11 0.5 MG Levalbuterol (Xopenex 1.25MG/ 0.5ML Neb) 1.25 mg Q4R INH 10/31/16 00:00 11/28/16 20:59 11/01/16 07:11 1.25 MG Morphine Sulfate/ Dextrose 250 ml @ 0 mls/hr Q0M PRN IV 11/01/16 09:45 11/15/16 09:44 11/01/16 10:11 4 MLS/HR Nitroglycerin (Nitroglycerin 2% Oint) 1 inch Q6H EXT 11/01/16 10:00 12/01/16 09:59 Lorazepam (Ativan Inj) 2 mg Q2H PRN IV 11/01/16 10:00 12/01/16 09:59 11/01/16 11:32 2 MG Scopolamine (Transderm-Scop Patch) 1.5 mg Q72H TD 11/01/16 10:30 12/01/16 10:29 11/01/16 10:58 1.5 MG Miscellaneous (Remove Transderm-Scop Patch) 1 ea Q3D@1029 N/A 11/04/16 10:29 12/04/16 10:28 Miscellaneous Information (Check Scopolamine Patch Placement) 1 ea QS N/A 11/01/16 16:00 12/01/16 15:59 Nitroglycerin (Nitro-Dur 0.2 Mg/Hr Patch) 1 patch QAM TD 11/02/16 09:00 12/02/16 08:59 11/01/16 10:59 1 PATCH Miscellaneous (Remove Nitro-Dur Patch) 1 ea DAILY@21 N/A 11/01/16 21:00 12/01/16 20:59 Lorazepam 2 mg/ Syringe 2 ml @ 1 mls/min Q2H PRN IV 11/01/16 10:15 12/01/16 10:14 (Kennedi Lundy, PAEdiliaC) Objective Vital Signs Date Time Temp Pulse Resp B/P (MAP) Pulse Ox O2 Delivery O2 Flow Rate FiO2 11/01/16 12:00 Nasal Cannula 4.0 11/01/16 09:05 102 22 98 Nasal Cannula 4.0 11/01/16 08:00 Nasal Cannula 4.0 11/01/16 07:19 36.8 84 16 177/98 (124) 100 Nasal Cannula 4.0 11/01/16 07:11 97 20 98 Nasal Cannula 4.0 11/01/16 04:00 Nasal Cannula 4.0 11/01/16 03:27 86 20 98 Nasal Cannula 4.0 11/01/16 03:07 36.9 88 22 147/83 (104) 99 Nasal Cannula 4.0 11/01/16 00:00 Nasal Cannula 4.0 10/31/16 23:55 36.7 100 24 128/87 (101) 99 Humidified Air 4.0 10/31/16 22:49 80 20 98 Nasal Cannula 4.0 10/31/16 20:25 36.9 91 22 156/62 (93) 98 Nasal Cannula 4.0 10/31/16 20:00 Nasal Cannula 4.0 10/31/16 19:25 95 22 98 Nasal Cannula 4.0 10/31/16 18:28 94 22 99 Nasal Cannula 4.0 10/31/16 16:52 36.8 91 22 165/91 (115) 100 Nasal Cannula 4.0 10/31/16 16:00 Nasal Cannula 4.0 10/31/16 14:44 87 20 97 Nasal Cannula 4.0 (Kennedi Lundy, PA-C) Physical Exam General Appearance: + moderate distress, + cachetic, + pertinent finding (O2 NC 4L) Eyes: PERRL Neck: supple Respiratory/Chest: + respiratory distress, + decreased breath sounds, + accessory muscle use, + pertinent finding (respiratory rattles; coarse breath sounds throughout all lung blount) Cardiovascular: + tachycardia, + irregularly irregular Abdomen: normal bowel sounds, soft, + distended Extremities: no pedal edema, no calf tenderness, + pertinent finding (noted ecchymosis to bilateral upper/lower extremities; noted wound to R anterior guillory - scabbed w/ no obvious drainage/erythema ) Neurologic/Psychiatric: + disoriented Skin: warm/dry, no rash (Kennedi Lundy ., PA-C) Laboratory Results Last 24 Hours Test 11/01/16 04:56 White Blood Count 6.59 K/uL Red Blood Count 2.91 M/uL Hemoglobin 8.0 g/dL Hematocrit 24.8 % Mean Corpuscular Volume 85.2 fL Mean Corpuscular Hemoglobin 27.5 pg Mean Corpuscular Hemoglobin Concent 32.3 g/dl RDW Standard Deviation 58.1 fL RDW Coefficient of Variation 18.5 % Platelet Count 122 K/uL Mean Platelet Volume 9.8 fL Activated Partial Thromboplast Time 51.6 SECONDS Partial Thromboplastin Ratio 2.0 Sodium Level 141 mmol/L Potassium Level 3.3 mmol/L Chloride Level 106 mmol/L Carbon Dioxide Level 30 mmol/L Anion Gap 5.0 mmol/L Blood Urea Nitrogen 27 mg/dl Creatinine 1.20 mg/dl Est Creatinine Clear Calc Drug Dose 48.2 ml/min Estimated GFR () 71.1 Estimated GFR (Non- 61.3 BUN/Creatinine Ratio 22.6 Random Glucose 135 mg/dl Calcium Level 7.5 mg/dl Magnesium Level 1.9 mg/dl (Kennedi Lundy, PA-C) Assessment and Plan 71-year-old male with acute on chronic respiratory failure acute systolic heart failure, aspiration pneumonia, acute pulmonary embolism atrial fibrillation at times with rapid ventricular response on amiodarone and heparin gtt Stage 4 lung cancer w/ brain metastasis- followed by Dr. Ritter & Dr. Salvador: - Family has decided on COMFORT MEASURES ONLY ON 11/01 -- Transfer patient to med/surg -- IV Morphine gtt, IV Ativan PRN, IV Haldol PRN, Nitro patch, scopolamine patch -- Discontinuation of medications -- Photo Mask Processor consulted Acute systolic heart failure w/ significantly reduced EF, pulmonary edema: Treated w/ 80 mg Lasix QAM A.fib w/ RVR: Treated w/ Amiodarone drip and Digoxin IV Acute PE: Treated w/ Heparin drip Acute on chronic respiratory failure, COPD, bronchitis: Treated w/ IV Solu- Medrol and nebulized albuterol and ipratropium Aspiration PNA: Treated w/ IV Cefepime, Vancomycin, and [facility] delirium: Treated w/ IV Haldol and Morphine PRN Chronic arthritic pain: Treated w/ IV Morphine PRN Hypomagnesemia, hypokalemia: Replaced PRN RLE wounds: Wound care consulted Depression: Treated w/ Remeron 15mg once daily at HS Code Status: LEVEL V, DNR Dispo: Comfort Measures Only- transfer to med/surg for palliative care (Kennedi Lundy ., PAEdiliaC) Attending Attestation: Pt seen/examined, chart reviewed, care plan d/w OTIS Lundy several times throughout the day today. I agree w/ the edgar components of her documentation. Called early this am by his nurse that the patient was in significant distress, agitated, restless. Multiple doses of haldol and morphine were given prior to my arrival. Upon arrival he was in distress with tachypnea, tachycardia, retractions, thrashing in bed, agitated, confused, c/o "I can't breath". During my first visit I gave additional dilaudid along with additional haldol with limited response. Lengthy discussion held with son at bedside - decision made to make him comfort care; morphine infusion ordered. During my 2nd visit his /daughter were now at bedside - all in agreement with comfort care measures. He appeared more comfortable on morphine drip 5mg/hr. Exam - gen - agitated, confused, resp distress present neck - JVD mouth - MM dry heart - tachy, irregular lungs - tachypnea, retractions, wheezes, rales bases abd - mildly distended, BS+ ext - no edema skin - ulcerations RLE During 2nd visit after morphine drip was started the resp distress was resolved During my 3rd visit (he was on 4 east) he was comatose, snoring, with no distress A/P: Acute/chronic respiratory failure with acute component 2nd to advancing lung ca , COPD exacerbation, pneumonia (aspiration), PEs, acute systolic CHF. Metabolic encephalopathy. A. fib. All medications stopped except for morphine drip, ativan, haldol, scopalamine patch. Cont cheney and NC O2. Full comfort care measures; d/c tele, tx to 4 eats. Between 3 separate visits today at least 70 minutes of direct patient care given including end of life discussions w/ /son/daughter. Sourav Polalck MD (Sourav Pollack MD)
[2016-11-01] MEDS ORDERED: VANCOMYCIN TROUGH ONE (13:30)
[2016-11-01] MEDS ORDERED: HYDROmorphone INJ 2 MG/ML SYR/VIAL IV STA (15:43)
[2016-11-01] MEDS: CHECK SCOPOLAMINE PATCH PLACEMENT SCH (16:49)
[2016-11-01] MEDS: BUDESONIDE/FORMOTEROL FUMARATE 160/4.5 60 PUFFS/INHALER INH SCH (20:10)
[2016-11-01] MEDS: TIOTROPIUM BROMIDE 5 PUFF/90 MCG INH INH SCH (20:10)
[2016-11-02] MEDS: CHECK SCOPOLAMINE PATCH PLACEMENT SCH ×4 (00:06→23:53)
--- NOTE | 2016-11-02 12:02 | Hospitalist Progress Note ---
Hospitalist Progress Note Date of Service Nov 02, 2016. (Kennedi Lundy ., [place]) Subjective Pt evaluation today including: conversation w/ patient, conversation w/ family (at bedside), physical exam Voiding: cheney catheter in place Family at bedside. Patient resting in bed comfortably, with no signs of acute distress. Family denies any questions/concerns, or needs at this time. 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 (Kennedi Lundy ., GERRYC) Medications Current Inpatient Medications Medications (Trade) Dose Ordered Sig/Isai Route Start Time Stop Time Status Last Admin Dose Admin Ondansetron HCl (Zofran Inj) 4 mg Q6H PRN IV 10/28/16 14:45 11/27/16 14:44 10/30/16 17:04 4 MG Nitroglycerin (Nitrostat Tab) 0.4 mg UD PRN UT 10/28/16 18:30 11/27/16 18:29 Ondansetron HCl (Zofran Tab) 8 mg Q6H PRN PO 10/28/16 18:30 11/27/16 18:29 10/28/16 21:07 8 MG Lorazepam (Ativan Inj) 1 mg Q4H PRN IV 10/29/16 14:15 11/28/16 14:14 11/01/16 01:56 1 MG Lorazepam (Ativan Inj) 0.5 mg Q4H PRN IV 10/29/16 14:15 11/28/16 14:14 10/30/16 00:48 0.5 MG Lorazepam (Ativan Tab) 0.5 mg Q6 PRN PO 10/29/16 14:15 11/28/16 14:14 10/31/16 16:56 0.5 MG Lorazepam 0.5 mg/ Syringe 1 ml @ 1 mls/min Q4H PRN IV 10/29/16 14:15 11/28/16 14:14 Lorazepam 1 mg/ Syringe 1 ml @ 1 mls/min Q4H PRN IV 10/29/16 14:15 11/28/16 14:14 Haloperidol Lactate (Haldol Inj) 2.5 mg Q4H PRN IV 10/30/16 07:30 11/29/16 07:29 11/01/16 10:37 2.5 MG Morphine Sulfate/ Dextrose 250 ml @ 0 mls/hr Q0M PRN IV 11/01/16 09:45 11/15/16 09:44 11/01/16 10:11 4 MLS/HR Lorazepam (Ativan Inj) 2 mg Q2H PRN IV 11/01/16 10:00 12/01/16 09:59 11/01/16 11:32 2 MG Scopolamine (Transderm-Scop Patch) 1.5 mg Q72H TD 11/01/16 10:30 12/01/16 10:29 11/01/16 10:58 1.5 MG Miscellaneous (Remove Transderm-Scop Patch) 1 ea Q3D@1029 N/A 11/04/16 10:29 12/04/16 10:28 Miscellaneous Information (Check Scopolamine Patch Placement) 1 ea QS N/A 11/01/16 16:00 12/01/16 15:59 11/02/16 07:44 1 EA Nitroglycerin (Nitro-Dur 0.2 Mg/Hr Patch) 1 patch QAM TD 11/02/16 08:00 12/02/16 08:59 11/01/16 10:59 1 PATCH Miscellaneous (Remove Nitro-Dur Patch) 1 ea DAILY@21 N/A 11/01/16 21:00 12/01/16 20:59 11/01/16 21:00 1 EA Lorazepam 2 mg/ Syringe 2 ml @ 1 mls/min Q2H PRN IV 11/01/16 10:15 12/01/16 10:14 (Kennedi Lundy, OTIS-C) Objective Vital Signs Date Time Temp Pulse Resp B/P (MAP) Pulse Ox O2 Delivery O2 Flow Rate FiO2 11/02/16 08:00 Nasal Cannula 4.0 11/02/16 00:01 Nasal Cannula 4.0 11/01/16 20:00 Nasal Cannula 4.0 11/01/16 16:00 98 Nasal Cannula 4.0 11/01/16 15:51 81 20 95 Nasal Cannula 4.0 11/01/16 13:00 98 Nasal Cannula 4.0 11/01/16 12:57 36.8 102 22 98 4.0 11/01/16 12:00 Nasal Cannula 4.0 (Kennedi Lundy, PA-C) Physical Exam General Appearance: no apparent distress, + pertinent finding (4L O2 NC) Neck: supple Respiratory/Chest: no respiratory distress, no accessory muscle use Cardiovascular: + tachycardia, + irregularly irregular Abdomen: normal bowel sounds, soft Extremities: no pedal edema Neurologic/Psychiatric: + disoriented Skin: warm/dry, no rash (Kennedi Lundy, PA-C) Assessment and Plan 71-year-old male with acute on chronic respiratory failure acute systolic heart failure, aspiration pneumonia, acute pulmonary embolism atrial fibrillation at times with rapid ventricular response on amiodarone and heparin gtt Stage 4 lung cancer w/ brain metastasis- followed by Dr. Ritter & Dr. Salvador: - Family has decided on COMFORT MEASURES ONLY ON 11/01 -- Transfer patient to med/surg on 11/01 -- IV Morphine gtt, IV Ativan PRN, IV Haldol PRN, Nitro patch, scopolamine patch -- Discontinuation of medications -- Workplace Relations Adviser consulted Acute systolic heart failure w/ significantly reduced EF, pulmonary edema: Treated w/ 80 mg Lasix QAM A.fib w/ RVR: Treated w/ Amiodarone drip and Digoxin IV Acute PE: Treated w/ Heparin drip Acute on chronic respiratory failure, COPD, bronchitis: Treated w/ IV Solu- Medrol and nebulized albuterol and ipratropium Aspiration PNA: Treated w/ IV Cefepime, Vancomycin, and [facility] delirium: Treated w/ IV Haldol and Morphine PRN Chronic arthritic pain: Treated w/ IV Morphine PRN Hypomagnesemia, hypokalemia: Replaced PRN RLE wounds: Wound care consulted Depression: Treated w/ Remeron 15mg once daily at HS Code Status: LEVEL V, DNR Dispo: Comfort Measures Only (Kennedi Lundy, PA-C) Attending Attestation: Pt seen/examined, chart reviewed, care plan d/w OTIS Lundy. I agree w/ the edgar components of her documentation. Pt obtunded. Numerous family at bedside. Was shifting in bed throughout my visit but was asleep/snoring. gen - obtunded, comfortable although occasionally shifting in bed heart - irregular, tachy lungs - wheezes/rhonchi and course BS b/l A/P: 71yo male with stage 4 lung ca, PEs, a. fib, +/- pneumonia, acute systolic CHF, and acute resp failure - now on comfort measures. Cont morphine drip and other palliative measures. Family given support. Care plan reviewed. Ernesto POLLACK MD (Sourav Pollack MD)
[2016-11-03] MEDS: MoRPHine SULF/NSS 250MG/250ML 250 ML IV PRN (02:03)
[2016-11-03] MEDS: CHECK SCOPOLAMINE PATCH PLACEMENT SCH ×2 (07:29→16:12)
[2016-11-03] MEDS: NITROGLYCERIN 0.2 MG/HR PATCH TD SCH (07:30)
--- NOTE | 2016-11-03 12:20 | Hospitalist Progress Note ---
Hospitalist Progress Note Date of Service Nov 03, 2016. 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 No signs of acute distress. Spoke w/ at bedside- accepting of situation and states, "this is what he would have wanted." All questions/concerns and needs addressed. ROS cannot be obtained due to MOP MACHINE OPERATOR status/ (Kennedi Lundy ., PA-C) Medications Current Inpatient Medications Medications (Trade) Dose Ordered Sig/Isai Route Start Time Stop Time Status Last Admin Dose Admin Ondansetron HCl (Zofran Inj) 4 mg Q6H PRN IV 10/28/16 14:45 11/27/16 14:44 10/30/16 17:04 4 MG Nitroglycerin (Nitrostat Tab) 0.4 mg UD PRN UT 10/28/16 18:30 11/27/16 18:29 Ondansetron HCl (Zofran Tab) 8 mg Q6H PRN PO 10/28/16 18:30 11/27/16 18:29 10/28/16 21:07 8 MG Lorazepam (Ativan Inj) 1 mg Q4H PRN IV 10/29/16 14:15 11/28/16 14:14 11/01/16 01:56 1 MG Lorazepam (Ativan Inj) 0.5 mg Q4H PRN IV 10/29/16 14:15 11/28/16 14:14 10/30/16 00:48 0.5 MG Lorazepam (Ativan Tab) 0.5 mg Q6 PRN PO 10/29/16 14:15 11/28/16 14:14 10/31/16 16:56 0.5 MG Lorazepam 0.5 mg/ Syringe 1 ml @ 1 mls/min Q4H PRN IV 10/29/16 14:15 11/28/16 14:14 Lorazepam 1 mg/ Syringe 1 ml @ 1 mls/min Q4H PRN IV 10/29/16 14:15 11/28/16 14:14 Haloperidol Lactate (Haldol Inj) 2.5 mg Q4H PRN IV 10/30/16 07:30 11/29/16 07:29 11/01/16 10:37 2.5 MG Morphine Sulfate/ Dextrose 250 ml @ 0 mls/hr Q0M PRN IV 11/01/16 09:45 11/15/16 09:44 11/03/16 02:03 7 MLS/HR Lorazepam (Ativan Inj) 2 mg Q2H PRN IV 11/01/16 10:00 12/01/16 09:59 11/01/16 11:32 2 MG Scopolamine (Transderm-Scop Patch) 1.5 mg Q72H TD 11/01/16 10:30 12/01/16 10:29 11/01/16 10:58 1.5 MG Miscellaneous (Remove Transderm-Scop Patch) 1 ea Q3D@1029 N/A 11/04/16 10:29 12/04/16 10:28 Miscellaneous Information (Check Scopolamine Patch Placement) 1 ea QS N/A 11/01/16 16:00 12/01/16 15:59 11/03/16 07:29 1 EA Nitroglycerin (Nitro-Dur 0.2 Mg/Hr Patch) 1 patch QAM TD 11/02/16 08:00 12/02/16 08:59 11/01/16 10:59 1 PATCH Miscellaneous (Remove Nitro-Dur Patch) 1 ea DAILY@21 N/A 11/01/16 21:00 12/01/16 20:59 11/01/16 21:00 1 EA Lorazepam 2 mg/ Syringe 2 ml @ 1 mls/min Q2H PRN IV 11/01/16 10:15 12/01/16 10:14 11/02/16 19:32 1 MLS/MIN (Kennedi Lundy ., PA-C) Objective Vital Signs Date Time Temp Pulse Resp B/P (MAP) Pulse Ox O2 Delivery O2 Flow Rate FiO2 11/03/16 08:00 Nasal Cannula 4.0 11/03/16 00:00 Nasal Cannula 2.0 11/02/16 16:00 Nasal Cannula 2.0 (Kennedi Lundy, PA-C) Physical Exam General Appearance: no apparent distress, + pertinent finding (O2 NC ) Neck: supple Respiratory/Chest: no respiratory distress, no accessory muscle use Cardiovascular: + irregularly irregular Abdomen: soft, + abnormal bowel sounds (hypoactive ) Extremities: no pedal edema Neurologic/Psychiatric: + pertinent finding (obtunded ) Skin: normal color, warm/dry, no rash (Kennedi Lundy PA-C) Assessment and Plan 71-year-old male with acute on chronic respiratory failure acute systolic heart failure, aspiration pneumonia, acute pulmonary embolism atrial fibrillation at times with rapid ventricular response on amiodarone and heparin gtt Stage 4 lung cancer w/ brain metastasis- followed by Dr. Ritter & Dr. Salvador: - Family has decided on COMFORT MEASURES ONLY ON 11/01 -- Transfer patient to med/surg on 11/01 -- IV Morphine gtt, IV Ativan PRN, IV Haldol PRN, Nitro patch, scopolamine patch -- Discontinuation of medications -- Hand Marker consulted Acute systolic heart failure w/ significantly reduced EF, pulmonary edema: Treated w/ 80 mg Lasix QAM A.fib w/ RVR: Treated w/ Amiodarone drip and Digoxin IV Acute PE: Treated w/ Heparin drip Acute on chronic respiratory failure, COPD, bronchitis: Treated w/ IV Solu- Medrol and nebulized albuterol and ipratropium Aspiration PNA: [facility]/ [facility]ated w/ IV Haldol and Morphine PRN Chronic arthritic pain: Treated w/ IV Morphine PRN Hypomagnesemia, hypokalemia: Replaced PRN RLE wounds: Wound care consulted Depression: Treated w/ Remeron 15mg once daily at HS Code Status: LEVEL V, DNR Dispo: Comfort Measures Only (Kennedi Lundy PA-C) Attending Attestation: Pt seen/examined, chart reviewed, care plan d/w OTIS Lundy. I agree w/ her documentation as outlined. Overnight - had episode of agitation requiring IV ativan. Has been sleeping since then. Morphine at 7mg/hr continuously. Numerous family at bedside. exam - gen - obtunded, tachypneic heart - irregular lungs - poor airation left chest with extensive wheezing b/l and course BS abd - soft ext - cool ext's A/P: Comfort measures for this 71yo male with acute hypoxic resp failure 2nd to PEs, acute systolic CHF, COPD exacerbation, advancing lung ca, probable pneumonia. Cont morphine drip, other palliative care measures. Support given to family. Anticipate passing soon. Sourav Pollack MD (Sourav Pollack MD)
--- NOTE | 2016-11-08 08:55 | Death Summary ---
Summary of Admission Date Oct 28, 2016 at 16:29 Date & Time of Nov 03, 2016. 2039 Cause of acute hypoxic respiratory failure - multifactorial Secondary Diagnoses 1. acute systolic CHF 2. Pulmonary emboli 3. stage 4 lung cancer 4. COPD with exacerbation 5. atrial fibrillation 6. b/l pneumonia - gram negative etiology not excluded 7. metabolic encephalopathy 8. acute kidney injury 9. anemia 10. +troponin - likely 2nd to myocardial demand ischemia 11. acute/chronic hypoxic respiratory failure 12. depression 13. hypokalemia 14. hypomagnesemia 15. CAD Hospital Course HISTORY OF PRESENT ILLNESS: 71-year-old male with advancing stage 4 lung cancer and COPD. He recently was hospitalized twice in the last 2 weeks - first for colitis, and then secondly for acute/chronic respiratory failure with the latter due to acute bronchitis/ COPD exacerbation. He was discharge to home on tapering steroids and doxycycline. He did well after returning home for about 24 hours. However, on the day of presentation, he awoke with worsening dyspnea and thus came back to the hospital. Upon presentation he was found to have a mildly elevated troponin and a CT scan of his chest showed pulmonary emboli in the right lung as well as possible bilateral pneumonia. HOSPITAL COURSE: The patient was treated for his acute PEs with heparin infusion, his pneumonia with IV antibiotics, and his COPD exacerbation with IV steroids. Late in the evening on hospital day #1 he developed new-onset a. fib with RVR. In that setting he also developed acute CHF. Echo ultimately showed EF of 20-25 %. He was begun on IV diuretics. His stay was complicated by severe metabolic encephalopathy and significant pain /agitation. On the AM of 11/01/16 the patient developed severe respiratory distress despite steroids, diuretics, heparin, and antibiotics. He was also in severe pain and was quite agitated. A decision at that time was made to discontinue current therapies and transition to a palliative care pathway/comfort care measures. He was subsequently placed on a morphine infusion and other comfort measures. On the evening of 11/03/16 the patient passed peacefully in the presence of family. Copy To Violetta Kimbrough M.D.; Rik Ritter MD
== END 2016-11-03 20:40 | disposition expired | DRG 175 ==
LOC: EDBD 13:46 → C.EDC 13:49 → C.2T 16:29 → ENRESERV 16:41 → C.4E 11-01 13:00 → UNDODISIN 11-04 02:07
PROVIDERS: ADMIT Internal Medicine; ATTEND Internal Medicine
DX: I26.99 Other pulmonary embolism without acute cor pulmonale (principal); J96.21 Acute and chronic respiratory failure with hypoxia; C79.31 Secondary malignant neoplasm of brain; I50.21 Acute systolic (congestive) heart failure; Z51.5 Encounter for palliative care; C34.92 Malignant neoplasm of unspecified part of left bronchus or lung; J69.0 Pneumonitis due to inhalation of food and vomit; N17.9 Acute kidney failure, unspecified; I24.8 Other forms of acute ischemic heart disease; F05 Delirium due to known physiological condition; C78.00 Secondary malignant neoplasm of unspecified lung; I48.0 Paroxysmal atrial fibrillation; Z85.828 Personal history of other malignant neoplasm of skin; I25.10 Atherosclerotic heart disease of native coronary artery without angina pectoris; I11.0 Hypertensive heart disease with heart failure; Z90.2 Acquired absence of lung [part of]; Z87.891 Personal history of nicotine dependence; E78.5 Hyperlipidemia, unspecified; I25.2 Old myocardial infarction; Z95.5 Presence of coronary angioplasty implant and graft; S81.801A Unspecified open wound, right lower leg, initial encounter; S81.802A Unspecified open wound, left lower leg, initial encounter; Z82.49 Family history of ischemic heart disease and other diseases of the circulatory system; Z82.41 Family history of sudden cardiac death; D64.9 Anemia, unspecified; E87.6 Hypokalemia; F32.9 Major depressive disorder, single episode, unspecified; E83.42 Hypomagnesemia; R60.0 Localized edema; X58.XXXA Exposure to other specified factors, initial encounter; Y92.019 Unspecified place in single-family (private) house as the place of occurrence of the external cause